=== PATIENT | male | born 1955 | race American Indian/Alaskan Native ===

== ENCOUNTER 2020-07-17 08:44 | Inpatient (IN) | payer MEDICARE ==
[2020-07-17] MEDS ORDERED: ETOMIDATE 20 MG/10 ML INJ IV ONE (08:53)
[2020-07-17] MEDS ORDERED: SUCCINYLCHOLINE CHLORIDE 200 MG/10 ML INJ MDV ONE (08:53)
[2020-07-17] MEDS ORDERED: SUCCINYLCHOLINE CHLORIDE 200 MG/10 ML INJ MDV IV ONE (09:08)
--- NOTE | 2020-07-17 09:08 | Emergency Department Report ---
ED Shortness of Breath HPI - General Chief Complaint: Dyspnea/Respdistress Stated Complaint: UNRESPONSIVE/HIGH BP Time Seen by Provider: 07/17/20 09:02 Source: EMS Mode of arrival: Stretcher Limitations: Altered Mental Status, Other - History of Present Illness Initial Comments: 64-year-old male, history of hypertension, chronic kidney disease, presents to ED with shortness of breath. Per EMS they were called because patient had complaints of difficulty breathing. On arrival, patient had O2 sats in the 60s. Patient was awake and alert stating that he could not breathe. EMS reported patient was very diaphoretic, hypertensive. Patient was not very tachypneic, although he did have wheezing present. En route, patient became unresponsive. Upon ED arrival patient is currently unresponsive with medic assisted ventilations with bagging. Decision made to intubate the patient. EMS reports patient has a history of chronic kidney disease but was told on yesterday by his branch customer service representative that he needs to start dialysis. MD Complaint: shortness of breath -: unknown Consistency: constant Known History Of: other (ESRD) Treatments Prior to Arrival: oxygen - Related Data Previous Rx's Medication Instructions Recorded Last Taken Type HYDROcodone/APAP 10-325 [[place] 1 each PO Q6HR PRN #30 tablet 06/15/13 Unknown Rx 10-325 mg TAB] Probenecid/Colchicine 1 each PO DAILY #20 tablet 06/15/13 Unknown Rx [Probenecid-Colchicine Tab] cloNIDine [Catapres] 0.2 mg PO Q12H #60 tablet 06/15/13 Unknown Rx Cyclobenzaprine [Flexeril] 10 mg PO TID PRN #20 tablet 02/02/16 Unknown Rx Ketorolac [Toradol] 10 mg PO Q6H PRN #30 tablet 02/02/16 Unknown Rx Allergies Allergy/AdvReac Type Severity Reaction Status Date / Time methadone Allergy Unknown Verified 07/17/20 09:00 tramadol Allergy Swelling Verified 07/17/20 09:00 ED Review of Systems ROS: Stated complaint: UNRESPONSIVE/HIGH BP Other details as noted in HPI Comment: Unobtainable due to pts medical conditions Respiratory: shortness of breath ED Past Medical Hx - Past Medical History Hx Hypertension: Yes Hx Congestive Heart Failure: Yes Additional medical history: Renal Failure. Gout - Surgical History Additional Surgical History: Rt. Wrist Surgery - Social History Smoking Status: Former Smoker Substance Use Type: Alcohol, Prescribed, Other - Medications Home Medications: Home Medications Medication Instructions Recorded Confirmed Last Taken Type HYDROcodone/APAP 10-325 [[place] 1 each PO Q6HR PRN #30 tablet 06/15/13 Unknown Rx 10-325 mg TAB] Probenecid/Colchicine 1 each PO DAILY #20 tablet 06/15/13 Unknown Rx [Probenecid-Colchicine Tab] cloNIDine [Catapres] 0.2 mg PO Q12H #60 tablet 06/15/13 Unknown Rx Cyclobenzaprine [Flexeril] 10 mg PO TID PRN #20 tablet 02/02/16 Unknown Rx Ketorolac [Toradol] 10 mg PO Q6H PRN #30 tablet 02/02/16 Unknown Rx ED Physical Exam - General Limitations: Other General appearance: obtunded - Head Head exam: Present: atraumatic, normocephalic - Eye Eye exam: Present: normal appearance - ENT ENT exam: Present: mucous membranes moist - Neck Neck exam: Present: normal inspection - Respiratory Respiratory exam: Present: wheezes - Cardiovascular Cardiovascular Exam: Present: regular rate, normal rhythm - GI/Abdominal GI/Abdominal exam: Present: soft. Absent: distended - Extremities Exam Extremities exam: Present: normal inspection - Neurological Exam Neurological exam: Present: altered - Skin Skin exam: Present: warm, dry, intact, normal color ED Course Vital Signs 07/17/20 07/17/20 07/17/20 08:54 09:00 09:16 Temperature 98.4 F Pulse Rate 74 113 H Respiratory 25 H Rate Blood Pressure 144/89 159/118 O2 Sat by Pulse 95 96 93 Oximetry 07/17/20 07/17/20 07/17/20 09:17 09:30 09:45 Temperature Pulse Rate 80 76 Respiratory 20 19 Rate Blood Pressure 161/123 96/63 O2 Sat by Pulse 95 99 99 Oximetry 07/17/20 07/17/20 07/17/20 10:01 10:15 10:31 Temperature Pulse Rate 77 74 73 Respiratory 19 14 18 Rate Blood Pressure 102/68 110/71 105/69 O2 Sat by Pulse 100 99 90 Oximetry 07/17/20 07/17/20 07/17/20 10:57 11:01 11:31 Temperature Pulse Rate 59 L 60 55 L Respiratory 16 18 18 Rate Blood Pressure 105/69 95/62 89/58 O2 Sat by Pulse 100 99 96 Oximetry 07/17/20 07/17/20 07/17/20 11:45 12:01 12:15 Temperature Pulse Rate 55 L 52 L 53 L Respiratory 18 18 18 Rate Blood Pressure 95/62 99/65 98/64 O2 Sat by Pulse 97 99 98 Oximetry 07/17/20 07/17/20 07/17/20 12:31 12:45 13:01 Temperature Pulse Rate 55 L 53 L 54 L Respiratory 18 18 18 Rate Blood Pressure 104/66 104/66 128/80 O2 Sat by Pulse 100 100 100 Oximetry 07/17/20 13:15 Temperature Pulse Rate 54 L Respiratory 18 Rate Blood Pressure 139/84 O2 Sat by Pulse Oximetry - Reevaluation(s) Reevaluation #1: 07/17/20 09:36 Pt not well sedated w/ max propofol. Will switch to fentanyl/ versed. 07/17/20 09:36 Reevaluation #2: 07/17/20 09:52 ET Tube advanced 2 cm after viewing CXR - Consultations Consultation #1: 07/17/20 12:18 Spoke to branch customer service representative, Dr. Gregg, will consult on patient. - Intubation Time Out Performed: Yes Sedative: none Paralytic: Succinylcholine Mg Given: 150 Laryngoscope: fiberoptic video scope Size: 4 ET Tube Size: 8 Tube Secured Depth (cm): 24 Tube Secured Location: teeth Tube Placement Confirmation: visualized tube passing t, equal breath sounds bilat, no breath sounds over epi, confirmation by capnometr Patient Tolerated Procedure: well Intubation Complications: none ED Medical Decision Making - Lab Data Result diagrams: 07/17/20 09:31 07/17/20 09:31 - EKG Data -: EKG Interpreted by Hi EKG shows normal: axis Rate: tachycardia (rate 102) - EKG Data Interpretation: other (PVCs present, RBBB, IVCD) - Radiology Data Radiology results: report reviewed, image reviewed - Medical Decision Making 64-year-old male, diagnosed yesterday with end-stage renal disease, presents to ED unresponsive, with difficulty breathing. EMS reports initial O2 sats were in the 70s upon their arrival. They arrived to ED bagging the patient. Decision was made to intubate. CT chest shows groundglass opacities, concerning for infectious process. Small bilateral pleural effusions also present. There is also evidence of a thoracic aortic aneurysm. Patient required sedation following intubation. Propofol was not adequate, so patient was switched to fentanyl and Versed. Blood pressure was initially hypertensive. Sedation medications have affected his blood pressure, causing some hypotension, however that seemed to resolve for now. Labs show WBCs of 11.6, BUN and creatinine of 55 and 5.5, potassium of 5.0. Troponin 0.03 with BNP of 14,000. Covid PCR test has been sent off. Blood cultures drawn, patient given cefepime empirically. Patient will be admitted by hospitalist, Dr. Bartholomew, for further management. Critical Care Time: Yes Critical care time in (mins) excluding proc time.: 35 Critical care attestation.: If time is entered above; I have spent that time in minutes in the direct care of this critically ill patient, excluding procedure time. Critical Care Time: 35 min ED Disposition Clinical Impression: Chronic kidney disease, Acute respiratory failure with hypoxia, Pneumonia, Pleural effusion, Volume overload Disposition: 09 OP ADMIT IP TO THIS HOSP Is pt being admited?: Yes Condition: Stable Time of Disposition: 12:02
[2020-07-17] MEDS ORDERED: fentaNYL 100 MCG/2 ML INJ IV PRN (09:34)
[2020-07-17] MEDS ORDERED: MIDAZOLAM 2 MG/2 ML INJ IV PRN (09:34)
--- NOTE | 2020-07-17 09:42 | XRay Report ---
CHEST 1 VIEW INDICATION: SOB, post-intubation. COMPARISON: None FINDINGS: Support devices: An endotracheal tube has been inserted which terminates 5.7 cm superior to the pee a. Heart: Mild cardiomegaly is suspected. Lungs/Pleura: Mild pulmonary venous congestion is suspected. Subtle patchy airspace opacities are als o suggested. No consolidation, large pleural effusion or pneumothorax. Additional findings: None. IMPRESSION: The endotracheal tube terminates 5.7 cm superior to the duy. Optimal is 4 cm. Mild cardiomegaly and pulmonary venous congestion. Question subtle bilateral airspace opacities. This could indicate viral infection. Please correlate w ith the patient's presentation. Signer Name: Josh Condon Jr, MD Signed: 07/17/2020 9:37 AM Workstation Name: [id number]
[2020-07-17 09:54] LABS: Basophils % (Auto) 0.4 % (0.0-1.8); Eosinophils # (Auto) 0.1 K/mm3 (0.0-0.4); Eosinophils % (Auto) 0.8 % (0.0-4.3); Hematocrit 35.4 % (35.5-45.6); Hemoglobin 11.2 gm/dl (11.8-15.2); Lymphocytes # (Auto) 0.8 K/mm3 (1.2-5.4); Mean Corpuscular HGB Conc 32 % (32-34); Mean Corpuscular Volume 93 fl (84-94); Monocytes # (Auto) 0.6 K/mm3 (0.0-0.8); Monocytes % (Auto) 4.8 % (0.0-7.3); Platelet Count 260 K/mm3 (140-440); Red Blood Count 3.83 M/mm3 (3.65-5.03); Red Cell Distribution Width 13.9 % (13.2-15.2)
[2020-07-17] MEDS ORDERED: propofoL 200 MG/20 ML VIAL IV ONE ×2 (10:00→10:45)
[2020-07-17 10:01] LABS: ABG Base Excess -5.9 mmol/L (-2.0-3.0); ABG Methemoglobin 0.5 % (0.0-1.5); ABG Oxygen Saturation 97.2 % (95.0-99.0); ABG PCO2 54.6 mm Hg; ABG PH 7.223 pH Units (7.350-7.450); ABG PO2 108.9 mm Hg (80.0-90.0)
[2020-07-17 10:07] LABS: INR 1.13 (0.87-1.13); Partial Thromboplastin Time 25.3 Sec. (24.2-36.6)
[2020-07-17] MEDS: fentaNYL DRIP Premix 2,000 MCG/100 ML BAG IV SCH ×2 (10:18→17:41)
[2020-07-17 10:23] LABS: Bilirubin,Direct 0.3 mg/dL (0-0.2); Calcium 9.1 mg/dL (8.4-10.2)
[2020-07-17] MEDS ORDERED: SODIUM CHLORIDE 0.9% 1000 ML 1,000 ML ONE (10:27)
[2020-07-17] MEDS ORDERED: SODIUM CHLORIDE 0.9% 1000 ML 1,000 ML IV ONE (10:30)
[2020-07-17] MEDS ORDERED: MIDAZOLAM 100 MG in SODIUM CHLORIDE 0.9% 80 ML IV SCH (10:30)
[2020-07-17 11:07] LABS: Chol/HDL Ratio 4.93 %
--- NOTE | 2020-07-17 11:11 | Cat Scan Report ---
CT HEAD WITHOUT CONTRAST INDICATION / CLINICAL INFORMATION: AMS. TECHNIQUE: All CT scans at this location are performed using CT dose reduction for ALARA by means of automated e xposure control. COMPARISON: None available. FINDINGS: HEMORRHAGE: None. EXTRA-AXIAL SPACES: Normal in size and morphology for the patient's age. VENTRICULAR SYSTEM: Normal in size and morphology for the patient's age. CEREBRAL PARENCHYMA: Chronic appearing microvascular changes in the periventricular subcortical white matter, right minimally worse than left. No large territory acute ischemic infarction. Age-related p arenchymal atrophy is noted. MIDLINE SHIFT OR HERNIATION: None. CEREBELLUM / BRAINSTEM: No significant abnormality. ORBITS: Normal as visualized. SOFT TISSUES of HEAD: No significant abnormality. CALVARIUM: No significant abnormality. PARANASAL SINUSES / MASTOID AIR CELLS: Normal as visualized. ADDITIONAL FINDINGS: None. IMPRESSION: 1. No acute intracranial abnormality. Specifically, no evidence of intracranial hemorrhage or large t erritory acute ischemic changes. 2. Age-related parenchymal atrophy and chronic microvascular changes as described above. Signer Name: Sky Sommer MD Signed: 07/17/2020 11:07 AM Workstation Name: [id number]
--- NOTE | 2020-07-17 11:26 | Cat Scan Report ---
CT CHEST WITHOUT CONTRAST INDICATION / CLINICAL INFORMATION: sob. TECHNIQUE: Axial CT images were obtained through the chest without contrast. All CT scans at this location are p erformed using CT dose reduction for ALARA by means of automated exposure control. COMPARISON: Chest radio graph 07/17/2020. FINDINGS: HEART: Coronary artery calcifications are noted. THORACIC AORTA: Aneurysmal dilatation of the ascending thoracic aorta, greatest cross-sectional measu rement 5.1 cm. Additionally there is aneurysmal dilatation of the descending thoracic aorta measuring 4.4 cm. Moderate calcified plaques are noted. MEDIASTINUM and SANTI: Shotty scattered lymph nodes are noted. None of which are enlarged according to CT size criteria. LUNGS: Groundglass opacities are noted in the bibasilar region. Additionally there is compressive ate lectasis of the bilateral lower lobes. PLEURA: Small bilateral pleural effusions. No pneumothorax. ADDITIONAL FINDINGS: NG tube is noted with its tip in the gastric body. ET tube is noted with its tip approximately 4.3 cm above the level of the duy. UPPER ABDOMEN: Complex appearing possibly solid left upper pole renal mass measures 4.7 cm. Multiple simple cysts are noted of the right kidney. Hyperdense cyst noted of the left parenchyma measures 1 c m. SKELETAL SYSTEM: Mild multilevel degenerative changes. No aggressive osseous lesions. IMPRESSION: 1. Groundglass opacities in the bibasilar region concerning for infectious process. 2. Small bilateral pleural effusions (likely parapneumonic) and associated compressive atelectasis. 3. Thoracic aortic aneurysm involving the ascending and descending thoracic aorta as described above. CTA for better characterization is recommended. 4. 4.7 cm left upper pole solid renal lesion, concerning for malignancy. Dedicated multiphase CT (josue al mass protocol) is recommended for better evaluation. Signer Name: Sky Sommer MD Signed: 07/17/2020 11:21 AM Workstation Name: [id number]
[2020-07-17] MEDS ORDERED: CEFEPIME/NS 2 GM/100 ML 2 GM/100 ML BAG IV ONE (11:30)
[2020-07-17 12:20] LABS: Benzodiazepines Screen,Urine Negative; Cannabinoid Screen,Urine Negative; Cocaine Screen,Urine Negative; Methadone Screen,Urine Negative; Opiate Screen,Urine Negative
--- NOTE | 2020-07-17 12:21 | History and Physical Report ---
History of Present Illness History of present illness: 64 YO Male with HTN, ESRD, Gout, CHF presents to ED for evaluation. Patient is intubated and on ventilatory support at the time my evaluation and is unable to provide history. Patient history taken from EMS staff, ED staff, as well as the patient's Mrs Santa Dodge who was made available by telephone for interview. As per patient's the patient has experienced progressive weak ness over the past 2 months with worsening symptoms over the last 1 week. Patient was found to have orthopnea, paroxysmal nocturnal dyspnea, decreased exercise tolerance, dyspnea on exertion, as well as dyspnea at rest. Patient reports leaving patient at home while she went to work today. She was subsequently notified by the patient's brother who notified EMS due to patient reporting shortness of breath. EMS was notified and upon arrival the patient was found to be in distress with a pulse oximetry of 60% on room air. The patient was placed on supplemental oxygen and transported to [facility] for further care and evaluation of the aforementioned symptoms. The patient was seen and evaluated in the emergency department. All lab and imaging studies reviewed. Patient found to be unable to protect his airway and was subsequently intubated and placed on ventilatory support. Patient also found to have end-stage renal disease in need of urgent dialysis, CHF decompensation. Patient admitted to ICU. Critical care team consulted in ED. Nephrology team consulted in ED. Advanced care planning conducted in ED. No prior admission for review. All medication listed at time of admission has been reconciled. Past History Past Medical History: ESRD, heart failure, hypertension, other (See HPI) Past Surgical History: Other (Wrist surgery) Social history: , lives with family. denies: smoking, alcohol abuse, prescription drug abuse Family history: diabetes, hypertension Medications and Allergies Allergies Allergy/AdvReac Type Severity Reaction Status Date / Time methadone Allergy Unknown Verified 07/17/20 09:00 tramadol Allergy Swelling Verified 07/17/20 09:00 Home Medications Medication Instructions Recorded Confirmed Last Taken Type HYDROcodone/APAP 10-325 [[place] 1 each PO Q6HR PRN #30 tablet 06/15/13 Unknown Rx 10-325 mg TAB] Probenecid/Colchicine 1 each PO DAILY #20 tablet 06/15/13 Unknown Rx [Probenecid-Colchicine Tab] cloNIDine [Catapres] 0.2 mg PO Q12H #60 tablet 06/15/13 Unknown Rx Cyclobenzaprine [Flexeril] 10 mg PO TID PRN #20 tablet 02/02/16 Unknown Rx Ketorolac [Toradol] 10 mg PO Q6H PRN #30 tablet 02/02/16 Unknown Rx Active Meds: Active Medications Fentanyl (Fentanyl 100 Mcg/2 Ml Inj) 50 mcg IV Q10MIN PRN PRN Reason: ANALGESIA Propofol (Diprivan 10 Mg/Ml) 1,000 mg in 100 mls @ 2.808 mls/hr IV TITR ALIX; Protocol Last Titration: 07/17/20 11:00 Dose: 0 mcg/kg/min, 0 mls/hr Documented by: Fentanyl Citrate (Fentanyl Drip Premix) 2,000 mcg in 100 mls @ 4.68 mls/hr IV TITR ALIX; Protocol Last Admin: 07/17/20 10:18 Dose: 1 mcg/kg/hr, 4.68 mls/hr Documented by: Midazolam HCl 100 mg/ Sodium (Chloride) 100 mls @ 2 mls/hr IV TITR ALIX; Protocol Last Admin: 07/17/20 10:18 Dose: 2 mg/hr, 2 mls/hr Documented by: Midazolam HCl (Midazolam 2 Mg/2 Ml Inj) 2 mg IV Q10MIN PRN PRN Reason: Sedation Review of Systems ROS unobtainable: due to endotracheal tube, due to mental status Exam - Constitutional Vitals: Temp Pulse Resp BP Pulse Ox 98.4 F 55 L 18 89/58 96 07/17/20 09:00 07/17/20 11:31 07/17/20 11:31 07/17/20 11:31 07/17/20 11:31 General appearance: Present: mild distress - EENT Eyes: Present: miosis ENT: hearing intact, clear oral mucosa - Neck Neck: Present: supple, normal ROM - Respiratory Respiratory effort: labored Respiratory: bilateral: diminished, rhonchi - Cardiovascular Heart Sounds: Present: S1 & S2. Absent: rub, click - Extremities Extremities: pulses symmetrical, No edema Peripheral Pulses: within normal limits - Abdominal General gastrointestinal: Present: soft, non-tender, non-distended, normal bowel sounds Male genitourinary: Present: normal - Integumentary Integumentary: Present: clear, dry - Musculoskeletal Musculoskeletal: generalized weakness - Psychiatric Psychiatric: no appropriate mood/affect, no intact judgment & insight, no memory intact - Neurologic Neurologic: CNII-XII intact, no focal deficits, moves all extremities, no gait normal HEART Score - HEART Score Troponin: Troponin T 0.030 ng/mL (0.00-0.029) H 07/17/20 09:31 Results - Labs CBC & Chem 7: 07/17/20 09:31 07/17/20 13:11 Labs: Abnormal lab results 07/17/20 07/17/20 07/17/20 Range/Units 09:31 09:31 09:31 WBC 11.6 H (4.5-11.0) K/mm3 Hgb 11.2 L (11.8-15.2) gm/dl Hct 35.4 L (35.5-45.6) % Lymph % (Auto) 7.0 L (13.4-35.0) % Lymph # (Auto) 0.8 L (1.2-5.4) K/mm3 Seg Neutrophils % 87.0 H (40.0-70.0) % Seg Neutrophils # 10.1 H (1.8-7.7) K/mm3 PT 15.0 H (12.2-14.9) Sec. ABG pH (7.350-7.450) pH Units ABG pO2 (80.0-90.0) mm Hg ABG Base Excess (-2.0-3.0) mmol/L ABG Hemoglobin (14.0-18.0) gm/dl BUN 55 H (9-20) mg/dL Creatinine 5.5 H (0.8-1.3) mg/dL Glucose 177 H (75-100) mg/dL Direct Bilirubin 0.3 H (0-0.2) mg/dL AST 99 H (5-40) units/L ALT 82 H (7-56) units/L Troponin T 0.030 H (0.00-0.029) ng/mL NT-Pro-B Natriuret Pep 28767 H (0-900) pg/mL HDL Cholesterol 33 L (40-59) mg/dL 07/17/20 Range/Units Unknown WBC (4.5-11.0) K/mm3 Hgb (11.8-15.2) gm/dl Hct (35.5-45.6) % Lymph % (Auto) (13.4-35.0) % Lymph # (Auto) (1.2-5.4) K/mm3 Seg Neutrophils % (40.0-70.0) % Seg Neutrophils # (1.8-7.7) K/mm3 PT (12.2-14.9) Sec. ABG pH 7.223 L (7.350-7.450) pH Units ABG pO2 108.9 H (80.0-90.0) mm Hg ABG Base Excess -5.9 L (-2.0-3.0) mmol/L ABG Hemoglobin 11.4 L (14.0-18.0) gm/dl BUN (9-20) mg/dL Creatinine (0.8-1.3) mg/dL Glucose (75-100) mg/dL Direct Bilirubin (0-0.2) mg/dL AST (5-40) units/L ALT (7-56) units/L Troponin T (0.00-0.029) ng/mL NT-Pro-B Natriuret Pep (0-900) pg/mL HDL Cholesterol (40-59) mg/dL Assessment and Plan - Patient Problems (1) Acute hypoxemic respiratory failure Current Visit: Yes Status: Acute Plan to address problem: Patient intubated and placed on ventilatory support. Wean vent as tolerated, daily spontaneous breathing trial, sedation holiday, The high probability of a clinically significant, sudden or life threatening deterioration of the [cardiac, pulmonary, renal, neuro] system(s) required my full and direct attention, intervention and personal management. The aggregate critical care time was [90] minutes. This time is in addition to time spent performing reported procedures but includes the following: [x] Data Review and interpretation [x] Patient assessment and monitoring of vital signs [x] Documentation [x] Medication orders and management (2) CHF (congestive heart failure) Current Visit: Yes Status: Acute Qualifiers: Heart failure type: systolic Heart failure chronicity: acute Qualified Code(s): I50.21 - Acute systolic (congestive) heart failure Plan to address problem: Strict I/O, monitor urine output every shift, afterload reduction, blood pressure control, echocardiogram ordered and is pending at time of admission, cardiology team consulted. (3) End stage renal disease Current Visit: Yes Status: Acute Plan to address problem: Nephrology team consulted in ED, dialysis as per renal team, supportive care. (4) Hypertension Current Visit: Yes Status: Acute Qualifiers: Hypertension type: essential hypertension Qualified Code(s): I10 - Essential (primary) hypertension Plan to address problem: Monitor blood pressure every shift, continue medical management (5) DVT prophylaxis Current Visit: Yes Status: Acute Plan to address problem: SCD to bilateral lower extremities while in bed, prophylactic anticoagulation (6) Advance care planning Current Visit: Yes Status: Acute Plan to address problem: Disease education done, care plan discussed, prognosis discussed, patient acknowledges understanding and agreement with care plan, patient is full code, +30 minutes. Patient care plan discussed with Santa Dodge. Telephone number .
[2020-07-17] MEDS ORDERED: ACETAMINOPHEN 650 MG RECT SUPP PR PRN (12:29)
[2020-07-17] MEDS ORDERED: ALBUTEROL 2.5 MG/3 ML NEBU IH PRN (12:29)
[2020-07-17] MEDS ORDERED: SODIUM CHLORIDE 0.9% 1000 ML IV SOLN IV ONE (12:29)
[2020-07-17] MEDS ORDERED: ACETAMINOPHEN 325 MG TAB PO PRN (12:29)
[2020-07-17 12:47] LABS: Amphetamine Screen,Urine Negative
--- NOTE | 2020-07-17 13:26 | Consultation ---
History of Present Illness Consult date: 07/17/20 Requesting physician: KATIA LANDAVERDE Reason for consult: other (Acute Hypoxemic Respiratory Failure on MVS) History of present illness: PULMONARY/CCM CONSULT NOTE (Full dictation # [id number]) Please see dictated notes for full details Medications and Allergies Allergies Allergy/AdvReac Type Severity Reaction Status Date / Time methadone Allergy Unknown Verified 07/17/20 09:00 tramadol Allergy Swelling Verified 07/17/20 09:00 Home Medications Medication Instructions Recorded Confirmed Last Taken Type HYDROcodone/APAP 10-325 [[place] 1 each PO Q6HR PRN #30 tablet 06/15/13 Unknown Rx 10-325 mg TAB] Probenecid/Colchicine 1 each PO DAILY #20 tablet 06/15/13 Unknown Rx [Probenecid-Colchicine Tab] cloNIDine [Catapres] 0.2 mg PO Q12H #60 tablet 06/15/13 Unknown Rx Cyclobenzaprine [Flexeril] 10 mg PO TID PRN #20 tablet 02/02/16 Unknown Rx Ketorolac [Toradol] 10 mg PO Q6H PRN #30 tablet 02/02/16 Unknown Rx Active Meds: Active Medications Acetaminophen (Acetaminophen 650 Mg Rect Supp) 650 mg PA Q6H PRN PRN Reason: Pain MILD(1-3)/Fever >100.5/ALBERTS Albuterol (Albuterol 2.5 Mg/3 Ml Nebu) 2.5 mg IH Q3HRT PRN PRN Reason: Shortness Of Breath Fentanyl (Fentanyl 100 Mcg/2 Ml Inj) 50 mcg IV Q10MIN PRN PRN Reason: ANALGESIA Heparin Sodium (Porcine) (Heparin 5,000 Unit/1 Ml Vial) 5,000 unit SUB-Q Q12HR ALIX Hydromorphone HCl (Hydromorphone 1 Mg/1 Ml Inj) 0.25 mg IV Q4H PRN PRN Reason: Pain, Moderate (4-6) Propofol (Diprivan 10 Mg/Ml) 1,000 mg in 100 mls @ 2.808 mls/hr IV TITR ALIX; Protocol Last Titration: 07/17/20 11:00 Dose: 0 mcg/kg/min, 0 mls/hr Documented by: Fentanyl Citrate (Fentanyl Drip Premix) 2,000 mcg in 100 mls @ 4.68 mls/hr IV TITR ALIX; Protocol Last Titration: 07/17/20 13:00 Dose: 3 mcg/kg/hr, 14.04 mls/hr Documented by: Midazolam HCl 100 mg/ Sodium (Chloride) 100 mls @ 2 mls/hr IV TITR ALIX; Francisca col Last Admin: 07/17/20 10:18 Dose: 2 mg/hr, 2 mls/hr Documented by: Ceftriaxone Sodium (Rocephin/Ns 2 Gm/100 Ml) 2 gm in 100 mls @ 200 mls/hr IV Q24H ALIX; Protocol Azithromycin (Zithromax/Ns) 500 mg in 250 mls @ 250 mls/hr IV Q24H ALIX; Protocol Midazolam HCl (Midazolam 2 Mg/2 Ml Inj) 2 mg IV Q10MIN PRN PRN Reason: Sedation Miscellaneous Medication (Probenecid/Colchicine [Probenecid-Colchicine Tab]) 1 each PO DAILY ALIX Sodium Chloride (Sodium Chloride 0.9% 10 Ml Flush Syringe) 10 ml IV BID ALIX Sodium Chloride (Sodium Chloride 0.9% 10 Ml Flush Syringe) 10 ml IV PRN PRN PRN Reason: LINE FLUSH Physical Examination Vital signs: Vital Signs Pulse Ox 95 07/17/20 08:54 Results - Laboratory Findings CBC and BMP: 07/17/20 09:31 07/17/20 09:31 ABG ABG pH 7.223 pH Units (7.350-7.450) L 07/17/20 Unknown ABG pCO2 54.6 mm Hg 07/17/20 Unknown ABG pO2 108.9 mm Hg (80.0-90.0) H 07/17/20 Unknown ABG O2 Saturation 97.2 % (95.0-99.0) 07/17/20 Unknown PT/INR, D-dimer PT 15.0 Sec. (12.2-14.9) H 07/17/20 09:31 INR 1.13 (0.87-1.13) 07/17/20 09:31 Abnormal lab findings: Abnormal Labs 07/17/20 07/17/20 07/17/20 09:31 09:31 09:31 WBC 11.6 H Hgb 11.2 L Hct 35.4 L Lymph % (Auto) 7.0 L Lymph # (Auto) 0.8 L Seg Neutrophils % 87.0 H Seg Neutrophils # 10.1 H PT 15.0 H ABG pH ABG pO2 ABG Base Excess ABG Hemoglobin BUN 55 H Creatinine 5.5 H Glucose 177 H Direct Bilirubin 0.3 H AST 99 H ALT 82 H Troponin T 0.030 H NT-Pro-B Natriuret Pep 99312 H HDL Cholesterol 33 L 07/17/20 Unknown WBC Hgb Hct Lymph % (Auto) Lymph # (Auto) Seg Neutrophils % Seg Neutrophils # PT ABG pH 7.223 L ABG pO2 108.9 H ABG Base Excess -5.9 L ABG Hemoglobin 11.4 L BUN Creatinine Glucose Direct Bilirubin AST ALT Troponin T NT-Pro-B Natriuret Pep HDL Cholesterol
[2020-07-17] MEDS ORDERED: MINERAL OIL/PETROLATUM, WHITE OPHTH OINT 3.5 GM OU PRN (13:56)
[2020-07-17] MEDS ORDERED: LIP THERAPY VASELINE TP PRN (13:56)
[2020-07-17] MEDS ORDERED: FAMOTIDINE 20 MG/2 ML INJ IV SCH (14:00)
[2020-07-17 15:10] LABS: C-Reactive Protein 0.6 mg/dL (0.00-1.30)
--- NOTE | 2020-07-17 15:20 | Consultation ---
History of Present Illness - Reason for Consult Consult date: 07/17/20 end stage renal disease - History of Present Illness The patient is a 64 YO male with history significant for HTN, Gout, CHF and CKD stage 5 who presented to [facility] ED 07/17 with progressive shortness of breath. Patient was intubated and on ventilatory support at the time my evaluation and unable to provide history. History was taken from prior notes. Patient has experienced progressive weakness over the past 2 months with worsening symptoms. Patient was found to have orthopnea, paroxysmal nocturnal dyspnea, decreased exercise tolerance, dyspnea on exertion, as well as dyspnea at rest. EMS was called due to patient reporting worsening shortness of breath. In the field patient was found to be in distress with a pulse oximetry of 60% on room air. The patient was placed on supplemental oxygen and transported to [facility] ED. In the ED patient was found unable to protect his airway and was subsequently intubated and placed on ventilatory support. Labs reviewed and imaging reviewed. Nephrology was consulted for possible emergent dialysis. Past History Past Medical History: heart failure, hypertension, renal failure, other (See HPI) Past Surgical History: Other (Wrist surgery) Social history: , lives with family. denies: smoking, alcohol abuse, prescription drug abuse Family history: diabetes, hypertension Medications and Allergies Allergies Allergy/AdvReac Type Severity Reaction Status Date / Time methadone Allergy Unknown Verified 07/17/20 09:00 tramadol Allergy Swelling Verified 07/17/20 09:00 Home Medications Medication Instructions Recorded Confirmed Last Taken Type HYDROcodone/APAP 10-325 [[place] 1 each PO Q6HR PRN #30 tablet 06/15/13 Unknown Rx 10-325 mg TAB] Probenecid/Colchicine 1 each PO DAILY #20 tablet 06/15/13 Unknown Rx [Probenecid-Colchicine Tab] cloNIDine [Catapres] 0.2 mg PO Q12H #60 tablet 06/15/13 Unknown Rx Cyclobenzaprine [Flexeril] 10 mg PO TID PRN #20 tablet 02/02/16 Unknown Rx Ketorolac [Toradol] 10 mg PO Q6H PRN #30 tablet 02/02/16 Unknown Rx Active Meds: Active Medications Acetaminophen (Acetaminophen 650 Mg Rect Supp) 650 mg ME Q6H PRN PRN Reason: Pain MILD(1-3)/Fever >100.5/ALBERTS Albuterol (Albuterol 2.5 Mg/3 Ml Nebu) 2.5 mg IH Q3HRT PRN PRN Reason: Shortness Of Breath Lipase/Protease/Amylase (Lipase 10,500/Protease 25,000/Amylase 43,750 (Units) Dr Cap) 1 each FEEDTUBE PRN PRN PRN Reason: For Clogged Feeding Tube Famotidine (Famotidine 20 Mg/2 Ml Inj) 20 mg IV DAILY ALIX Fentanyl (Fentanyl 100 Mcg/2 Ml Inj) 50 mcg IV Q10MIN PRN PRN Reason: ANALGESIA Heparin Sodium (Porcine) (Heparin 5,000 Unit/1 Ml Vial) 5,000 unit SUB-Q Q12HR ALIX Hydromorphone HCl (Hydromorphone 1 Mg/1 Ml Inj) 0.25 mg IV Q4H PRN PRN Reason: Pain, Moderate (4-6) Hydrophilic Ointment (Lip Therapy Vaseline) 1 applic TP Q2HR PRN PRN Reason: Dry Lips Propofol (Diprivan 10 Mg/Ml) 1,000 mg in 100 mls @ 2.808 mls/hr IV TITR ALIX; Protocol Last Titration: 07/17/20 11:00 Dose: 0 mcg/kg/min, 0 mls/hr Documented by: Fentanyl Citrate (Fentanyl Drip Premix) 2,000 mcg in 100 mls @ 4.68 mls/hr IV TITR ALIX; Protocol Last Titration: 07/17/20 13:00 Dose: 3 mcg/kg/hr, 14.04 mls/hr Documented by: Midazolam HCl 100 mg/ Sodium (Chloride) 100 mls @ 2 mls/hr IV TITR ALIX; Protocol Last Admin: 07/17/20 10:18 Dose: 2 mg/hr, 2 mls/hr Documented by: Ceftriaxone Sodium (Rocephin/Ns 2 Gm/100 Ml) 2 gm in 100 mls @ 200 mls/hr IV Q24H ALIX; Protocol Azithromycin (Zithromax/Ns) 500 mg in 250 mls @ 250 mls/hr IV Q24H ALIX; Protocol Sodium Chloride (Nacl 0.9%) 100 mls @ 999 mls/hr IV ANDRÉS PRN PRN Reason: Hypotension Midazolam HCl (Midazolam 2 Mg/2 Ml Inj) 2 mg IV Q10MIN PRN PRN Reason: Sedation Miscellaneous Medication (Probenecid/Colchicine [Probenecid-Colchicine Tab]) 1 each PO DAILY ALIX Multi-Ingred Cream/Lotion/Oil/Oint (Mineral Oil/Petrolatum, White Ophth Oint 3.5 Gm) 1 applic OU Q4HR PRN PRN Reason: Dry Eye(s) Senna/Docusate Sodium (Sennosides/Docusate Sodium 8.6/50 Mg Tab) 1 tab FEEDTUBE BID ALIX Simple Syrup (Simple Syrup 15 Ml) 15 ml FEEDTUBE PRN PRN PRN Reason: Hypoglycemia Simple Syrup (Simple Syrup 15 Ml) 30 ml FEEDTUBE PRN PRN PRN Reason: Hypoglycemia Sodium Bicarbonate (Sodium Bicarbonate 325 Mg Tab) 325 mg FEEDTUBE PRN PRN PRN Reason: For Clogged Feeding Tube Sodium Chloride (Sodium Chloride 0.9% 10 Ml Flush Syringe) 10 ml IV BID ALIX Sodium Chloride (Sodium Chloride 0.9% 10 Ml Flush Syringe) 10 ml IV PRN PRN PRN Reason: LINE FLUSH Review of Systems ROS unobtainable: due to mental status Exam - Vital Signs Vital signs: Vital Signs Pulse Ox 95 07/17/20 08:54 Results - Lab Results 07/17/20 09:31 07/17/20 13:11 Most recent lab results ABG pH 7.223 pH Units (7.350-7.450) L 07/17/20 Unknown ABG pCO2 54.6 mm Hg 07/17/20 Unknown ABG pO2 108.9 mm Hg (80.0-90.0) H 07/17/20 Unknown ABG HCO3 22.0 mmol/L (20.0-26.0) 07/17/20 Unknown ABG O2 Saturation 97.2 % (95.0-99.0) 07/17/20 Unknown Calcium 9.1 mg/dL (8.4-10.2) 07/17/20 09:31 Assessment and Plan 1. ESRD: Patient with advanced CKD, now has progressed to ESRD. Patient require hemodialysis due to advanced CKD and volume overload. Initially I was not able to reach his , later she answered my phone call. I d/w patient's . Meds dosage based on GFR. Hemodialysis: 07/17. 2. FEN: Volume overload, UF with HD as tolerated. Monitor lytes and volume status. 3. Acute hypoxic resp failure, POA: 2/2 volume overload vs PNA. Covid test negative. Currently intubated, on vent. Followed by Pulmonary Monitor. 4. DM type 2. 5. Hypertension: Monitor BP. 6. Normochromic anemia, POA: Likely 2/2 CKD / ESRD. Epogen as needed. 7. L kidney mass: Further testing depends on clinical course. Subjective: Patient was seen and examined at the bedside. Examination: General appearance: well-developed, well-nourished, appears stated age, intu bated, on vent HEENT: ATNC, AVI Neck: neck supple, trachea midline Respiratory: MV sounds heard Heart: regular, S1S2, no murmur Gastrointestinal: soft, normoactive bowel sounds, not tender Integumentary: warm, dry Neurologic: sedated Ext: no edema Hemodialysis access: L FA AVG
[2020-07-17 15:49] LABS: Hepatitis B Surface Antigen Non-Reactive (Negative); Hepatitis C Virus Antibody Non-Reactive (NonReactive)
[2020-07-17] MEDS ORDERED: SIMPLE SYRUP 15 ML FEEDTUBE PRN ×2 (16:00)
[2020-07-17] MEDS ORDERED: LIPASE 10,500/PROTEASE 25,000/AMYLASE 43,750 (UNITS) DR CAP FEEDTUBE PRN (16:00)
[2020-07-17] MEDS ORDERED: SODIUM CHLORIDE 0.9% 100 ML IV PRN (16:00)
[2020-07-17] MEDS ORDERED: SODIUM BICARBONATE 325 MG TAB FEEDTUBE PRN (16:00)
--- NOTE | 2020-07-17 16:59 | Event Note ---
Date: 07/17/20 I was able to talk to his . She agreed with me about initiating hemodialysis. Patient is followed by . D/w and he will takeover starting tomorrow.
[2020-07-17] MEDS: AZITHROMYCIN/NS 500 MG/250 ML 500 MG/250 ML BAG IV SCH (17:41)
[2020-07-17] MEDS: HEPARIN 5,000 UNIT/1 ML VIAL SUB-Q SCH (21:54)
[2020-07-17] MEDS: SENNOSIDES/DOCUSATE SODIUM 8.6/50 MG TAB FEEDTUBE SCH (21:55)
[2020-07-17] MEDS: cefTRIAXone/NS 2 GM/100 ML 2 GM/100 ML BAG IV SCH (22:06)
--- NOTE | 2020-07-18 00:50 | Consultation ---
DATE OF CONSULTATION: 07/17/2020 PULMONARY CRITICAL CARE CONSULTATION NOTE CONSULTING PHYSICIAN: __. REASON FOR CONSULTATION: Acute hypoxemic respiratory failure, on mechanical ventilatory support. CHIEF COMPLAINT AND HISTORY OF PRESENT ILLNESS: As follows, the patient is a 64-year-old male with past medical history significant amongst other things both for a diagnosis of hypertension, but also chronic kidney disease, came into the emergency room complaining of shortness of breath. According to the emergency medical services, they found him with O2 sats in the 60s in the field. He was alert and oriented, complaining of not being able to breathe. He became unresponsive en route to the emergency room. In the emergency room, the emergency medical physician, semi-emergently intubated him and put him on mechanical ventilatory support. A chest x-ray since showed bilateral pulmonary infiltrates. We are asked to assist with management. When I stopped by to see him, he was resting in bed pretty calm. He was on a Versed drip at 2 mg per hour and also on a fentanyl drip, but was able to respond appropriately two step commands, showed me two fingers in his left hand appropriately. Denied any pain at that time. He was also reported to have a positive drug screen for methamphetamines. Unfortunately, this is as much of the history of presentation as I can get. His COVID vaccination status is unknown. His exposures status is unknown. His tobacco use or abuse history is unknown. This really is as much of the history of presentation as I have. PAST MEDICAL HISTORY: Hypertension, chronic kidney disease and gout. PAST SURGICAL HISTORY: He has had right wrist surgery in the past. MEDICATIONS: He was on at the time I stopped by to see him, according to the medication administration record included the following: Tylenol 650 mg p.o. q. 6 hours p.r.n. mild pain or fevers. All p.o. meds via the feeding tube. Albuterol 2.5 mg nebulized q. 3 hours p.r.n. shortness of breath, Rocephin 2 grams IV daily, Zithromax 500 mg IV daily, Pepcid 20 mg IV daily, fentanyl drip was going at 1 mcg/kg per hour, heparin 5000 units subcutaneously q. 12 hours, Dilaudid 0.25 mg IV every 4 hours p.r.n. moderate pain, Versed was going at 2 mg per hour, propofol 5 mcg per kilogram per minute was not yet hanged in. ALLERGIES: METHADONE AND TRAMADOL. Nature of this allergy is unknown. DIET: Well built gentleman, acute weight loss or gain history is unknown. SOCIAL HISTORY: According to the records, he is a former smoker, unable to quantify. They also mentioned use of alcohol and illicit drugs. FAMILY HISTORY: Otherwise unknown. REVIEW OF SYSTEMS: Unobtainable mostly secondary to patient's medical and mental condition. Since he has been here, no gross hematochezia or melena, no gross hematuria, no hematemesis, no bloody tracheal secretions, no witnessed seizures. He denies chest pain. Complete 13 system review of systems was obtained as best as I could. Pertinent positives and/or negatives as in body of history above, otherwise noncontributory. PHYSICAL EXAMINATION: VITAL SIGNS: On presentation, afebrile, temperature 98.4 degrees Fahrenheit, pulse of 113, respiratory rate of 25, blood pressure 159/118. O2 sats were 95%. Inspired oxygen concentration at that time was not recorded. When I stopped by to see him his O2 sats were 99% that was on the assist control mode of ventilation, tidal volumes 500, the rate was set at 16, PEEP was 5 and FIO2 of 50%. GENERAL: Again, well-built, elderly male. Normocephalic, atraumatic on the mechanical ventilator without significant ventilator dyssynchrony. HEAD, EYES, EARS, NOSE AND THROAT: Anicteric. No conjunctival erythema. Oropharynx was moist. ET tube was in place, taped at the lips around 24 cm. Grossly, there were no palpable lymph nodes in the supraclavicular or submandibular lymph node chains. LUNGS: Auscultation of both lung ochoa, coarse breath sounds bilaterally. No active wheezing. HEART: Sounds 1 and 2 are heard at the time of my evaluation, regular rate and rhythm without overt rubs or murmurs. ABDOMEN: Soft, full, protuberant. Bowel sounds positive, nontender, no palpable hepatosplenomegaly. EXTREMITIES: Without overt digital clubbing, no cyanosis, no pedal edema. Pedal pulses are 2+ bilaterally. He had an AV graft of the left upper extremity that had a good thrill and appears to have healed in the left inner arm. NEUROLOGIC: Pupils are equal, round, about 2 mm, sluggishly reactive to light. Extraocular muscle movements were intact. He moves all 4 extremities spontaneously. SKIN: Normal turgor in the areas examined without overt cellulitis or rash. Please see the wound care nurses' notes for full description of his skin. PSYCHIATRIC: Mood and affect were flat. He was sedated. LABORATORY DATA: From my review are as follows: White count 11,600, hemoglobin 11.2, hematocrit 35.4, platelet count was 260. D-dimer was slightly elevated at 653. INR within normal limits. Initial ABG showed a pH of 7.22, pCO2 of 55, pO2 of 109 on 50% FIO2. Other settings are unclear. Serum sodium 139, potassium 5.0, chloride 103, bicarbonate 23, BUN 55, creatinine 5.5, glucose was 177. Ferritin was up at 356, AST up at 99, ALT up at 82. Troponin 0.03 elevated. BNP was elevated. Apparently, urine drug screen is negative. Laboratory data from my review, otherwise, no microbiology studies. He did have a chest x-ray that essentially showed gross cardiomegaly. The aorta appears to be uncoiled, perhaps small bilateral pleural effusions, increased interstitial markings bilaterally, certainly consistent with interstitial edema, but more like a patchy pneumonitis involving mostly the right upper lobe, right side. I cannot rule out other nodular lesions versus a confluence of shadows. Thankfully, a CT scan of the chest was done and it shows bilateral layering pleural effusions. It is a noncontrast CT scan. The aorta appears to be dilated. Lung windows, ground glass opacification, there may be some fluid in the major fissures, but it looks more like a consolidative process in the lower lobes bilaterally. Of course, there is motion artifact which interferes with the interpretation. The radiologist reports ground glass opacifications, small bilateral pleural effusions, thoracic aortic aneurysm involving the ascending and descending aorta and 4.7 cm left upper pole solid renal lesions concerning for malignancy, but I certainly did not see any solid large pulmonary nodules. No gross pneumothorax, no gross bony fracture. ASSESSMENT: 1. Acute hypoxemic respiratory failure, on mechanical ventilator support. 2. Bilateral pulmonary infiltrates, edema versus pneumonia. 3. Person under investigation for COVID-19 infection. 4. Acute on chronic kidney failure. 5. Anemia that is normocytic. 6. Non-ST elevation myocardial infarction/elevated serum troponin. 7. Elevated serum inflammatory markers to include ferritin and D-dimer. 8. Elevated serum transaminases. 9. Oropharyngeal dysphagia. 10. History of hypertension. 11. History of polysubstance abuse, but negative drug screen. PLAN: We will keep him on full mechanical ventilatory support. He is actually tolerating the ventilator well and certainly has an element of pulmonary edema. The question is whether this is just related to the renal failure, if there is a component of apparent pneumonia, parapneumonic infiltrate and effusion. Oxygen will be weaned to keep sats greater than or equal to about 92%. Airborne and contact isolation and COVID-19 protocols will be started empirically. However, I will wait for the results of the COVID test before deciding on further interventions like systemic steroids. I do agree with empiric community-acquired pneumonia therapy. I have spoken with the registered nurse teacher. They will see if they can assess the AV fistula if not Vas-Cath will be placed for semi-emergent dialysis. Electrolytes look pretty stable. He will benefit from coronary syndrome workup plus or minus cardiology evaluation. I will defer to the attending. For now, we will go with DVT doses of anticoagulation. Indeed a CT angiogram may be necessary, especially in light of the aortic aneurysms. I think I will discuss with vascular surgery consult with the admitting physician certainly need to workup the aortic aneurysms. Otherwise, again he is appropriately on GI and DVT prophylaxis. Enteral nutrition will be the feeding modality of choice. He is also on DVT prophylaxis. Flu and pneumonia vaccination will be addressed per protocol. I will be sending a Procalcitonin level and/or plus or minus a CRP level to help guide clinical decision making. I will also be sending a lactic acid level. Thank you very much for the consult, Dr. Bartholomew. We will follow along and make further recommendations as picture progresses/becomes clearer. He is critically ill on life-sustaining interventions including mechanical ventilatory support at high risk of from cardiopulmonary and renal system decompensation. At this time, I spent about 35-40 minutes of critical care time without overlap and excluding any procedural time that may be necessary. TID: [id number] RECEIPT: [id number] FROYLAN/RAHUL JARAMILLO
[2020-07-18] MEDS: fentaNYL DRIP Premix 2,000 MCG/100 ML BAG IV SCH (01:43)
[2020-07-18 05:55] LABS: Hematocrit 31.9 % (35.5-45.6); Hemoglobin 10.8 gm/dl (11.8-15.2); Mean Corpuscular HGB Conc 34 % (32-34); Mean Corpuscular Volume 93 fl (84-94); Platelet Count 215 K/mm3 (140-440); Red Blood Count 3.45 M/mm3 (3.65-5.03); Red Cell Distribution Width 13.9 % (13.2-15.2)
--- NOTE | 2020-07-18 05:55 | XRay Report ---
CHEST 1 VIEW INDICATION / CLINICAL INFORMATION: follow up respiratory failure. COMPARISON: 07/17/2020 FINDINGS: SUPPORT DEVICES: Stable, satisfactory device positioning. HEART / MEDIASTINUM: Cardiac silhouette remains mild to moderately enlarged but unchanged. LUNGS / PLEURA: There is worsening bibasilar parenchymal disease. Small bilateral pleural effusions m ay be slightly more prominent as well. Pulmonary vascular congestion is again noted. No pneumothorax. ADDITIONAL FINDINGS: No significant additional findings. IMPRESSION: 1. Slight interval worsening of bibasilar pulmonary opacities and small bilateral pleural effusions. Signer Name: Debbie Plunkett MD Signed: 07/18/2020 5:50 AM Workstation Name: [id number]
[2020-07-18 06:15] LABS: Albumin 3.8 g/dL (3.9-5); Calcium 8.9 mg/dL (8.4-10.2)
[2020-07-18 08:42] LABS: Platelet Estimate Consistent w Auto; RBC Morphology Normal; Total Cells Counted 100
--- NOTE | 2020-07-18 09:28 | Progress Note ---
Assessment and Plan 1. CKD 5, now ESKD: Patient follows with Dr. Stephens, was to start HD at [facility] but unfortunately decompensated prior to outpatient HD initiation. - s/p HD 07/17 for initial treatment; will plan to start HD // starting today for additional toxin/electrolyte management and fluid removal, start with decreased BFR to avoid dialysis disequilibrium - renally dose meds - avoid nephrotoxins - AVG working well per report - case management consult to assist with placement at [facility] for outpatient HD 2. HTN/Volume: UF removal as tolerated, BP reasonable 3. Acute hypoxic resp failure: UF as above, management of vent per ICU 4. DM type 2. 5. Normochromic anemia: likely due to CKD/ESKD, ESAs with HD prn 6. L kidney mass: management in outpatient setting 7. Secondary Hyperparathyroidism: defer vitamin D analog to outpatient setting, Ca at goal Subjective Date of service: 07/18/20 Interval history: Assuming care from Dr. Gregg, appreciate assistance. Remains intubated, FiO2 40% Objective - Exam Narrative Exam: General appearance: well-developed, appears stated age, intubated, on vent HEENT: ATNC Neck: neck supple Respiratory: mechanical breath sounds Heart: regular, S1S2, no murmur Gastrointestinal: soft, normoactive bowel sounds, not tender Integumentary: warm, dry Neurologic: sedated Ext: no edema Hemodialysis access: L FA AVG - Vital Signs Vital signs: Vital Signs - 12hr 07/17/20 07/17/20 07/17/20 21:30 22:00 22:30 Temperature Pulse Rate 58 L 58 L 58 L Pulse Rate [ From Monitor] Respiratory 18 18 18 Rate Blood Pressure 135/84 134/80 129/79 O2 Sat by Pulse 100 100 100 Oximetry 07/17/20 07/17/20 07/18/20 23:00 23:30 00:00 Temperature 98.6 F Pulse Rate 58 L 58 L 64 Pulse Rate [ 64 From Monitor] Respiratory 18 18 18 Rate Blood Pressure 135/80 132/79 141/77 O2 Sat by Pulse 100 100 100 Oximetry 07/18/20 07/18/20 07/18/20 00:19 00:30 01:00 Temperature Pulse Rate 60 59 L 61 Pulse Rate [ From Monitor] Respiratory 18 18 Rate Blood Pressure 128/74 130/75 135/75 O2 Sat by Pulse 100 100 100 Oximetry 07/18/20 07/18/20 07/18/20 01:30 02:00 02:30 Temperature Pulse Rate 61 59 L 59 L Pulse Rate [ From Monitor] Respiratory 18 18 18 Rate Blood Pressure 137/78 135/78 123/69 O2 Sat by Pulse 100 100 99 Oximetry 07/18/20 07/18/20 07/18/20 03:00 03:30 04:00 Temperature Pulse Rate 61 59 L 59 L Pulse Rate [ 59 L From Monitor] Respiratory 18 18 18 Rate Blood Pressure 131/69 128/68 137/71 O2 Sat by Pulse 97 98 99 Oximetry 07/18/20 07/18/20 07/18/20 04:06 04:30 05:00 Temperature Pulse Rate 63 60 60 Pulse Rate [ From Monitor] Respiratory 18 18 Rate Blood Pressure 137/71 126/72 135/72 O2 Sat by Pulse 100 99 98 Oximetry 07/18/20 07/18/20 07/18/20 05:30 06:01 06:30 Temperature Pulse Rate 62 59 L 62 Pulse Rate [ From Monitor] Respiratory 18 18 18 Rate Blood Pressure 126/70 142/73 126/69 O2 Sat by Pulse 98 99 92 Oximetry 07/18/20 07/18/20 07/18/20 07:00 07:30 07:50 Temperature 98.6 F Pulse Rate 63 60 62 Pulse Rate [ From Monitor] Respiratory 18 18 Rate Blood Pressure 127/67 120/67 124/68 O2 Sat by Pulse 93 95 100 Oximetry 07/18/20 07/18/20 07/18/20 08:00 08:30 09:00 Temperature Pulse Rate 62 63 68 Pulse Rate [ 74 From Monitor] Respiratory 16 18 14 Rate Blood Pressure 128/65 126/68 168/90 O2 Sat by Pulse 100 97 100 Oximetry 07/18/20 09:01 Temperature Pulse Rate 86 Pulse Rate [ From Monitor] Respiratory 20 Rate Blood Pressure 126/68 O2 Sat by Pulse 100 Oximetry - Lab 07/18/20 05:24 07/18/20 05:24 Most recent lab results ABG pH 7.223 pH Units (7.350-7.450) L 07/17/20 Unknown ABG pCO2 54.6 mm Hg 07/17/20 Unknown ABG pO2 108.9 mm Hg (80.0-90.0) H 07/17/20 Unknown ABG HCO3 22.0 mmol/L (20.0-26.0) 07/17/20 Unknown ABG O2 Saturation 97.2 % (95.0-99.0) 07/17/20 Unknown Calcium 8.9 mg/dL (8.4-10.2) 07/18/20 05:24 Medications & Allergies - Medications Allergies/Adverse Reactions: Allergies methadone Allergy (Verified 07/17/20 09:00) Unknown tramadol Allergy (Verified 07/17/20 09:00) Swelling Home Medications: Home Medications Medication Instructions Recorded Confirmed Last Taken Type HYDROcodone/APAP 10-325 [[place] 1 each PO Q6HR PRN #30 tablet 06/15/13 07/17/20 Unknown Rx 10-325 mg TAB] Probenecid/Colchicine 1 each PO DAILY #20 tablet 06/15/13 07/17/20 Unknown Rx [Probenecid-Colchicine Tab] cloNIDine [Catapres] 0.2 mg PO Q12H #60 tablet 06/15/13 07/17/20 Unknown Rx Cyclobenzaprine [Flexeril] 10 mg PO TID PRN #20 tablet 02/02/16 07/17/20 Unknown Rx Ketorolac [Toradol] 10 mg PO Q6H PRN #30 tablet 02/02/16 07/17/20 Unknown Rx Active Medications: Generic Name Dose Route Start Last Admin Trade Name Freq PRN Reason Stop Dose Admin Acetaminophen 650 mg 07/17/20 12:29 Acetaminophen 650 Mg Rect Supp IA Q6H PRN Pain MILD(1-3)/Fever >100.5/ALBERTS Albuterol 2.5 mg 07/17/20 12:29 Albuterol 2.5 Mg/3 Ml Nebu IH Q3HRT PRN Shortness Of Breath Lipase/Protease/Amylase 1 each 07/17/20 16:00 Lipase 10,500/Protease 25,000/Amylase 43,750 (Units) Dr Cook FEEDTUBE PRN PRN For Clogged Feeding Tube Famotidine 20 mg 07/18/20 10:00 Famotidine 20 Mg Tab PO DAILY ALIX Fentanyl 50 mcg 07/17/20 09:34 Fentanyl 100 Mcg/2 Ml Inj IV Q10MIN PRN ANALGESIA Heparin Sodium (Porcine) 5,000 unit 07/17/20 22:00 07/17/20 21:54 Heparin 5,000 Unit/1 Ml Vial SUB-Q 5,000 unit Q12HR ALIX Administration Hydromorphone HCl 0.25 mg 07/17/20 12:29 Hydromorphone 1 Mg/1 Ml Inj IV Q4H PRN Pain, Moderate (4-6) Hydrophilic Ointment 1 applic 07/17/20 13:56 Lip Therapy Vaseline TP Q2HR PRN Dry Lips Propofol 1,000 mg in 100 mls @ 2.808 mls/hr 07/17/20 10:00 07/17/20 15:52 Diprivan 10 Mg/Ml IV 0 mcg/kg/min TITR ALIX 0 mls/hr Titration Protocol 5 MCG/KG/MIN Fentanyl Citrate 2,000 mcg in 100 mls @ 4.68 mls/hr 07/17/20 10:00 07/18/20 04:00 Fentanyl Drip Premix IV 2 mcg/kg/hr TITR ALIX 9.36 mls/hr Titration Protocol 1 MCG/KG/HR Midazolam HCl 100 mg/ Sodium 100 mls @ 2 mls/hr 07/17/20 10:30 07/18/20 04:00 Chloride IV 2 mg/hr TITR ALIX 2 mls/hr Titration Protocol 2 MG/HR Ceftriaxone Sodium 2 gm in 100 mls @ 200 mls/hr 07/17/20 23:00 07/17/20 22:40 Rocephin/Ns 2 Gm/100 Ml IV Infused Q24H ALIX Infusion Protocol Azithromycin 500 mg in 250 mls @ 250 mls/hr 07/17/20 13:00 07/17/20 21:33 Zithromax/Ns IV Infused Q24H ALIX Infusion Protocol Sodium Chloride 100 mls @ 999 mls/hr 07/17/20 16:00 Nacl 0.9% IV ANDRÉS PRN Hypotension Midazolam HCl 2 mg 07/17/20 09:34 Midazolam 2 Mg/2 Ml Inj IV Q10MIN PRN Sedation Multi-Ingred Cream/Lotion/Oil/Oint 1 applic 07/17/20 13:56 Mineral Oil/Petrolatum, White Ophth Oint 3.5 Gm OU Q4HR PRN Dry Eye(s) Senna/Docusate Sodium 1 tab 07/17/20 22:00 07/17/20 21:55 Sennosides/Docusate Sodium 8.6/50 Mg Tab FEEDTUBE 1 tab BID ALIX Administration Simple Syrup 15 ml 07/17/20 16:00 07/17/20 23:54 Simple Syrup 15 Ml FEEDTUBE 15 ml PRN PRN Administration Hypoglycemia Simple Syrup 30 ml 07/17/20 16:00 Simple Syrup 15 Ml FEEDTUBE PRN PRN Hypoglycemia Sodium Bicarbonate 325 mg 07/17/20 16:00 Sodium Bicarbonate 325 Mg Tab FEEDTUBE PRN PRN For Clogged Feeding Tube Sodium Chloride 10 ml 07/17/20 22:00 07/17/20 21:55 Sodium Chloride 0.9% 10 Ml Flush Syringe IV 10 ml BID ALIX Administration Sodium Chloride 10 ml 07/17/20 12:29 Sodium Chloride 0.9% 10 Ml Flush Syringe IV PRN PRN LINE FLUSH
--- NOTE | 2020-07-18 09:43 | Consultation ---
History of Present Illness Consult date: 07/18/20 Requesting physician: ALDAIR BONNER Consult reason: congestive heart failure History of present illness: Primary Slipper Maker: Maxwell Rosales Pt is a 64-year-old AA male with a hx of progressive CKD who presented in res piratory distress. Pt is currently intubated/sedated, and thus majority of HPI obtained from chart. Per documentation, pt's reported that pt had been complaining of progressively worsening fatigue and SOB/YUNG/orthopnea/PND over the past 2 months, with a significant increase in symptom severity noticed in the last week. SpO2 was noted to the be in the 60s on room air upon initial assessment by EMS. Pt was found to be unable to protect his airway upon arrival and was subsequently intubated and placed on mechanical ventilation. CXR revealed mild cardiomegaly and pulmonary vascular congestion, along with bilateral airspace opacities. Pt was arranged to undergo emergent HD. Echo 07/2019 - LV mildly dilated, LV wall thickness mild-mod increased, EF 50- 55%, grade 2 diastolic dysfxn, RV mildly dilated, LA volume mod increased, mild AR, mild-mod MR, mild TR, mild pulm HTN 2/RVSP 41.28mmHg, ascending aorta mod dilated w/diameter 4.22cm. Lexiscan stress MPI 05/2018 - no evidence of ischemia, EF 54%. Past History Past Medical History: hypertension, hyperlipidemia, renal failure, other (stable abdominal aortic aneurysm) Past Surgical History: denies: abd. aortic aneurysm repair, valve replacement, CABG, PTCA Social history: , lives with family, smoking (former, quit 2013). denies: alcohol abuse Family history: hypertension Medications and Allergies Allergies Allergy/AdvReac Type Severity Reaction Status Date / Time methadone Allergy Unknown Verified 07/17/20 09:00 tramadol Allergy Swelling Verified 07/17/20 09:00 Home Medications Medication Instructions Recorded Confirmed Last Taken Type HYDROcodone/APAP 10-325 [[place] 1 each PO Q6HR PRN #30 tablet 06/15/13 07/17/20 Unknown Rx 10-325 mg TAB] Probenecid/Colchicine 1 each PO DAILY #20 tablet 06/15/13 07/17/20 Unknown Rx [Probenecid-Colchicine Tab] cloNIDine [Catapres] 0.2 mg PO Q12H #60 tablet 06/15/13 07/17/20 Unknown Rx Cyclobenzaprine [Flexeril] 10 mg PO TID PRN #20 tablet 02/02/16 07/17/20 Unknown Rx Ketorolac [Toradol] 10 mg PO Q6H PRN #30 tablet 02/02/16 07/17/20 Unknown Rx Active Meds: Active Medications Acetaminophen (Acetaminophen 650 Mg Rect Supp) 650 mg [place] Q6H PRN PRN Reason: Pain MILD(1-3)/Fever >100.5/ALBERTS Albuterol (Albuterol 2.5 Mg/3 Ml Nebu) 2.5 mg IH Q3HRT PRN PRN Reason: Shortness Of Breath Lipase/Protease/Amylase (Lipase 10,500/Protease 25,000/Amylase 43,750 (Units) Dr Cap) 1 each FEEDTUBE PRN PRN PRN Reason: For Clogged Feeding Tube Famotidine (Famotidine 20 Mg Tab) 20 mg PO DAILY ALIX Fentanyl (Fentanyl 100 Mcg/2 Ml Inj) 50 mcg IV Q10MIN PRN PRN Reason: ANALGESIA Heparin Sodium (Porcine) (Heparin 5,000 Unit/1 Ml Vial) 5,000 unit SUB-Q Q12HR ALIX Last Admin: 07/17/20 21:54 Dose: 5,000 unit Documented by: Hydromorphone HCl (Hydromorphone 1 Mg/1 Ml Inj) 0.25 mg IV Q4H PRN PRN Reason: Pain, Moderate (4-6) Hydrophilic Ointment (Lip Therapy Vaseline) 1 applic TP Q2HR PRN PRN Reason: Dry Lips Propofol (Diprivan 10 Mg/Ml) 1,000 mg in 100 mls @ 2.808 mls/hr IV TITR ALIX; Protocol Last Titration: 07/17/20 15:52 Dose: 0 mcg/kg/min, 0 mls/hr Documented by: Fentanyl Citrate (Fentanyl Drip Premix) 2,000 mcg in 100 mls @ 4.68 mls/hr IV TITR ALIX; Protocol Last Titration: 07/18/20 04:00 Dose: 2 mcg/kg/hr, 9.36 mls/hr Documented by: Midazolam HCl 100 mg/ Sodium (Chloride) 100 mls @ 2 mls/hr IV TITR ALIX; Protocol Last Titration: 07/18/20 04:00 Dose: 2 mg/hr, 2 mls/hr Documented by: Ceftriaxone Sodium (Rocephin/Ns 2 Gm/100 Ml) 2 gm in 100 mls @ 200 mls/hr IV Q24H [facility]; Protocol Last Infusion: 07/17/20 22:40 Dose: Infused Documented by: Azithromycin (Zithromax/Ns) 500 mg in 250 mls @ 250 mls/hr IV Q24H [facility]; Protocol Last Infusion: 07/17/20 21:33 Dose: Infused Documented by: Sodium Chloride (Nacl 0.9%) 100 mls @ 999 mls/hr IV ANDRÉS PRN PRN Reason: Hypotension Midazolam HCl (Midazolam 2 Mg/2 Ml Inj) 2 mg IV Q10MIN PRN PRN Reason: Sedation Multi-Ingred Cream/Lotion/Oil/Oint (Mineral Oil/Petrolatum, White Ophth Oint 3.5 Gm) 1 applic OU Q4HR PRN PRN Reason: Dry Eye(s) Senna/Docusate Sodium (Sennosides/Docusate Sodium 8.6/50 Mg Tab) 1 tab FEEDTUBE BID [facility] Last Admin: 07/17/20 21:55 Dose: 1 tab Documented by: Simple Syrup (Simple Syrup 15 Ml) 15 ml FEEDTUBE PRN PRN PRN Reason: Hypoglycemia Last Admin: 07/17/20 23:54 Dose: 15 ml Documented by: Simple Syrup (Simple Syrup 15 Ml) 30 ml FEEDTUBE PRN PRN PRN Reason: Hypoglycemia Sodium Bicarbonate (Sodium Bicarbonate 325 Mg Tab) 325 mg FEEDTUBE PRN PRN PRN Reason: For Clogged Feeding Tube Sodium Chloride (Sodium Chloride 0.9% 10 Ml Flush Syringe) 10 ml IV BID [facility] Last Admin: 07/17/20 21:55 Dose: 10 ml Documented by: Sodium Chloride (Sodium Chloride 0.9% 10 Ml Flush Syringe) 10 ml IV PRN PRN PRN Reason: LINE FLUSH Review of Systems ROS unobtainable: due to endotracheal tube Physical Examination Last Vital Signs Temp 98.6 F 07/18/20 11:29 Pulse 77 07/18/20 12:00 Resp 12 07/18/20 12:00 BP 175/88 07/18/20 11:30 Pulse Ox 100 07/18/20 12:00 General appearance: other (intubated/sedated) HEENT: Positive: Normocephaly Neck: Positive: JVD/HJR (mild) Cardiac: Positive: Reg Rate and Rhythm, S1/S2. Negative: Audible Murmur Lungs: Positive: Decreased Breath Sounds (bilaterally) Neuro: Positive: Other (intubated/sedated) Abdomen: Positive: Soft Skin: Negative: Rash Musculoskeletal: No Fluid Collection Extremities: Present: lower extr. pulses, edema Results 07/18/20 05:24 07/18/20 05:24 Cardiac Enzymes 07/17/20 07/17/20 07/18/20 Range/Units 09:31 13:11 05:24 AST 99 H 38 (5-40) units/L Lactate Dehydrogenase 277 H (91-180) units/L Coagulation 07/17/20 Range/Units 09:31 PT 15.0 H (12.2-14.9) Sec. INR 1.13 (0.87-1.13) APTT 25.3 (24.2-36.6) Sec. Lipids 07/17/20 Range/Units 09:31 Triglycerides 119 (2-149) mg/dL Cholesterol 163 (50-199) mg/dL HDL Cholesterol 33 L (40-59) mg/dL Cholesterol/HDL Ratio 4.93 % CBC 07/17/20 07/18/20 Range/Units 09:31 05:24 WBC 11.6 H 8.8 (4.5-11.0) K/mm3 RBC 3.83 3.45 L (3.65-5.03) M/mm3 Hgb 11.2 L 10.8 L (11.8-15.2) gm/dl Hct 35.4 L 31.9 L (35.5-45.6) % Plt Count 260 215 (140-440) K/mm3 Lymph # (Auto) 0.8 L (1.2-5.4) K/mm3 Saunders # (Auto) 0.6 (0.0-0.8) K/mm3 Eos # (Auto) 0.1 (0.0-0.4) K/mm3 Baso # (Auto) 0.0 (0.0-0.1) K/mm3 Comprehensive Metabolic Panel 07/17/20 07/17/20 07/18/20 Range/Units 09:31 13:11 05:24 Sodium 139 143 (137-145) mmol/L Potassium 5.0 4.5 (3.6-5.0) mmol/L Chloride 102.6 103.7 (98-107) mmol/L Carbon Dioxide 23 24 (22-30) mmol/L BUN 55 H 54 H (9-20) mg/dL Creatinine 5.5 H 6.9 H (0.8-1.3) mg/dL Glucose 177 H 175 H 81 (75-100) mg/dL Calcium 9.1 8.9 (8.4-10.2) mg/dL Direct Bilirubin 0.3 H (0-0.2) mg/dL Indirect Bilirubin 0.3 mg/dL AST 99 H 38 (5-40) units/L ALT 82 H 62 H (7-56) units/L Alkaline Phosphatase 80 72 (35-129) units/L Total Protein 7.5 6.9 (6.3-8.2) g/dL Albumin 4.0 3.8 L (3.9-5) g/dL - Imaging and Cardiology Echo: pending, other (07/2019 - LV mildly dilated, LV wall thickness mild-mod in creased, EF 50-55%, grade 2 diastolic dysfxn, RV mildly dilated, LA volume mod increased, mild AR, mild-mod MR, mild TR, mild pulm HTN 2/RVSP 41.28mmHg, ascending aorta mod dilated w/diameter 4.22cm) EKG: report reviewed, image reviewed - EKG Interpretation EKG: no acute changes EKG interpretations - Telemetry EKG Rhythm: Sinus Rhythm - EKG Sinus rhythms and dysrhythmias: sinus rhythm Ventricular dysrhythmias: ventricular premature com AV and intraventricular conduction: right bundle branch block Repolarization changes or abnormalities: nonspecific abnormality, ST segment, and/or T wave Assessment and Plan Echo pending. Continue volume optimization via HD. Check serial troponins. Obtain repeat ECG. Initiate daily ASA. Resume home Clonidine as BP permits to avoid rebound HTN. Will wean down and initiate beta carly when able. Pt seen in conjunction with Dr. Sanket Mcallister, who agrees with the assessment and plan of care. - Patient Problems (1) Acute respiratory failure Current Visit: Yes Status: Acute (2) Pneumonia Current Visit: Yes Status: Suspected (3) ESRD needing dialysis Current Visit: Yes Status: Acute (4) Anemia Current Visit: Yes Status: Chronic (5) Thoracic aortic aneurysm Current Visit: Yes Status: Acute Qualifiers: Presence of rupture: without rupture Qualified Code(s): I71.2 - Thoracic aortic aneurysm, without rupture (6) Abdominal aortic aneurysm Current Visit: Yes Status: Chronic Qualifiers: Presence of rupture: without rupture Qualified Code(s): I71.4 - Abdominal aortic aneurysm, without rupture Plan to address problem: 3.6 x 3.3 cm fusiform aneurysm on CT 10/2017, 3.4 cm on MRI 05/2018 (7) Hypertension Current Visit: Yes Status: Chronic Qualifiers: Hypertension type: essential hypertension Qualified Code(s): I10 - Essential (primary) hypertension (8) HLD (hyperlipidemia) Current Visit: Yes Status: Chronic Qualifiers: Hyperlipidemia type: mixed hyperlipidemia Qualified Code(s): E78.2 - Mixed hyperlipidemia (9) Chronic venous insufficiency of lower extremity Current Visit: Yes Status: Chronic
[2020-07-18] MEDS: FAMOTIDINE 20 MG TAB PO SCH (09:50)
[2020-07-18] MEDS: HEPARIN 5,000 UNIT/1 ML VIAL SUB-Q SCH ×2 (09:50→21:37)
[2020-07-18] MEDS: SENNOSIDES/DOCUSATE SODIUM 8.6/50 MG TAB FEEDTUBE SCH ×2 (09:50→21:37)
[2020-07-18] MEDS ORDERED: PROBENECID PO SCH (10:00)
[2020-07-18] MEDS ORDERED: COLCHICINE PO SCH (10:00)
--- NOTE | 2020-07-18 10:40 | Progress Note ---
Assessment and Plan Assessment and plan: 64 YO Male with HTN, ESRD, Gout, CHF presents to ED for evaluation. Patient is intubated and on ventilatory support at the time my evaluation and is unable to provide history. Patient history taken from EMS staff, ED staff, as well as the patient's Mrs Santa Dodge who was made available by telephone for interview. As per patient's the patient has experienced progressive weakn ess over the past 2 months with worsening symptoms over the last 1 week. P atient was found to have orthopnea, paroxysmal nocturnal dyspnea, decreased exercise tolerance, dyspnea on exertion, as well as dyspnea at rest. Patient reports leaving patient at home while she went to work today. She was subsequently notified by the patient's brother who notified EMS due to patient reporting shortness of breath. EMS was notified and upon arrival the patient was found to be in distress with a pulse oximetry of 60% on room air. The patient was placed on supplemental oxygen and transported to [facility] for further care and evaluation of the aforementioned symptoms. The patient was seen and evaluated in the emergency department. All lab and imaging studies reviewed. Patient found to be unable to protect his airway and was subsequently intubated and placed on ventilatory support. Patient also found to have end-stage renal disease in need of urgent dialysis, CHF decompensation. Patient admitted to ICU. Critical care team consulted in ED. Nephrology team consulted in ED. Advanced care planning condu cted in ED. No prior admission for review. All medication listed at time of admission has been reconciled. Consultants Cardiology, outboard motor mechanic, press offbearer. 07/18: Patient initiated with dialysis today. Covid test was done and is negative. Anemia likely anemia of chronic disease. Will follow consultants recommendation for further management. Echocardiogram pending (1) Acute hypoxemic respiratory failure Current Visit: Yes Status: Acute Plan to address problem: Patient intubated and placed on ventilatory support. Wean vent as tolerated, daily spontaneous breathing trial, sedation holiday, (2) CHF (congestive heart failure) Current Visit: Yes Status: Acute Qualifiers: Heart failure type: systolic Heart failure chronicity: acute Qualified Code(s): I50.21 - Acute systolic (congestive) heart failure Plan to address problem: Strict I/O, monitor urine output every shift, afterload reduction, blood pressure control, echocardiogram ordered and is pending at time of admission, cardiology team consulted. (3) End stage renal disease Current Visit: Yes Status: Acute Plan to address problem: Nephrology team consulted in ED, dialysis as per renal team, supportive care. (4) Hypertension Current Visit: Yes Status: Acute Qualifiers: Hypertension type: essential hypertension Qualified Code(s): I10 - Essential (primary) hypertension Plan to address problem: Monitor blood pressure every shift, continue medical management (5) Abdominal aneurysm Current Visit: Yes Status: Chronic (6) DVT prophylaxis Current Visit: Yes Status: Acute Plan to address problem: SCD to bilateral lower extremities while in bed, prophylactic anticoagulation (7) Chronic venous insufficiency of lower extremity Current Visit: Yes Status: Chronic (8) Advance care planning Current Visit: Yes Status: Acute Plan to address problem: Disease education done, care plan discussed, prognosis discussed, patient acknowledges understanding and agreement with care plan, patient is full code, +30 minutes. Patient care plan discussed with Santa Dodge. Telephone number . The high probability of a clinically significant, sudden or life threatening deterioration of the [cardiac, pulmonary, renal, neuro] system(s) required my full and direct attention, intervention and personal management. The aggregate critical care time was [90] minutes. This time is in addition to time spent performing reported procedures but includes the following: [x] Data Review and interpretation [x] Patient assessment and monitoring of vital signs [x] Documentation [x] Medication orders and management Echo pending. Continue volume optimization via HD. Pt seen in conjunction with Dr. Sanket Mcallister, who agrees with the assessment and plan of care. History Interval history: Patient seen and examined sitting up still intubated but awake following commands. Hospitalist Physical - Physical exam Narrative exam: General appearance: Present: mild distress, ET tube in place - EENT Eyes: Present: miosis ENT: hearing intact, clear oral mucosa - Neck Neck: Present: supple, normal ROM - Respiratory Respiratory effort: labored Respiratory: bilateral: diminished, rhonchi - Cardiovascular Heart Sounds: Present: S1 & S2. Absent: rub, click - Extremities Extremities: pulses symmetrical, No edema Peripheral Pulses: within normal limits - Abdominal General gastrointestinal: Present: soft, non-tender, non-distended, normal bowel sounds Male genitourinary: Present: normal - Integumentary Integumentary: Present: clear, dry - Musculoskeletal Musculoskeletal: generalized weakness - Psychiatric Psychiatric: no appropriate mood/affect, no intact judgment & insight, no memory intact - Neurologic Neurologic: CNII-XII intact, no focal deficits, moves all extremities, no gait normal - Constitutional Vitals: Temp Pulse Resp BP Pulse Ox 98.6 F 68 13 165/87 99 07/18/20 07:00 07/18/20 10:01 07/18/20 10:01 07/18/20 10:01 07/18/20 10:01 General appearance: Present: mild distress HEART Score - HEART Score Troponin: Troponin T 0.030 ng/mL (0.00-0.029) H 07/17/20 09:31 Results - Labs CBC & Chem 7: 07/18/20 05:24 07/18/20 05:24 Labs: Laboratory Last Values WBC 8.8 K/mm3 (4.5-11.0) 07/18/20 05:24 RBC 3.45 M/mm3 (3.65-5.03) L 07/18/20 05:24 Hgb 10.8 gm/dl (11.8-15.2) L 07/18/20 05:24 Hct 31.9 % (35.5-45.6) L 07/18/20 05:24 MCV 93 fl (84-94) 07/18/20 05:24 MCH 31 pg (28-32) 07/18/20 05:24 MCHC 34 % (32-34) 07/18/20 05:24 RDW 13.9 % (13.2-15.2) 07/18/20 05:24 Plt Count 215 K/mm3 (140-440) 07/18/20 05:24 Lymph % (Auto) 7.0 % (13.4-35.0) L 07/17/20 09:31 [place] % (Auto) Mathematical Physicist 07/18/20 05:24 Eos % (Auto) 0.8 % (0.0-4.3) 07/17/20 09:31 Baso % (Auto) 0.4 % (0.0-1.8) 07/17/20 09:31 Lymph # (Auto) 0.8 K/mm3 (1.2-5.4) L 07/17/20 09:31 [place] # (Auto) 0.6 K/mm3 (0.0-0.8) 07/17/20 09:31 Eos # (Auto) 0.1 K/mm3 (0.0-0.4) 07/17/20 09:31 Baso # (Auto) 0.0 K/mm3 (0.0-0.1) 07/17/20 09:31 Add Manual Diff Complete 07/18/20 05:24 Total Counted 100 07/18/20 05:24 Seg Neutrophils % 87.0 % (40.0-70.0) H 07/17/20 09:31 Seg Neuts % (Manual) 85.0 % (40.0-70.0) H 07/18/20 05:24 Lymphocytes % (Manual) 8.0 % (13.4-35.0) L 07/18/20 05:24 Monocytes % (Manual) 7.0 % (0.0-7.3) 07/18/20 05:24 Nucleated RBC % Not Reportable 07/18/20 05:24 Seg Neutrophils # 10.1 K/mm3 (1.8-7.7) H 07/17/20 09:31 Seg Neutrophils # Man 7.5 K/mm3 (1.8-7.7) 07/18/20 05:24 Band Neutrophils # 0.0 K/mm3 07/18/20 05:24 Lymphocytes # (Manual) 0.7 K/mm3 (1.2-5.4) L 07/18/20 05:24 Abs React Lymphs (Man) 0.0 K/mm3 07/18/20 05:24 Monocytes # (Manual) 0.6 K/mm3 (0.0-0.8) 07/18/20 05:24 Eosinophils # (Manual) 0.0 K/mm3 (0.0-0.4) 07/18/20 05:24 Basophils # (Manual) 0.0 K/mm3 (0.0-0.1) 07/18/20 05:24 Metamyelocytes # 0.0 K/mm3 07/18/20 05:24 Myelocytes # 0.0 K/mm3 07/18/20 05:24 Promyelocytes # 0.0 K/mm3 07/18/20 05:24 Blast Cells # 0.0 K/mm3 07/18/20 05:24 WBC Morphology Not Reportable 07/18/20 05:24 Hypersegmented Neuts Not Reportable 07/18/20 05:24 Hyposegmented Neuts Not Reportable 07/18/20 05:24 Hypogranular Neuts Not Reportable 07/18/20 05:24 Smudge Cells Not Reportable 07/18/20 05:24 Toxic Granulation Not Reportable 07/18/20 05:24 Toxic Vacuolation Not Reportable 07/18/20 05:24 Dohle Bodies Not Reportable 07/18/20 05:24 Pelger-Huet Anomaly Not Reportable 07/18/20 05:24 Oscar Rods Not Reportable 07/18/20 05:24 Platelet Estimate Consistent w auto 07/18/20 05:24 Clumped Platelets Not Reportable 07/18/20 05:24 Plt Clumps, EDTA Not Reportable 07/18/20 05:24 Large Platelets Not Reportable 07/18/20 05:24 Giant Platelets Not Reportable 07/18/20 05:24 Platelet Satelliting Not Reportable 07/18/20 05:24 Plt Morphology Comment Not Reportable 07/18/20 05:24 RBC Morphology Normal 07/18/20 05:24 Dimorphic RBCs Not Reportable 07/18/20 05:24 Polychromasia Not Reportable 07/18/20 05:24 Hypochromasia Not Reportable 07/18/20 05:24 Poikilocytosis Not Reportable 07/18/20 05:24 Anisocytosis Not Reportable 07/18/20 05:24 Microcytosis Not Reportable 07/18/20 05:24 Macrocytosis Not Reportable 07/18/20 05:24 Spherocytes Not Reportable 07/18/20 05:24 Pappenheimer Bodies Not Reportable 07/18/20 05:24 Sickle Cells Not Reportable 07/18/20 05:24 Target Cells Not Reportable 07/18/20 05:24 Tear Drop Cells Not Reportable 07/18/20 05:24 Ovalocytes Not Reportable 07/18/20 05:24 Helmet Cells Not Reportable 07/18/20 05:24 [place] Bodies Not Reportable 07/18/20 05:24 Filley Rings Not Reportable 07/18/20 05:24 Elmore Cells Not Reportable 07/18/20 05:24 Bite Cells Not Reportable 07/18/20 05:24 Crenated Cell Not Reportable 07/18/20 05:24 Elliptocytes Not Reportable 07/18/20 05:24 Acanthocytes (Spur) Not Reportable 07/18/20 05:24 Rouleaux Not Reportable 07/18/20 05:24 Hemoglobin C Crystals Not Reportable 07/18/20 05:24 Schistocytes Not Reportable 07/18/20 05:24 Malaria parasites Not Reportable 07/18/20 05:24 [place] Bodies Not Reportable 07/18/20 05:24 Hem Pathologist Commnt No 07/18/20 05:24 PT 15.0 Sec. (12.2-14.9) H 07/17/20 09:31 INR 1.13 (0.87-1.13) 07/17/20 09:31 APTT 25.3 Sec. (24.2-36.6) 07/17/20 09:31 D-Dimer 653.04 ng/mlDDU (0-234) H 07/17/20 13:11 ABG pH 7.223 pH Units (7.350-7.450) L 07/17/20 Unknown POC ABG pCO2 34.7 mmHg (32.0-48.0) 07/17/20 21:00 ABG pCO2 54.6 mm Hg 07/17/20 Unknown POC ABG pO2 110.1 mmHg (83-108) H 07/17/20 21:00 ABG pO2 108.9 mm Hg (80.0-90.0) H 07/17/20 Unknown POC ABG HCO3 20.6 07/17/20 21:00 ABG HCO3 22.0 mmol/L (20.0-26.0) 07/17/20 Unknown ABG O2 Saturation 97.2 % (95.0-99.0) 07/17/20 Unknown ABG O2 Content 15.5 (0.0-44) 07/17/20 Unknown POC ABG Base Excess -3.7 07/17/20 21:00 ABG Base Excess -5.9 mmol/L (-2.0-3.0) L 07/17/20 Unknown ABG Hemoglobin 11.4 gm/dl (14.0-18.0) L 07/17/20 Unknown ABG Oxyhemoglobin 97.1 (94-98) 07/17/20 21:00 ABG Carboxyhemoglobin 1.5 % (0.0-5.0) 07/17/20 Unknown ABG Methemoglobin 0.5 % (0.0-1.5) 07/17/20 Unknown ABG Sodium 139.1 mmol/L (136.0-145.0) 07/17/20 21:00 ABG Potassium 4.4 mmol/L (3.40-4.50) 07/17/20 21:00 ABG Chloride 107.0 mmol/L (98-107) 07/17/20 21:00 ABG Glucose 76 mg/dL (65-95) 07/17/20 21:00 Oxyhemoglobin 95.3 % (95.0-99.0) 07/17/20 Unknown Carboxyhemoglobin 0.8 (0.5-1.5) 07/17/20 21:00 FiO2 50 % 07/17/20 Unknown FiO2 % 50.0 07/17/20 21:00 Sodium 143 mmol/L (137-145) 07/18/20 05:24 Potassium 4.5 mmol/L (3.6-5.0) 07/18/20 05:24 Chloride 103.7 mmol/L (98-107) 07/18/20 05:24 Carbon Dioxide 24 mmol/L (22-30) 07/18/20 05:24 Anion Gap 20 mmol/L 07/18/20 05:24 BUN 54 mg/dL (9-20) H 07/18/20 05:24 Creatinine 6.9 mg/dL (0.8-1.3) H 07/18/20 05:24 Estimated GFR 10 ml/min 07/18/20 05:24 BUN/Creatinine Ratio 8 % 07/18/20 05:24 Glucose 81 mg/dL (75-100) 07/18/20 05:24 POC Glucose 86 mg/dL (70-105) 07/18/20 05:59 Lactic Acid 0.60 mmol/L (0.7-2.0) L 07/17/20 13:11 Calcium 8.9 mg/dL (8.4-10.2) 07/18/20 05:24 Ferritin 356.2 ng/mL (30.0-300.0) H 07/17/20 12:57 Total Bilirubin 0.40 mg/dL (0.1-1.2) 07/18/20 05:24 Direct Bilirubin 0.3 mg/dL (0-0.2) H 07/17/20 09:31 Indirect Bilirubin 0.3 mg/dL 07/17/20 09:31 AST 38 units/L (5-40) 07/18/20 05:24 ALT 62 units/L (7-56) H 07/18/20 05:24 Alkaline Phosphatase 72 units/L (35-129) 07/18/20 05:24 Lactate Dehydrogenase 277 units/L (91-180) H 07/17/20 13:11 Troponin T 0.030 ng/mL (0.00-0.029) H 07/17/20 09:31 C-Reactive Protein 0.60 mg/dL (0.00-1.30) 07/17/20 13:11 NT-Pro-B Natriuret Pep 39295 pg/mL (0-900) H 07/17/20 09:31 Total Protein 6.9 g/dL (6.3-8.2) 07/18/20 05:24 Albumin 3.8 g/dL (3.9-5) L 07/18/20 05:24 Albumin/Globulin Ratio 1.2 % 07/18/20 05:24 Triglycerides 119 mg/dL (2-149) 07/17/20 09:31 Cholesterol 163 mg/dL (50-199) 07/17/20 09:31 LDL Cholesterol Direct 130 mg/dL (50-130) 07/17/20 09:31 HDL Cholesterol 33 mg/dL (40-59) L 07/17/20 09:31 Cholesterol/HDL Ratio 4.93 % 07/17/20 09:31 Procalcitonin 1.79 ng/mL (<0.15) 07/17/20 13:11 Arterial Blood Glucose 76 mg/dL (65-95) 07/17/20 21:00 Arterial Blood Ionized Calcium 4.5 mg/dL (4.6-5.3) L 07/17/20 21:00 Urine Opiates Screen Negative 07/17/20 11:21 Urine Methadone Screen Negative 07/17/20 11:21 Ur Barbiturates Screen Negative 07/17/20 11:21 Ur Phencyclidine Scrn Negative 07/17/20 11:21 Ur Amphetamines Screen Negative 07/17/20 11:21 U Benzodiazepines Scrn Negative 07/17/20 11:21 Urine Cocaine Screen Negative 07/17/20 11:21 U Marijuana (THC) Screen Negative 07/17/20 11:21 Drugs of Abuse Note Disclamer 07/17/20 11:21 Coronavirus (PCR) Negative (Negative) 07/17/20 Unknown Hepatitis A IgM Ab Non-reactive (NonReactive) 07/17/20 13:11 Hep Bs Antigen Non-reactive (Negative) 07/17/20 13:11 Hep B Core IgM Ab Non-reactive (NonReactive) 07/17/20 13:11 Hepatitis C Antibody Non-reactive (NonReactive) 07/17/20 13:11 Microbiology: Microbiology 07/17/20 13:11 Peripheral/Venous Blood Culture - Preliminary Culture in Progress 07/17/20 12:57 Peripheral/Venous Blood Culture - Preliminary Culture in Progress Ascencio/IV: Voiding Method Indwelling Catheter Active Medications - Current Medications Current Medications: Generic Name Dose Route Start Last Admin Trade Name Freq PRN Reason Stop Dose Admin Acetaminophen 650 mg 07/17/20 12:29 Acetaminophen 650 Mg Rect Supp VA Q6H PRN Pain MILD(1-3)/Fever >100.5/ALBERTS Albuterol 2.5 mg 07/17/20 12:29 Albuterol 2.5 Mg/3 Ml Nebu IH Q3HRT PRN Shortness Of Breath Lipase/Protease/Amylase 1 each 07/17/20 16:00 Lipase 10,500/Protease 25,000/Amylase 43,750 (Units) Dr Cook FEEDTUBE PRN PRN For Clogged Feeding Tube Famotidine 20 mg 07/18/20 10:00 07/18/20 09:50 Famotidine 20 Mg Tab PO 20 mg DAILY ALIX Administration Fentanyl 50 mcg 07/17/20 09:34 Fentanyl 100 Mcg/2 Ml Inj IV Q10MIN PRN ANALGESIA Heparin Sodium (Porcine) 5,000 unit 07/17/20 22:00 07/18/20 09:50 Heparin 5,000 Unit/1 Ml Vial SUB-Q 5,000 unit Q12HR ALIX Administration Hydromorphone HCl 0.25 mg 07/17/20 12:29 Hydromorphone 1 Mg/1 Ml Inj IV Q4H PRN Pain, Moderate (4-6) Hydrophilic Ointment 1 applic 07/17/20 13:56 Lip Therapy Vaseline TP Q2HR PRN Dry Lips Propofol 1,000 mg in 100 mls @ 2.808 mls/hr 07/17/20 10:00 07/17/20 15:52 Diprivan 10 Mg/Ml IV 0 mcg/kg/min TITR ALIX 0 mls/hr Titration Protocol 5 MCG/KG/MIN Fentanyl Citrate 2,000 mcg in 100 mls @ 4.68 mls/hr 07/17/20 10:00 07/18/20 04:00 Fentanyl Drip Premix IV 2 mcg/kg/hr TITR ALIX 9.36 mls/hr Titration Protocol 1 MCG/KG/HR Midazolam HCl 100 mg/ Sodium 100 mls @ 2 mls/hr 07/17/20 10:30 07/18/20 04:00 Chloride IV 2 mg/hr TITR ALIX 2 mls/hr Titration Protocol 2 MG/HR Ceftriaxone Sodium 2 gm in 100 mls @ 200 mls/hr 07/17/20 23:00 07/17/20 22:40 Rocephin/Ns 2 Gm/100 Ml IV Infused Q24H ALIX Infusion Protocol Azithromycin 500 mg in 250 mls @ 250 mls/hr 07/17/20 13:00 07/17/20 21:33 Zithromax/Ns IV Infused Q24H ALIX Infusion Protocol Sodium Chloride 100 mls @ 999 mls/hr 07/17/20 16:00 Nacl 0.9% IV ANDRÉS PRN Hypotension Midazolam HCl 2 mg 07/17/20 09:34 Midazolam 2 Mg/2 Ml Inj IV Q10MIN PRN Sedation Multi-Ingred Cream/Lotion/Oil/Oint 1 applic 07/17/20 13:56 Mineral Oil/Petrolatum, White Ophth Oint 3.5 Gm OU Q4HR PRN Dry Eye(s) Senna/Docusate Sodium 1 tab 07/17/20 22:00 07/18/20 09:50 Sennosides/Docusate Sodium 8.6/50 Mg Tab FEEDTUBE 1 tab BID ALIX Administration Simple Syrup 15 ml 07/17/20 16:00 07/17/20 23:54 Simple Syrup 15 Ml FEEDTUBE 15 ml PRN PRN Administration Hypoglycemia Simple Syrup 30 ml 07/17/20 16:00 Simple Syrup 15 Ml FEEDTUBE PRN PRN Hypoglycemia Sodium Bicarbonate 325 mg 07/17/20 16:00 Sodium Bicarbonate 325 Mg Tab FEEDTUBE PRN PRN For Clogged Feeding Tube Sodium Chloride 10 ml 07/17/20 22:00 07/18/20 09:51 Sodium Chloride 0.9% 10 Ml Flush Syringe IV 10 ml BID ALIX Administration Sodium Chloride 10 ml 07/17/20 12:29 Sodium Chloride 0.9% 10 Ml Flush Syringe IV PRN PRN LINE FLUSH Nutrition/Malnutrition Assess - Dietary Evaluation Nutrition/Malnutrition Findings: Nutrition Notes Start: 07/17/20 14:41 Freq: Status: Active Protocol: Document 07/17/20 14:41 [email or web address] (Rec: 07/17/20 14:49 [email or web address] [id number]) Nutrition Notes Need for Assessment generated from: MD Order Initial or Follow up Assessment Current Diagnosis CKD (stage V CKD),Hypertension ,Respiratory Failure Current Diet NPO Labs/Tests BUN 55 Cr 5.5 BG 177 BNP 94307 Pertinent Medications Reviewed Height 6 ft 1 in Weight 93.6 kg [place] Body Weight (kg) 83.63 BMI 27.2 Weight Status Appropriate Subjective/Other Information RD consulted to evaluate nutritional intake and for TF. Pt on vent support and will start HD. Burn Absent Trauma Absent Minimum of two criteria No #1 Nutrition Diagnosis Inadequate oral intake Etiology mech ventilation As Evidenced by Signs and Symptoms pt NPO Is patient on ventilator? Yes Is Patient Ambulatory and/or Out of Bed No REE-([facility]-confined to bed) 2140.872 Calculation Used for Recommendations [facility] Additional Notes Pro needs >1.2g/kg: >112g/day Fluid needs 1-1.5L/day Nutrition Intervention Nutrition Support: Nepro at 50ml/hr with 110ml water flush q4h. Kcal 2,160 Protein (gm) 97 Carbohydrates (gm) 193 Fat (gm) 115 Fluid (mL) 872 Fiber (gm) 15 Goal #1 TF tolerance Goal #2 TF (at goal rate) to meet at least 75% energy and pro needs Anticipated Discharge Needs: Unable to identify at this time Follow-Up By: 07/19/20 Additional Comments F/U: new TF, vent status
[2020-07-18] MEDS: ASPIRIN 325 MG TAB PO SCH (12:10)
--- NOTE | 2020-07-18 13:10 | Progress Note ---
Assessment and Plan Acute hypoxemic respiratory failure Bilateral pulmonary infiltrates, edema versus pneumonia. PUI COVID-19 infection. ROSA ELENA on CKD Anemia NSTEMI Elevated serum inflammatory markers to include ferritin and D-dimer. Elevated serum transaminases. Oropharyngeal dysphagia. History of hypertension. History of polysubstance abuse, but negative drug screen - discontinue Versed - discontinue Ascencio catheter - discussed vascular surgery evaluation - continue HD/UF for toxin and volume clearance - hopefully numbers better on SBT tomorrow - rest on full MVS overnight - continue Daily SAT and SBT assessment as tolerated - continue to wean supplemental oxygen for target O2 sat's > 90% acutely - VAP bundle addressed - continue lung protective strategies - continue bronchodilators with pulmonary hygiene per RT - wean per pulmonary driven protocols otherwise - avoid nephrotoxins, renally dose all medications - continue to avoid benzodiazepine's, reduce the possibility of delirium - complete empiric CAP AB's coverage with Rocephin and Azitrhromycin - follow clinically re: WBC/fevers - prn analgesia per CPOT score - Maintenance of sleep-wake cycle, avoid delirium - continue enteral nutritional support at goal rate as tolerated - G.I. & VTE prophylaxis - PT/OT/ROM exercises - continue mobility protocols for pressure ulcer prophylaxis - Monitor hemodynamics closely - continue other care per attending / other consultants - discharge planning ongoing concurrently COVID SPECIFIC INTERVENTIONS - COVID-19 test negative .... Re-evaluate in am & prn CONDITION: CRITICAL PROGNOSIS: GUARDED CODE STATUS: FULL CODE The high probability of a clinically significant, sudden or life-threatening deterioration of the [respiratory, cardiovascular, renal & neurologic] system(s) required my full and direct attention, intervention and personal management. The aggregate critical care time was [34] minutes without overlap. Time includes spent on; [x] Data Review and interpretation [x] Patient assessment and monitoring of vital signs [x] Documentation [x] Medication orders and management Subjective Date of service: 07/18/20 Principal diagnosis: Ac. hypoxemic resp failure; Pulm Edema; PUI COVID-19; ROSA ELENA on CKD; NSTEMI Interval history: Patient is seen today for: Acute hypoxemic respiratory failure; Pulm Edema; PUI COVID-19; ROSA ELENA on CKD; NSTEMI Seen and examined at bedside; 24hour events reviewed; nursing and respiratory care staff consulted; no adverse overnight events reported to me; mresting peacefully in bed; tolerated dialysis well yesterday and about to begin another session this am; he denies headache or chjest pain; SBP's as high as 200 mmHg earlier; on SBT and tolerating decently but still with inadequate compensatory ventilation Objective Vital Signs - 12hr 07/18/20 07/18/20 07/18/20 01:30 02:00 02:30 Temperature Pulse Rate 61 59 L 59 L Pulse Rate [ From Monitor] Respiratory 18 18 18 Rate Blood Pressure 137/78 135/78 123/69 O2 Sat by Pulse 100 100 99 Oximetry 07/18/20 07/18/20 07/18/20 03:00 03:30 04:00 Temperature Pulse Rate 61 59 L 59 L Pulse Rate [ 59 L From Monitor] Respiratory 18 18 18 Rate Blood Pressure 131/69 128/68 137/71 O2 Sat by Pulse 97 98 99 Oximetry 07/18/20 07/18/20 07/18/20 04:06 04:30 05:00 Temperature Pulse Rate 63 60 60 Pulse Rate [ From Monitor] Respiratory 18 18 Rate Blood Pressure 137/71 126/72 135/72 O2 Sat by Pulse 100 99 98 Oximetry 07/18/20 07/18/20 07/18/20 05:30 06:01 06:30 Temperature Pulse Rate 62 59 L 62 Pulse Rate [ From Monitor] Respiratory 18 18 18 Rate Blood Pressure 126/70 142/73 126/69 O2 Sat by Pulse 98 99 92 Oximetry 07/18/20 07/18/20 07/18/20 07:00 07:30 07:50 Temperature 98.6 F Pulse Rate 63 60 62 Pulse Rate [ From Monitor] Respiratory 18 18 Rate Blood Pressure 127/67 120/67 124/68 O2 Sat by Pulse 93 95 100 Oximetry 07/18/20 07/18/20 07/18/20 08:00 08:30 09:00 Temperature Pulse Rate 62 63 68 Pulse Rate [ 74 From Monitor] Respiratory 16 18 14 Rate Blood Pressure 128/65 126/68 168/90 O2 Sat by Pulse 100 97 100 Oximetry 07/18/20 07/18/20 07/18/20 09:01 09:31 10:01 Temperature Pulse Rate 86 72 68 Pulse Rate [ From Monitor] Respiratory 20 12 13 Rate Blood Pressure 126/68 176/92 165/87 O2 Sat by Pulse 100 99 99 Oximetry 07/18/20 07/18/20 07/18/20 10:31 11:00 11:29 Temperature 98.6 F Pulse Rate 64 68 Pulse Rate [ From Monitor] Respiratory 11 L 12 Rate Blood Pressure 162/84 177/90 O2 Sat by Pulse 99 99 Oximetry 07/18/20 07/18/20 11:30 12:00 Temperature Pulse Rate 64 70 Pulse Rate [ 77 From Monitor] Respiratory 12 12 Rate Blood Pressure 175/88 O2 Sat by Pulse 100 100 Oximetry Constitutional: no acute distress Eyes: non-icteric ENT: oropharynx moist, other (ETT 24 cm RAFIQ) Neck: supple, no lymphadenopathy, no JVD Effort: mildly labored Ascultation: Bilateral: rhonchi Percussion: Bilateral: not dull Cardiovascular: regular rate and rhythm Gastrointestinal: normoactive bowel sounds, soft, non-tender, non-distended Integumentary: normal, other (AV Fistula to left arm) Extremities: no cyanosis, no edema, pulses normal, no ischemia or petechiae Neurologic: normal mental status, non-focal exam (grossly), pupils equal and round, motor strength normal and Psychiatric: mood appropriate, affect normal CBC and BMP: 07/18/20 05:24 07/18/20 05:24 ABG, PT/INR, D-dimer: ABG ABG pH 7.268 (7.320-7.450) L 07/18/20 11:10 POC ABG pCO2 49.6 mmHg (32.0-48.0) H 07/18/20 11:10 ABG pCO2 54.6 mm Hg 07/17/20 Unknown POC ABG pO2 49.3 mmHg (83-108) L 07/18/20 11:10 ABG pO2 108.9 mm Hg (80.0-90.0) H 07/17/20 Unknown POC ABG HCO3 22.2 07/18/20 11:10 ABG O2 Saturation 79.7 (0-100) 07/18/20 11:10 PT/INR, D-dimer PT 15.0 Sec. (12.2-14.9) H 07/17/20 09:31 INR 1.13 (0.87-1.13) 07/17/20 09:31 D-Dimer 653.04 ng/mlDDU (0-234) H 07/17/20 13:11 Abnormal lab findings: Abnormal Labs 07/17/20 07/17/20 07/17/20 09:31 09:31 09:31 WBC 11.6 H RBC Hgb 11.2 L Hct 35.4 L Lymph % (Auto) 7.0 L Lymph # (Auto) 0.8 L Seg Neutrophils % 87.0 H Seg Neuts % (Manual) Lymphocytes % (Manual) Seg Neutrophils # 10.1 H Lymphocytes # (Manual) PT 15.0 H D-Dimer ABG pH POC ABG pCO2 POC ABG pO2 ABG pO2 ABG Base Excess ABG Hemoglobin ABG Oxyhemoglobin ABG Potassium ABG Glucose BUN 55 H Creatinine 5.5 H Glucose 177 H POC Glucose Lactic Acid Ferritin Direct Bilirubin 0.3 H AST 99 H ALT 82 H Lactate Dehydrogenase Troponin T 0.030 H NT-Pro-B Natriuret Pep 83479 H Albumin HDL Cholesterol 33 L Arterial Blood Glucose Arterial Blood Ionized Calcium 07/17/20 07/17/20 07/17/20 12:57 13:11 13:11 WBC RBC Hgb Hct Lymph % (Auto) Lymph # (Auto) Seg Neutrophils % Seg Neuts % (Manual) Lymphocytes % (Manual) Seg Neutrophils # Lymphocytes # (Manual) PT D-Dimer 653.04 H ABG pH POC ABG pCO2 POC ABG pO2 ABG pO2 ABG Base Excess ABG Hemoglobin ABG Oxyhemoglobin ABG Potassium ABG Glucose BUN Creatinine Glucose 175 H POC Glucose Lactic Acid Ferritin 356.2 H Direct Bilirubin AST ALT Lactate Dehydrogenase 277 H Troponin T NT-Pro-B Natriuret Pep Albumin HDL Cholesterol Arterial Blood Glucose Arterial Blood Ionized Calcium 07/17/20 07/17/20 07/17/20 13:11 21:00 23:25 WBC RBC Hgb Hct Lymph % (Auto) Lymph # (Auto) Seg Neutrophils % Seg Neuts % (Manual) Lymphocytes % (Manual) Seg Neutrophils # Lymphocytes # (Manual) PT D-Dimer ABG pH POC ABG pCO2 POC ABG pO2 110.1 H ABG pO2 ABG Base Excess ABG Hemoglobin 11.5 L ABG Oxyhemoglobin ABG Potassium ABG Glucose BUN Creatinine Glucose POC Glucose 64 L Lactic Acid 0.60 L Ferritin Direct Bilirubin AST ALT Lactate Dehydrogenase Troponin T NT-Pro-B Natriuret Pep Albumin HDL Cholesterol Arterial Blood Glucose Arterial Blood Ionized Calcium 4.5 L 07/17/20 07/18/20 07/18/20 Unknown 05:24 05:24 WBC RBC 3.45 L Hgb 10.8 L Hct 31.9 L Lymph % (Auto) Lymph # (Auto) Seg Neutrophils % Seg Neuts % (Manual) 85.0 H Lymphocytes % (Manual) 8.0 L Seg Neutrophils # Lymphocytes # (Manual) 0.7 L PT D-Dimer ABG pH 7.223 L POC ABG pCO2 POC ABG pO2 ABG pO2 108.9 H ABG Base Excess -5.9 L ABG Hemoglobin 11.4 L ABG Oxyhemoglobin ABG Potassium ABG Glucose BUN 54 H Creatinine 6.9 H Glucose POC Glucose Lactic Acid Ferritin Direct Bilirubin AST ALT 62 H Lactate Dehydrogenase Troponin T NT-Pro-B Natriuret Pep Albumin 3.8 L HDL Cholesterol Arterial Blood Glucose Arterial Blood Ionized Calcium 07/18/20 07/18/20 11:10 11:23 WBC RBC Hgb Hct Lymph % (Auto) Lymph # (Auto) Seg Neutrophils % Seg Neuts % (Manual) Lymphocytes % (Manual) Seg Neutrophils # Lymphocytes # (Manual) PT D-Dimer ABG pH 7.268 L POC ABG pCO2 49.6 H POC ABG pO2 49.3 L ABG pO2 ABG Base Excess ABG Hemoglobin 11.8 L ABG Oxyhemoglobin 78.7 L ABG Potassium 4.7 H ABG Glucose 112 H BUN Creatinine Glucose POC Glucose 107 H Lactic Acid Ferritin Direct Bilirubin AST ALT Lactate Dehydrogenase Troponin T NT-Pro-B Natriuret Pep Albumin HDL Cholesterol Arterial Blood Glucose 112 H Arterial Blood Ionized Calcium Chest x-ray: image reviewed (improved interstitial edema but persistent small pleural effusions) Allied health notes reviewed: nursing
[2020-07-18] MEDS ORDERED: hydrALAZINE 20 MG/1 ML INJ IV STA ×2 (13:40→14:41)
[2020-07-18] MEDS ORDERED: fentaNYL 100 MCG/2 ML INJ IV PRN (13:41)
[2020-07-18] MEDS ORDERED: SODIUM CHLORIDE 0.9% 100 ML IV PRN (14:08)
[2020-07-18] MEDS: cloNIDine 0.1 MG TAB PO SCH ×2 (14:39→21:37)
[2020-07-18] MEDS: HYDROmorphone 1 MG/1 ML INJ IV PRN ×2 (15:44→20:50)
[2020-07-18] MEDS: AZITHROMYCIN/NS 500 MG/250 ML 500 MG/250 ML BAG IV SCH (17:03)
[2020-07-18] MEDS: hydrALAZINE 20 MG/1 ML INJ IV PRN ×2 (20:51→23:55)
[2020-07-18] MEDS: cefTRIAXone/NS 2 GM/100 ML 2 GM/100 ML BAG IV SCH (22:05)
[2020-07-19] MEDS: HYDROmorphone 1 MG/1 ML INJ IV PRN ×2 (03:23→14:53)
[2020-07-19] MEDS: hydrALAZINE 20 MG/1 ML INJ IV PRN ×3 (03:24→13:27)
--- NOTE | 2020-07-19 06:03 | XRay Report ---
CHEST 1 VIEW INDICATION / CLINICAL INFORMATION: follow up respiratory failure. COMPARISON: 07/18/2020 FINDINGS: SUPPORT DEVICES: Stable positioning of ET tube and NG tube. HEART / MEDIASTINUM: Stable mild cardiomegaly.. LUNGS / PLEURA: Improved aeration of both lungs. Previously noted bibasilar pulmonary opacities have nearly completely resolved. No pleural effusion identified. There is mild pulmonary vascular congesti on without overt interstitial pulmonary edema. No pneumothorax. ADDITIONAL FINDINGS: No significant additional findings. IMPRESSION: 1. Improved aeration of both lungs. Near complete resolution of previously noted bibasilar opacities. Signer Name: Debbie Plunkett MD Signed: 07/19/2020 5:58 AM Workstation Name: [id number]
[2020-07-19] MEDS: FAMOTIDINE 20 MG TAB PO SCH (09:56)
[2020-07-19] MEDS: ASPIRIN 325 MG TAB PO SCH (09:56)
[2020-07-19] MEDS: HEPARIN 5,000 UNIT/1 ML VIAL SUB-Q SCH ×2 (09:56→21:57)
[2020-07-19] MEDS: cloNIDine 0.1 MG TAB PO SCH (09:56)
[2020-07-19] MEDS: SENNOSIDES/DOCUSATE SODIUM 8.6/50 MG TAB FEEDTUBE SCH ×2 (09:56→22:00)
[2020-07-19] MEDS ORDERED: cloNIDine 0.1 MG TAB PO ONE ×2 (11:00→14:00)
--- NOTE | 2020-07-19 12:49 | Progress Note ---
Assessment and Plan Assessment and plan: 64 YO Male with HTN, ESRD, Gout, CHF presents to ED for evaluation. Patient is intubated and on ventilatory support at the time my evaluation and is unable to provide history. Patient history taken from EMS staff, ED staff, as well as the patient's Mrs Santa Dodge who was made available by telephone for interview. As per patient's the patient has experienced progressive weakn ess over the past 2 months with worsening symptoms over the last 1 week. P atient was found to have orthopnea, paroxysmal nocturnal dyspnea, decreased exercise tolerance, dyspnea on exertion, as well as dyspnea at rest. Patient reports leaving patient at home while she went to work today. She was subsequently notified by the patient's brother who notified EMS due to patient reporting shortness of breath. EMS was notified and upon arrival the patient was found to be in distress with a pulse oximetry of 60% on room air. The patient was placed on supplemental oxygen and transported to [facility] for further care and evaluation of the aforementioned symptoms. The patient was seen and evaluated in the emergency department. All lab and imaging studies reviewed. Patient found to be unable to protect his airway and was subsequently intubated and placed on ventilatory support. Patient also found to have end-stage renal disease in need of urgent dialysis, CHF decompensation. Patient admitted to ICU. Critical care team consulted in ED. Nephrology team consulted in ED. Advanced care planning condu cted in ED. No prior admission for review. All medication listed at time of admission has been reconciled. Consultants Cardiology, reconciliation specialist, director of securities and real estate. 07/18: Patient initiated with dialysis today. Covid test was done and is negative. Anemia likely anemia of chronic disease. Will follow consultants recommendation for further management. Echocardiogram pending 07/19: Patient started with dialysis. Anticipate trial of weaning today. BP elevated, clonodine restarted, will increase to home dose. Continue current management (1) Acute hypoxemic respiratory failure Current Visit: Yes Status: Acute Plan to address problem: Patient intubated and placed on ventilatory support. Wean vent as tolerated, daily spontaneous breathing trial, sedation holiday, (2) CHF (congestive heart failure) Current Visit: Yes Status: Acute Qualifiers: Heart failure type: systolic Heart failure chronicity: acute Qualified Code(s): I50.21 - Acute systolic (congestive) heart failure Plan to address problem: Strict I/O, monitor urine output every shift, afterload reduction, blood pressure control, echocardiogram ordered and is pending at time of admission, cardiology team consulted. (3) End stage renal disease Current Visit: Yes Status: Acute Plan to address problem: Nephrology team consulted in ED, dialysis as per renal team, supportive care. (4) Hypertension Current Visit: Yes Status: Acute Qualifiers: Hypertension type: essential hypertension Qualified Code(s): I10 - Essential (primary) hypertension Plan to address problem: Monitor blood pressure every shift, continue medical management (5) Abdominal aneurysm Current Visit: Yes Status: Chronic (6) non-STEMI (7) Bilateral pulmonary infiltrates likely secondary to pulmonary edema (8) PUI [id number] out (9) Chronic venous insufficiency of lower extremity Current Visit: Yes Status: Chronic (7) DVT prophylaxis Current Visit: Yes Status: Acute Plan to address problem: SCD to bilateral lower extremities while in bed, prophylactic anticoagulation (8) Advance care planning Current Visit: Yes Status: Acute Plan to address problem: Disease education done, care plan discussed, prognosis discussed, patient acknowledges understanding and agreement with care plan, patient is full code, +30 minutes. Patient care plan discussed with Santa Dodge. Telephone number . The high probability of a clinically significant, sudden or life threatening deterioration of the [cardiac, pulmonary, renal, neuro] system(s) required my full and direct attention, intervention and personal management. The aggregate critical care time was [90] minutes. This time is in addition to time spent performing reported procedures but includes the following: [x] Data Review and interpretation [x] Patient assessment and monitoring of vital signs [x] Documentation [x] Medication orders and management E History Interval history: Patient seen and examined sitting up still intubated but awake following commands. Hospitalist Physical - Physical exam Narrative exam: General appearance: Present: mild distress, ET tube in place Along with OGT - EENT Eyes: Present: miosis ENT: hearing intact, clear oral mucosa - Neck Neck: Present: supple, normal ROM - Respiratory Respiratory effort: labored Respiratory: bilateral: diminished, rhonchi - Cardiovascular Heart Sounds: Present: S1 & S2. Absent: rub, click - Extremities Extremities: pulses symmetrical, No edema Peripheral Pulses: within normal limits - Abdominal General gastrointestinal: Present: soft, non-tender, non-distended, normal bowel sounds Male genitourinary: Present: normal - Integumentary Integumentary: Present: clear, dry - Musculoskeletal Musculoskeletal: generalized weakness - Psychiatric Psychiatric: no appropriate mood/affect, no intact judgment & insight, no memory intact - Neurologic Neurologic: CNII-XII intact, no focal deficits, moves all extremities, no gait normal - Constitutional Vitals: Temp Pulse Resp BP Pulse Ox 99.4 F 75 17 183/94 99 07/19/20 12:02 07/19/20 11:30 07/19/20 11:30 07/19/20 11:30 07/19/20 11:30 General appearance: Present: other (intubated/sedated) HEART Score - HEART Score Troponin: Troponin T 0.213 ng/mL (0.00-0.029) H* 07/18/20 19:11 Results - Labs CBC & Chem 7: 07/18/20 05:24 07/18/20 05:24 Labs: Laboratory Last Values WBC 8.8 K/mm3 (4.5-11.0) 07/18/20 05:24 RBC 3.45 M/mm3 (3.65-5.03) L 07/18/20 05:24 Hgb 10.8 gm/dl (11.8-15.2) L 07/18/20 05:24 Hct 31.9 % (35.5-45.6) L 07/18/20 05:24 MCV 93 fl (84-94) 07/18/20 05:24 MCH 31 pg (28-32) 07/18/20 05:24 MCHC 34 % (32-34) 07/18/20 05:24 RDW 13.9 % (13.2-15.2) 07/18/20 05:24 Plt Count 215 K/mm3 (140-440) 07/18/20 05:24 Lymph % (Auto) 7.0 % (13.4-35.0) L 07/17/20 09:31 [place] % (Auto) Negative Cutter 07/18/20 05:24 Eos % (Auto) 0.8 % (0.0-4.3) 07/17/20 09:31 Baso % (Auto) 0.4 % (0.0-1.8) 07/17/20 09:31 Lymph # (Auto) 0.8 K/mm3 (1.2-5.4) L 07/17/20 09:31 [place] # (Auto) 0.6 K/mm3 (0.0-0.8) 07/17/20 09:31 Eos # (Auto) 0.1 K/mm3 (0.0-0.4) 07/17/20 09:31 Baso # (Auto) 0.0 K/mm3 (0.0-0.1) 07/17/20 09:31 Add Manual Diff Complete 07/18/20 05:24 Total Counted 100 07/18/20 05:24 Seg Neutrophils % 87.0 % (40.0-70.0) H 07/17/20 09:31 Seg Neuts % (Manual) 85.0 % (40.0-70.0) H 07/18/20 05:24 Lymphocytes % (Manual) 8.0 % (13.4-35.0) L 07/18/20 05:24 Monocytes % (Manual) 7.0 % (0.0-7.3) 07/18/20 05:24 Nucleated RBC % Not Reportable 07/18/20 05:24 Seg Neutrophils # 10.1 K/mm3 (1.8-7.7) H 07/17/20 09:31 Seg Neutrophils # Man 7.5 K/mm3 (1.8-7.7) 07/18/20 05:24 Band Neutrophils # 0.0 K/mm3 07/18/20 05:24 Lymphocytes # (Manual) 0.7 K/mm3 (1.2-5.4) L 07/18/20 05:24 Abs React Lymphs (Man) 0.0 K/mm3 07/18/20 05:24 Monocytes # (Manual) 0.6 K/mm3 (0.0-0.8) 07/18/20 05:24 Eosinophils # (Manual) 0.0 K/mm3 (0.0-0.4) 07/18/20 05:24 Basophils # (Manual) 0.0 K/mm3 (0.0-0.1) 07/18/20 05:24 Metamyelocytes # 0.0 K/mm3 07/18/20 05:24 Myelocytes # 0.0 K/mm3 07/18/20 05:24 Promyelocytes # 0.0 K/mm3 07/18/20 05:24 Blast Cells # 0.0 K/mm3 07/18/20 05:24 WBC Morphology Not Reportable 07/18/20 05:24 Hypersegmented Neuts Not Reportable 07/18/20 05:24 Hyposegmented Neuts Not Reportable 07/18/20 05:24 Hypogranular Neuts Not Reportable 07/18/20 05:24 Smudge Cells Not Reportable 07/18/20 05:24 Toxic Granulation Not Reportable 07/18/20 05:24 Toxic Vacuolation Not Reportable 07/18/20 05:24 Dohle Bodies Not Reportable 07/18/20 05:24 Pelger-Huet Anomaly Not Reportable 07/18/20 05:24 Oscar Rods Not Reportable 07/18/20 05:24 Platelet Estimate Consistent w auto 07/18/20 05:24 Clumped Platelets Not Reportable 07/18/20 05:24 Plt Clumps, EDTA Not Reportable 07/18/20 05:24 Large Platelets Not Reportable 07/18/20 05:24 Giant Platelets Not Reportable 07/18/20 05:24 Platelet Satelliting Not Reportable 07/18/20 05:24 Plt Morphology Comment Not Reportable 07/18/20 05:24 RBC Morphology Normal 07/18/20 05:24 Dimorphic RBCs Not Reportable 07/18/20 05:24 Polychromasia Not Reportable 07/18/20 05:24 Hypochromasia Not Reportable 07/18/20 05:24 Poikilocytosis Not Reportable 07/18/20 05:24 Anisocytosis Not Reportable 07/18/20 05:24 Microcytosis Not Reportable 07/18/20 05:24 Macrocytosis Not Reportable 07/18/20 05:24 Spherocytes Not Reportable 07/18/20 05:24 Pappenheimer Bodies Not Reportable 07/18/20 05:24 Sickle Cells Not Reportable 07/18/20 05:24 Target Cells Not Reportable 07/18/20 05:24 Tear Drop Cells Not Reportable 07/18/20 05:24 Ovalocytes Not Reportable 07/18/20 05:24 Helmet Cells Not Reportable 07/18/20 05:24 Yeh-Berry Bodies Not Reportable 07/18/20 05:24 [place] Rings Not Reportable 07/18/20 05:24 [place] Cells Not Reportable 07/18/20 05:24 Bite Cells Not Reportable 07/18/20 05:24 Crenated Cell Not Reportable 07/18/20 05:24 Elliptocytes Not Reportable 07/18/20 05:24 Acanthocytes (Spur) Not Reportable 07/18/20 05:24 Rouleaux Not Reportable 07/18/20 05:24 Hemoglobin C Crystals Not Reportable 07/18/20 05:24 Schistocytes Not Reportable 07/18/20 05:24 Malaria parasites Not Reportable 07/18/20 05:24 [place] Bodies Not Reportable 07/18/20 05:24 Hem Pathologist Commnt No 07/18/20 05:24 PT 15.0 Sec. (12.2-14.9) H 07/17/20 09:31 INR 1.13 (0.87-1.13) 07/17/20 09:31 APTT 25.3 Sec. (24.2-36.6) 07/17/20 09:31 D-Dimer 653.04 ng/mlDDU (0-234) H 07/17/20 13:11 ABG pH 7.482 (7.320-7.450) H 07/19/20 03:27 POC ABG pCO2 33.0 mmHg (32.0-48.0) 07/19/20 03:27 ABG pCO2 54.6 mm Hg 07/17/20 Unknown POC ABG pO2 127.4 mmHg (83-108) H 07/19/20 03:27 ABG pO2 108.9 mm Hg (80.0-90.0) H 07/17/20 Unknown POC ABG HCO3 24.1 07/19/20 03:27 ABG HCO3 22.0 mmol/L (20.0-26.0) 07/17/20 Unknown ABG O2 Saturation 98.9 (0-100) 07/19/20 03:27 ABG O2 Content 15.5 (0.0-44) 07/17/20 Unknown POC ABG Base Excess 1.1 07/19/20 03:27 ABG Base Excess -5.9 mmol/L (-2.0-3.0) L 07/17/20 Unknown ABG Hemoglobin 11.9 (12.0-17.5) L 07/19/20 03:27 ABG Oxyhemoglobin 97.6 (94-98) 07/19/20 03:27 ABG Carboxyhemoglobin 1.5 % (0.0-5.0) 07/17/20 Unknown ABG Methemoglobin 0.3 (0.0-1.5) 07/19/20 03:27 ABG Sodium 137.0 mmol/L (136.0-145.0) 07/19/20 03:27 ABG Potassium 3.8 mmol/L (3.40-4.50) 07/19/20 03:27 ABG Chloride 101.0 mmol/L (98-107) 07/19/20 03:27 ABG Glucose 131 mg/dL (65-95) H 07/19/20 03:27 Oxyhemoglobin 95.3 % (95.0-99.0) 07/17/20 Unknown Carboxyhemoglobin 1.0 (0.5-1.5) 07/19/20 03:27 FiO2 50 % 07/17/20 Unknown FiO2 % 35.0 07/19/20 03:27 Sodium 143 mmol/L (137-145) 07/18/20 05:24 Potassium 4.5 mmol/L (3.6-5.0) 07/18/20 05:24 Chloride 103.7 mmol/L (98-107) 07/18/20 05:24 Carbon Dioxide 24 mmol/L (22-30) 07/18/20 05:24 Anion Gap 20 mmol/L 07/18/20 05:24 BUN 54 mg/dL (9-20) H 07/18/20 05:24 Creatinine 6.9 mg/dL (0.8-1.3) H 07/18/20 05:24 Estimated GFR 10 ml/min 07/18/20 05:24 BUN/Creatinine Ratio 8 % 07/18/20 05:24 Glucose 81 mg/dL (75-100) 07/18/20 05:24 POC Glucose 141 mg/dL (70-105) H 07/19/20 11:48 Lactic Acid 0.60 mmol/L (0.7-2.0) L 07/17/20 13:11 Calcium 8.9 mg/dL (8.4-10.2) 07/18/20 05:24 Magnesium 1.80 mg/dL (1.7-2.3) 07/18/20 15:50 Ferritin 356.2 ng/mL (30.0-300.0) H 07/17/20 12:57 Total Bilirubin 0.40 mg/dL (0.1-1.2) 07/18/20 05:24 Direct Bilirubin 0.3 mg/dL (0-0.2) H 07/17/20 09:31 Indirect Bilirubin 0.3 mg/dL 07/17/20 09:31 AST 38 units/L (5-40) 07/18/20 05:24 ALT 62 units/L (7-56) H 07/18/20 05:24 Alkaline Phosphatase 72 units/L (35-129) 07/18/20 05:24 Lactate Dehydrogenase 277 units/L (91-180) H 07/17/20 13:11 Troponin T 0.213 ng/mL (0.00-0.029) H* 07/18/20 19:11 C-Reactive Protein 0.60 mg/dL (0.00-1.30) 07/17/20 13:11 NT-Pro-B Natriuret Pep 74338 pg/mL (0-900) H 07/17/20 09:31 Total Protein 6.9 g/dL (6.3-8.2) 07/18/20 05:24 Albumin 3.8 g/dL (3.9-5) L 07/18/20 05:24 Albumin/Globulin Ratio 1.2 % 07/18/20 05:24 Triglycerides 119 mg/dL (2-149) 07/17/20 09:31 Cholesterol 163 mg/dL (50-199) 07/17/20 09:31 LDL Cholesterol Direct 130 mg/dL (50-130) 07/17/20 09:31 HDL Cholesterol 33 mg/dL (40-59) L 07/17/20 09:31 Cholesterol/HDL Ratio 4.93 % 07/17/20 09:31 Procalcitonin 1.79 ng/mL (<0.15) 07/17/20 13:11 Arterial Blood Glucose 131 mg/dL (65-95) H 07/19/20 03:27 Arterial Blood Ionized Calcium 4.5 mg/dL (4.6-5.3) L 07/19/20 03:27 Urine Opiates Screen Negative 07/17/20 11:21 Urine Methadone Screen Negative 07/17/20 11:21 Ur Barbiturates Screen Negative 07/17/20 11:21 Ur Phencyclidine Scrn Negative 07/17/20 11:21 Ur Amphetamines Screen Negative 07/17/20 11:21 U Benzodiazepines Scrn Negative 07/17/20 11:21 Urine Cocaine Screen Negative 07/17/20 11:21 U Marijuana (THC) Screen Negative 07/17/20 11:21 Drugs of Abuse Note Disclamer 07/17/20 11:21 Coronavirus (PCR) Negative (Negative) 07/17/20 Unknown Hepatitis A IgM Ab Non-reactive (NonReactive) 07/17/20 13:11 Hep Bs Antigen Non-reactive (Negative) 07/17/20 13:11 Hep B Core IgM Ab Non-reactive (NonReactive) 07/17/20 13:11 Hepatitis C Antibody Non-reactive (NonReactive) 07/17/20 13:11 Microbiology: Microbiology 07/17/20 15:05 Tracheal Aspirate Sputum Culture - Preliminary 07/17/20 13:11 Peripheral/Venous Blood Culture - Preliminary NO GROWTH AFTER 24 HOURS 07/17/20 12:57 Peripheral/Venous Blood Culture - Preliminary NO GROWTH AFTER 24 HOURS Ascencio/IV: Voiding Method Indwelling Catheter Active Medications - Current Medications Current Medications: Generic Name Dose Route Start Last Admin Trade Name Freq PRN Reason Stop Dose Admin Acetaminophen 650 mg 07/17/20 12:29 Acetaminophen 650 Mg Rect Supp AR Q6H PRN Pain MILD(1-3)/Fever >100.5/ALBERTS Albuterol 2.5 mg 07/17/20 12:29 Albuterol 2.5 Mg/3 Ml Nebu IH Q3HRT PRN Shortness Of Breath Lipase/Protease/Amylase 1 each 07/17/20 16:00 Lipase 10,500/Protease 25,000/Amylase 43,750 (Units) Dr Cook FEEDTUBE PRN PRN For Clogged Feeding Tube Aspirin 325 mg 07/18/20 12:00 07/19/20 09:56 Aspirin 325 Mg Tab PO 325 mg QDAY ALIX Administration Clonidine HCl 0.2 mg 07/19/20 22:00 Clonidine 0.2 Mg Tab PO Q12HR ALIX Famotidine 20 mg 07/18/20 10:00 07/19/20 09:56 Famotidine 20 Mg Tab PO 20 mg DAILY ALIX Administration Fentanyl 50 mcg 07/18/20 13:41 Fentanyl 100 Mcg/2 Ml Inj IV Q10MIN PRN ANALGESIA Heparin Sodium (Porcine) 5,000 unit 07/17/20 22:00 07/19/20 09:56 Heparin 5,000 Unit/1 Ml Vial SUB-Q 5,000 unit Q12HR ALIX Administration Hydralazine HCl 10 mg 07/18/20 14:00 07/19/20 06:36 Hydralazine 20 Mg/1 Ml Inj IV 10 mg Q4H PRN Administration SBP >/=170; DBP >/=100 Hydromorphone HCl 0.25 mg 07/17/20 12:29 07/19/20 03:23 Hydromorphone 1 Mg/1 Ml Inj IV 0.25 mg Q4H PRN Administration Pain, Moderate (4-6) Hydrophilic Ointment 1 applic 07/17/20 13:56 Lip Therapy Vaseline TP Q2HR PRN Dry Lips Propofol 1,000 mg in 100 mls @ 2.808 mls/hr 07/17/20 10:00 07/17/20 15:52 Diprivan 10 Mg/Ml IV 0 mcg/kg/min TITR ALIX 0 mls/hr Titration Protocol 5 MCG/KG/MIN Fentanyl Citrate 2,000 mcg in 100 mls @ 4.68 mls/hr 07/17/20 10:00 07/18/20 12:25 Fentanyl Drip Premix IV Infused TITR ALIX Titration Protocol 1 MCG/KG/HR Ceftriaxone Sodium 2 gm in 100 mls @ 200 mls/hr 07/17/20 23:00 07/18/20 22:35 Rocephin/Ns 2 Gm/100 Ml IV 07/21/20 23:29 Infused Q24H ALIX Infusion Protocol Azithromycin 500 mg in 250 mls @ 250 mls/hr 07/17/20 13:00 07/18/20 18:03 Zithromax/Ns IV 07/21/20 13:59 Infused Q24H ALIX Infusion Protocol Sodium Chloride 100 mls @ 999 mls/hr 07/17/20 16:00 Nacl 0.9% IV ANDRÉS PRN Hypotension Multi-Ingred Cream/Lotion/Oil/Oint 1 applic 07/17/20 13:56 Mineral Oil/Petrolatum, White Ophth Oint 3.5 Gm OU Q4HR PRN Dry Eye(s) Senna/Docusate Sodium 1 tab 07/17/20 22:00 07/19/20 09:56 Sennosides/Docusate Sodium 8.6/50 Mg Tab FEEDTUBE 1 tab BID ALIX Administration Simple Syrup 15 ml 07/17/20 16:00 07/17/20 23:54 Simple Syrup 15 Ml FEEDTUBE 15 ml PRN PRN Administration Hypoglycemia Simple Syrup 30 ml 07/17/20 16:00 Simple Syrup 15 Ml FEEDTUBE PRN PRN Hypoglycemia Sodium Bicarbonate 325 mg 07/17/20 16:00 Sodium Bicarbonate 325 Mg Tab FEEDTUBE PRN PRN For Clogged Feeding Tube Sodium Chloride 10 ml 07/17/20 22:00 07/19/20 09:57 Sodium Chloride 0.9% 10 Ml Flush Syringe IV 10 ml BID ALIX Administration Sodium Chloride 10 ml 07/17/20 12:29 Sodium Chloride 0.9% 10 Ml Flush Syringe IV PRN PRN LINE FLUSH Nutrition/Malnutrition Assess - Dietary Evaluation Nutrition/Malnutrition Findings: Nutrition Notes Start: 07/17/20 14:41 Freq: Status: Active Protocol: Document 07/19/20 11:38 CW (Rec: 07/19/20 11:43 CW [id number]) Nutrition Notes Initial or Follow up Reassessment Current Diagnosis CKD (stage V CKD),Hypertension ,Heart Failure,Respiratory Failure,Hyperlipidemia Other Pertinent Diagnosis pneu, Current Diet Nepro at 50 ml/hr Labs/Tests 07/18 BUN 54 Cr 6.9 Pertinent Medications [place] Height 6 ft 1 in Weight 93.4 kg Central Body Weight (kg) 83.63 BMI 27.1 Weight Status Appropriate Subjective/Other Information F/U for TF and vent status. pt remains on mecanical vent. TF running at goal of 50 ml/hr with no reports of TF intolerance. Percent of energy/protein needs met: 100%/87% Burn Absent Trauma Absent Minimum of two criteria No physical signs of malnutrition #1 Nutrition Diagnosis Inadequate oral intake Diagnosis Progress(for reassessment Continues documentation) Is patient on ventilator? Yes Is Patient Ambulatory and/or Out of Bed No REE-(Lyons-St. Jeor-confined to bed) 5968.472 Calculation Used for Recommendations Chrissie Bah Additional Notes Pro needs >1.2g/kg: >112g/day Fluid needs 1-1.5L/day Nutrition Intervention Nutrition Support: Nepro at 50ml/hr with 110ml water flush q4h. Kcal 2,160 Protein (gm) 97 Carbohydrates (gm) 193 Fat (gm) 115 Fluid (mL) 872 Fiber (gm) 15 Goal #1 TF tolerance Goal #2 TF (at goal rate) to meet at least 75% energy and pro needs Anticipated Discharge Needs: Unable to identify at this time Follow-Up By: 07/22/20 Additional Comments F/U for TF tolerance
--- NOTE | 2020-07-19 13:03 | Progress Note ---
Assessment and Plan Acute hypoxemic respiratory failure Bilateral pulmonary infiltrates, edema versus pneumonia. PUI COVID-19 infection. ROSA ELENA on CKD Anemia NSTEMI Elevated serum inflammatory markers to include ferritin and D-dimer. Elevated serum transaminases. Oropharyngeal dysphagia. History of hypertension. History of polysubstance abuse, but negative drug screen - get ABG to assess ventilation - extubate if acceptable - continue care as below otherwise; - discontinued Versed - discontinued Ascencio catheter - discussed vascular surgery evaluation - continue HD/UF for toxin and volume clearance - continue Daily SAT and SBT assessment as tolerated - continue to wean supplemental oxygen for target O2 sat's > 90% acutely - VAP bundle addressed - continue lung protective strategies - continue bronchodilators with pulmonary hygiene per RT - wean per pulmonary driven protocols otherwise - avoid nephrotoxins, renally dose all medications - continue to avoid benzodiazepine's, reduce the possibility of delirium - complete empiric CAP AB's coverage with Rocephin and Azitrhromycin - follow clinically re: WBC/fevers - prn analgesia per CPOT score - Maintenance of sleep-wake cycle, avoid delirium - continue enteral nutritional support at goal rate as tolerated - G.I. & VTE prophylaxis - PT/OT/ROM exercises - continue mobility protocols for pressure ulcer prophylaxis - Monitor hemodynamics closely - continue other care per attending / other consultants - discharge planning ongoing concurrently COVID SPECIFIC INTERVENTIONS - COVID-19 test negative .... Re-evaluate in am & prn CONDITION: CRITICAL PROGNOSIS: GUARDED CODE STATUS: FULL CODE The high probability of a clinically significant, sudden or life-threatening deterioration of the [respiratory, cardiovascular, renal & neurologic] system(s) required my full and direct attention, intervention and personal management. The aggregate critical care time was [36] minutes without overlap. Time includes spent on; [x] Data Review and interpretation [x] Patient assessment and monitoring of vital signs [x] Documentation [x] Medication orders and management Subjective Date of service: 07/19/20 Principal diagnosis: Ac. hypoxemic resp failure; Pulm Edema; PUI COVID-19; ROSA ELENA on CKD; NSTEMI Interval history: Patient is seen today for: Acute hypoxemic respiratory failure; Pulm Edema; PUI COVID-19; ROSA ELENA on CKD; NSTEMI Seen and examined at bedside; 24hour events reviewed; nursing and respiratory care staff consulted; no adverse overnight events reported to me; susanne vaughn eacefully in bed; his is visiting; tolerating SBT very well; denies chest pains or palpitations; No N/V/F/C Objective Vital Signs - 12hr 07/19/20 07/19/20 07/19/20 01:30 02:00 02:30 Temperature Pulse Rate 80 83 82 Pulse Rate [ From Monitor] Respiratory 19 20 18 Rate Blood Pressure 163/79 165/84 171/83 O2 Sat by Pulse 100 100 99 Oximetry 07/19/20 07/19/20 07/19/20 03:00 03:11 03:24 Temperature 100.4 F H Pulse Rate 81 80 Pulse Rate [ From Monitor] Respiratory 19 Rate Blood Pressure 179/87 185/95 O2 Sat by Pulse 99 Oximetry 07/19/20 07/19/20 07/19/20 03:30 04:00 04:30 Temperature Pulse Rate 82 89 90 Pulse Rate [ 89 From Monitor] Respiratory 19 24 20 Rate Blood Pressure 168/88 180/87 184/96 O2 Sat by Pulse 100 100 100 Oximetry 07/19/20 07/19/20 07/19/20 05:00 05:30 06:00 Temperature Pulse Rate 88 89 79 Pulse Rate [ From Monitor] Respiratory 19 23 19 Rate Blood Pressure 170/83 176/90 174/90 O2 Sat by Pulse 100 98 98 Oximetry 07/19/20 07/19/20 07/19/20 06:30 06:36 07:00 Temperature 99.9 F H Pulse Rate 75 81 89 Pulse Rate [ From Monitor] Respiratory 20 21 Rate Blood Pressure 180/90 180/90 191/95 O2 Sat by Pulse 99 99 Oximetry 07/19/20 07/19/20 07/19/20 07:30 07:47 08:00 Temperature Pulse Rate 84 82 87 Pulse Rate [ 87 From Monitor] Respiratory 21 18 22 Rate Blood Pressure 198/102 192/93 187/88 O2 Sat by Pulse 99 98 100 Oximetry 07/19/20 07/19/20 07/19/20 08:30 09:00 09:30 Temperature Pulse Rate 81 79 76 Pulse Rate [ From Monitor] Respiratory 16 22 15 Rate Blood Pressure 188/96 201/98 177/105 O2 Sat by Pulse 99 99 99 Oximetry 07/19/20 07/19/20 07/19/20 09:56 10:00 10:30 Temperature Pulse Rate 82 76 73 Pulse Rate [ From Monitor] Respiratory 28 H 29 H Rate Blood Pressure 185/88 191/96 191/102 O2 Sat by Pulse 100 100 Oximetry 07/19/20 07/19/20 07/19/20 11:00 11:08 11:30 Temperature Pulse Rate 75 82 75 Pulse Rate [ From Monitor] Respiratory 21 19 17 Rate Blood Pressure 187/89 187/89 183/94 O2 Sat by Pulse 100 100 99 Oximetry 07/19/20 12:02 Temperature 99.4 F Pulse Rate Pulse Rate [ From Monitor] Respiratory Rate Blood Pressure O2 Sat by Pulse Oximetry Constitutional: no acute distress, other (elderly male with milldy increased respiratory effort at rest on MVS) Eyes: non-icteric ENT: oropharynx moist, other (ETT 24 cm RAFIQ) Neck: supple, no lymphadenopathy, no JVD Effort: mildly labored Ascultation: Bilateral: rhonchi Percussion: Bilateral: not dull Cardiovascular: regular rate and rhythm Gastrointestinal: normoactive bowel sounds, soft, non-tender, non-distended Integumentary: normal, other (AV Fistula to left arm) Extremities: no cyanosis, no edema, pulses normal, no ischemia or petechiae Neurologic: normal mental status, non-focal exam (grossly), pupils equal and round, motor strength normal and Psychiatric: mood appropriate, affect normal CBC and BMP: 07/20/20 04:35 07/20/20 04:35 ABG, PT/INR, D-dimer: ABG ABG pH 7.482 (7.320-7.450) H 07/19/20 03:27 POC ABG pCO2 33.0 mmHg (32.0-48.0) 07/19/20 03:27 ABG pCO2 54.6 mm Hg 07/17/20 Unknown POC ABG pO2 127.4 mmHg (83-108) H 07/19/20 03:27 ABG pO2 108.9 mm Hg (80.0-90.0) H 07/17/20 Unknown POC ABG HCO3 24.1 07/19/20 03:27 ABG O2 Saturation 98.9 (0-100) 07/19/20 03:27 PT/INR, D-dimer PT 15.0 Sec. (12.2-14.9) H 07/17/20 09:31 INR 1.13 (0.87-1.13) 07/17/20 09:31 D-Dimer 653.04 ng/mlDDU (0-234) H 07/17/20 13:11 Abnormal lab findings: Abnormal Labs 07/17/20 07/17/20 07/17/20 09:31 09:31 09:31 WBC 11.6 H RBC Hgb 11.2 L Hct 35.4 L Lymph % (Auto) 7.0 L Lymph # (Auto) 0.8 L Seg Neutrophils % 87.0 H Seg Neuts % (Manual) Lymphocytes % (Manual) Seg Neutrophils # 10.1 H Lymphocytes # (Manual) PT 15.0 H D-Dimer ABG pH POC ABG pCO2 POC ABG pO2 ABG pO2 ABG Base Excess ABG Hemoglobin ABG Oxyhemoglobin ABG Potassium ABG Glucose BUN 55 H Creatinine 5.5 H Glucose 177 H POC Glucose Lactic Acid Ferritin Direct Bilirubin 0.3 H AST 99 H ALT 82 H Lactate Dehydrogenase Troponin T 0.030 H NT-Pro-B Natriuret Pep 44439 H Albumin HDL Cholesterol 33 L Arterial Blood Glucose Arterial Blood Ionized Calcium 07/17/20 07/17/20 07/17/20 12:57 13:11 13:11 WBC RBC Hgb Hct Lymph % (Auto) Lymph # (Auto) Seg Neutrophils % Seg Neuts % (Manual) Lymphocytes % (Manual) Seg Neutrophils # Lymphocytes # (Manual) PT D-Dimer 653.04 H ABG pH POC ABG pCO2 POC ABG pO2 ABG pO2 ABG Base Excess ABG Hemoglobin ABG Oxyhemoglobin ABG Potassium ABG Glucose BUN Creatinine Glucose 175 H POC Glucose Lactic Acid Ferritin 356.2 H Direct Bilirubin AST ALT Lactate Dehydrogenase 277 H Troponin T NT-Pro-B Natriuret Pep Albumin HDL Cholesterol Arterial Blood Glucose Arterial Blood Ionized Calcium 07/17/20 07/17/20 07/17/20 13:11 21:00 23:25 WBC RBC Hgb Hct Lymph % (Auto) Lymph # (Auto) Seg Neutrophils % Seg Neuts % (Manual) Lymphocytes % (Manual) Seg Neutrophils # Lymphocytes # (Manual) PT D-Dimer ABG pH POC ABG pCO2 POC ABG pO2 110.1 H ABG pO2 ABG Base Excess ABG Hemoglobin 11.5 L ABG Oxyhemoglobin ABG Potassium ABG Glucose BUN Creatinine Glucose POC Glucose 64 L Lactic Acid 0.60 L Ferritin Direct Bilirubin AST ALT Lactate Dehydrogenase Troponin T NT-Pro-B Natriuret Pep Albumin HDL Cholesterol Arterial Blood Glucose Arterial Blood Ionized Calcium 4.5 L 07/17/20 07/18/20 07/18/20 Unknown 05:24 05:24 WBC RBC 3.45 L Hgb 10.8 L Hct 31.9 L Lymph % (Auto) Lymph # (Auto) Seg Neutrophils % Seg Neuts % (Manual) 85.0 H Lymphocytes % (Manual) 8.0 L Seg Neutrophils # Lymphocytes # (Manual) 0.7 L PT D-Dimer ABG pH 7.223 L POC ABG pCO2 POC ABG pO2 ABG pO2 108.9 H ABG Base Excess -5.9 L ABG Hemoglobin 11.4 L ABG Oxyhemoglobin ABG Potassium ABG Glucose BUN 54 H Creatinine 6.9 H Glucose POC Glucose Lactic Acid Ferritin Direct Bilirubin AST ALT 62 H Lactate Dehydrogenase Troponin T NT-Pro-B Natriuret Pep Albumin 3.8 L HDL Cholesterol Arterial Blood Glucose Arterial Blood Ionized Calcium 07/18/20 07/18/20 07/18/20 11:10 11:23 12:06 WBC RBC Hgb Hct Lymph % (Auto) Lymph # (Auto) Seg Neutrophils % Seg Neuts % (Manual) Lymphocytes % (Manual) Seg Neutrophils # Lymphocytes # (Manual) PT D-Dimer ABG pH 7.268 L POC ABG pCO2 49.6 H POC ABG pO2 49.3 L ABG pO2 ABG Base Excess ABG Hemoglobin 11.8 L ABG Oxyhemoglobin 78.7 L ABG Potassium 4.7 H ABG Glucose 112 H BUN Creatinine Glucose POC Glucose 107 H Lactic Acid Ferritin Direct Bilirubin AST ALT Lactate Dehydrogenase Troponin T 0.189 H* D NT-Pro-B Natriuret Pep Albumin HDL Cholesterol Arterial Blood Glucose 112 H Arterial Blood Ionized Calcium 07/18/20 07/18/20 07/18/20 15:50 17:27 19:11 WBC RBC Hgb Hct Lymph % (Auto) Lymph # (Auto) Seg Neutrophils % Seg Neuts % (Manual) Lymphocytes % (Manual) Seg Neutrophils # Lymphocytes # (Manual) PT D-Dimer ABG pH POC ABG pCO2 POC ABG pO2 ABG pO2 ABG Base Excess ABG Hemoglobin ABG Oxyhemoglobin ABG Potassium ABG Glucose BUN Creatinine Glucose POC Glucose 156 H Lactic Acid Ferritin Direct Bilirubin AST ALT Lactate Dehydrogenase Troponin T 0.182 H* 0.213 H* NT-Pro-B Natriuret Pep Albumin HDL Cholesterol Arterial Blood Glucose Arterial Blood Ionized Calcium 07/18/20 07/19/20 07/19/20 23:10 03:27 05:21 WBC RBC Hgb Hct Lymph % (Auto) Lymph # (Auto) Seg Neutrophils % Seg Neuts % (Manual) Lymphocytes % (Manual) Seg Neutrophils # Lymphocytes # (Manual) PT D-Dimer ABG pH 7.482 H POC ABG pCO2 POC ABG pO2 127.4 H ABG pO2 ABG Base Excess ABG Hemoglobin 11.9 L ABG Oxyhemoglobin ABG Potassium ABG Glucose 131 H BUN Creatinine Glucose POC Glucose 160 H 140 H Lactic Acid Ferritin Direct Bilirubin AST ALT Lactate Dehydrogenase Troponin T NT-Pro-B Natriuret Pep Albumin HDL Cholesterol Arterial Blood Glucose 131 H Arterial Blood Ionized Calcium 4.5 L 07/19/20 11:48 WBC RBC Hgb Hct Lymph % (Auto) Lymph # (Auto) Seg Neutrophils % Seg Neuts % (Manual) Lymphocytes % (Manual) Seg Neutrophils # Lymphocytes # (Manual) PT D-Dimer ABG pH POC ABG pCO2 POC ABG pO2 ABG pO2 ABG Base Excess ABG Hemoglobin ABG Oxyhemoglobin ABG Potassium ABG Glucose BUN Creatinine Glucose POC Glucose 141 H Lactic Acid Ferritin Direct Bilirubin AST ALT Lactate Dehydrogenase Troponin T NT-Pro-B Natriuret Pep Albumin HDL Cholesterol Arterial Blood Glucose Arterial Blood Ionized Calcium Chest x-ray: image reviewed Allied health notes reviewed: nursing
[2020-07-19] MEDS: AZITHROMYCIN/NS 500 MG/250 ML 500 MG/250 ML BAG IV SCH (13:28)
[2020-07-19] MEDS ORDERED: MAGNESIUM SULFATE 2 GM/50 ML BAG IV ONE (14:00)
[2020-07-19] MEDS: fentaNYL DRIP Premix 2,000 MCG/100 ML BAG IV SCH (14:12)
--- NOTE | 2020-07-19 16:32 | Progress Note ---
Assessment and Plan Echo reviewed - 07/18/2020 - EF 35-40%, impaired LV relaxation, RV mildly dilated, LA severely dilated, RA mildly dilated, mild AR, aortic root mildly dilated. Continue volume optimization via HD. Check serial troponins/CK-MB. Continue daily ASA. Home Clonidine resumed to avoid rebound HTN. Would like to wean down Clonidine and initiate beta carly when able as previously stated. Plan for ischemic eval when clinically stable. Pt seen in conjunction with Dr. Sanket Mcallister, who agrees with the assessment and plan of care. - Patient Problems (1) Acute respiratory failure Current Visit: Yes Status: Acute (2) Pneumonia Current Visit: Yes Status: Suspected (3) Acute HFrEF (heart failure with reduced ejection fraction) Current Visit: Yes Status: Acute (4) Cardiomyopathy Current Visit: Yes Status: Acute (5) ESRD needing dialysis Current Visit: Yes Status: Acute (6) Anemia Current Visit: Yes Status: Chronic (7) Thoracic aortic aneurysm Current Visit: Yes Status: Acute Qualifiers: Presence of rupture: without rupture Qualified Code(s): I71.2 - Thoracic aortic aneurysm, without rupture (8) Abdominal aortic aneurysm Current Visit: Yes Status: Chronic Qualifiers: Presence of rupture: without rupture Qualified Code(s): I71.4 - Abdominal aortic aneurysm, without rupture Plan to address problem: 3.6 x 3.3 cm fusiform aneurysm on CT 10/2017, 3.4 cm on MRI 05/2018 (9) NSTEMI (non-ST elevated myocardial infarction) Current Visit: Yes Status: Acute Plan to address problem: Type 2 (10) Hypertension Current Visit: Yes Status: Chronic Qualifiers: Hypertension type: essential hypertension Qualified Code(s): I10 - Essential (primary) hypertension (11) HLD (hyperlipidemia) Current Visit: Yes Status: Chronic Qualifiers: Hyperlipidemia type: mixed hyperlipidemia Qualified Code(s): E78.2 - Mixed hyperlipidemia (12) Chronic venous insufficiency of lower extremity Current Visit: Yes Status: Chronic Subjective Date of service: 07/19/20 Principal diagnosis: Acute Respiratory Failure Interval history: Remains intubated. Eyes open upon assessment and able to follow commands. Tele reviewed - SR 70-80s w/PVCs, no events overnight. Objective Last Vital Signs Temp 99.4 F 07/19/20 12:02 Pulse 98 H 07/19/20 15:19 Resp 12 07/19/20 15:19 BP 154/84 07/19/20 15:19 Pulse Ox 98 07/19/20 15:19 - Physical Examination General: Other (intubated) HEENT: Positive: Normocephaly Neck: Positive: JVD/HJR (mild) Cardiac: Positive: Reg Rate and Rhythm, S1/S2 Lungs: Positive: Other (coarse anteriorly) Neuro: Positive: Other (intubated) Abdomen: Positive: Soft Skin: Negative: Rash Musculoskeletal: No Fluid Collection Extremities: Present: lower extr. pulses, edema, warm - Imaging and Cardiology EKG: report reviewed, image reviewed Echo: report reviewed (07/18/2020 - EF 35-40%, impaired LV relaxation, RV mildly dilated, LA severely dilated, RA mildly dilated, mild AR, aortic root mildly dilated), other (07/2019 - LV mildly dilated, LV wall thickness mild-mod increased, EF 50-55%, grade 2 diastolic dysfxn, RV mildly dilated, LA volume mod increased, mild AR, mild-mod MR, mild TR, mild pulm HTN 2/RVSP 41.28mmHg, ascending aorta mod dilated w/diameter 4.22cm) - Telemetry EKG Rhythm: Sinus Rhythm - EKG Sinus rhythms and dysrhythmias: sinus rhythm Ventricular dysrhythmias: ventricular premature com AV and intraventricular conduction: right bundle branch block Repolarization changes or abnormalities: nonspecific abnormality, ST segment, and/or T wave - Allied health notes Allied health notes reviewed: nursing
[2020-07-19 16:52] LABS: ABG Base Excess 0.2 mmol/L (-2.0-3.0); ABG HCO3 25.5 mmol/L (20.0-26.0); ABG Methemoglobin 0.5 % (0.0-1.5); ABG Oxygen Saturation 97.8 % (95.0-99.0); ABG PCO2 43.5 mm Hg; ABG PH 7.385 pH Units (7.350-7.450); ABG PO2 108.2 mm Hg (80.0-90.0)
--- NOTE | 2020-07-19 18:47 | Progress Note ---
Assessment and Plan 1. CKD 5, now ESKD: Patient follows with Dr. Stephens, was to start HD at [facility] but unfortunately decompensated prior to outpatient HD initiation. - s/p HD 07/17 for initial treatment, had treatment 07/18; will continue HD // for toxin/electrolyte management and fluid removal, start with decreased BFR to avoid dialysis disequilibrium, HD tomorrow - renally dose meds - avoid nephrotoxins - AVG working well per report - case management consult to assist with placement at [facility] for outpatient HD 2. HTN/Volume: UF removal as tolerated, BP reasonable 3. Acute hypoxic resp failure: UF as above, management of vent per ICU 4. DM type 2. 5. Normochromic anemia: likely due to CKD/ESKD, ESAs with HD prn 6. L kidney mass: management in outpatient setting 7. Secondary Hyperparathyroidism: defer vitamin D analog to outpatient setting, Ca at goal Subjective Date of service: 07/19/20 Principal diagnosis: Acute Respiratory Failure Interval history: Intubated, 30% FIO2, undergoing SBT Objective - Exam Narrative Exam: General appearance: well-developed, appears stated age, intubated, on vent HEENT: ATNC Neck: neck supple Respiratory: mechanical breath sounds Heart: regular, S1S2, no murmur Gastrointestinal: soft, normoactive bowel sounds, not tender Integumentary: warm, dry Neurologic: sedated Ext: no edema Hemodialysis access: L FA AVG - Vital Signs Vital signs: Vital Signs - 12hr 07/19/20 07/19/20 07/19/20 07:00 07:30 07:47 Temperature 99.9 F H Pulse Rate 89 84 82 Pulse Rate [ From Monitor] Respiratory 21 21 18 Rate Blood Pressure 191/95 198/102 192/93 O2 Sat by Pulse 99 99 98 Oximetry 07/19/20 07/19/20 07/19/20 08:00 08:30 09:00 Temperature Pulse Rate 87 81 79 Pulse Rate [ 87 From Monitor] Respiratory 22 16 22 Rate Blood Pressure 187/88 188/96 201/98 O2 Sat by Pulse 100 99 99 Oximetry 07/19/20 07/19/20 07/19/20 09:30 09:56 10:00 Temperature Pulse Rate 76 82 76 Pulse Rate [ From Monitor] Respiratory 15 28 H Rate Blood Pressure 177/105 185/88 191/96 O2 Sat by Pulse 99 100 Oximetry 07/19/20 07/19/20 07/19/20 10:30 11:00 11:08 Temperature Pulse Rate 73 75 82 Pulse Rate [ From Monitor] Respiratory 29 H 21 19 Rate Blood Pressure 191/102 187/89 187/89 O2 Sat by Pulse 100 100 100 Oximetry 07/19/20 07/19/20 07/19/20 11:30 12:00 12:02 Temperature 99.4 F Pulse Rate 75 82 Pulse Rate [ 75 From Monitor] Respiratory 17 14 Rate Blood Pressure 183/94 181/89 O2 Sat by Pulse 99 100 Oximetry 07/19/20 07/19/20 07/19/20 12:30 13:00 13:27 Temperature Pulse Rate 74 74 72 Pulse Rate [ From Monitor] Respiratory 29 H 14 Rate Blood Pressure 185/100 201/100 184/90 O2 Sat by Pulse 100 100 Oximetry 07/19/20 07/19/20 07/19/20 13:30 14:00 14:29 Temperature Pulse Rate 74 81 82 Pulse Rate [ From Monitor] Respiratory 13 11 L Rate Blood Pressure 170/91 171/87 167/79 O2 Sat by Pulse 100 100 Oximetry 07/19/20 07/19/20 07/19/20 14:30 15:00 15:19 Temperature Pulse Rate 84 119 H 98 H Pulse Rate [ From Monitor] Respiratory 20 12 12 Rate Blood Pressure 175/77 154/84 O2 Sat by Pulse 100 99 98 Oximetry 07/19/20 07/19/20 07/19/20 15:30 16:00 16:30 Temperature Pulse Rate 81 72 77 Pulse Rate [ 75 From Monitor] Respiratory 15 20 19 Rate Blood Pressure 148/94 154/77 169/86 O2 Sat by Pulse 99 99 100 Oximetry 07/19/20 07/19/20 07/19/20 17:00 17:30 18:00 Temperature Pulse Rate 66 89 83 Pulse Rate [ From Monitor] Respiratory 21 34 H 11 L Rate Blood Pressure 159/86 169/98 154/89 O2 Sat by Pulse 100 98 100 Oximetry - Lab 07/18/20 05:24 07/18/20 05:24 Most recent lab results ABG pH 7.385 pH Units (7.350-7.450) 07/19/20 16:36 ABG pCO2 43.5 mm Hg 07/19/20 16:36 ABG pO2 108.2 mm Hg (80.0-90.0) H 07/19/20 16:36 ABG HCO3 25.5 mmol/L (20.0-26.0) 07/19/20 16:36 ABG O2 Saturation 97.8 % (95.0-99.0) 07/19/20 16:36 Calcium 8.9 mg/dL (8.4-10.2) 07/18/20 05:24 Magnesium 1.80 mg/dL (1.7-2.3) 07/18/20 15:50 Medications & Allergies - Medications Allergies/Adverse Reactions: Allergies methadone Allergy (Verified 07/17/20 09:00) Unknown tramadol Allergy (Verified 07/17/20 09:00) Swelling Home Medications: Home Medications Medication Instructions Recorded Confirmed Last Taken Type HYDROcodone/APAP 10-325 [[place] 1 each PO Q6HR PRN #30 tablet 06/15/13 07/17/20 Unknown Rx 10-325 mg TAB] Probenecid/Colchicine 1 each PO DAILY #20 tablet 06/15/13 07/17/20 Unknown Rx [Probenecid-Colchicine Tab] cloNIDine [Catapres] 0.2 mg PO Q12H #60 tablet 06/15/13 07/17/20 Unknown Rx Cyclobenzaprine [Flexeril] 10 mg PO TID PRN #20 tablet 02/02/16 07/17/20 Unknown Rx Ketorolac [Toradol] 10 mg PO Q6H PRN #30 tablet 02/02/16 07/17/20 Unknown Rx Active Medications: Generic Name Dose Route Start Last Admin Trade Name Freq PRN Reason Stop Dose Admin Acetaminophen 650 mg 07/17/20 12:29 Acetaminophen 650 Mg Rect Supp IN Q6H PRN Pain MILD(1-3)/Fever >100.5/ALBERTS Albuterol 2.5 mg 07/17/20 12:29 Albuterol 2.5 Mg/3 Ml Nebu IH Q3HRT PRN Shortness Of Breath Lipase/Protease/Amylase 1 each 07/17/20 16:00 Lipase 10,500/Protease 25,000/Amylase 43,750 (Units) Dr Cook FEEDTUBE PRN PRN For Clogged Feeding Tube Aspirin 325 mg 07/18/20 12:00 07/19/20 09:56 Aspirin 325 Mg Tab PO 325 mg QDAY ALIX Administration Atorvastatin Calcium 20 mg 07/19/20 22:00 Atorvastatin 20 Mg Tab PO QHS ALIX Clonidine HCl 0.2 mg 07/19/20 22:00 Clonidine 0.2 Mg Tab PO Q12HR ALIX Famotidine 20 mg 07/18/20 10:00 07/19/20 09:56 Famotidine 20 Mg Tab PO 20 mg DAILY ALIX Administration Fentanyl 50 mcg 07/18/20 13:41 07/19/20 14:11 Fentanyl 100 Mcg/2 Ml Inj IV 50 mcg Q10MIN PRN Administration ANALGESIA Heparin Sodium (Porcine) 5,000 unit 07/17/20 22:00 07/19/20 09:56 Heparin 5,000 Unit/1 Ml Vial SUB-Q 5,000 unit Q12HR ALIX Administration Hydralazine HCl 10 mg 07/18/20 14:00 07/19/20 13:27 Hydralazine 20 Mg/1 Ml Inj IV 10 mg Q4H PRN Administration SBP >/=170; DBP >/=100 Hydromorphone HCl 0.25 mg 07/17/20 12:29 07/19/20 14:53 Hydromorphone 1 Mg/1 Ml Inj IV 0.25 mg Q4H PRN Administration Pain, Moderate (4-6) Hydrophilic Ointment 1 applic 07/17/20 13:56 Lip Therapy Vaseline TP Q2HR PRN Dry Lips Propofol 1,000 mg in 100 mls @ 2.808 mls/hr 07/17/20 10:00 07/17/20 15:52 Diprivan 10 Mg/Ml IV 0 mcg/kg/min TITR ALIX 0 mls/hr Titration Protocol 5 MCG/KG/MIN Fentanyl Citrate 2,000 mcg in 100 mls @ 4.68 mls/hr 07/17/20 10:00 07/19/20 14:12 Fentanyl Drip Premix IV 2 mcg/kg/hr TITR ALIX 9.36 mls/hr Administration Protocol 1 MCG/KG/HR Ceftriaxone Sodium 2 gm in 100 mls @ 200 mls/hr 07/17/20 23:00 07/18/20 22:35 Rocephin/Ns 2 Gm/100 Ml IV 07/21/20 23:29 Infused Q24H ALIX Infusion Protocol Azithromycin 500 mg in 250 mls @ 250 mls/hr 07/17/20 13:00 07/19/20 13:28 Zithromax/Ns IV 07/21/20 13:59 250 mls/hr Q24H ALIX Administration Protocol Sodium Chloride 100 mls @ 999 mls/hr 07/17/20 16:00 Nacl 0.9% IV ANDRÉS PRN Hypotension Metoprolol Tartrate 12.5 mg 07/19/20 22:00 Metoprolol Tartrate 25 Mg Tab PO BID ALIX Multi-Ingred Cream/Lotion/Oil/Oint 1 applic 07/17/20 13:56 Mineral Oil/Petrolatum, White Ophth Oint 3.5 Gm OU Q4HR PRN Dry Eye(s) Senna/Docusate Sodium 1 tab 07/17/20 22:00 07/19/20 09:56 Sennosides/Docusate Sodium 8.6/50 Mg Tab FEEDTUBE 1 tab BID ALIX Administration Simple Syrup 15 ml 07/17/20 16:00 07/17/20 23:54 Simple Syrup 15 Ml FEEDTUBE 15 ml PRN PRN Administration Hypoglycemia Simple Syrup 30 ml 07/17/20 16:00 Simple Syrup 15 Ml FEEDTUBE PRN PRN Hypoglycemia Sodium Bicarbonate 325 mg 07/17/20 16:00 Sodium Bicarbonate 325 Mg Tab FEEDTUBE PRN PRN For Clogged Feeding Tube Sodium Chloride 10 ml 07/17/20 22:00 07/19/20 09:57 Sodium Chloride 0.9% 10 Ml Flush Syringe IV 10 ml BID ALIX Administration Sodium Chloride 10 ml 07/17/20 12:29 Sodium Chloride 0.9% 10 Ml Flush Syringe IV PRN PRN LINE FLUSH
[2020-07-19] MEDS: cloNIDine 0.2 MG TAB PO SCH (21:57)
[2020-07-19] MEDS: METOPROLOL TARTRATE 25 MG TAB PO SCH (21:57)
[2020-07-19] MEDS: cefTRIAXone/NS 2 GM/100 ML 2 GM/100 ML BAG IV SCH (22:56)
[2020-07-20] MEDS ORDERED: ACETAMINOPHEN 325 MG TAB PO ONE (03:51)
[2020-07-20 05:34] LABS: Hematocrit 31.7 % (35.5-45.6); Hemoglobin 10.5 gm/dl (11.8-15.2); Mean Corpuscular HGB Conc 33 % (32-34); Mean Corpuscular Volume 92 fl (84-94); Platelet Count 201 K/mm3 (140-440); Red Blood Count 3.45 M/mm3 (3.65-5.03); Red Cell Distribution Width 13.7 % (13.2-15.2)
[2020-07-20 05:47] LABS: Calcium 9.4 mg/dL (8.4-10.2)
--- NOTE | 2020-07-20 06:01 | XRay Report ---
CHEST 1 VIEW, 07/20/2020 4:05 AM CLINICAL INFORMATION/INDICATION: Respiratory failure COMPARISON: Chest radiograph, 07/19/2020 at 4:57 AM FINDINGS: SUPPORT DEVICES: None. HEART: There is stable mild enlargement of the cardiac silhouette. LUNGS/PLEURA: No focal airspace consolidation or significant pleural effusion is visualized. ADDITIONAL FINDINGS: No additional acute findings. IMPRESSION: 1. Stable mild enlargement of the cardiac silhouette. Signer Name: Alyse Stephens MD Signed: 07/20/2020 5:57 AM Workstation Name: [id number]
--- NOTE | 2020-07-20 09:10 | Progress Note ---
Assessment and Plan 1. CKD 5, now ESKD: Patient follows with Dr. Stephens, was to start HD at [facility] but unfortunately decompensated prior to outpatient HD initiation. - s/p HD 07/17 for initial treatment, had treatment 07/18; continue HD // for toxin/electrolyte management and fluid removal, start with decreased BFR to avoid dialysis disequilibrium, HD today - renally dose meds - avoid nephrotoxins - AVG working well per report - case management consult to assist with placement at [facility] for outpatient HD, can expedite approval from medical perspective and hope for confirmation of chair time on 07/22 2. HTN/Volume: UF removal as tolerated, BP reasonable 3. Acute hypoxic resp failure: now extubated 4. DM type 2. 5. Normochromic anemia: likely due to CKD/ESKD, ESAs with HD prn 6. L kidney mass: management in outpatient setting 7. Secondary Hyperparathyroidism: defer vitamin D analog to outpatient setting, Ca at goal Subjective Date of service: 07/20/20 Principal diagnosis: Acute Respiratory Failure Interval history: Extubated yesterday, on room air this AM, feeling well Objective - Exam Narrative Exam: General appearance: well-developed, appears stated age, on room air HEENT: ATNC Neck: neck supple Respiratory: clear breath sounds, no labored breathing Heart: regular, S1S2, no murmur Gastrointestinal: soft, normoactive bowel sounds, not tender Integumentary: warm, dry Neurologic: alert, oriented, no focal deficits Ext: no edema Hemodialysis access: L FA AVG - Vital Signs Vital signs: Vital Signs - 12hr 07/19/20 07/19/20 07/19/20 21:30 21:57 22:00 Temperature Pulse Rate 86 94 H 85 Pulse Rate [ From Monitor] Respiratory 14 14 Rate Blood Pressure 140/90 143/86 162/105 O2 Sat by Pulse 98 99 Oximetry 07/19/20 07/19/20 07/19/20 22:30 23:00 23:05 Temperature 99.5 F Pulse Rate 85 84 Pulse Rate [ From Monitor] Respiratory 15 15 Rate Blood Pressure 154/79 149/75 O2 Sat by Pulse 99 99 Oximetry 07/19/20 07/19/20 07/19/20 23:30 23:34 23:51 Temperature Pulse Rate 76 88 Pulse Rate [ From Monitor] Respiratory 17 13 Rate Blood Pressure 151/75 151/75 O2 Sat by Pulse 98 97 96 Oximetry 07/20/20 07/20/20 07/20/20 00:00 00:30 01:00 Temperature Pulse Rate 82 72 75 Pulse Rate [ 86 From Monitor] Respiratory 22 16 17 Rate Blood Pressure 152/78 143/59 142/70 O2 Sat by Pulse 95 98 98 Oximetry 07/20/20 07/20/20 07/20/20 01:30 02:00 02:30 Temperature Pulse Rate 74 76 79 Pulse Rate [ From Monitor] Respiratory 18 16 14 Rate Blood Pressure 141/73 147/81 147/73 O2 Sat by Pulse 98 99 99 Oximetry 07/20/20 07/20/20 07/20/20 03:00 03:20 03:30 Temperature 98.8 F Pulse Rate 74 76 Pulse Rate [ From Monitor] Respiratory 15 15 Rate Blood Pressure 132/76 138/75 O2 Sat by Pulse 99 95 Oximetry 07/20/20 07/20/20 07/20/20 04:00 04:30 05:00 Temperature Pulse Rate 76 78 68 Pulse Rate [ 86 From Monitor] Respiratory 22 18 22 Rate Blood Pressure 146/75 150/76 140/76 O2 Sat by Pulse 95 94 94 Oximetry 07/20/20 07/20/20 07/20/20 05:30 06:00 06:30 Temperature Pulse Rate 69 65 67 Pulse Rate [ From Monitor] Respiratory 25 H 12 24 Rate Blood Pressure 136/80 141/73 149/76 O2 Sat by Pulse 93 94 94 Oximetry 07/20/20 07/20/20 07/20/20 07:00 07:30 08:00 Temperature 98.3 F Pulse Rate 64 63 75 Pulse Rate [ 62 From Monitor] Respiratory 22 14 10 L Rate Blood Pressure 145/81 145/78 155/91 O2 Sat by Pulse 96 97 100 Oximetry 07/20/20 08:30 Temperature Pulse Rate 69 Pulse Rate [ From Monitor] Respiratory 18 Rate Blood Pressure 155/82 O2 Sat by Pulse 98 Oximetry - Lab 07/20/20 04:35 07/20/20 04:35 Most recent lab results ABG pH 7.385 pH Units (7.350-7.450) 07/19/20 16:36 ABG pCO2 43.5 mm Hg 07/19/20 16:36 ABG pO2 108.2 mm Hg (80.0-90.0) H 06/11/21 16:36 ABG HCO3 25.5 mmol/L (20.0-26.0) 07/19/20 16:36 ABG O2 Saturation 97.8 % (95.0-99.0) 07/19/20 16:36 Calcium 9.4 mg/dL (8.4-10.2) 07/20/20 04:35 Magnesium 1.80 mg/dL (1.7-2.3) 07/18/20 15:50 Medications & Allergies - Medications Allergies/Adverse Reactions: Allergies methadone Allergy (Verified 07/17/20 09:00) Unknown tramadol Allergy (Verified 07/17/20 09:00) Swelling Home Medications: Home Medications Medication Instructions Recorded Confirmed Last Taken Type HYDROcodone/APAP 10-325 [[place] 1 each PO Q6HR PRN #30 tablet 06/15/13 07/17/20 Unknown Rx 10-325 mg TAB] Probenecid/Colchicine 1 each PO DAILY #20 tablet 06/15/13 07/17/20 Unknown Rx [Probenecid-Colchicine Tab] cloNIDine [Catapres] 0.2 mg PO Q12H #60 tablet 06/15/13 07/17/20 Unknown Rx Cyclobenzaprine [Flexeril] 10 mg PO TID PRN #20 tablet 02/02/16 07/17/20 Unknown Rx Ketorolac [Toradol] 10 mg PO Q6H PRN #30 tablet 02/02/16 07/17/20 Unknown Rx Active Medications: Generic Name Dose Route Start Last Admin Trade Name Freq PRN Reason Stop Dose Admin Acetaminophen 650 mg 07/17/20 12:29 Acetaminophen 650 Mg Rect Supp MI Q6H PRN Pain MILD(1-3)/Fever >100.5/ALBERTS Albuterol 2.5 mg 07/17/20 12:29 Albuterol 2.5 Mg/3 Ml Nebu IH Q3HRT PRN Shortness Of Breath Lipase/Protease/Amylase 1 each 07/17/20 16:00 Lipase 10,500/Protease 25,000/Amylase 43,750 (Units) Dr Cook FEEDTUBE PRN PRN For Clogged Feeding Tube Aspirin 325 mg 07/18/20 12:00 07/19/20 09:56 Aspirin 325 Mg Tab PO 325 mg QDAY ALIX Administration Atorvastatin Calcium 20 mg 07/19/20 22:00 07/19/20 21:57 Atorvastatin 20 Mg Tab PO 20 mg QHS ALIX Administration Clonidine HCl 0.2 mg 07/19/20 22:00 07/19/20 21:57 Clonidine 0.2 Mg Tab PO 0.2 mg Q12HR ALIX Administration Famotidine 20 mg 07/18/20 10:00 07/19/20 09:56 Famotidine 20 Mg Tab PO 20 mg DAILY ALIX Administration Fentanyl 50 mcg 07/18/20 13:41 07/19/20 14:11 Fentanyl 100 Mcg/2 Ml Inj IV 50 mcg Q10MIN PRN Administration ANALGESIA Heparin Sodium (Porcine) 5,000 unit 07/17/20 22:00 07/19/20 21:57 Heparin 5,000 Unit/1 Ml Vial SUB-Q 5,000 unit Q12HR ALIX Administration Hydralazine HCl 10 mg 07/18/20 14:00 07/19/20 13:27 Hydralazine 20 Mg/1 Ml Inj IV 10 mg Q4H PRN Administration SBP >/=170; DBP >/=100 Hydromorphone HCl 0.25 mg 07/17/20 12:29 07/19/20 14:53 Hydromorphone 1 Mg/1 Ml Inj IV 0.25 mg Q4H PRN Administration Pain, Moderate (4-6) Hydrophilic Ointment 1 applic 07/17/20 13:56 Lip Therapy Vaseline TP Q2HR PRN Dry Lips Propofol 1,000 mg in 100 mls @ 2.808 mls/hr 07/17/20 10:00 07/17/20 15:52 Diprivan 10 Mg/Ml IV 0 mcg/kg/min TITR ALIX 0 mls/hr Titration Protocol 5 MCG/KG/MIN Fentanyl Citrate 2,000 mcg in 100 mls @ 4.68 mls/hr 07/17/20 10:00 07/19/20 14:12 Fentanyl Drip Premix IV 2 mcg/kg/hr TITR ALIX 9.36 mls/hr Administration Protocol 1 MCG/KG/HR Ceftriaxone Sodium 2 gm in 100 mls @ 200 mls/hr 07/17/20 23:00 07/19/20 22:56 Rocephin/Ns 2 Gm/100 Ml IV 07/21/20 23:29 200 mls/hr Q24H ALIX Administration Protocol Azithromycin 500 mg in 250 mls @ 250 mls/hr 07/17/20 13:00 07/19/20 13:28 Zithromax/Ns IV 07/21/20 13:59 250 mls/hr Q24H ALIX Administration Protocol Sodium Chloride 100 mls @ 999 mls/hr 07/17/20 16:00 Nacl 0.9% IV ANDRÉS PRN Hypotension Metoprolol Tartrate 12.5 mg 07/19/20 22:00 07/19/20 21:57 Metoprolol Tartrate 25 Mg Tab PO 12.5 mg BID ALIX Administration Multi-Ingred Cream/Lotion/Oil/Oint 1 applic 07/17/20 13:56 Mineral Oil/Petrolatum, White Ophth Oint 3.5 Gm OU Q4HR PRN Dry Eye(s) Senna/Docusate Sodium 1 tab 07/17/20 22:00 07/19/20 22:00 Sennosides/Docusate Sodium 8.6/50 Mg Tab FEEDTUBE Not Given BID ALIX Simple Syrup 15 ml 07/17/20 16:00 07/17/20 23:54 Simple Syrup 15 Ml FEEDTUBE 15 ml PRN PRN Administration Hypoglycemia Simple Syrup 30 ml 07/17/20 16:00 Simple Syrup 15 Ml FEEDTUBE PRN PRN Hypoglycemia Sodium Bicarbonate 325 mg 07/17/20 16:00 Sodium Bicarbonate 325 Mg Tab FEEDTUBE PRN PRN For Clogged Feeding Tube Sodium Chloride 10 ml 07/17/20 22:00 07/19/20 21:58 Sodium Chloride 0.9% 10 Ml Flush Syringe IV 10 ml BID ALIX Administration Sodium Chloride 10 ml 07/17/20 12:29 Sodium Chloride 0.9% 10 Ml Flush Syringe IV PRN PRN LINE FLUSH
[2020-07-20] MEDS: ASPIRIN 325 MG TAB PO SCH (09:18)
[2020-07-20] MEDS: FAMOTIDINE 20 MG TAB PO SCH (09:18)
[2020-07-20] MEDS: METOPROLOL TARTRATE 25 MG TAB PO SCH ×2 (09:18→22:21)
[2020-07-20] MEDS: cloNIDine 0.2 MG TAB PO SCH ×2 (09:18→22:23)
[2020-07-20] MEDS: HEPARIN 5,000 UNIT/1 ML VIAL SUB-Q SCH ×2 (09:19→22:23)
[2020-07-20] MEDS: SENNOSIDES/DOCUSATE SODIUM 8.6/50 MG TAB FEEDTUBE SCH ×3 (09:19→22:21)
[2020-07-20] MEDS ORDERED: methylPREDNISolone Sod Succinate 125 MG/2 ML INJ IV ONE (10:14)
[2020-07-20] MEDS ORDERED: diphenhydrAMINE 25 MG/10 ML ORAL LIQUID PO ONE (10:14)
--- NOTE | 2020-07-20 10:44 | Progress Note ---
Assessment and Plan Assessment and plan: 64 YO Male with HTN, ESRD, Gout, CHF presents to ED for evaluation. Patient is intubated and on ventilatory support at the time my evaluation and is unable to provide history. Patient history taken from EMS staff, ED staff, as well as the patient's Mrs Santa Dodge who was made available by telephone for interview. As per patient's the patient has experienced progressive weakn ess over the past 2 months with worsening symptoms over the last 1 week. P atient was found to have orthopnea, paroxysmal nocturnal dyspnea, decreased exercise tolerance, dyspnea on exertion, as well as dyspnea at rest. Patient reports leaving patient at home while she went to work today. She was subsequently notified by the patient's brother who notified EMS due to patient reporting shortness of breath. EMS was notified and upon arrival the patient was found to be in distress with a pulse oximetry of 60% on room air. The patient was placed on supplemental oxygen and transported to [facility] for further care and evaluation of the aforementioned symptoms. The patient was seen and evaluated in the emergency department. All lab and imaging studies reviewed. Patient found to be unable to protect his airway and was subsequently intubated and placed on ventilatory support. Patient also found to have end-stage renal disease in need of urgent dialysis, CHF decompensation. Patient admitted to ICU. Critical care team consulted in ED. Nephrology team consulted in ED. Advanced care planning condu cted in ED. No prior admission for review. All medication listed at time of admission has been reconciled. Consultants Cardiology, admission discharge rn, front end web developer. 07/18: Patient initiated with dialysis today. Covid test was done and is negative. Anemia likely anemia of chronic disease. Will follow consultants recommendation for further management. Echocardiogram pending 07/19: Patient started with dialysis. Anticipate trial of weaning today. BP elevated, clonodine restarted, will increase to home dose. Continue current management 07/20: Patient now extubated. Did have dialysis with improvement in respiratory status which aided extubation. Patient however has an edematous upper lip que stionable angioedema. We will give a dose of Benadryl, H2 carly and a dose of steroids and monitor. Patient can be transitioned to telemetry if okay with front end web developer. IR consulted to evaluate abdominal aneurysm continue current management by time recorder to monitor all medications to see what could be resulting to the angioedema. (1) Acute hypoxemic respiratory failure Current Visit: Yes Status: Acute Plan to address problem: Status post extubation (2) CHF (congestive heart failure) Current Visit: Yes Status: Acute Qualifiers: Heart failure type: systolic Heart failure chronicity: acute Qualified Code(s): I50.21 - Acute systolic (congestive) heart failure Plan to address problem: Strict I/O, monitor urine output every shift, afterload reduction, blood pressure control, echocardiogram ordered and is pending at time of admission, cardiology team consulted. (3) End stage renal disease Current Visit: Yes Status: Acute Plan to address problem: Nephrology team consulted in ED, dialysis as per renal team, supportive care. (4) Hypertension Current Visit: Yes Status: Acute Qualifiers: Hypertension type: essential hypertension Qualified Code(s): I10 - Essential (primary) hypertension Plan to address problem: Monitor blood pressure every shift, continue medical management (5) Abdominal aneurysm Current Visit: Yes Status: Chronic (6) non-STEMI (7) Bilateral pulmonary infiltrates likely secondary to pulmonary edema (8) PUI [id number] (9) Chronic venous insufficiency of lower extremity Current Visit: Yes Status: Chronic (10) angioedema upper lip (11) DVT prophylaxis Current Visit: Yes Status: Acute Plan to address problem: SCD to bilateral lower extremities while in bed, prophylactic anticoagulation (12) Advance care planning Current Visit: Yes Status: Acute Plan to address problem: Disease education done, care plan discussed, prognosis discussed, patient acknowledges understanding and agreement with care plan, patient is full code, +30 minutes. Patient care plan discussed with Santa Dodge. Telephone number . History Interval history: Patient seen and examined now extubated following commands. Upper lip appears swollen. No difficulty breathing reported. Hospitalist Physical - Physical exam Narrative exam: General appearance: Present: No distress following commands ET tube and OG tube now removed - EENT Eyes: Present: miosis ENT: hearing intact, clear but with edentulous upper lip. Oral mucosa - Neck Neck: Present: supple, normal ROM - Respiratory Respiratory effort: Normal increased work of breathing Respiratory: bilateral: diminished, rhonchi - Cardiovascular Heart Sounds: Present: S1 & S2. Absent: rub, click - Extremities Extremities: pulses symmetrical, No edema Peripheral Pulses: within normal limits - Abdominal General gastrointestinal: Present: soft, non-tender, non-distended, normal bowel sounds Male genitourinary: Present: normal - Integumentary Integumentary: Present: clear, dry - Musculoskeletal Musculoskeletal: generalized weakness - Psychiatric Psychiatric: no appropriate mood/affect, no intact judgment & insight, no memory intact - Neurologic Neurologic: CNII-XII intact, no focal deficits, moves all extremities, no gait normal - Constitutional Vitals: Temp Pulse Resp BP Pulse Ox 98.3 F 67 26 H 156/84 96 07/20/20 08:00 07/20/20 10:00 07/20/20 10:00 07/20/20 10:00 07/20/20 10:00 General appearance: Present: other (intubated/sedated) HEART Score - HEART Score Troponin: Troponin T 0.213 ng/mL (0.00-0.029) H* 07/18/20 19:11 Results - Labs CBC & Chem 7: 07/20/20 04:35 07/20/20 04:35 Labs: Laboratory Last Values WBC 11.9 K/mm3 (4.5-11.0) H 07/20/20 04:35 RBC 3.45 M/mm3 (3.65-5.03) L 07/20/20 04:35 Hgb 10.5 gm/dl (11.8-15.2) L 07/20/20 04:35 Hct 31.7 % (35.5-45.6) L 07/20/20 04:35 MCV 92 fl (84-94) 07/20/20 04:35 MCH 30 pg (28-32) 07/20/20 04:35 MCHC 33 % (32-34) 07/20/20 04:35 RDW 13.7 % (13.2-15.2) 07/20/20 04:35 Plt Count 201 K/mm3 (140-440) 07/20/20 04:35 Lymph % (Auto) 7.0 % (13.4-35.0) L 07/17/20 09:31 [place] % (Auto) Estate Planning Counselor 07/18/20 05:24 Eos % (Auto) 0.8 % (0.0-4.3) 07/17/20 09:31 Baso % (Auto) 0.4 % (0.0-1.8) 07/17/20 09:31 Lymph # (Auto) 0.8 K/mm3 (1.2-5.4) L 07/17/20 09:31 [place] # (Auto) 0.6 K/mm3 (0.0-0.8) 07/17/20 09:31 Eos # (Auto) 0.1 K/mm3 (0.0-0.4) 07/17/20 09:31 Baso # (Auto) 0.0 K/mm3 (0.0-0.1) 07/17/20 09:31 Add Manual Diff Complete 07/18/20 05:24 Total Counted 100 07/18/20 05:24 Seg Neutrophils % 87.0 % (40.0-70.0) H 07/17/20 09:31 Seg Neuts % (Manual) 85.0 % (40.0-70.0) H 07/18/20 05:24 Lymphocytes % (Manual) 8.0 % (13.4-35.0) L 07/18/20 05:24 Monocytes % (Manual) 7.0 % (0.0-7.3) 07/18/20 05:24 Nucleated RBC % Not Reportable 07/18/20 05:24 Seg Neutrophils # 10.1 K/mm3 (1.8-7.7) H 07/17/20 09:31 Seg Neutrophils # Man 7.5 K/mm3 (1.8-7.7) 07/18/20 05:24 Band Neutrophils # 0.0 K/mm3 07/18/20 05:24 Lymphocytes # (Manual) 0.7 K/mm3 (1.2-5.4) L 07/18/20 05:24 Abs React Lymphs (Man) 0.0 K/mm3 07/18/20 05:24 Monocytes # (Manual) 0.6 K/mm3 (0.0-0.8) 07/18/20 05:24 Eosinophils # (Manual) 0.0 K/mm3 (0.0-0.4) 07/18/20 05:24 Basophils # (Manual) 0.0 K/mm3 (0.0-0.1) 07/18/20 05:24 Metamyelocytes # 0.0 K/mm3 07/18/20 05:24 Myelocytes # 0.0 K/mm3 07/18/20 05:24 Promyelocytes # 0.0 K/mm3 07/18/20 05:24 Blast Cells # 0.0 K/mm3 07/18/20 05:24 WBC Morphology Not Reportable 07/18/20 05:24 Hypersegmented Neuts Not Reportable 07/18/20 05:24 Hyposegmented Neuts Not Reportable 07/18/20 05:24 Hypogranular Neuts Not Reportable 07/18/20 05:24 Smudge Cells Not Reportable 07/18/20 05:24 Toxic Granulation Not Reportable 07/18/20 05:24 Toxic Vacuolation Not Reportable 07/18/20 05:24 Dohle Bodies Not Reportable 07/18/20 05:24 Pelger-Huet Anomaly Not Reportable 07/18/20 05:24 Oscar Rods Not Reportable 07/18/20 05:24 Platelet Estimate Consistent w auto 07/18/20 05:24 Clumped Platelets Not Reportable 07/18/20 05:24 Plt Clumps, EDTA Not Reportable 07/18/20 05:24 Large Platelets Not Reportable 07/18/20 05:24 Giant Platelets Not Reportable 07/18/20 05:24 Platelet Satelliting Not Reportable 07/18/20 05:24 Plt Morphology Comment Not Reportable 07/18/20 05:24 RBC Morphology Normal 07/18/20 05:24 Dimorphic RBCs Not Reportable 07/18/20 05:24 Polychromasia Not Reportable 07/18/20 05:24 Hypochromasia Not Reportable 07/18/20 05:24 Poikilocytosis Not Reportable 07/18/20 05:24 Anisocytosis Not Reportable 07/18/20 05:24 Microcytosis Not Reportable 07/18/20 05:24 Macrocytosis Not Reportable 07/18/20 05:24 Spherocytes Not Reportable 07/18/20 05:24 Pappenheimer Bodies Not Reportable 07/18/20 05:24 Sickle Cells Not Reportable 07/18/20 05:24 Target Cells Not Reportable 07/18/20 05:24 Tear Drop Cells Not Reportable 07/18/20 05:24 Ovalocytes Not Reportable 07/18/20 05:24 Helmet Cells Not Reportable 07/18/20 05:24 Yeh-Cuy[place] Bodies Not Reportable 07/18/20 05:24 [place] Rings Not Reportable 07/18/20 05:24 Karl Cells Not Reportable 07/18/20 05:24 Bite Cells Not Reportable 07/18/20 05:24 Crenated Cell Not Reportable 07/18/20 05:24 Elliptocytes Not Reportable 07/18/20 05:24 Acanthocytes (Spur) Not Reportable 07/18/20 05:24 Rouleaux Not Reportable 07/18/20 05:24 Hemoglobin C Crystals Not Reportable 07/18/20 05:24 Schistocytes Not Reportable 07/18/20 05:24 Malaria parasites Not Reportable 07/18/20 05:24 [place] Bodies Not Reportable 07/18/20 05:24 Hem Pathologist Commnt No 07/18/20 05:24 PT 15.0 Sec. (12.2-14.9) H 07/17/20 09:31 INR 1.13 (0.87-1.13) 07/17/20 09:31 APTT 25.3 Sec. (24.2-36.6) 07/17/20 09:31 D-Dimer 653.04 ng/mlDDU (0-234) H 07/17/20 13:11 ABG pH 7.385 pH Units (7.350-7.450) 07/19/20 16:36 POC ABG pCO2 33.0 mmHg (32.0-48.0) 07/19/20 03:27 ABG pCO2 43.5 mm Hg 07/19/20 16:36 POC ABG pO2 127.4 mmHg (83-108) H 07/19/20 03:27 ABG pO2 108.2 mm Hg (80.0-90.0) H 07/19/20 16:36 POC ABG HCO3 24.1 07/19/20 03:27 ABG HCO3 25.5 mmol/L (20.0-26.0) 07/19/20 16:36 ABG O2 Saturation 97.8 % (95.0-99.0) 07/19/20 16:36 ABG O2 Content 16.7 (0.0-44) 07/19/20 16:36 POC ABG Base Excess 1.1 07/19/20 03:27 ABG Base Excess 0.2 mmol/L (-2.0-3.0) 07/19/20 16:36 ABG Hemoglobin 12.3 gm/dl (14.0-18.0) L 07/19/20 16:36 ABG Oxyhemoglobin 97.6 (94-98) 07/19/20 03:27 ABG Carboxyhemoglobin 1.5 % (0.0-5.0) 07/19/20 16:36 ABG Methemoglobin 0.5 % (0.0-1.5) 07/19/20 16:36 ABG Sodium 137.0 mmol/L (136.0-145.0) 07/19/20 03:27 ABG Potassium 3.8 mmol/L (3.40-4.50) 07/19/20 03:27 ABG Chloride 101.0 mmol/L (98-107) 07/19/20 03:27 ABG Glucose 131 mg/dL (65-95) H 07/19/20 03:27 Oxyhemoglobin 95.8 % (95.0-99.0) 07/19/20 16:36 Carboxyhemoglobin 1.0 (0.5-1.5) 07/19/20 03:27 FiO2 30 % 07/19/20 16:36 FiO2 % 35.0 07/19/20 03:27 Sodium 137 mmol/L (137-145) 07/20/20 04:35 Potassium 3.9 mmol/L (3.6-5.0) 07/20/20 04:35 Chloride 97.8 mmol/L (98-107) L 07/20/20 04:35 Carbon Dioxide 24 mmol/L (22-30) 07/20/20 04:35 Anion Gap 19 mmol/L 07/20/20 04:35 BUN 68 mg/dL (9-20) H 07/20/20 04:35 Creatinine 7.4 mg/dL (0.8-1.3) H 07/20/20 04:35 Estimated GFR 9 ml/min 07/20/20 04:35 BUN/Creatinine Ratio 9 % 07/20/20 04:35 Glucose 109 mg/dL (75-100) H 07/20/20 04:35 POC Glucose 114 mg/dL (70-105) H 07/20/20 04:49 Lactic Acid 0.60 mmol/L (0.7-2.0) L 07/17/20 13:11 Calcium 9.4 mg/dL (8.4-10.2) 07/20/20 04:35 Magnesium 1.80 mg/dL (1.7-2.3) 07/18/20 15:50 Ferritin 356.2 ng/mL (30.0-300.0) H 07/17/20 12:57 Total Bilirubin 0.40 mg/dL (0.1-1.2) 07/18/20 05:24 Direct Bilirubin 0.3 mg/dL (0-0.2) H 07/17/20 09:31 Indirect Bilirubin 0.3 mg/dL 07/17/20 09:31 AST 38 units/L (5-40) 07/18/20 05:24 ALT 62 units/L (7-56) H 07/18/20 05:24 Alkaline Phosphatase 72 units/L (35-129) 07/18/20 05:24 Lactate Dehydrogenase 277 units/L (91-180) H 07/17/20 13:11 Troponin T 0.213 ng/mL (0.00-0.029) H* 07/18/20 19:11 C-Reactive Protein 0.60 mg/dL (0.00-1.30) 07/17/20 13:11 NT-Pro-B Natriuret Pep 50836 pg/mL (0-900) H 07/17/20 09:31 Total Protein 6.9 g/dL (6.3-8.2) 07/18/20 05:24 Albumin 3.8 g/dL (3.9-5) L 07/18/20 05:24 Albumin/Globulin Ratio 1.2 % 07/18/20 05:24 Triglycerides 119 mg/dL (2-149) 07/17/20 09:31 Cholesterol 163 mg/dL (50-199) 07/17/20 09:31 LDL Cholesterol Direct 130 mg/dL (50-130) 07/17/20 09:31 HDL Cholesterol 33 mg/dL (40-59) L 07/17/20 09:31 Cholesterol/HDL Ratio 4.93 % 07/17/20 09:31 Procalcitonin 1.79 ng/mL (<0.15) 07/17/20 13:11 Arterial Blood Glucose 131 mg/dL (65-95) H 07/19/20 03:27 Arterial Blood Ionized Calcium 4.5 mg/dL (4.6-5.3) L 07/19/20 03:27 Urine Opiates Screen Negative 07/17/20 11:21 Urine Methadone Screen Negative 07/17/20 11:21 Ur Barbiturates Screen Negative 07/17/20 11:21 Ur Phencyclidine Scrn Negative 07/17/20 11:21 Ur Amphetamines Screen Negative 07/17/20 11:21 U Benzodiazepines Scrn Negative 07/17/20 11:21 Urine Cocaine Screen Negative 07/17/20 11:21 U Marijuana (THC) Screen Negative 07/17/20 11:21 Drugs of Abuse Note Disclamer 07/17/20 11:21 Coronavirus (PCR) Negative (Negative) 07/17/20 Unknown Hepatitis A IgM Ab Non-reactive (NonReactive) 07/17/20 13:11 Hep Bs Antigen Non-reactive (Negative) 07/17/20 13:11 Hep B Core IgM Ab Non-reactive (NonReactive) 07/17/20 13:11 Hepatitis C Antibody Non-reactive (NonReactive) 07/17/20 13:11 Microbiology: Microbiology 07/17/20 13:11 Peripheral/Venous Blood Culture - Preliminary NO GROWTH AFTER 48 HOURS 07/17/20 12:57 Peripheral/Venous Blood Culture - Preliminary NO GROWTH AFTER 48 HOURS 07/17/20 15:05 Tracheal Aspirate Sputum Culture - Preliminary Ascencio/IV: Voiding Method Urinal Active Medications - Current Medications Current Medications: Generic Name Dose Route Start Last Admin Trade Name Freq PRN Reason Stop Dose Admin Acetaminophen 650 mg 07/17/20 12:29 Acetaminophen 650 Mg Rect Supp IA Q6H PRN Pain MILD(1-3)/Fever >100.5/ALBERTS Albuterol 2.5 mg 07/17/20 12:29 Albuterol 2.5 Mg/3 Ml Nebu IH Q3HRT PRN Shortness Of Breath Lipase/Protease/Amylase 1 each 07/17/20 16:00 Lipase 10,500/Protease 25,000/Amylase 43,750 (Units) Dr Cook FEEDTUBE PRN PRN For Clogged Feeding Tube Aspirin 325 mg 07/18/20 12:00 07/20/20 09:18 Aspirin 325 Mg Tab PO 325 mg QDAY ALIX Administration Atorvastatin Calcium 20 mg 07/19/20 22:00 07/19/20 21:57 Atorvastatin 20 Mg Tab PO 20 mg QHS ALIX Administration Clonidine HCl 0.2 mg 07/19/20 22:00 07/20/20 09:18 Clonidine 0.2 Mg Tab PO 0.2 mg Q12HR ALIX Administration Famotidine 10 mg 07/20/20 11:00 Famotidine 20 Mg/2 Ml Inj IV BID ALIX Fentanyl 50 mcg 07/18/20 13:41 07/19/20 14:11 Fentanyl 100 Mcg/2 Ml Inj IV 50 mcg Q10MIN PRN Administration ANALGESIA Heparin Sodium (Porcine) 5,000 unit 07/17/20 22:00 07/20/20 09:19 Heparin 5,000 Unit/1 Ml Vial SUB-Q 5,000 unit Q12HR ALIX Administration Hydralazine HCl 10 mg 07/18/20 14:00 07/19/20 13:27 Hydralazine 20 Mg/1 Ml Inj IV 10 mg Q4H PRN Administration SBP >/=170; DBP >/=100 Hydromorphone HCl 0.25 mg 07/17/20 12:29 07/19/20 14:53 Hydromorphone 1 Mg/1 Ml Inj IV 0.25 mg Q4H PRN Administration Pain, Moderate (4-6) Hydrophilic Ointment 1 applic 07/17/20 13:56 Lip Therapy Vaseline TP Q2HR PRN Dry Lips Propofol 1,000 mg in 100 mls @ 2.808 mls/hr 07/17/20 10:00 07/17/20 15:52 Diprivan 10 Mg/Ml IV 0 mcg/kg/min TITR ALIX 0 mls/hr Titration Protocol 5 MCG/KG/MIN Fentanyl Citrate 2,000 mcg in 100 mls @ 4.68 mls/hr 07/17/20 10:00 07/20/20 09:27 Fentanyl Drip Premix IV Infused TITR ALIX Titration Protocol 1 MCG/KG/HR Ceftriaxone Sodium 2 gm in 100 mls @ 200 mls/hr 07/17/20 23:00 07/19/20 22:56 Rocephin/Ns 2 Gm/100 Ml IV 07/21/20 23:29 200 mls/hr Q24H ALIX Administration Protocol Azithromycin 500 mg in 250 mls @ 250 mls/hr 07/17/20 13:00 07/19/20 13:28 Zithromax/Ns IV 07/21/20 13:59 250 mls/hr Q24H ALIX Administration Protocol Sodium Chloride 100 mls @ 999 mls/hr 07/17/20 16:00 Nacl 0.9% IV ANDRÉS PRN Hypotension Metoprolol Tartrate 12.5 mg 07/19/20 22:00 07/20/20 09:18 Metoprolol Tartrate 25 Mg Tab PO 12.5 mg BID ALIX Administration Multi-Ingred Cream/Lotion/Oil/Oint 1 applic 07/17/20 13:56 Mineral Oil/Petrolatum, White Ophth Oint 3.5 Gm OU Q4HR PRN Dry Eye(s) Senna/Docusate Sodium 1 tab 07/17/20 22:00 07/20/20 09:22 Sennosides/Docusate Sodium 8.6/50 Mg Tab FEEDTUBE 1 tab BID ALIX Administration Simple Syrup 15 ml 07/17/20 16:00 07/17/20 23:54 Simple Syrup 15 Ml FEEDTUBE 15 ml PRN PRN Administration Hypoglycemia Simple Syrup 30 ml 07/17/20 16:00 Simple Syrup 15 Ml FEEDTUBE PRN PRN Hypoglycemia Sodium Bicarbonate 325 mg 07/17/20 16:00 Sodium Bicarbonate 325 Mg Tab FEEDTUBE PRN PRN For Clogged Feeding Tube Sodium Chloride 10 ml 07/17/20 22:00 07/20/20 09:19 Sodium Chloride 0.9% 10 Ml Flush Syringe IV Not Given BID ALIX Sodium Chloride 10 ml 07/17/20 12:29 Sodium Chloride 0.9% 10 Ml Flush Syringe IV PRN PRN LINE FLUSH Nutrition/Malnutrition Assess - Dietary Evaluation Nutrition/Malnutrition Findings: Nutrition Notes Start: 07/17/20 14:41 Freq: Status: Active Protocol: Document 07/19/20 11:38 CW (Rec: 07/19/20 11:43 CW [id number]) Nutrition Notes Initial or Follow up Reassessment Current Diagnosis CKD (stage V CKD),Hypertension ,Heart Failure,Respiratory Failure,Hyperlipidemia Other Pertinent Diagnosis pneu, Current Diet Nepro at 50 ml/hr Labs/Tests 07/18 BUN 54 Cr 6.9 Pertinent Medications [place] Height 6 ft 1 in Weight 93.4 kg [place] Body Weight (kg) 83.63 BMI 27.1 Weight Status Appropriate Subjective/Other Information F/U for TF and vent status. pt remains on mecanical vent. TF running at goal of 50 ml/hr with no reports of TF intolerance. Addendum: Pt discussed in rounds. It is likely that pt will be extubated soon. Plan is to stop TF. Percent of energy/protein needs met: 100%/87% Burn Absent Trauma Absent Minimum of two criteria No physical signs of malnutrition #1 Nutrition Diagnosis Inadequate oral intake Diagnosis Progress(for reassessment Continues documentation) Is patient on ventilator? Yes Is Patient Ambulatory and/or Out of Bed No REE-([facility]-confined to bed) 4323.937 Calculation Used for Recommendations [facility] Additional Notes Pro needs >1.2g/kg: >112g/day Fluid needs 1-1.5L/day Nutrition Intervention Nutrition Support: Nepro at 50ml/hr with 110ml water flush q4h. Kcal 2,160 Protein (gm) 97 Carbohydrates (gm) 193 Fat (gm) 115 Fluid (mL) 872 Fiber (gm) 15 Goal #1 TF tolerance Goal #2 TF (at goal rate) to meet at least 75% energy and pro needs Anticipated Discharge Needs: Unable to determine at this time Follow-Up By: 07/23/20 Additional Comments F/U for TF tolerance/ extubation
--- NOTE | 2020-07-20 11:09 | Progress Note ---
Assessment and Plan Echo reviewed - 07/18/2020 - EF 35-40%, impaired LV relaxation, RV mildly dilated, LA severely dilated, RA mildly dilated, mild AR, aortic root mildly dilated. Continue volume optimization via HD. Continue daily ASA. Home Clonidine resumed to avoid rebound HTN. Will start weaning down Clonidine and increase beta carly as BP permits. Plan for ischemic eval when clinically stable. Pt seen in conjunction with Dr. Navarro, who agrees with the assessment and plan of care. - Patient Problems (1) Acute respiratory failure Current Visit: Yes Status: Acute (2) Acute HFrEF (heart failure with reduced ejection fraction) Current Visit: Yes Status: Acute (3) Cardiomyopathy Current Visit: Yes Status: Acute (4) ESRD needing dialysis Current Visit: Yes Status: Acute (5) Anemia Current Visit: Yes Status: Chronic (6) Thoracic aortic aneurysm Current Visit: Yes Status: Acute Qualifiers: Presence of rupture: without rupture Qualified Code(s): I71.2 - Thoracic aortic aneurysm, without rupture (7) Abdominal aortic aneurysm Current Visit: Yes Status: Chronic Qualifiers: Presence of rupture: without rupture Qualified Code(s): I71.4 - Abdominal aortic aneurysm, without rupture Plan to address problem: 3.6 x 3.3 cm fusiform aneurysm on CT 10/2017, 3.4 cm on MRI 05/2018 (8) NSTEMI (non-ST elevated myocardial infarction) Current Visit: Yes Status: Acute Plan to address problem: Type 2 (9) Hypertension Current Visit: Yes Status: Chronic Qualifiers: Hypertension type: essential hypertension Qualified Code(s): I10 - Essential (primary) hypertension (10) HLD (hyperlipidemia) Current Visit: Yes Status: Chronic Qualifiers: Hyperlipidemia type: mixed hyperlipidemia Qualified Code(s): E78.2 - Mixed hyperlipidemia (11) Chronic venous insufficiency of lower extremity Current Visit: Yes Status: Chronic Subjective Date of service: 07/20/20 Principal diagnosis: Acute Respiratory Failure, Acute HFrEF, ESRD/HD Interval history: S/p successful extubation. Pt denies any pain or cardiac complaints. Tele reviewed - SR 70-80s w/frequent PVCs & PACs, no events overnight. Objective Last Vital Signs Temp 98.3 F 07/20/20 08:00 Pulse 67 07/20/20 10:00 Resp 26 H 07/20/20 10:00 BP 156/84 07/20/20 10:00 Pulse Ox 96 07/20/20 10:00 - Physical Examination General: No Apparent Distress HEENT: Positive: EOMI, Normocephaly Neck: Positive: neck supple, trachea midline. Negative: JVD/HJR Cardiac: Positive: Reg Rate and Rhythm, S1/S2 Lungs: Positive: Decreased Breath Sounds (bases) Neuro: Positive: Grossly Intact Abdomen: Positive: Soft Skin: Negative: Rash Musculoskeletal: No Fluid Collection, No Pain Extremities: Present: lower extr. pulses, edema, warm - Labs and Meds CBC 07/20/20 Range/Units 04:35 WBC 11.9 H (4.5-11.0) K/mm3 RBC 3.45 L (3.65-5.03) M/mm3 Hgb 10.5 L (11.8-15.2) gm/dl Hct 31.7 L (35.5-45.6) % Plt Count 201 (140-440) K/mm3 Comprehensive Metabolic Panel 07/20/20 Range/Units 04:35 Sodium 137 (137-145) mmol/L Potassium 3.9 (3.6-5.0) mmol/L Chloride 97.8 L (98-107) mmol/L Carbon Dioxide 24 (22-30) mmol/L BUN 68 H (9-20) mg/dL Creatinine 7.4 H (0.8-1.3) mg/dL Glucose 109 H (75-100) mg/dL Calcium 9.4 (8.4-10.2) mg/dL - Imaging and Cardiology EKG: report reviewed, image reviewed Echo: report reviewed (07/18/2020 - EF 35-40%, impaired LV relaxation, RV mildly dilated, LA severely dilated, RA mildly dilated, mild AR, aortic root mildly dilated), other (07/2019 - LV mildly dilated, LV wall thickness mild-mod increased, EF 50-55%, grade 2 diastolic dysfxn, RV mildly dilated, LA volume mod increased, mild AR, mild-mod MR, mild TR, mild pulm HTN 2/RVSP 41.28mmHg, ascending aorta mod dilated w/diameter 4.22cm) - Telemetry EKG Rhythm: Sinus Rhythm - EKG Sinus rhythms and dysrhythmias: sinus rhythm Ventricular dysrhythmias: ventricular premature com AV and intraventricular conduction: right bundle branch block Repolarization changes or abnormalities: nonspecific abnormality, ST segment, and/or T wave - Allied health notes Allied health notes reviewed: nursing
[2020-07-20] MEDS ORDERED: METOPROLOL TARTRATE 25 MG TAB PO ONE (11:30)
[2020-07-20] MEDS: FAMOTIDINE 20 MG/2 ML INJ IV SCH ×2 (11:32→22:21)
[2020-07-20] MEDS: AZITHROMYCIN/NS 500 MG/250 ML 500 MG/250 ML BAG IV SCH (12:22)
--- NOTE | 2020-07-20 13:17 | Progress Note ---
Assessment and Plan Acute hypoxemic respiratory failure Bilateral pulmonary infiltrates, edema versus pneumonia. PUI COVID-19 infection. ROSA ELENA on CKD Anemia NSTEMI Elevated serum inflammatory markers to include ferritin and D-dimer. Elevated serum transaminases. Oropharyngeal dysphagia. History of hypertension. History of polysubstance abuse, but negative drug screen - transfer to medical floor - dysphagia screen +/- [employer]PER[employer] evaluation - continue HD/UF for toxin and volume clearance - prn wean supplemental oxygen for target O2 sat's > 90% acutely - aspiration precautions - prn bronchodilators with pulmonary hygiene per RT - avoid nephrotoxins, renally dose all medications - continue to avoid benzodiazepine's, reduce the possibility of delirium - complete empiric CAP AB's coverage with Rocephin and Azitrhromycin - follow clinically re: WBC/fevers - prn analgesia per CPOT score - Maintenance of sleep-wake cycle, avoid delirium - continue enteral nutritional support at goal rate as tolerated - G.I. & VTE prophylaxis - PT/OT/ROM exercises - continue mobility protocols for pressure ulcer prophylaxis - Monitor hemodynamics closely - continue other care per attending / other consultants - discharge planning ongoing concurrently COVID SPECIFIC INTERVENTIONS - COVID-19 test negative .... Re-evaluate in am & prn Subjective Date of service: 07/20/20 Principal diagnosis: Ac. hypoxemic resp failure; Pulm Edema; PUI COVID-19; ROSA ELENA o n CKD; NSTEMI Interval history: Patient is seen today for: Acute hypoxemic respiratory failure; Pulm Edema; PUI COVID-19; ROSA ELENA on CKD; NSTEMI Seen and examined at bedside; 24hour events reviewed; nursing and respiratory care staff consulted; no adverse overnight events reported to me; mresting peacefully in bed; doing well post extubation so far; No N/V/F/C Objective Vital Signs - 12hr 07/20/20 07/20/20 07/20/20 01:30 02:00 02:30 Temperature Pulse Rate 74 76 79 Pulse Rate [ From Monitor] Respiratory 18 16 14 Rate Blood Pressure 141/73 147/81 147/73 O2 Sat by Pulse 98 99 99 Oximetry 07/20/20 07/20/20 07/20/20 03:00 03:20 03:30 Temperature 98.8 F Pulse Rate 74 76 Pulse Rate [ From Monitor] Respiratory 15 15 Rate Blood Pressure 132/76 138/75 O2 Sat by Pulse 99 95 Oximetry 07/20/20 07/20/20 07/20/20 04:00 04:30 05:00 Temperature Pulse Rate 76 78 68 Pulse Rate [ 86 From Monitor] Respiratory 22 18 22 Rate Blood Pressure 146/75 150/76 140/76 O2 Sat by Pulse 95 94 94 Oximetry 07/20/20 07/20/20 07/20/20 05:30 06:00 06:30 Temperature Pulse Rate 69 65 67 Pulse Rate [ From Monitor] Respiratory 25 H 12 24 Rate Blood Pressure 136/80 141/73 149/76 O2 Sat by Pulse 93 94 94 Oximetry 07/20/20 07/20/20 07/20/20 07:00 07:30 08:00 Temperature 98.3 F Pulse Rate 64 63 75 Pulse Rate [ 62 From Monitor] Respiratory 22 14 10 L Rate Blood Pressure 145/81 145/78 155/91 O2 Sat by Pulse 96 97 100 Oximetry 07/20/20 07/20/20 07/20/20 08:30 09:00 09:18 Temperature Pulse Rate 69 71 68 Pulse Rate [ From Monitor] Respiratory 18 16 Rate Blood Pressure 155/82 150/81 153/87 O2 Sat by Pulse 98 94 Oximetry 07/20/20 07/20/20 07/20/20 09:30 10:00 10:30 Temperature Pulse Rate 72 67 82 Pulse Rate [ From Monitor] Respiratory 18 26 H 19 Rate Blood Pressure 160/92 156/84 149/81 O2 Sat by Pulse 95 96 96 Oximetry 07/20/20 07/20/20 07/20/20 11:00 11:30 11:31 Temperature Pulse Rate 63 76 71 Pulse Rate [ From Monitor] Respiratory 16 20 Rate Blood Pressure 149/81 149/81 144/72 O2 Sat by Pulse 96 99 Oximetry 07/20/20 12:00 Temperature 98.5 F Pulse Rate 63 Pulse Rate [ 63 From Monitor] Respiratory 25 H Rate Blood Pressure 141/74 O2 Sat by Pulse 96 Oximetry Constitutional: no acute distress, other (elderly male with normal respiratory effort at rest ) Eyes: non-icteric ENT: oropharynx moist, other (extubated) Neck: supple, no lymphadenopathy, no JVD Effort: normal Ascultation: Bilateral: clear Percussion: Bilateral: not dull Cardiovascular: regular rate and rhythm Gastrointestinal: normoactive bowel sounds, soft, non-tender, non-distended Integumentary: normal, other (AV Fistula to left arm) Extremities: no cyanosis, no edema, pulses normal, no ischemia or petechiae Neurologic: normal mental status, non-focal exam (grossly), pupils equal and rou nd, motor strength normal and Psychiatric: mood appropriate, affect normal CBC and BMP: 07/20/20 04:35 07/20/20 04:35 ABG, PT/INR, D-dimer: ABG ABG pH 7.385 pH Units (7.350-7.450) 07/19/20 16:36 POC ABG pCO2 33.0 mmHg (32.0-48.0) 07/19/20 03:27 ABG pCO2 43.5 mm Hg 07/19/20 16:36 POC ABG pO2 127.4 mmHg (83-108) H 07/19/20 03:27 ABG pO2 108.2 mm Hg (80.0-90.0) H 07/19/20 16:36 POC ABG HCO3 24.1 07/19/20 03:27 ABG O2 Saturation 97.8 % (95.0-99.0) 07/19/20 16:36 PT/INR, D-dimer PT 15.0 Sec. (12.2-14.9) H 07/17/20 09:31 INR 1.13 (0.87-1.13) 07/17/20 09:31 D-Dimer 653.04 ng/mlDDU (0-234) H 07/17/20 13:11 Abnormal lab findings: Abnormal Labs 07/17/20 07/17/20 07/17/20 09:31 09:31 09:31 WBC 11.6 H RBC Hgb 11.2 L Hct 35.4 L Lymph % (Auto) 7.0 L Lymph # (Auto) 0.8 L Seg Neutrophils % 87.0 H Seg Neuts % (Manual) Lymphocytes % (Manual) Seg Neutrophils # 10.1 H Lymphocytes # (Manual) PT 15.0 H D-Dimer ABG pH POC ABG pCO2 POC ABG pO2 ABG pO2 ABG Base Excess ABG Hemoglobin ABG Oxyhemoglobin ABG Potassium ABG Glucose Chloride BUN 55 H Creatinine 5.5 H Glucose 177 H POC Glucose Lactic Acid Ferritin Direct Bilirubin 0.3 H AST 99 H ALT 82 H Lactate Dehydrogenase Troponin T 0.030 H NT-Pro-B Natriuret Pep 03244 H Albumin HDL Cholesterol 33 L Arterial Blood Glucose Arterial Blood Ionized Calcium 07/17/20 07/17/20 07/17/20 12:57 13:11 13:11 WBC RBC Hgb Hct Lymph % (Auto) Lymph # (Auto) Seg Neutrophils % Seg Neuts % (Manual) Lymphocytes % (Manual) Seg Neutrophils # Lymphocytes # (Manual) PT D-Dimer 653.04 H ABG pH POC ABG pCO2 POC ABG pO2 ABG pO2 ABG Base Excess ABG Hemoglobin ABG Oxyhemoglobin ABG Potassium ABG Glucose Chloride BUN Creatinine Glucose 175 H POC Glucose Lactic Acid Ferritin 356.2 H Direct Bilirubin AST ALT Lactate Dehydrogenase 277 H Troponin T NT-Pro-B Natriuret Pep Albumin HDL Cholesterol Arterial Blood Glucose Arterial Blood Ionized Calcium 07/17/20 07/17/20 07/17/20 13:11 21:00 23:25 WBC RBC Hgb Hct Lymph % (Auto) Lymph # (Auto) Seg Neutrophils % Seg Neuts % (Manual) Lymphocytes % (Manual) Seg Neutrophils # Lymphocytes # (Manual) PT D-Dimer ABG pH POC ABG pCO2 POC ABG pO2 110.1 H ABG pO2 ABG Base Excess ABG Hemoglobin 11.5 L ABG Oxyhemoglobin ABG Potassium ABG Glucose Chloride BUN Creatinine Glucose POC Glucose 64 L Lactic Acid 0.60 L Ferritin Direct Bilirubin AST ALT Lactate Dehydrogenase Troponin T NT-Pro-B Natriuret Pep Albumin HDL Cholesterol Arterial Blood Glucose Arterial Blood Ionized Calcium 4.5 L 07/17/20 07/18/20 07/18/20 Unknown 05:24 05:24 WBC RBC 3.45 L Hgb 10.8 L Hct 31.9 L Lymph % (Auto) Lymph # (Auto) Seg Neutrophils % Seg Neuts % (Manual) 85.0 H Lymphocytes % (Manual) 8.0 L Seg Neutrophils # Lymphocytes # (Manual) 0.7 L PT D-Dimer ABG pH 7.223 L POC ABG pCO2 POC ABG pO2 ABG pO2 108.9 H ABG Base Excess -5.9 L ABG Hemoglobin 11.4 L ABG Oxyhemoglobin ABG Potassium ABG Glucose Chloride BUN 54 H Creatinine 6.9 H Glucose POC Glucose Lactic Acid Ferritin Direct Bilirubin AST ALT 62 H Lactate Dehydrogenase Troponin T NT-Pro-B Natriuret Pep Albumin 3.8 L HDL Cholesterol Arterial Blood Glucose Arterial Blood Ionized Calcium 07/18/20 07/18/20 07/18/20 11:10 11:23 12:06 WBC RBC Hgb Hct Lymph % (Auto) Lymph # (Auto) Seg Neutrophils % Seg Neuts % (Manual) Lymphocytes % (Manual) Seg Neutrophils # Lymphocytes # (Manual) PT D-Dimer ABG pH 7.268 L POC ABG pCO2 49.6 H POC ABG pO2 49.3 L ABG pO2 ABG Base Excess ABG Hemoglobin 11.8 L ABG Oxyhemoglobin 78.7 L ABG Potassium 4.7 H ABG Glucose 112 H Chloride BUN Creatinine Glucose POC Glucose 107 H Lactic Acid Ferritin Direct Bilirubin AST ALT Lactate Dehydrogenase Troponin T 0.189 H* D NT-Pro-B Natriuret Pep Albumin HDL Cholesterol Arterial Blood Glucose 112 H Arterial Blood Ionized Calcium 07/18/20 07/18/20 07/18/20 15:50 17:27 19:11 WBC RBC Hgb Hct Lymph % (Auto) Lymph # (Auto) Seg Neutrophils % Seg Neuts % (Manual) Lymphocytes % (Manual) Seg Neutrophils # Lymphocytes # (Manual) PT D-Dimer ABG pH POC ABG pCO2 POC ABG pO2 ABG pO2 ABG Base Excess ABG Hemoglobin ABG Oxyhemoglobin ABG Potassium ABG Glucose Chloride BUN Creatinine Glucose POC Glucose 156 H Lactic Acid Ferritin Direct Bilirubin AST ALT Lactate Dehydrogenase Troponin T 0.182 H* 0.213 H* NT-Pro-B Natriuret Pep Albumin HDL Cholesterol Arterial Blood Glucose Arterial Blood Ionized Calcium 07/18/20 07/19/20 07/19/20 23:10 03:27 05:21 WBC RBC Hgb Hct Lymph % (Auto) Lymph # (Auto) Seg Neutrophils % Seg Neuts % (Manual) Lymphocytes % (Manual) Seg Neutrophils # Lymphocytes # (Manual) PT D-Dimer ABG pH 7.482 H POC ABG pCO2 POC ABG pO2 127.4 H ABG pO2 ABG Base Excess ABG Hemoglobin 11.9 L ABG Oxyhemoglobin ABG Potassium ABG Glucose 131 H Chloride BUN Creatinine Glucose POC Glucose 160 H 140 H Lactic Acid Ferritin Direct Bilirubin AST ALT Lactate Dehydrogenase Troponin T NT-Pro-B Natriuret Pep Albumin HDL Cholesterol Arterial Blood Glucose 131 H Arterial Blood Ionized Calcium 4.5 L 07/19/20 07/19/20 07/19/20 11:48 16:36 18:32 WBC RBC Hgb Hct Lymph % (Auto) Lymph # (Auto) Seg Neutrophils % Seg Neuts % (Manual) Lymphocytes % (Manual) Seg Neutrophils # Lymphocytes # (Manual) PT D-Dimer ABG pH POC ABG pCO2 POC ABG pO2 ABG pO2 108.2 H ABG Base Excess ABG Hemoglobin 12.3 L ABG Oxyhemoglobin ABG Potassium ABG Glucose Chloride BUN Creatinine Glucose POC Glucose 141 H 128 H Lactic Acid Ferritin Direct Bilirubin AST ALT Lactate Dehydrogenase Troponin T NT-Pro-B Natriuret Pep Albumin HDL Cholesterol Arterial Blood Glucose Arterial Blood Ionized Calcium 07/19/20 07/20/20 07/20/20 22:36 04:35 04:35 WBC 11.9 H RBC 3.45 L Hgb 10.5 L Hct 31.7 L Lymph % (Auto) Lymph # (Auto) Seg Neutrophils % Seg Neuts % (Manual) Lymphocytes % (Manual) Seg Neutrophils # Lymphocytes # (Manual) PT D-Dimer ABG pH POC ABG pCO2 POC ABG pO2 ABG pO2 ABG Base Excess ABG Hemoglobin ABG Oxyhemoglobin ABG Potassium ABG Glucose Chloride 97.8 L BUN 68 H Creatinine 7.4 H Glucose 109 H POC Glucose 121 H Lactic Acid Ferritin Direct Bilirubin AST ALT Lactate Dehydrogenase Troponin T NT-Pro-B Natriuret Pep Albumin HDL Cholesterol Arterial Blood Glucose Arterial Blood Ionized Calcium 07/20/20 04:49 WBC RBC Hgb Hct Lymph % (Auto) Lymph # (Auto) Seg Neutrophils % Seg Neuts % (Manual) Lymphocytes % (Manual) Seg Neutrophils # Lymphocytes # (Manual) PT D-Dimer ABG pH POC ABG pCO2 POC ABG pO2 ABG pO2 ABG Base Excess ABG Hemoglobin ABG Oxyhemoglobin ABG Potassium ABG Glucose Chloride BUN Creatinine Glucose POC Glucose 114 H Lactic Acid Ferritin Direct Bilirubin AST ALT Lactate Dehydrogenase Troponin T NT-Pro-B Natriuret Pep Albumin HDL Cholesterol Arterial Blood Glucose Arterial Blood Ionized Calcium Chest x-ray: pending Allied health notes reviewed: nursing
--- NOTE | 2020-07-20 13:37 | Consultation ---
History of Present Illness - Reason for Consult Consult date: 07/20/20 Thoracic Aortic Aneurysm Requesting physician: ARPIT GAMBOA - History of Present Illness The patient is a 64-year-old male with a history of end-stage renal disease who presented to the emergency department by way of EMS. Per report they were called secondary to the patient complaining of shortness of breath and upon arrival the patient was found to be unresponsive. They bag mask the patient until he was transported into the ER where he was found to have oxygen saturations of 60%. He required intubation upon his arrival to the emergency department. His work-up included a CT scan of his chest,however this was done without IV contrast. This revealed aneurysmal dilatation of the ascending as well as descending thoracic aorta. The patient denies having knowledge of this prior to his presentation here. He denies having any history of chest or back pain prior to his admission here. He states he does have some chest pain today however this seems to be related to his recent extubation. He denies any abdominal pain or lower back pain. He has no additional complaints at this time. Past History Past Medical History: ESRD, hypertension, hyperlipidemia, renal failure, other (stable abdominal aortic aneurysm) Past Surgical History: Other (Left arm arteriovenous graft) Social history: , lives with family, smoking (former, quit 2013). denies: alcohol abuse Family history: hypertension Medications and Allergies Allergies Allergy/AdvReac Type Severity Reaction Status Date / Time methadone Allergy Unknown Verified 07/17/20 09:00 tramadol Allergy Swelling Verified 07/17/20 09:00 Home Medications Medication Instructions Recorded Confirmed Last Taken Type HYDROcodone/APAP 10-325 [[place] 1 each PO Q6HR PRN #30 tablet 06/15/13 07/17/20 Unknown Rx 10-325 mg TAB] Probenecid/Colchicine 1 each PO DAILY #20 tablet 06/15/13 07/17/20 Unknown Rx [Probenecid-Colchicine Tab] cloNIDine [Catapres] 0.2 mg PO Q12H #60 tablet 06/15/13 07/17/20 Unknown Rx Cyclobenzaprine [Flexeril] 10 mg PO TID PRN #20 tablet 02/02/16 07/17/20 Unknown Rx Ketorolac [Toradol] 10 mg PO Q6H PRN #30 tablet 02/02/16 07/17/20 Unknown Rx Active Meds: Active Medications Acetaminophen (Acetaminophen 650 Mg Rect Supp) 650 mg MD Q6H PRN PRN Reason: Pain MILD(1-3)/Fever >100.5/ALBERTS Albuterol (Albuterol 2.5 Mg/3 Ml Nebu) 2.5 mg IH Q3HRT PRN PRN Reason: Shortness Of Breath Lipase/Protease/Amylase (Lipase 10,500/Protease 25,000/Amylase 43,750 (Units) Dr Cook) 1 each FEEDTUBE PRN PRN PRN Reason: For Clogged Feeding Tube Aspirin (Aspirin 325 Mg Tab) 325 mg PO QDAY [facility] Last Admin: 07/20/20 09:18 Dose: 325 mg Documented by: Atorvastatin Calcium (Atorvastatin 20 Mg Tab) 20 mg PO QHS [facility] Last Admin: 07/19/20 21:57 Dose: 20 mg Documented by: Clonidine HCl (Clonidine 0.2 Mg Tab) 0.2 mg PO Q12HR [facility] Last Admin: 07/20/20 09:18 Dose: 0.2 mg Documented by: Famotidine (Famotidine 20 Mg/2 Ml Inj) 10 mg IV BID [facility] Last Admin: 07/20/20 11:32 Dose: 10 mg Documented by: Fentanyl (Fentanyl 100 Mcg/2 Ml Inj) 50 mcg IV Q10MIN PRN PRN Reason: ANALGESIA Last Admin: 07/19/20 14:11 Dose: 50 mcg Documented by: Heparin Sodium (Porcine) (Heparin 5,000 Unit/1 Ml Vial) 5,000 unit SUB-Q Q12HR [facility] Last Admin: 07/20/20 09:19 Dose: 5,000 unit Documented by: Hydralazine HCl (Hydralazine 20 Mg/1 Ml Inj) 10 mg IV Q4H PRN PRN Reason: SBP >/=170; DBP >/=100 Last Admin: 07/19/20 13:27 Dose: 10 mg Documented by: Hydromorphone HCl (Hydromorphone 1 Mg/1 Ml Inj) 0.25 mg IV Q4H PRN PRN Reason: Pain, Moderate (4-6) Last Admin: 07/19/20 14:53 Dose: 0.25 mg Documented by: Hydrophilic Ointment (Lip Therapy Vaseline) 1 applic TP Q2HR PRN PRN Reason: Dry Lips Propofol (Diprivan 10 Mg/Ml) 1,000 mg in 100 mls @ 2.808 mls/hr IV TITR ALIX; Protocol Last Titration: 07/17/20 15:52 Dose: 0 mcg/kg/min, 0 mls/hr Documented by: Fentanyl Citrate (Fentanyl Drip Premix) 2,000 mcg in 100 mls @ 4.68 mls/hr IV TITR ALIX; Protocol Last Titration: 07/20/20 09:27 Dose: Infused Documented by: Ceftriaxone Sodium (Rocephin/Ns 2 Gm/100 Ml) 2 gm in 100 mls @ 200 mls/hr IV Q24H [facility]IX; Protocol Stop: 07/21/20 23:29 Last Admin: 07/19/20 22:56 Dose: 200 mls/hr Documented by: Azithromycin (Zithromax/Ns) 500 mg in 250 mls @ 250 mls/hr IV Q24H [facility]; Protocol Stop: 07/21/20 13:59 Last Admin: 07/20/20 12:22 Dose: 250 mls/hr Documented by: Sodium Chloride (Nacl 0.9%) 100 mls @ 999 mls/hr IV ANDRÉS PRN PRN Reason: Hypotension Metoprolol Tartrate (Metoprolol Tartrate 25 Mg Tab) 25 mg PO BID [facility] Multi-Ingred Cream/Lotion/Oil/Oint (Mineral Oil/Petrolatum, White Ophth Oint 3.5 Gm) 1 applic OU Q4HR PRN PRN Reason: Dry Eye(s) Senna/Docusate Sodium (Sennosides/Docusate Sodium 8.6/50 Mg Tab) 1 tab FEEDTUBE BID [facility]IX Last Admin: 07/20/20 09:22 Dose: 1 tab Documented by: Simple Syrup (Simple Syrup 15 Ml) 15 ml FEEDTUBE PRN PRN PRN Reason: Hypoglycemia Last Admin: 07/17/20 23:54 Dose: 15 ml Documented by: Simple Syrup (Simple Syrup 15 Ml) 30 ml FEEDTUBE PRN PRN PRN Reason: Hypoglycemia Sodium Bicarbonate (Sodium Bicarbonate 325 Mg Tab) 325 mg FEEDTUBE PRN PRN PRN Reason: For Clogged Feeding Tube Sodium Chloride (Sodium Chloride 0.9% 10 Ml Flush Syringe) 10 ml IV BID [facility]IX Last Admin: 07/20/20 09:19 Dose: Not Given Documented by: Sodium Chloride (Sodium Chloride 0.9% 10 Ml Flush Syringe) 10 ml IV PRN PRN PRN Reason: LINE FLUSH Review of Systems All systems: negative Exam - Constitutional Vitals: Temp Pulse Resp BP Pulse Ox 98.5 F 70 16 141/74 94 07/20/20 12:00 07/20/20 13:30 07/20/20 13:30 07/20/20 13:30 07/20/20 13:30 General appearance: Present: no acute distress - Respiratory Respiratory effort: normal - Cardiovascular Rhythm: other (Multiple PVCs) - Extremities Extremities: pulses intact (Palpable dorsalis pedis pulses bilaterally), abnormal (Palpable thrill left forearm arteriovenous graft) - Abdominal General gastrointestinal: Present: soft, non-distended Male genitourinary: Present: deferred - Rectal Rectal Exam: deferred Results - Labs CBC & Chem 7: 07/20/20 04:35 07/20/20 04:35 Labs: Abnormal lab results 07/19/20 07/19/20 07/19/20 Range/Units 16:36 18:32 22:36 WBC (4.5-11.0) K/mm3 RBC (3.65-5.03) M/mm3 Hgb (11.8-15.2) gm/dl Hct (35.5-45.6) % ABG pO2 108.2 H (80.0-90.0) mm Hg ABG Hemoglobin 12.3 L (14.0-18.0) gm/dl Chloride (98-107) mmol/L BUN (9-20) mg/dL Creatinine (0.8-1.3) mg/dL Glucose (75-100) mg/dL POC Glucose 128 H 121 H (70-105) mg/dL 07/20/20 07/20/20 07/20/20 Range/Units 04:35 04:35 04:49 WBC 11.9 H (4.5-11.0) K/mm3 RBC 3.45 L (3.65-5.03) M/mm3 Hgb 10.5 L (11.8-15.2) gm/dl Hct 31.7 L (35.5-45.6) % ABG pO2 (80.0-90.0) mm Hg ABG Hemoglobin (14.0-18.0) gm/dl Chloride 97.8 L (98-107) mmol/L BUN 68 H (9-20) mg/dL Creatinine 7.4 H (0.8-1.3) mg/dL Glucose 109 H (75-100) mg/dL POC Glucose 114 H (70-105) mg/dL - Imaging and Cardiology CT scan - chest: image reviewed Assessment and Plan The patient is a 64-year-old male with a history of end-stage renal disease who presented to the emergency department with shortness of breath requiring intubation however he was now extubated. His work-up included a CT scan of his chest without contrast that revealed a 5 cm aneurysm of his ascending thoracic aorta and a 4.4 cm aneurysm of his descending thoracic aorta. It is difficult to evaluate the aorta without the use of IV contrast. When the patient initially presented he had not yet been started on dialysis. Now that dialysis has been initiated he should be able to tolerate a CTA of his chest to evaluate his aorta. I would also recommend adding a CT of his abdomen pelvis to evaluate the infrarenal aorta as well. The current sizes are below the surgical threshold so no surgical intervention would be required unless some additional abnormality were found on the CTA.
[2020-07-20] MEDS: hydrALAZINE 20 MG/1 ML INJ IV PRN (17:33)
[2020-07-20] MEDS: cefTRIAXone/NS 2 GM/100 ML 2 GM/100 ML BAG IV SCH (22:29)
[2020-07-21] MEDS: hydrALAZINE 20 MG/1 ML INJ IV PRN (01:39)
[2020-07-21] MEDS: HYDROmorphone 1 MG/1 ML INJ IV PRN (03:19)
[2020-07-21 06:34] LABS: Calcium 9.4 mg/dL (8.4-10.2)
--- NOTE | 2020-07-21 09:03 | Progress Note ---
Assessment and Plan Echo reviewed - 07/18/2020 - EF 35-40%, impaired LV relaxation, RV mildly dilated, LA severely dilated, RA mildly dilated, RVSP 54mmHg, mild AR, aortic root mildly dilated. Awaiting CTA chest today. Continue daily ASA. Continue volume optimization via HD. Of note, L kidney mass previously identified as cyst on US. Continue weaning down Clonidine and increase beta carly as tolerated. Will consider addition of ACEI/ARB/ARNI as well now that pt is established with HD. Plan for ischemic eval when clinically stable. Pt seen in conjunction with Dr. Navarro, who agrees with the assessment and plan of care. - Patient Problems (1) Acute respiratory failure Current Visit: Yes Status: Acute (2) Acute HFrEF (heart failure with reduced ejection fraction) Current Visit: Yes Status: Acute (3) Cardiomyopathy Current Visit: Yes Status: Acute (4) Pulmonary HTN Current Visit: Yes Status: Acute (5) ESRD needing dialysis Current Visit: Yes Status: Acute (6) Anemia Current Visit: Yes Status: Chronic (7) Thoracic aortic aneurysm Current Visit: Yes Status: Acute Qualifiers: Presence of rupture: without rupture Qualified Code(s): I71.2 - Thoracic aortic aneurysm, without rupture (8) Abdominal aortic aneurysm Current Visit: Yes Status: Chronic Qualifiers: Presence of rupture: without rupture Qualified Code(s): I71.4 - Abdominal aortic aneurysm, without rupture Plan to address problem: 3.6 x 3.3 cm fusiform aneurysm on CT 10/2017, 3.4 cm on MRI 05/2018 (9) NSTEMI (non-ST elevated myocardial infarction) Current Visit: Yes Status: Acute Plan to address problem: Type 2 (10) Hypertension Current Visit: Yes Status: Chronic Qualifiers: Hypertension type: essential hypertension Qualified Code(s): I10 - Essential (primary) hypertension (11) HLD (hyperlipidemia) Current Visit: Yes Status: Chronic Qualifiers: Hyperlipidemia type: mixed hyperlipidemia Qualified Code(s): E78.2 - Mixed hyperlipidemia (12) Chronic venous insufficiency of lower extremity Current Visit: Yes Status: Chronic Subjective Date of service: 07/21/20 Principal diagnosis: Acute Respiratory Failure, Emergent HD, EF 35-40% Interval history: Transferred to tele floor. Doing well today. Still with swelling of his upper lip. Otherwise no complaints. Tele reviewed - SR 70-80s w/frequent PVCs, no events overnight. Objective Last Vital Signs Temp 97.2 F L 07/21/20 09:04 Pulse 63 07/21/20 09:04 Resp 18 07/21/20 09:04 BP 143/70 07/21/20 09:04 Pulse Ox 96 07/21/20 09:04 - Physical Examination General: No Apparent Distress HEENT: Positive: EOMI, Normocephaly Neck: Positive: neck supple, trachea midline. Negative: JVD/HJR Cardiac: Positive: Reg Rate and Rhythm, S1/S2 Lungs: Positive: Decreased Breath Sounds (bases) Neuro: Positive: Grossly Intact Abdomen: Positive: Soft Skin: Negative: Rash Musculoskeletal: No Fluid Collection, No Pain Extremities: Present: lower extr. pulses, warm. Absent: edema - Labs and Meds Comprehensive Metabolic Panel 07/21/20 Range/Units 04:26 Sodium 140 (137-145) mmol/L Potassium 4.0 (3.6-5.0) mmol/L Chloride 97.9 L (98-107) mmol/L Carbon Dioxide 23 (22-30) mmol/L BUN 64 H (9-20) mg/dL Creatinine 6.2 H (0.8-1.3) mg/dL Glucose 127 H (75-100) mg/dL Calcium 9.4 (8.4-10.2) mg/dL - Imaging and Cardiology EKG: report reviewed, image reviewed Echo: report reviewed (07/18/2020 - EF 35-40%, impaired LV relaxation, RV mildly dilated, LA severely dilated, RA mildly dilated, mild AR, aortic root mildly dilated), other (07/2019 - LV mildly dilated, LV wall thickness mild-mod increased, EF 50-55%, grade 2 diastolic dysfxn, RV mildly dilated, LA volume mod increased, mild AR, mild-mod MR, mild TR, mild pulm HTN 2/RVSP 41.28mmHg, ascending aorta mod dilated w/diameter 4.22cm) - Telemetry EKG Rhythm: Sinus Rhythm - EKG Sinus rhythms and dysrhythmias: sinus rhythm Ventricular dysrhythmias: ventricular premature com AV and intraventricular conduction: right bundle branch block Repolarization changes or abnormalities: nonspecific abnormality, ST segment, and/or T wave - Allied health notes Allied health notes reviewed: nursing
--- NOTE | 2020-07-21 09:26 | Progress Note ---
Assessment and Plan Assessment and plan: 64 YO Male with HTN, ESRD, Gout, CHF presents to ED for evaluation. Patient is intubated and on ventilatory support at the time my evaluation and is unable to provide history. Patient history taken from EMS staff, ED staff, as well as the patient's Mrs Santa Dodge who was made available by telephone for interview. As per patient's the patient has experienced progressive weakn ess over the past 2 months with worsening symptoms over the last 1 week. P atient was found to have orthopnea, paroxysmal nocturnal dyspnea, decreased exercise tolerance, dyspnea on exertion, as well as dyspnea at rest. Patient reports leaving patient at home while she went to work today. She was subsequently notified by the patient's brother who notified EMS due to patient reporting shortness of breath. EMS was notified and upon arrival the patient was found to be in distress with a pulse oximetry of 60% on room air. The patient was placed on supplemental oxygen and transported to [facility] for further care and evaluation of the aforementioned symptoms. The patient was seen and evaluated in the emergency department. All lab and imaging studies reviewed. Patient found to be unable to protect his airway and was subsequently intubated and placed on ventilatory support. Patient also found to have end-stage renal disease in need of urgent dialysis, CHF decompensation. Patient admitted to ICU. Critical care team consulted in ED. Nephrology team consulted in ED. Advanced care planning condu cted in ED. No prior admission for review. All medication listed at time of admission has been reconciled. Consultants Cardiology, kiosk sales representative, stabilizing machine operator. 07/18: Patient initiated with dialysis today. Covid test was done and is negative. Anemia likely anemia of chronic disease. Will follow consultants recommendation for further management. Echocardiogram pending 07/19: Patient started with dialysis. Anticipate trial of weaning today. BP elevated, clonodine restarted, will increase to home dose. Continue current management 07/20: Patient now extubated. Did have dialysis with improvement in respiratory status which aided extubation. Patient however has an edematous upper lip que stionable angioedema. We will give a dose of Benadryl, H2 carly and a dose of steroids and monitor. Patient can be transitioned to telemetry if okay with stabilizing machine operator. IR consulted to evaluate abdominal aneurysm continue current management by vice president education to monitor all medications to see what could be resulting to the angioedema. 07/21: Continue supportive care. Will start patient on low-dose steroids considering noted angioedema. Discussed with kiosk sales representative about recommendation by vascular/IR and they are okay with proceeding. Risk discussed with patient he verbalized understanding. We will proceed with CT angio of the chest abdomen and pelvis to further evaluate aneurysmal findings. Per kiosk sales representative patient will be dialyzed tomorrow. (1) Acute hypoxemic respiratory failure Current Visit: Yes Status: Acute Plan to address problem: Status post extubation (2) CHF (congestive heart failure) Current Visit: Yes Status: Acute Qualifiers: Heart failure type: systolic Heart failure chronicity: acute Qualified Code(s): I50.21 - Acute systolic (congestive) heart failure Plan to address problem: Strict I/O, monitor urine output every shift, afterload reduction, blood pressure control, echocardiogram ordered and is pending at time of admission, cardiology team consulted. (3) End stage renal disease Current Visit: Yes Status: Acute Plan to address problem: Nephrology team consulted in ED, dialysis as per renal team, supportive care. (4) Hypertension Current Visit: Yes Status: Acute Qualifiers: Hypertension type: essential hypertension Qualified Code(s): I10 - Essential (primary) hypertension Plan to address problem: Monitor blood pressure every shift, continue medical management (5) Abdominal aneurysm Current Visit: Yes Status: Chronic (6) non-STEMI (7) Bilateral pulmonary infiltrates likely secondary to pulmonary edema (8) PUI [id number] (9) Chronic venous insufficiency of lower extremity Current Visit: Yes Status: Chronic (10) angioedema upper lip (11) DVT prophylaxis Current Visit: Yes Status: Acute Plan to address problem: SCD to bilateral lower extremities while in bed, prophylactic anticoagulation (12) Advance care planning Current Visit: Yes Status: Acute Plan to address problem: Disease education done, care plan discussed, prognosis discussed, patient acknowledges understanding and agreement with care plan, patient is full code, +30 minutes. Patient care plan discussed with Santa Dodge. Telephone number . History Interval history: Patient seen and examined upper lip still swollen but no difficulty breathing explained to the patient about vasculitis recommendation he is okay with it. Also discussed with kiosk sales representative who cleared for the procedure. Hospitalist Physical - Physical exam Narrative exam: General appearance: Present: No distress following commands ET tube and OG tube now removed - EENT Eyes: Present: miosis ENT: hearing intact, clear but with edentulous upper lip. Oral mucosa - Neck Neck: Present: supple, normal ROM - Respiratory Respiratory effort: Normal increased work of breathing Respiratory: bilateral: diminished, rhonchi - Cardiovascular Heart Sounds: Present: S1 & S2. Absent: rub, click - Extremities Extremities: pulses symmetrical, No edema Peripheral Pulses: within normal limits - Abdominal General gastrointestinal: Present: soft, non-tender, non-distended, normal bowel sounds Male genitourinary: Present: normal - Integumentary Integumentary: Present: clear, dry - Musculoskeletal Musculoskeletal: generalized weakness - Psychiatric Psychiatric: no appropriate mood/affect, no intact judgment & insight, no memory intact - Neurologic Neurologic: CNII-XII intact, no focal deficits, moves all extremities, no gait normal - Constitutional Vitals: Temp Pulse Resp BP Pulse Ox 98.0 F 60 18 145/70 97 07/21/20 03:52 07/21/20 03:52 07/21/20 03:52 07/21/20 03:52 07/21/20 03:52 General appearance: Present: no acute distress HEART Score - HEART Score Troponin: Troponin T 0.213 ng/mL (0.00-0.029) H* 07/18/20 19:11 Results - Labs CBC & Chem 7: 07/20/20 04:35 07/21/20 04:26 Labs: Laboratory Last Values WBC 11.9 K/mm3 (4.5-11.0) H 07/20/20 04:35 RBC 3.45 M/mm3 (3.65-5.03) L 07/20/20 04:35 Hgb 10.5 gm/dl (11.8-15.2) L 07/20/20 04:35 Hct 31.7 % (35.5-45.6) L 07/20/20 04:35 MCV 92 fl (84-94) 07/20/20 04:35 MCH 30 pg (28-32) 07/20/20 04:35 MCHC 33 % (32-34) 07/20/20 04:35 RDW 13.7 % (13.2-15.2) 07/20/20 04:35 Plt Count 201 K/mm3 (140-440) 07/20/20 04:35 Lymph % (Auto) 7.0 % (13.4-35.0) L 07/17/20 09:31 [place] % (Auto) Surveillance Agent 07/18/20 05:24 Eos % (Auto) 0.8 % (0.0-4.3) 07/17/20 09:31 Baso % (Auto) 0.4 % (0.0-1.8) 07/17/20 09:31 Lymph # (Auto) 0.8 K/mm3 (1.2-5.4) L 07/17/20 09:31 [place] # (Auto) 0.6 K/mm3 (0.0-0.8) 07/17/20 09:31 Eos # (Auto) 0.1 K/mm3 (0.0-0.4) 07/17/20 09:31 Baso # (Auto) 0.0 K/mm3 (0.0-0.1) 07/17/20 09:31 Add Manual Diff Complete 07/18/20 05:24 Total Counted 100 07/18/20 05:24 Seg Neutrophils % 87.0 % (40.0-70.0) H 07/17/20 09:31 Seg Neuts % (Manual) 85.0 % (40.0-70.0) H 07/18/20 05:24 Lymphocytes % (Manual) 8.0 % (13.4-35.0) L 07/18/20 05:24 Monocytes % (Manual) 7.0 % (0.0-7.3) 07/18/20 05:24 Nucleated RBC % Not Reportable 07/18/20 05:24 Seg Neutrophils # 10.1 K/mm3 (1.8-7.7) H 07/17/20 09:31 Seg Neutrophils # Man 7.5 K/mm3 (1.8-7.7) 07/18/20 05:24 Band Neutrophils # 0.0 K/mm3 07/18/20 05:24 Lymphocytes # (Manual) 0.7 K/mm3 (1.2-5.4) L 07/18/20 05:24 Abs React Lymphs (Man) 0.0 K/mm3 07/18/20 05:24 Monocytes # (Manual) 0.6 K/mm3 (0.0-0.8) 07/18/20 05:24 Eosinophils # (Manual) 0.0 K/mm3 (0.0-0.4) 07/18/20 05:24 Basophils # (Manual) 0.0 K/mm3 (0.0-0.1) 07/18/20 05:24 Metamyelocytes # 0.0 K/mm3 07/18/20 05:24 Myelocytes # 0.0 K/mm3 07/18/20 05:24 Promyelocytes # 0.0 K/mm3 07/18/20 05:24 Blast Cells # 0.0 K/mm3 07/18/20 05:24 WBC Morphology Not Reportable 07/18/20 05:24 Hypersegmented Neuts Not Reportable 07/18/20 05:24 Hyposegmented Neuts Not Reportable 07/18/20 05:24 Hypogranular Neuts Not Reportable 07/18/20 05:24 Smudge Cells Not Reportable 07/18/20 05:24 Toxic Granulation Not Reportable 07/18/20 05:24 Toxic Vacuolation Not Reportable 07/18/20 05:24 Dohle Bodies Not Reportable 07/18/20 05:24 Pelger-Huet Anomaly Not Reportable 07/18/20 05:24 Oscar Rods Not Reportable 07/18/20 05:24 Platelet Estimate Consistent w auto 07/18/20 05:24 Clumped Platelets Not Reportable 07/18/20 05:24 Plt Clumps, EDTA Not Reportable 07/18/20 05:24 Large Platelets Not Reportable 07/18/20 05:24 Giant Platelets Not Reportable 07/18/20 05:24 Platelet Satelliting Not Reportable 07/18/20 05:24 Plt Morphology Comment Not Reportable 07/18/20 05:24 RBC Morphology Normal 07/18/20 05:24 Dimorphic RBCs Not Reportable 07/18/20 05:24 Polychromasia Not Reportable 07/18/20 05:24 Hypochromasia Not Reportable 07/18/20 05:24 Poikilocytosis Not Reportable 07/18/20 05:24 Anisocytosis Not Reportable 07/18/20 05:24 Microcytosis Not Reportable 07/18/20 05:24 Macrocytosis Not Reportable 07/18/20 05:24 Spherocytes Not Reportable 07/18/20 05:24 Pappenheimer Bodies Not Reportable 07/18/20 05:24 Sickle Cells Not Reportable 07/18/20 05:24 Target Cells Not Reportable 07/18/20 05:24 Tear Drop Cells Not Reportable 07/18/20 05:24 Ovalocytes Not Reportable 07/18/20 05:24 Helmet Cells Not Reportable 07/18/20 05:24 Yeh-Octavia Bodies Not Reportable 07/18/20 05:24 [place] Rings Not Reportable 07/18/20 05:24 Karl Cells Not Reportable 07/18/20 05:24 Bite Cells Not Reportable 07/18/20 05:24 Crenated Cell Not Reportable 07/18/20 05:24 Elliptocytes Not Reportable 07/18/20 05:24 Acanthocytes (Spur) Not Reportable 07/18/20 05:24 Rouleaux Not Reportable 07/18/20 05:24 Hemoglobin C Crystals Not Reportable 07/18/20 05:24 Schistocytes Not Reportable 07/18/20 05:24 Malaria parasites Not Reportable 07/18/20 05:24 Fermín Bodies Not Reportable 07/18/20 05:24 Hem Pathologist Commnt No 07/18/20 05:24 PT 15.0 Sec. (12.2-14.9) H 07/17/20 09:31 INR 1.13 (0.87-1.13) 07/17/20 09:31 APTT 25.3 Sec. (24.2-36.6) 07/17/20 09:31 D-Dimer 653.04 ng/mlDDU (0-234) H 07/17/20 13:11 ABG pH 7.385 pH Units (7.350-7.450) 07/19/20 16:36 POC ABG pCO2 33.0 mmHg (32.0-48.0) 07/19/20 03:27 ABG pCO2 43.5 mm Hg 07/19/20 16:36 POC ABG pO2 127.4 mmHg (83-108) H 07/19/20 03:27 ABG pO2 108.2 mm Hg (80.0-90.0) H 07/19/20 16:36 POC ABG HCO3 24.1 07/19/20 03:27 ABG HCO3 25.5 mmol/L (20.0-26.0) 07/19/20 16:36 ABG O2 Saturation 97.8 % (95.0-99.0) 07/19/20 16:36 ABG O2 Content 16.7 (0.0-44) 07/19/20 16:36 POC ABG Base Excess 1.1 07/19/20 03:27 ABG Base Excess 0.2 mmol/L (-2.0-3.0) 07/19/20 16:36 ABG Hemoglobin 12.3 gm/dl (14.0-18.0) L 07/19/20 16:36 ABG Oxyhemoglobin 97.6 (94-98) 07/19/20 03:27 ABG Carboxyhemoglobin 1.5 % (0.0-5.0) 07/19/20 16:36 ABG Methemoglobin 0.5 % (0.0-1.5) 07/19/20 16:36 ABG Sodium 137.0 mmol/L (136.0-145.0) 07/19/20 03:27 ABG Potassium 3.8 mmol/L (3.40-4.50) 07/19/20 03:27 ABG Chloride 101.0 mmol/L (98-107) 07/19/20 03:27 ABG Glucose 131 mg/dL (65-95) H 07/19/20 03:27 Oxyhemoglobin 95.8 % (95.0-99.0) 07/19/20 16:36 Carboxyhemoglobin 1.0 (0.5-1.5) 07/19/20 03:27 FiO2 30 % 07/19/20 16:36 FiO2 % 35.0 07/19/20 03:27 Sodium 140 mmol/L (137-145) 07/21/20 04:26 Potassium 4.0 mmol/L (3.6-5.0) 07/21/20 04:26 Chloride 97.9 mmol/L (98-107) L 07/21/20 04:26 Carbon Dioxide 23 mmol/L (22-30) 07/21/20 04:26 Anion Gap 23 mmol/L 07/21/20 04:26 BUN 64 mg/dL (9-20) H 07/21/20 04:26 Creatinine 6.2 mg/dL (0.8-1.3) H 07/21/20 04:26 Estimated GFR 11 ml/min 07/21/20 04:26 BUN/Creatinine Ratio 10 % 07/21/20 04:26 Glucose 127 mg/dL (75-100) H 07/21/20 04:26 POC Glucose 168 mg/dL (70-105) H 07/20/20 17:30 Lactic Acid 0.60 mmol/L (0.7-2.0) L 07/17/20 13:11 Calcium 9.4 mg/dL (8.4-10.2) 07/21/20 04:26 Magnesium 2.50 mg/dL (1.7-2.3) H 07/21/20 04:26 Ferritin 356.2 ng/mL (30.0-300.0) H 07/17/20 12:57 Total Bilirubin 0.40 mg/dL (0.1-1.2) 07/18/20 05:24 Direct Bilirubin 0.3 mg/dL (0-0.2) H 07/17/20 09:31 Indirect Bilirubin 0.3 mg/dL 07/17/20 09:31 AST 38 units/L (5-40) 07/18/20 05:24 ALT 62 units/L (7-56) H 07/18/20 05:24 Alkaline Phosphatase 72 units/L (35-129) 07/18/20 05:24 Lactate Dehydrogenase 277 units/L (91-180) H 07/17/20 13:11 Troponin T 0.213 ng/mL (0.00-0.029) H* 07/18/20 19:11 C-Reactive Protein 0.60 mg/dL (0.00-1.30) 07/17/20 13:11 NT-Pro-B Natriuret Pep 64960 pg/mL (0-900) H 07/17/20 09:31 Total Protein 6.9 g/dL (6.3-8.2) 07/18/20 05:24 Albumin 3.8 g/dL (3.9-5) L 07/18/20 05:24 Albumin/Globulin Ratio 1.2 % 07/18/20 05:24 Triglycerides 119 mg/dL (2-149) 07/17/20 09:31 Cholesterol 163 mg/dL (50-199) 07/17/20 09:31 LDL Cholesterol Direct 130 mg/dL (50-130) 07/17/20 09:31 HDL Cholesterol 33 mg/dL (40-59) L 07/17/20 09:31 Cholesterol/HDL Ratio 4.93 % 07/17/20 09:31 Procalcitonin 1.79 ng/mL (<0.15) 07/17/20 13:11 Arterial Blood Glucose 131 mg/dL (65-95) H 07/19/20 03:27 Arterial Blood Ionized Calcium 4.5 mg/dL (4.6-5.3) L 07/19/20 03:27 Urine Opiates Screen Negative 07/17/20 11:21 Urine Methadone Screen Negative 07/17/20 11:21 Ur Barbiturates Screen Negative 07/17/20 11:21 Ur Phencyclidine Scrn Negative 07/17/20 11:21 Ur Amphetamines Screen Negative 07/17/20 11:21 U Benzodiazepines Scrn Negative 07/17/20 11:21 Urine Cocaine Screen Negative 07/17/20 11:21 U Marijuana (THC) Screen Negative 07/17/20 11:21 Drugs of Abuse Note Disclamer 07/17/20 11:21 Coronavirus (PCR) Negative (Negative) 07/17/20 Unknown Hepatitis A IgM Ab Non-reactive (NonReactive) 07/17/20 13:11 Hep Bs Antigen Non-reactive (Negative) 07/17/20 13:11 Hep B Core IgM Ab Non-reactive (NonReactive) 07/17/20 13:11 Hepatitis C Antibody Non-reactive (NonReactive) 07/17/20 13:11 Microbiology: Microbiology 07/17/20 13:11 Peripheral/Venous Blood Culture - Preliminary NO GROWTH AFTER 72 HOURS 07/17/20 12:57 Peripheral/Venous Blood Culture - Preliminary NO GROWTH AFTER 72 HOURS Ascencio/IV: Voiding Method Urinal Active Medications - Current Medications Current Medications: Generic Name Dose Route Start Last Admin Trade Name Freq PRN Reason Stop Dose Admin Acetaminophen 650 mg 07/17/20 12:29 Acetaminophen 650 Mg Rect Supp ID Q6H PRN Pain MILD(1-3)/Fever >100.5/ALBERTS Albuterol 2.5 mg 07/17/20 12:29 Albuterol 2.5 Mg/3 Ml Nebu IH Q3HRT PRN Shortness Of Breath Lipase/Protease/Amylase 1 each 07/17/20 16:00 Lipase 10,500/Protease 25,000/Amylase 43,750 (Units) Dr Cook FEEDTUBE PRN PRN For Clogged Feeding Tube Aspirin 325 mg 07/18/20 12:00 07/20/20 09:18 Aspirin 325 Mg Tab PO 325 mg QDAY ALIX Administration Atorvastatin Calcium 20 mg 07/19/20 22:00 07/20/20 22:21 Atorvastatin 20 Mg Tab PO 20 mg QHS ALIX Administration Clonidine HCl 0.2 mg 07/19/20 22:00 07/20/20 22:23 Clonidine 0.2 Mg Tab PO 0.2 mg Q12HR ALIX Administration Famotidine 10 mg 07/20/20 11:00 07/20/20 22:21 Famotidine 20 Mg/2 Ml Inj IV 10 mg BID ALIX Administration Fentanyl 50 mcg 07/18/20 13:41 07/19/20 14:11 Fentanyl 100 Mcg/2 Ml Inj IV 50 mcg Q10MIN PRN Administration ANALGESIA Heparin Sodium (Porcine) 5,000 unit 07/17/20 22:00 07/20/20 22:23 Heparin 5,000 Unit/1 Ml Vial SUB-Q 5,000 unit Q12HR ALIX Administration Hydralazine HCl 10 mg 07/18/20 14:00 07/21/20 01:39 Hydralazine 20 Mg/1 Ml Inj IV 10 mg Q4H PRN Administration SBP >/=170; DBP >/=100 Hydromorphone HCl 0.25 mg 07/17/20 12:29 07/21/20 03:19 Hydromorphone 1 Mg/1 Ml Inj IV 0.25 mg Q4H PRN Administration Pain, Moderate (4-6) Hydrophilic Ointment 1 applic 07/17/20 13:56 Lip Therapy Vaseline TP Q2HR PRN Dry Lips Propofol 1,000 mg in 100 mls @ 2.808 mls/hr 07/17/20 10:00 07/17/20 15:52 Diprivan 10 Mg/Ml IV 0 mcg/kg/min TITR ALIX 0 mls/hr Titration Protocol 5 MCG/KG/MIN Fentanyl Citrate 2,000 mcg in 100 mls @ 4.68 mls/hr 07/17/20 10:00 07/20/20 09:27 Fentanyl Drip Premix IV Infused TITR ALIX Titration Protocol 1 MCG/KG/HR Ceftriaxone Sodium 2 gm in 100 mls @ 200 mls/hr 07/17/20 23:00 07/20/20 22:29 Rocephin/Ns 2 Gm/100 Ml IV 07/21/20 23:29 200 mls/hr Q24H ALIX Administration Protocol Azithromycin 500 mg in 250 mls @ 250 mls/hr 07/17/20 13:00 07/20/20 12:22 Zithromax/Ns IV 07/21/20 13:59 250 mls/hr Q24H ALIX Administration Protocol Sodium Chloride 100 mls @ 999 mls/hr 07/17/20 16:00 Nacl 0.9% IV ANDRÉS PRN Hypotension Metoprolol Tartrate 25 mg 07/20/20 22:00 07/20/20 22:21 Metoprolol Tartrate 25 Mg Tab PO 25 mg BID ALIX Administration Multi-Ingred Cream/Lotion/Oil/Oint 1 applic 07/17/20 13:56 Mineral Oil/Petrolatum, White Ophth Oint 3.5 Gm OU Q4HR PRN Dry Eye(s) Senna/Docusate Sodium 1 tab 07/17/20 22:00 07/20/20 22:21 Sennosides/Docusate Sodium 8.6/50 Mg Tab FEEDTUBE 1 tab BID ALIX Administration Simple Syrup 15 ml 07/17/20 16:00 07/17/20 23:54 Simple Syrup 15 Ml FEEDTUBE 15 ml PRN PRN Administration Hypoglycemia Simple Syrup 30 ml 07/17/20 16:00 Simple Syrup 15 Ml FEEDTUBE PRN PRN Hypoglycemia Sodium Bicarbonate 325 mg 07/17/20 16:00 Sodium Bicarbonate 325 Mg Tab FEEDTUBE PRN PRN For Clogged Feeding Tube Sodium Chloride 10 ml 07/17/20 22:00 07/20/20 22:23 Sodium Chloride 0.9% 10 Ml Flush Syringe IV 10 ml BID ALIX Administration Sodium Chloride 10 ml 07/17/20 12:29 Sodium Chloride 0.9% 10 Ml Flush Syringe IV PRN PRN LINE FLUSH Nutrition/Malnutrition Assess - Dietary Evaluation Nutrition/Malnutrition Findings: Nutrition Notes Start: 07/17/20 14:41 Freq: Status: Active Protocol: Document 07/19/20 11:38 CW (Rec: 07/19/20 11:43 CW [id number]) Nutrition Notes Initial or Follow up Reassessment Current Diagnosis CKD (stage V CKD),Hypertension ,Heart Failure,Respiratory Failure,Hyperlipidemia Other Pertinent Diagnosis pneu, Current Diet Nepro at 50 ml/hr Labs/Tests 07/18 BUN 54 Cr 6.9 Pertinent Medications [place] Height 6 ft 1 in Weight 93.4 kg [place] Body Weight (kg) 83.63 BMI 27.1 Weight Status Appropriate Subjective/Other Information F/U for TF and vent status. pt remains on mecanical vent. TF running at goal of 50 ml/hr with no reports of TF intolerance. Addendum: Pt discussed in rounds. It is likely that pt will be extubated soon. Plan is to stop TF. Percent of energy/protein needs met: 100%/87% Burn Absent Trauma Absent Minimum of two criteria No physical signs of malnutrition #1 Nutrition Diagnosis Inadequate oral intake Diagnosis Progress(for reassessment Continues documentation) Is patient on ventilator? Yes Is Patient Ambulatory and/or Out of Bed No REE-([place]-St. Jeor-confined to bed) 2138.472 Calculation Used for Recommendations [place]-St Jeor Additional Notes Pro needs >1.2g/kg: >112g/day Fluid needs 1-1.5L/day Nutrition Intervention Nutrition Support: Nepro at 50ml/hr with 110ml water flush q4h. Kcal 2,160 Protein (gm) 97 Carbohydrates (gm) 193 Fat (gm) 115 Fluid (mL) 872 Fiber (gm) 15 Goal #1 TF tolerance Goal #2 TF (at goal rate) to meet at least 75% energy and pro needs Anticipated Discharge Needs: Unable to determine at this time Follow-Up By: 07/23/20 Additional Comments F/U for TF tolerance/ extubation
[2020-07-21] MEDS: HEPARIN 5,000 UNIT/1 ML VIAL SUB-Q SCH ×2 (11:05→21:10)
[2020-07-21] MEDS: FAMOTIDINE 20 MG/2 ML INJ IV SCH ×2 (11:05→21:09)
[2020-07-21] MEDS: ASPIRIN 325 MG TAB PO SCH (11:06)
[2020-07-21] MEDS: METOPROLOL TARTRATE 25 MG TAB PO SCH ×2 (11:06→21:09)
[2020-07-21] MEDS: cloNIDine 0.2 MG TAB PO SCH ×2 (11:08→21:09)
[2020-07-21] MEDS: SENNOSIDES/DOCUSATE SODIUM 8.6/50 MG TAB FEEDTUBE SCH ×2 (11:08→21:09)
[2020-07-21] MEDS: predniSONE 10 MG TAB PO SCH (11:08)
[2020-07-21] MEDS ORDERED: LOSARTAN 25 MG TAB PO SCH (13:00)
--- NOTE | 2020-07-21 13:13 | Progress Note ---
Assessment and Plan 1. CKD 5, now ESKD: Patient follows with Dr. Stephens, was to start HD at [facility] but unfortunately decompensated prior to outpatient HD initiation. - s/p HD 07/17 for initial treatment, had treatment 07/18 and 07/20; Continue HD MWF for toxin/electrolyte management and fluid removal, next tomorrow - note plans for CTA with contrast, ok from renal perspective, no need for additional HD today - renally dose meds - avoid nephrotoxins - AVG working well per report - case management consult to assist with placement at [facility] for outpatient HD, can expedite approval from medical perspective and hope for confirmation of chair time on 07/22 2. HTN/Volume: UF removal as tolerated, BP reasonable 3. Acute hypoxic resp failure: now extubated 4. DM type 2. 5. Normochromic anemia: likely due to CKD/ESKD, ESAs with HD prn 6. L kidney mass: management in outpatient setting 7. Secondary Hyperparathyroidism: defer vitamin D analog to outpatient setting, Ca at goal 8. Aortic Aneurysm: appreciate vascular input, CT angio today Subjective Date of service: 07/21/20 Principal diagnosis: Acute Respiratory Failure, Emergent HD, EF 35-40% Interval history: Feeling well today, had HD yesterday and notes no issues with it Objective - Exam Narrative Exam: General appearance: well-developed, appears stated age, on room air HEENT: ATNC Neck: neck supple Respiratory: clear breath sounds, no labored breathing Heart: regular, S1S2, no murmur Gastrointestinal: soft, normoactive bowel sounds, not tender Integumentary: warm, dry Neurologic: alert, oriented, no focal deficits Ext: no edema Hemodialysis access: L FA AVG - Vital Signs Vital signs: Vital Signs - 12hr 07/21/20 07/21/20 07/21/20 03:52 09:04 11:06 Temperature 98.0 F 97.2 F L Pulse Rate 60 63 78 Respiratory 18 18 Rate Blood Pressure 145/70 143/70 O2 Sat by Pulse 97 96 Oximetry 07/21/20 07/21/20 11:08 11:44 Temperature 98.9 F Pulse Rate 69 61 Respiratory 18 Rate Blood Pressure 164/79 O2 Sat by Pulse 93 Oximetry - Lab 07/20/20 04:35 07/21/20 04:26 Most recent lab results ABG pH 7.385 pH Units (7.350-7.450) 07/19/20 16:36 ABG pCO2 43.5 mm Hg 07/19/20 16:36 ABG pO2 108.2 mm Hg (80.0-90.0) H 07/19/20 16:36 ABG HCO3 25.5 mmol/L (20.0-26.0) 07/19/20 16:36 ABG O2 Saturation 97.8 % (95.0-99.0) 07/19/20 16:36 Calcium 9.4 mg/dL (8.4-10.2) 07/21/20 04:26 Magnesium 2.50 mg/dL (1.7-2.3) H 07/21/20 04:26 Medications & Allergies - Medications Allergies/Adverse Reactions: Allergies methadone Allergy (Verified 07/17/20 09:00) Unknown tramadol Allergy (Verified 07/17/20 09:00) Swelling Home Medications: Home Medications Medication Instructions Recorded Confirmed Last Taken Type Isosorbide Mononitrate [Isosorbide 60 mg PO DAILY 07/20/20 07/20/20 Unknown History Mononitrate ER] NIFEdipine XL [Procardia Xl] 60 mg PO QDAY 07/20/20 07/20/20 Unknown History Sodium Bicarbonate 650 mg PO QID 07/20/20 07/20/20 Unknown History Spironolactone [Aldactone] 25 mg PO QDAY 07/20/20 07/20/20 Unknown History calcitrioL [Rocaltrol] 1 mcg PO QDAY 07/20/20 07/20/20 Unknown History carvediloL [Coreg] 25 mg PO BID 07/20/20 07/20/20 Unknown History cloNIDine [Catapres] 0.2 mg PO QHS 07/20/20 07/20/20 Unknown History hydrALAZINE [Apresoline TAB] 100 mg PO TID 07/20/20 07/20/20 Unknown History Active Medications: Generic Name Dose Route Start Last Admin Trade Name Freq PRN Reason Stop Dose Admin Acetaminophen 650 mg 07/17/20 12:29 Acetaminophen 650 Mg Rect Supp NM Q6H PRN Pain MILD(1-3)/Fever >100.5/ALBERTS Albuterol 2.5 mg 07/17/20 12:29 Albuterol 2.5 Mg/3 Ml Nebu IH Q3HRT PRN Shortness Of Breath Lipase/Protease/Amylase 1 each 07/17/20 16:00 Lipase 10,500/Protease 25,000/Amylase 43,750 (Units) Dr Cook FEEDTUBE PRN PRN For Clogged Feeding Tube Aspirin 325 mg 07/18/20 12:00 07/21/20 11:06 Aspirin 325 Mg Tab PO 325 mg QDAY ALIX Administration Atorvastatin Calcium 20 mg 07/19/20 22:00 07/20/20 22:21 Atorvastatin 20 Mg Tab PO 20 mg QHS ALIX Administration Clonidine HCl 0.2 mg 07/19/20 22:00 07/21/20 11:08 Clonidine 0.2 Mg Tab PO 0.2 mg Q12HR ALIX Administration Famotidine 10 mg 07/20/20 11:00 07/21/20 11:05 Famotidine 20 Mg/2 Ml Inj IV 10 mg BID ALIX Administration Fentanyl 50 mcg 07/18/20 13:41 07/19/20 14:11 Fentanyl 100 Mcg/2 Ml Inj IV 50 mcg Q10MIN PRN Administration ANALGESIA Heparin Sodium (Porcine) 5,000 unit 07/17/20 22:00 07/21/20 11:05 Heparin 5,000 Unit/1 Ml Vial SUB-Q 5,000 unit Q12HR ALIX Administration Hydralazine HCl 10 mg 07/18/20 14:00 07/21/20 01:39 Hydralazine 20 Mg/1 Ml Inj IV 10 mg Q4H PRN Administration SBP >/=170; DBP >/=100 Hydromorphone HCl 0.25 mg 07/17/20 12:29 07/21/20 03:19 Hydromorphone 1 Mg/1 Ml Inj IV 0.25 mg Q4H PRN Administration Pain, Moderate (4-6) Hydrophilic Ointment 1 applic 07/17/20 13:56 Lip Therapy Vaseline TP Q2HR PRN Dry Lips Propofol 1,000 mg in 100 mls @ 2.808 mls/hr 07/17/20 10:00 07/17/20 15:52 Diprivan 10 Mg/Ml IV 0 mcg/kg/min TITR ALIX 0 mls/hr Titration Protocol 5 MCG/KG/MIN Fentanyl Citrate 2,000 mcg in 100 mls @ 4.68 mls/hr 07/17/20 10:00 07/20/20 09:27 Fentanyl Drip Premix IV Infused TITR ALIX Titration Protocol 1 MCG/KG/HR Ceftriaxone Sodium 2 gm in 100 mls @ 200 mls/hr 07/17/20 23:00 07/20/20 22:29 Rocephin/Ns 2 Gm/100 Ml IV 07/21/20 23:29 200 mls/hr Q24H ALIX Administration Protocol Azithromycin 500 mg in 250 mls @ 250 mls/hr 07/17/20 13:00 07/20/20 12:22 Zithromax/Ns IV 07/21/20 13:59 250 mls/hr Q24H ALIX Administration Protocol Sodium Chloride 100 mls @ 999 mls/hr 07/17/20 16:00 Nacl 0.9% IV ANDRÉS PRN Hypotension Losartan Potassium 25 mg 07/21/20 13:00 Losartan 25 Mg Tab PO QDAY ALIX Metoprolol Tartrate 25 mg 07/20/20 22:00 07/21/20 11:06 Metoprolol Tartrate 25 Mg Tab PO 25 mg BID ALIX Administration Multi-Ingred Cream/Lotion/Oil/Oint 1 applic 07/17/20 13:56 Mineral Oil/Petrolatum, White Ophth Oint 3.5 Gm OU Q4HR PRN Dry Eye(s) Prednisone 10 mg 07/21/20 10:00 07/21/20 11:08 Prednisone 10 Mg Tab PO 07/25/20 10:01 10 mg QDAY ALIX Administration Senna/Docusate Sodium 1 tab 07/17/20 22:00 07/21/20 11:08 Sennosides/Docusate Sodium 8.6/50 Mg Tab FEEDTUBE 1 tab BID ALIX Administration Simple Syrup 15 ml 07/17/20 16:00 07/17/20 23:54 Simple Syrup 15 Ml FEEDTUBE 15 ml PRN PRN Administration Hypoglycemia Simple Syrup 30 ml 07/17/20 16:00 Simple Syrup 15 Ml FEEDTUBE PRN PRN Hypoglycemia Sodium Bicarbonate 325 mg 07/17/20 16:00 Sodium Bicarbonate 325 Mg Tab FEEDTUBE PRN PRN For Clogged Feeding Tube Sodium Chloride 10 ml 07/17/20 22:00 07/21/20 11:09 Sodium Chloride 0.9% 10 Ml Flush Syringe IV 10 ml BID ALIX Administration Sodium Chloride 10 ml 07/17/20 12:29 Sodium Chloride 0.9% 10 Ml Flush Syringe IV PRN PRN LINE FLUSH
--- NOTE | 2020-07-21 15:26 | Progress Note ---
Assessment and Plan Acute hypoxemic respiratory failure Bilateral pulmonary infiltrates, edema versus pneumonia. PUI COVID-19 infection. ROSA ELENA on CKD Anemia NSTEMI Elevated serum inflammatory markers to include ferritin and D-dimer. Elevated serum transaminases. Oropharyngeal dysphagia. History of hypertension. History of polysubstance abuse, but negative drug screen - to complete ACS w/up - advance diet per DOCUMENT MANAGEMENT CONSULTANT - continue care as below otherwise; - continue HD/UF for toxin and volume clearance - prn wean supplemental oxygen for target O2 sat's > 90% acutely - aspiration precautions - prn bronchodilators with pulmonary hygiene per RT - avoid nephrotoxins, renally dose all medications - continue to avoid benzodiazepine's, reduce the possibility of delirium - complete empiric CAP AB's coverage with Rocephin and Azitrhromycin - follow clinically re: WBC/fevers - prn analgesia per CPOT score - Maintenance of sleep-wake cycle, avoid delirium - continue enteral nutritional support at goal rate as tolerated - G.I. & VTE prophylaxis - PT/OT/ROM exercises - continue mobility protocols for pressure ulcer prophylaxis - Monitor hemodynamics closely - continue other care per attending / other consultants - discharge planning ongoing concurrently COVID SPECIFIC INTERVENTIONS - COVID-19 test negative .... Re-evaluate in am & prn Subjective Date of service: 07/21/20 Principal diagnosis: Ac. hypoxemic resp failure; Pulm Edema; PUI COVID-19; ROSA ELENA on CKD; NSTEMI Interval history: Patient is seen today for: Acute hypoxemic respiratory failure; Pulm Edema; PUI COVID-19; ROSA ELENA on CKD; NSTEMI Seen and examined at bedside; 24hour events reviewed; nursing and respiratory care staff consulted; no adverse overnight events reported to me; mresting peacefully in bed; looks and feels much better; visiting; denies cheat pain or SOB Objective Vital Signs - 12hr 07/21/20 07/21/20 07/21/20 03:52 08:00 09:04 Temperature 98.0 F 97.2 F L Pulse Rate 60 69 63 Respiratory 18 18 Rate Blood Pressure 145/70 143/70 O2 Sat by Pulse 97 96 Oximetry 07/21/20 07/21/20 07/21/20 11:06 11:08 11:44 Temperature 98.9 F Pulse Rate 78 69 61 Respiratory 18 Rate Blood Pressure 164/79 O2 Sat by Pulse 93 Oximetry 07/21/20 12:00 Temperature Pulse Rate 74 Respiratory Rate Blood Pressure O2 Sat by Pulse Oximetry Constitutional: no acute distress, other (elderly male with normal respiratory effort at rest ) Eyes: non-icteric ENT: oropharynx moist, other (extubated) Neck: supple, no lymphadenopathy, no JVD Effort: normal Ascultation: Bilateral: clear Percussion: Bilateral: not dull Cardiovascular: regular rate and rhythm Gastrointestinal: normoactive bowel sounds, soft, non-tender, non-distended Integumentary: normal, other (AV Fistula to left arm) Extremities: no cyanosis, no edema, pulses normal, no ischemia or petechiae Neurologic: normal mental status, non-focal exam (grossly), pupils equal and round, motor strength normal and Psychiatric: mood appropriate, affect normal CBC and BMP: 07/20/20 04:35 07/21/20 04:26 ABG, PT/INR, D-dimer: ABG ABG pH 7.385 pH Units (7.350-7.450) 07/19/20 16:36 POC ABG pCO2 33.0 mmHg (32.0-48.0) 07/19/20 03:27 ABG pCO2 43.5 mm Hg 07/19/20 16:36 POC ABG pO2 127.4 mmHg (83-108) H 07/19/20 03:27 ABG pO2 108.2 mm Hg (80.0-90.0) H 07/19/20 16:36 POC ABG HCO3 24.1 07/19/20 03:27 ABG O2 Saturation 97.8 % (95.0-99.0) 07/19/20 16:36 PT/INR, D-dimer PT 15.0 Sec. (12.2-14.9) H 07/17/20 09:31 INR 1.13 (0.87-1.13) 07/17/20 09:31 D-Dimer 653.04 ng/mlDDU (0-234) H 07/17/20 13:11 Abnormal lab findings: Abnormal Labs 07/17/20 07/17/20 07/17/20 09:31 09:31 09:31 WBC 11.6 H RBC Hgb 11.2 L Hct 35.4 L Lymph % (Auto) 7.0 L Lymph # (Auto) 0.8 L Seg Neutrophils % 87.0 H Seg Neuts % (Manual) Lymphocytes % (Manual) Seg Neutrophils # 10.1 H Lymphocytes # (Manual) PT 15.0 H D-Dimer ABG pH POC ABG pCO2 POC ABG pO2 ABG pO2 ABG Base Excess ABG Hemoglobin ABG Oxyhemoglobin ABG Potassium ABG Glucose Chloride BUN 55 H Creatinine 5.5 H Glucose 177 H POC Glucose Lactic Acid Magnesium Ferritin Direct Bilirubin 0.3 H AST 99 H ALT 82 H Lactate Dehydrogenase Troponin T 0.030 H NT-Pro-B Natriuret Pep 26557 H Albumin HDL Cholesterol 33 L Arterial Blood Glucose Arterial Blood Ionized Calcium 07/17/20 07/17/20 07/17/20 12:57 13:11 13:11 WBC RBC Hgb Hct Lymph % (Auto) Lymph # (Auto) Seg Neutrophils % Seg Neuts % (Manual) Lymphocytes % (Manual) Seg Neutrophils # Lymphocytes # (Manual) PT D-Dimer 653.04 H ABG pH POC ABG pCO2 POC ABG pO2 ABG pO2 ABG Base Excess ABG Hemoglobin ABG Oxyhemoglobin ABG Potassium ABG Glucose Chloride BUN Creatinine Glucose 175 H POC Glucose Lactic Acid Magnesium Ferritin 356.2 H Direct Bilirubin AST ALT Lactate Dehydrogenase 277 H Troponin T NT-Pro-B Natriuret Pep Albumin HDL Cholesterol Arterial Blood Glucose Arterial Blood Ionized Calcium 07/17/20 07/17/20 07/17/20 13:11 21:00 23:25 WBC RBC Hgb Hct Lymph % (Auto) Lymph # (Auto) Seg Neutrophils % Seg Neuts % (Manual) Lymphocytes % (Manual) Seg Neutrophils # Lymphocytes # (Manual) PT D-Dimer ABG pH POC ABG pCO2 POC ABG pO2 110.1 H ABG pO2 ABG Base Excess ABG Hemoglobin 11.5 L ABG Oxyhemoglobin ABG Potassium ABG Glucose Chloride BUN Creatinine Glucose POC Glucose 64 L Lactic Acid 0.60 L Magnesium Ferritin Direct Bilirubin AST ALT Lactate Dehydrogenase Troponin T NT-Pro-B Natriuret Pep Albumin HDL Cholesterol Arterial Blood Glucose Arterial Blood Ionized Calcium 4.5 L 07/17/20 07/18/20 07/18/20 Unknown 05:24 05:24 WBC RBC 3.45 L Hgb 10.8 L Hct 31.9 L Lymph % (Auto) Lymph # (Auto) Seg Neutrophils % Seg Neuts % (Manual) 85.0 H Lymphocytes % (Manual) 8.0 L Seg Neutrophils # Lymphocytes # (Manual) 0.7 L PT D-Dimer ABG pH 7.223 L POC ABG pCO2 POC ABG pO2 ABG pO2 108.9 H ABG Base Excess -5.9 L ABG Hemoglobin 11.4 L ABG Oxyhemoglobin ABG Potassium ABG Glucose Chloride BUN 54 H Creatinine 6.9 H Glucose POC Glucose Lactic Acid Magnesium Ferritin Direct Bilirubin AST ALT 62 H Lactate Dehydrogenase Troponin T NT-Pro-B Natriuret Pep Albumin 3.8 L HDL Cholesterol Arterial Blood Glucose Arterial Blood Ionized Calcium 07/18/20 07/18/20 07/18/20 11:10 11:23 12:06 WBC RBC Hgb Hct Lymph % (Auto) Lymph # (Auto) Seg Neutrophils % Seg Neuts % (Manual) Lymphocytes % (Manual) Seg Neutrophils # Lymphocytes # (Manual) PT D-Dimer ABG pH 7.268 L POC ABG pCO2 49.6 H POC ABG pO2 49.3 L ABG pO2 ABG Base Excess ABG Hemoglobin 11.8 L ABG Oxyhemoglobin 78.7 L ABG Potassium 4.7 H ABG Glucose 112 H Chloride BUN Creatinine Glucose POC Glucose 107 H Lactic Acid Magnesium Ferritin Direct Bilirubin AST ALT Lactate Dehydrogenase Troponin T 0.189 H* D NT-Pro-B Natriuret Pep Albumin HDL Cholesterol Arterial Blood Glucose 112 H Arterial Blood Ionized Calcium 07/18/20 07/18/20 07/18/20 15:50 17:27 19:11 WBC RBC Hgb Hct Lymph % (Auto) Lymph # (Auto) Seg Neutrophils % Seg Neuts % (Manual) Lymphocytes % (Manual) Seg Neutrophils # Lymphocytes # (Manual) PT D-Dimer ABG pH POC ABG pCO2 POC ABG pO2 ABG pO2 ABG Base Excess ABG Hemoglobin ABG Oxyhemoglobin ABG Potassium ABG Glucose Chloride BUN Creatinine Glucose POC Glucose 156 H Lactic Acid Magnesium Ferritin Direct Bilirubin AST ALT Lactate Dehydrogenase Troponin T 0.182 H* 0.213 H* NT-Pro-B Natriuret Pep Albumin HDL Cholesterol Arterial Blood Glucose Arterial Blood Ionized Calcium 07/18/20 07/19/20 07/19/20 23:10 03:27 05:21 WBC RBC Hgb Hct Lymph % (Auto) Lymph # (Auto) Seg Neutrophils % Seg Neuts % (Manual) Lymphocytes % (Manual) Seg Neutrophils # Lymphocytes # (Manual) PT D-Dimer ABG pH 7.482 H POC ABG pCO2 POC ABG pO2 127.4 H ABG pO2 ABG Base Excess ABG Hemoglobin 11.9 L ABG Oxyhemoglobin ABG Potassium ABG Glucose 131 H Chloride BUN Creatinine Glucose POC Glucose 160 H 140 H Lactic Acid Magnesium Ferritin Direct Bilirubin AST ALT Lactate Dehydrogenase Troponin T NT-Pro-B Natriuret Pep Albumin HDL Cholesterol Arterial Blood Glucose 131 H Arterial Blood Ionized Calcium 4.5 L 07/19/20 07/19/20 07/19/20 11:48 16:36 18:32 WBC RBC Hgb Hct Lymph % (Auto) Lymph # (Auto) Seg Neutrophils % Seg Neuts % (Manual) Lymphocytes % (Manual) Seg Neutrophils # Lymphocytes # (Manual) PT D-Dimer ABG pH POC ABG pCO2 POC ABG pO2 ABG pO2 108.2 H ABG Base Excess ABG Hemoglobin 12.3 L ABG Oxyhemoglobin ABG Potassium ABG Glucose Chloride BUN Creatinine Glucose POC Glucose 141 H 128 H Lactic Acid Magnesium Ferritin Direct Bilirubin AST ALT Lactate Dehydrogenase Troponin T NT-Pro-B Natriuret Pep Albumin HDL Cholesterol Arterial Blood Glucose Arterial Blood Ionized Calcium 07/19/20 07/20/20 07/20/20 22:36 04:35 04:35 WBC 11.9 H RBC 3.45 L Hgb 10.5 L Hct 31.7 L Lymph % (Auto) Lymph # (Auto) Seg Neutrophils % Seg Neuts % (Manual) Lymphocytes % (Manual) Seg Neutrophils # Lymphocytes # (Manual) PT D-Dimer ABG pH POC ABG pCO2 POC ABG pO2 ABG pO2 ABG Base Excess ABG Hemoglobin ABG Oxyhemoglobin ABG Potassium ABG Glucose Chloride 97.8 L BUN 68 H Creatinine 7.4 H Glucose 109 H POC Glucose 121 H Lactic Acid Magnesium Ferritin Direct Bilirubin AST ALT Lactate Dehydrogenase Troponin T NT-Pro-B Natriuret Pep Albumin HDL Cholesterol Arterial Blood Glucose Arterial Blood Ionized Calcium 07/20/20 07/20/20 07/20/20 04:49 11:43 17:30 WBC RBC Hgb Hct Lymph % (Auto) Lymph # (Auto) Seg Neutrophils % Seg Neuts % (Manual) Lymphocytes % (Manual) Seg Neutrophils # Lymphocytes # (Manual) PT D-Dimer ABG pH POC ABG pCO2 POC ABG pO2 ABG pO2 ABG Base Excess ABG Hemoglobin ABG Oxyhemoglobin ABG Potassium ABG Glucose Chloride BUN Creatinine Glucose POC Glucose 114 H 110 H 168 H Lactic Acid Magnesium Ferritin Direct Bilirubin AST ALT Lactate Dehydrogenase Troponin T NT-Pro-B Natriuret Pep Albumin HDL Cholesterol Arterial Blood Glucose Arterial Blood Ionized Calcium 07/21/20 07/21/20 04:26 11:41 WBC RBC Hgb Hct Lymph % (Auto) Lymph # (Auto) Seg Neutrophils % Seg Neuts % (Manual) Lymphocytes % (Manual) Seg Neutrophils # Lymphocytes # (Manual) PT D-Dimer ABG pH POC ABG pCO2 POC ABG pO2 ABG pO2 ABG Base Excess ABG Hemoglobin ABG Oxyhemoglobin ABG Potassium ABG Glucose Chloride 97.9 L BUN 64 H Creatinine 6.2 H Glucose 127 H POC Glucose 133 H Lactic Acid Magnesium 2.50 H Ferritin Direct Bilirubin AST ALT Lactate Dehydrogenase Troponin T NT-Pro-B Natriuret Pep Albumin HDL Cholesterol Arterial Blood Glucose Arterial Blood Ionized Calcium Allied health notes reviewed: nursing
[2020-07-21] MEDS: AZITHROMYCIN/NS 500 MG/250 ML 500 MG/250 ML BAG IV SCH (17:43)
[2020-07-21] MEDS: cefTRIAXone/NS 2 GM/100 ML 2 GM/100 ML BAG IV SCH (23:53)
--- NOTE | 2020-07-22 11:42 | Progress Note ---
Assessment and Plan Acute heart failure with reduced ejection fraction in setting of cardiomyopathy * Echo reviewed - 07/18/2020 - EF 35-40%, impaired LV relaxation, RV mildly dilated, LA severely dilated, RA mildly dilated, RVSP 54mmHg, mild AR, aortic root mildly dilated. * Continue goal-directed therapy with cardioprotective regimen: Aspirin 325, atorvastatin 20 mg, metoprolol 25 mg twice daily, increase losartan 50 mg daily. Outpatient follow-up with cardiac rehab has been ordered. Continue to wean clonidine as tolerated, may increase beta-carly as needed. NSTEMI type II in setting of ROSA ELENA/ESRD on dialysis * Troponins are significantly elevated. Suspect type II. Patient is currently chest pain-free. We will continue to trend CE's and correlate with clinical symptoms. * Patient has been initiated on dialysis with plans to continue on // dialysis rotation. Acute respiratory failure with pulmonary hypertension * CTA chest performed this a.m., results pending DVT prophylaxis * Heparin SQ Patient is currently in stable cardiac status. Plan for ischemic eval once clinically stable. Will follow This patient was seen in conjunction with Dr. Pako Lyn who agrees with assessment plan of care - Patient Problems (1) Acute respiratory failure Current Visit: Yes Status: Acute (2) Acute HFrEF (heart failure with reduced ejection fraction) Current Visit: Yes Status: Acute (3) Cardiomyopathy Current Visit: Yes Status: Acute (4) Pulmonary HTN Current Visit: Yes Status: Acute (5) ESRD needing dialysis Current Visit: Yes Status: Acute (6) Anemia Current Visit: Yes Status: Chronic (7) Thoracic aortic aneurysm Current Visit: Yes Status: Acute Qualifiers: Presence of rupture: without rupture Qualified Code(s): I71.2 - Thoracic aortic aneurysm, without rupture (8) Abdominal aortic aneurysm Current Visit: Yes Status: Chronic Qualifiers: Presence of rupture: without rupture Qualified Code(s): I71.4 - Abdominal aortic aneurysm, without rupture Plan to address problem: 3.6 x 3.3 cm fusiform aneurysm on CT 10/2017, 3.4 cm on MRI 05/2018 (9) NSTEMI (non-ST elevated myocardial infarction) Current Visit: Yes Status: Acute Plan to address problem: Type 2 (10) Hypertension Current Visit: Yes Status: Chronic Qualifiers: Hypertension type: essential hypertension Qualified Code(s): I10 - Essential (primary) hypertension (11) HLD (hyperlipidemia) Current Visit: Yes Status: Chronic Qualifiers: Hyperlipidemia type: mixed hyperlipidemia Qualified Code(s): E78.2 - Mixed hyperlipidemia (12) Chronic venous insufficiency of lower extremity Current Visit: Yes Status: Chronic Subjective Date of service: 07/22/20 Principal diagnosis: Ac. hypoxemic resp failure; Pulm Edema; PUI COVID-19; ROSA ELENA on CKD; NSTEMI Interval history: Patient resting comfortably in bed. No shortness of breath or chest pain overnight Telemetry reviewed: Sinus rhythm 60 with frequent PVCs. Episode of 7 beat V. tach noted overnight Objective Last Vital Signs Temp 98.1 F 07/21/20 23:54 Pulse 58 L 07/22/20 00:00 Resp 18 07/21/20 23:54 BP 153/79 07/21/20 23:54 Pulse Ox 97 07/21/20 23:54 - Physical Examination General: No Apparent Distress HEENT: Positive: EOMI, Normocephaly Neck: Positive: neck supple, trachea midline. Negative: JVD/HJR Cardiac: Positive: Reg Rate and Rhythm, S1/S2 Lungs: Positive: Normal Exam, Normal Breath Sounds Neuro: Positive: Grossly Intact Abdomen: Positive: Soft Skin: Negative: Rash Musculoskeletal: No Fluid Collection, No Pain Extremities: Present: lower extr. pulses, warm. Absent: edema - Imaging and Cardiology EKG: report reviewed, image reviewed Echo: report reviewed (07/18/2020 - EF 35-40%, impaired LV relaxation, RV mildly dilated, LA severely dilated, RA mildly dilated, mild AR, aortic root mildly di lated), other (07/2019 - LV mildly dilated, LV wall thickness mild-mod increased, EF 50-55%, grade 2 diastolic dysfxn, RV mildly dilated, LA volume mod increased, mild AR, mild-mod MR, mild TR, mild pulm HTN 2/RVSP 41.28mmHg, ascending aorta mod dilated w/diameter 4.22cm) - Telemetry EKG Rhythm: Sinus Rhythm - EKG Sinus rhythms and dysrhythmias: sinus rhythm Ventricular dysrhythmias: ventricular premature com AV and intraventricular conduction: right bundle branch block Repolarization changes or abnormalities: nonspecific abnormality, ST segment, and/or T wave - Allied health notes Allied health notes reviewed: nursing
--- NOTE | 2020-07-22 11:56 | Cat Scan Report ---
CTA CHEST, ABDOMEN, AND PELVIS WITH CONTRAST INDICATION / CLINICAL INFORMATION: chest lesion OMNI 350 100 ML. TECHNIQUE: Axial CT images were obtained through the chest, abdomen, and pelvis before and after injection of IV contrast. 3 plane MIP and/or 3D reconstructions were produced. All CT scans at this location are per formed using CT dose reduction for ALARA by means of automated exposure control. COMPARISON: CT of the chest from 07/17/2020. FINDINGS: HEART: There is cardiac enlargement without pericardial effusion. THORACIC AORTA: Diffuse aneurysmal thoracic aorta. The ascending aorta measures 4.6 cm at the level o f the pulmonary artery (series 2 image 73). Descending thoracic aorta measures 4.8 cm and greatest di mension proximally (series 2 image 57). There is mixing artifact within the descending thoracic aorta on CTA of the chest. No evidence of rupture or dissection. Moderate calcified plaque. GREAT VESSELS: No significant abnormality. PULMONARY ARTERIES: No significant abnormality. ADDITIONAL CHEST FINDINGS: Irregular nodule in the right lower lobe measures 1.3 x 1.1 cm (series 2 i mage 29). There is improvement in bibasilar airspace consolidations, likely reflecting pulmonary gail a. Moderate diffuse interstitial opacities persist. Resolved bilateral pleural effusions. There is em physema. ABDOMINAL AORTA: Moderate atherosclerotic calcification of the abdominal aorta and major branching ve ssels. The aorta measures 4.1 cm in AP dimension at the hiatus and 3.5 cm at the infrarenal abdominal aorta, just above the bifurcation. RENAL ARTERIES: No significant abnormality. CELIAC ARTERY: No significant abnormality. SUPERIOR MESENTERIC ARTERY: No significant abnormality. INFERIOR MESENTERIC ARTERY: No significant abnormality. RIGHT ILIAC ARTERIES: The right common iliac artery is aneurysmal, measuring 2.1 cm proximally. No si gnificant stenosis. LEFT ILIAC ARTERIES: Left common iliac artery is aneurysmal, measuring 1.9 cm proximally. No signific ant stenosis. ADDITIONAL ABDOMINOPELVIC FINDINGS: Complex superior pole left renal mass measures 4.7 cm, unchanged. Multiple bilateral renal cysts. Gas in the bladder is likely related to recent instrumentation. Shot ty periaortic lymph nodes without pathologically enlarged lymph nodes identified. No free fluid or ad enopathy. Otherwise, no significant abnormality of the abdomen or pelvis. SKELETAL STRUCTURES: No significant abnormality. IMPRESSION: 1. 4.7 cm complex superior pole left renal mass is concerning for renal cell carcinoma. 2. Irregular 1.3 cm right lower lobe nodule is suspicious and may reflect synchronous primary maligna ncy or metastatic disease. 3. Diffuse aneurysmal dilatation of the aorta, involving the ascending and descending thoracic aorta, infrarenal abdominal aorta, and bilateral common carotid arteries. No evidence of rupture or dissect ion. 4. Improved CHF with moderate persistent interstitial edema in the lung bases. Resolved pleural effus ions. 5. Other chronic and incidental findings as above. Signer Name: Ge Heredia MD Signed: 07/22/2020 11:52 AM Workstation Name: [facility]
--- NOTE | 2020-07-22 12:39 | Progress Note ---
Assessment and Plan Assessment and plan: 64 YO Male with HTN, ESRD, Gout, CHF presents to ED for evaluation. Patient is intubated and on ventilatory support at the time my evaluation and is unable to provide history. Patient history taken from EMS staff, ED staff, as well as the patient's Mrs Santa Dodge who was made available by telephone for interview. As per patient's the patient has experienced progressive weakn ess over the past 2 months with worsening symptoms over the last 1 week. P atient was found to have orthopnea, paroxysmal nocturnal dyspnea, decreased exercise tolerance, dyspnea on exertion, as well as dyspnea at rest. Patient reports leaving patient at home while she went to work today. She was subsequently notified by the patient's brother who notified EMS due to patient reporting shortness of breath. EMS was notified and upon arrival the patient was found to be in distress with a pulse oximetry of 60% on room air. The patient was placed on supplemental oxygen and transported to [facility] for further care and evaluation of the aforementioned symptoms. The patient was seen and evaluated in the emergency department. All lab and imaging studies reviewed. Patient found to be unable to protect his airway and was subsequently intubated and placed on ventilatory support. Patient also found to have end-stage renal disease in need of urgent dialysis, CHF decompensation. Patient admitted to ICU. Critical care team consulted in ED. Nephrology team consulted in ED. Advanced care planning condu cted in ED. No prior admission for review. All medication listed at time of admission has been reconciled. Consultants Cardiology, copy supervisor, cardiovascular disease specialist. 07/18: Patient initiated with dialysis today. Covid test was done and is negative. Anemia likely anemia of chronic disease. Will follow consultants recommendation for further management. Echocardiogram pending 07/19: Patient started with dialysis. Anticipate trial of weaning today. BP elevated, clonodine restarted, will increase to home dose. Continue current management 07/20: Patient now extubated. Did have dialysis with improvement in respiratory status which aided extubation. Patient however has an edematous upper lip que stionable angioedema. We will give a dose of Benadryl, H2 carly and a dose of steroids and monitor. Patient can be transitioned to telemetry if okay with cardiovascular disease specialist. IR consulted to evaluate abdominal aneurysm continue current management by associate sales manager to monitor all medications to see what could be resulting to the angioedema. 07/21: Continue supportive care. Will start patient on low-dose steroids considering noted angioedema. Discussed with copy supervisor about recommendation by vascular/IR and they are okay with proceeding. Risk discussed with patient he verbalized understanding. We will proceed with CT angio of the chest abdomen and pelvis to further evaluate aneurysmal findings. Per copy supervisor patient will be dialyzed tomorrow. 07/22: Unfortunately CTA of the chest on anterior and abdomen was discontinued yesterday and not sure by who this has been reordered prior to dialysis. There is concern for a renal mass we will consult hematology to assist with management although will await copy supervisor input a and vascular input on this. Continue current management initial plan for discharge will be held at this time until appropriate diagnostic measures are made. Also significant irregularity noted on the aneurysm will await vascular input is noted. Cardiology surgical planning ischemic work-up Acute hypoxemic respiratory failure Current Visit: Yes Status: Acute Plan to address problem: Status post extubation Left renal mass CHF (congestive heart failure) Current Visit: Yes Status: Acute Qualifiers: Heart failure type: systolic Heart failure chronicity: acute Qualified Code(s): I50.21 - Acute systolic (congestive) heart failure Plan to address problem: Strict I/O, monitor urine output every shift, afterload reduction, blood pressure control, echocardiogram ordered and is pending at time of admission, cardiology team consulted. End stage renal disease Current Visit: Yes Status: Acute Plan to address problem: Nephrology team consulted in ED, dialysis as per renal team, supportive care. Hypertension Current Visit: Yes Status: Acute Qualifiers: Hypertension type: essential hypertension Qualified Code(s): I10 - Essential (primary) hypertension Plan to address problem: Monitor blood pressure every shift, continue medical management Abdominal aneurysm Current Visit: Yes Status: Chronic non-STEMI Bilateral pulmonary infiltrates likely secondary to pulmonary edema PUI [id number] out Chronic venous insufficiency of lower extremity Current Visit: Yes Status: Chronic angioedema upper lip DVT prophylaxis Current Visit: Yes Status: Acute Plan to address problem: SCD to bilateral lower extremities while in bed, prophylactic anticoagulation Advance care planning Current Visit: Yes Status: Acute Plan to address problem: Disease education done, care plan discussed, prognosis discussed, patient acknowledges understanding and agreement with care plan, patient is full code, +30 minutes. Patient care plan discussed with Santa Dodge. Telephone number . History Interval history: Patient seen and examined upper lip still swollen but no difficulty breathing Hospitalist Physical - Physical exam Narrative exam: General appearance: Present: No distress following commands - EENT Eyes: Present: miosis ENT: hearing intact, clear but with edentulous upper lip. Oral mucosa - Neck Neck: Present: supple, normal ROM - Respiratory Respiratory effort: Normal increased work of breathing Respiratory: bilateral: diminished, rhonchi - Cardiovascular Heart Sounds: Present: S1 & S2. Absent: rub, click - Extremities Extremities: pulses symmetrical, No edema Peripheral Pulses: within normal limits - Abdominal General gastrointestinal: Present: soft, non-tender, non-distended, normal bowel sounds Male genitourinary: Present: normal - Integumentary Integumentary: Present: clear, dry - Musculoskeletal Musculoskeletal: generalized weakness - Psychiatric Psychiatric: no appropriate mood/affect, no intact judgment & insight, no memory intact - Neurologic Neurologic: CNII-XII intact, no focal deficits, moves all extremities, no gait normal - Constitutional Vitals: Temp Pulse Resp BP Pulse Ox 98.1 F 58 L 18 153/79 97 07/21/20 23:54 07/22/20 00:00 07/21/20 23:54 07/21/20 23:54 07/21/20 23:54 General appearance: Present: no acute distress HEART Score - HEART Score Troponin: Troponin T 0.213 ng/mL (0.00-0.029) H* 07/18/20 19:11 Results - Labs CBC & Chem 7: 07/20/20 04:35 07/21/20 04:26 Labs: Laboratory Last Values WBC 11.9 K/mm3 (4.5-11.0) H 07/20/20 04:35 RBC 3.45 M/mm3 (3.65-5.03) L 07/20/20 04:35 Hgb 10.5 gm/dl (11.8-15.2) L 07/20/20 04:35 Hct 31.7 % (35.5-45.6) L 07/20/20 04:35 MCV 92 fl (84-94) 07/20/20 04:35 MCH 30 pg (28-32) 07/20/20 04:35 MCHC 33 % (32-34) 07/20/20 04:35 RDW 13.7 % (13.2-15.2) 07/20/20 04:35 Plt Count 201 K/mm3 (140-440) 07/20/20 04:35 Lymph % (Auto) 7.0 % (13.4-35.0) L 07/17/20 09:31 Marshall % (Auto) Char Filter Tank Tender 07/18/20 05:24 Eos % (Auto) 0.8 % (0.0-4.3) 07/17/20 09:31 Baso % (Auto) 0.4 % (0.0-1.8) 07/17/20 09:31 Lymph # (Auto) 0.8 K/mm3 (1.2-5.4) L 07/17/20 09:31 Marshall # (Auto) 0.6 K/mm3 (0.0-0.8) 07/17/20 09:31 Eos # (Auto) 0.1 K/mm3 (0.0-0.4) 07/17/20 09:31 Baso # (Auto) 0.0 K/mm3 (0.0-0.1) 07/17/20 09:31 Add Manual Diff Complete 07/18/20 05:24 Total Counted 100 07/18/20 05:24 Seg Neutrophils % 87.0 % (40.0-70.0) H 07/17/20 09:31 Seg Neuts % (Manual) 85.0 % (40.0-70.0) H 07/18/20 05:24 Lymphocytes % (Manual) 8.0 % (13.4-35.0) L 07/18/20 05:24 Monocytes % (Manual) 7.0 % (0.0-7.3) 07/18/20 05:24 Nucleated RBC % Not Reportable 07/18/20 05:24 Seg Neutrophils # 10.1 K/mm3 (1.8-7.7) H 07/17/20 09:31 Seg Neutrophils # Man 7.5 K/mm3 (1.8-7.7) 07/18/20 05:24 Band Neutrophils # 0.0 K/mm3 07/18/20 05:24 Lymphocytes # (Manual) 0.7 K/mm3 (1.2-5.4) L 07/18/20 05:24 Abs React Lymphs (Man) 0.0 K/mm3 07/18/20 05:24 Monocytes # (Manual) 0.6 K/mm3 (0.0-0.8) 07/18/20 05:24 Eosinophils # (Manual) 0.0 K/mm3 (0.0-0.4) 07/18/20 05:24 Basophils # (Manual) 0.0 K/mm3 (0.0-0.1) 07/18/20 05:24 Metamyelocytes # 0.0 K/mm3 07/18/20 05:24 Myelocytes # 0.0 K/mm3 07/18/20 05:24 Promyelocytes # 0.0 K/mm3 07/18/20 05:24 Blast Cells # 0.0 K/mm3 07/18/20 05:24 WBC Morphology Not Reportable 07/18/20 05:24 Hypersegmented Neuts Not Reportable 07/18/20 05:24 Hyposegmented Neuts Not Reportable 07/18/20 05:24 Hypogranular Neuts Not Reportable 07/18/20 05:24 Smudge Cells Not Reportable 07/18/20 05:24 Toxic Granulation Not Reportable 07/18/20 05:24 Toxic Vacuolation Not Reportable 07/18/20 05:24 Dohle Bodies Not Reportable 07/18/20 05:24 Pelger-Huet Anomaly Not Reportable 07/18/20 05:24 Oscar Rods Not Reportable 07/18/20 05:24 Platelet Estimate Consistent w auto 07/18/20 05:24 Clumped Platelets Not Reportable 07/18/20 05:24 Plt Clumps, EDTA Not Reportable 07/18/20 05:24 Large Platelets Not Reportable 07/18/20 05:24 Giant Platelets Not Reportable 07/18/20 05:24 Platelet Satelliting Not Reportable 07/18/20 05:24 Plt Morphology Comment Not Reportable 07/18/20 05:24 RBC Morphology Normal 07/18/20 05:24 Dimorphic RBCs Not Reportable 07/18/20 05:24 Polychromasia Not Reportable 07/18/20 05:24 Hypochromasia Not Reportable 07/18/20 05:24 Poikilocytosis Not Reportable 07/18/20 05:24 Anisocytosis Not Reportable 07/18/20 05:24 Microcytosis Not Reportable 07/18/20 05:24 Macrocytosis Not Reportable 07/18/20 05:24 Spherocytes Not Reportable 07/18/20 05:24 Pappenheimer Bodies Not Reportable 07/18/20 05:24 Sickle Cells Not Reportable 07/18/20 05:24 Target Cells Not Reportable 07/18/20 05:24 Tear Drop Cells Not Reportable 07/18/20 05:24 Ovalocytes Not Reportable 07/18/20 05:24 Helmet Cells Not Reportable 07/18/20 05:24 Yeh-Rocklin Bodies Not Reportable 07/18/20 05:24 Borden Rings Not Reportable 07/18/20 05:24 Tornillo Cells Not Reportable 07/18/20 05:24 Bite Cells Not Reportable 07/18/20 05:24 Crenated Cell Not Reportable 07/18/20 05:24 Elliptocytes Not Reportable 07/18/20 05:24 Acanthocytes (Spur) Not Reportable 07/18/20 05:24 Rouleaux Not Reportable 07/18/20 05:24 Hemoglobin C Crystals Not Reportable 07/18/20 05:24 Schistocytes Not Reportable 07/18/20 05:24 Malaria parasites Not Reportable 07/18/20 05:24 Fermín Bodies Not Reportable 07/18/20 05:24 Hem Pathologist Commnt No 07/18/20 05:24 PT 15.0 Sec. (12.2-14.9) H 07/17/20 09:31 INR 1.13 (0.87-1.13) 07/17/20 09:31 APTT 25.3 Sec. (24.2-36.6) 07/17/20 09:31 D-Dimer 653.04 ng/mlDDU (0-234) H 07/17/20 13:11 ABG pH 7.385 pH Units (7.350-7.450) 07/19/20 16:36 POC ABG pCO2 33.0 mmHg (32.0-48.0) 07/19/20 03:27 ABG pCO2 43.5 mm Hg 07/19/20 16:36 POC ABG pO2 127.4 mmHg (83-108) H 07/19/20 03:27 ABG pO2 108.2 mm Hg (80.0-90.0) H 07/19/20 16:36 POC ABG HCO3 24.1 07/19/20 03:27 ABG HCO3 25.5 mmol/L (20.0-26.0) 07/19/20 16:36 ABG O2 Saturation 97.8 % (95.0-99.0) 07/19/20 16:36 ABG O2 Content 16.7 (0.0-44) 07/19/20 16:36 POC ABG Base Excess 1.1 07/19/20 03:27 ABG Base Excess 0.2 mmol/L (-2.0-3.0) 07/19/20 16:36 ABG Hemoglobin 12.3 gm/dl (14.0-18.0) L 07/19/20 16:36 ABG Oxyhemoglobin 97.6 (94-98) 07/19/20 03:27 ABG Carboxyhemoglobin 1.5 % (0.0-5.0) 07/19/20 16:36 ABG Methemoglobin 0.5 % (0.0-1.5) 07/19/20 16:36 ABG Sodium 137.0 mmol/L (136.0-145.0) 07/19/20 03:27 ABG Potassium 3.8 mmol/L (3.40-4.50) 07/19/20 03:27 ABG Chloride 101.0 mmol/L (98-107) 07/19/20 03:27 ABG Glucose 131 mg/dL (65-95) H 07/19/20 03:27 Oxyhemoglobin 95.8 % (95.0-99.0) 07/19/20 16:36 Carboxyhemoglobin 1.0 (0.5-1.5) 07/19/20 03:27 FiO2 30 % 07/19/20 16:36 FiO2 % 35.0 07/19/20 03:27 Sodium 140 mmol/L (137-145) 07/21/20 04:26 Potassium 4.0 mmol/L (3.6-5.0) 07/21/20 04:26 Chloride 97.9 mmol/L (98-107) L 07/21/20 04:26 Carbon Dioxide 23 mmol/L (22-30) 07/21/20 04:26 Anion Gap 23 mmol/L 07/21/20 04:26 BUN 64 mg/dL (9-20) H 07/21/20 04:26 Creatinine 6.2 mg/dL (0.8-1.3) H 07/21/20 04:26 Estimated GFR 11 ml/min 07/21/20 04:26 BUN/Creatinine Ratio 10 % 07/21/20 04:26 Glucose 127 mg/dL (75-100) H 07/21/20 04:26 POC Glucose 153 mg/dL (70-105) H 07/21/20 16:18 Lactic Acid 0.60 mmol/L (0.7-2.0) L 07/17/20 13:11 Calcium 9.4 mg/dL (8.4-10.2) 07/21/20 04:26 Magnesium 2.50 mg/dL (1.7-2.3) H 07/21/20 04:26 Ferritin 356.2 ng/mL (30.0-300.0) H 07/17/20 12:57 Total Bilirubin 0.40 mg/dL (0.1-1.2) 07/18/20 05:24 Direct Bilirubin 0.3 mg/dL (0-0.2) H 07/17/20 09:31 Indirect Bilirubin 0.3 mg/dL 07/17/20 09:31 AST 38 units/L (5-40) 07/18/20 05:24 ALT 62 units/L (7-56) H 07/18/20 05:24 Alkaline Phosphatase 72 units/L (35-129) 07/18/20 05:24 Lactate Dehydrogenase 277 units/L (91-180) H 07/17/20 13:11 Troponin T 0.213 ng/mL (0.00-0.029) H* 07/18/20 19:11 C-Reactive Protein 0.60 mg/dL (0.00-1.30) 07/17/20 13:11 NT-Pro-B Natriuret Pep 78480 pg/mL (0-900) H 07/17/20 09:31 Total Protein 6.9 g/dL (6.3-8.2) 07/18/20 05:24 Albumin 3.8 g/dL (3.9-5) L 07/18/20 05:24 Albumin/Globulin Ratio 1.2 % 07/18/20 05:24 Triglycerides 119 mg/dL (2-149) 07/17/20 09:31 Cholesterol 163 mg/dL (50-199) 07/17/20 09:31 LDL Cholesterol Direct 130 mg/dL (50-130) 07/17/20 09:31 HDL Cholesterol 33 mg/dL (40-59) L 07/17/20 09:31 Cholesterol/HDL Ratio 4.93 % 07/17/20 09:31 Procalcitonin 1.79 ng/mL (<0.15) 07/17/20 13:11 Arterial Blood Glucose 131 mg/dL (65-95) H 07/19/20 03:27 Arterial Blood Ionized Calcium 4.5 mg/dL (4.6-5.3) L 07/19/20 03:27 Urine Opiates Screen Negative 07/17/20 11:21 Urine Methadone Screen Negative 07/17/20 11:21 Ur Barbiturates Screen Negative 07/17/20 11:21 Ur Phencyclidine Scrn Negative 07/17/20 11:21 Ur Amphetamines Screen Negative 07/17/20 11:21 U Benzodiazepines Scrn Negative 07/17/20 11:21 Urine Cocaine Screen Negative 07/17/20 11:21 U Marijuana (THC) Screen Negative 07/17/20 11:21 Drugs of Abuse Note Disclamer 07/17/20 11:21 Coronavirus (PCR) Negative (Negative) 07/17/20 Unknown Hepatitis A IgM Ab Non-reactive (NonReactive) 07/17/20 13:11 Hep Bs Antigen Non-reactive (Negative) 07/17/20 13:11 Hep B Core IgM Ab Non-reactive (NonReactive) 07/17/20 13:11 Hepatitis C Antibody Non-reactive (NonReactive) 07/17/20 13:11 Microbiology: Microbiology 07/17/20 13:11 Peripheral/Venous Blood Culture - Preliminary NO GROWTH AFTER 4 DAYS 07/17/20 12:57 Peripheral/Venous Blood Culture - Preliminary NO GROWTH AFTER 4 DAYS Ascencio/IV: Voiding Method Urinal Active Medications - Current Medications Current Medications: Generic Name Dose Route Start Last Admin Trade Name Freq PRN Reason Stop Dose Admin Acetaminophen 650 mg 07/17/20 12:29 Acetaminophen 650 Mg Rect Supp MN Q6H PRN Pain MILD(1-3)/Fever >100.5/ALBERTS Albuterol 2.5 mg 07/17/20 12:29 Albuterol 2.5 Mg/3 Ml Nebu IH Q3HRT PRN Shortness Of Breath Lipase/Protease/Amylase 1 each 07/17/20 16:00 Lipase 10,500/Protease 25,000/Amylase 43,750 (Units) Dr Cook FEEDTUBE PRN PRN For Clogged Feeding Tube Aspirin 325 mg 07/18/20 12:00 07/21/20 11:06 Aspirin 325 Mg Tab PO 325 mg QDAY ALIX Administration Atorvastatin Calcium 20 mg 07/19/20 22:00 07/21/20 21:09 Atorvastatin 20 Mg Tab PO 20 mg QHS ALIX Administration Clonidine HCl 0.2 mg 07/19/20 22:00 07/21/20 21:09 Clonidine 0.2 Mg Tab PO 0.2 mg Q12HR ALIX Administration Famotidine 10 mg 07/22/20 12:00 Famotidine 10 Mg Tab PO BID [facility] Heparin Sodium (Porcine) 5,000 unit 07/17/20 22:00 07/21/20 21:10 Heparin 5,000 Unit/1 Ml Vial SUB-Q 5,000 unit Q12HR ALIX Administration Hydralazine HCl 10 mg 07/18/20 14:00 07/21/20 01:39 Hydralazine 20 Mg/1 Ml Inj IV 10 mg Q4H PRN Administration SBP >/=170; DBP >/=100 Hydromorphone HCl 0.25 mg 07/17/20 12:29 07/21/20 03:19 Hydromorphone 1 Mg/1 Ml Inj IV 0.25 mg Q4H PRN Administration Pain, Moderate (4-6) Hydrophilic Ointment 1 applic 07/17/20 13:56 Lip Therapy Vaseline TP Q2HR PRN Dry Lips Sodium Chloride 100 mls @ 999 mls/hr 07/17/20 16:00 Nacl 0.9% IV ANDRÉS PRN Hypotension Losartan Potassium 50 mg 07/22/20 12:30 Losartan 25 Mg Tab PO QDAY ALIX Metoprolol Tartrate 25 mg 07/20/20 22:00 07/21/20 21:09 Metoprolol Tartrate 25 Mg Tab PO 25 mg BID ALIX Administration Multi-Ingred Cream/Lotion/Oil/Oint 1 applic 07/17/20 13:56 Mineral Oil/Petrolatum, White Ophth Oint 3.5 Gm OU Q4HR PRN Dry Eye(s) Prednisone 10 mg 07/21/20 10:00 07/21/20 11:08 Prednisone 10 Mg Tab PO 07/25/20 10:01 10 mg QDAY ALIX Administration Sodium Chloride 10 ml 07/17/20 22:00 07/21/20 21:10 Sodium Chloride 0.9% 10 Ml Flush Syringe IV 10 ml BID ALIX Administration Sodium Chloride 10 ml 07/17/20 12:29 Sodium Chloride 0.9% 10 Ml Flush Syringe IV PRN PRN LINE FLUSH Nutrition/Malnutrition Assess - Dietary Evaluation Nutrition/Malnutrition Findings: Nutrition Notes Start: 07/17/20 14:41 Freq: Status: Active Protocol: Document 07/19/20 11:38 CW (Rec: 07/19/20 11:43 CW [id number]) Nutrition Notes Initial or Follow up Reassessment Current Diagnosis CKD (stage V CKD),Hypertension ,Heart Failure,Respiratory Failure,Hyperlipidemia Other Pertinent Diagnosis pneu, Current Diet Nepro at 50 ml/hr Labs/Tests 07/18 BUN 54 Cr 6.9 Pertinent Medications [place] Height 6 ft 1 in Weight 93.4 kg [place] Body Weight (kg) 83.63 BMI 27.1 Weight Status Appropriate Subjective/Other Information F/U for TF and vent status. pt remains on mecanical vent. TF running at goal of 50 ml/hr with no reports of TF intolerance. Addendum: Pt discussed in rounds. It is likely that pt will be extubated soon. Plan is to stop TF. Percent of energy/protein needs met: 100%/87% Burn Absent Trauma Absent Minimum of two criteria No physical signs of malnutrition #1 Nutrition Diagnosis Inadequate oral intake Diagnosis Progress(for reassessment Continues documentation) Is patient on ventilator? Yes Is Patient Ambulatory and/or Out of Bed No REE-([facility]-confined to bed) 1417.656 Calculation Used for Recommendations [facility] Additional Notes Pro needs >1.2g/kg: >112g/day Fluid needs 1-1.5L/day Nutrition Intervention Nutrition Support: Nepro at 50ml/hr with 110ml water flush q4h. Kcal 2,160 Protein (gm) 97 Carbohydrates (gm) 193 Fat (gm) 115 Fluid (mL) 872 Fiber (gm) 15 Goal #1 TF tolerance Goal #2 TF (at goal rate) to meet at least 75% energy and pro needs Anticipated Discharge Needs: Unable to determine at this time Follow-Up By: 07/23/20 Additional Comments F/U for TF tolerance/ extubation
[2020-07-22] MEDS: LOSARTAN 25 MG TAB PO SCH (12:53)
[2020-07-22] MEDS: FAMOTIDINE 10 MG TAB PO SCH ×2 (12:54→21:49)
[2020-07-22] MEDS: predniSONE 10 MG TAB PO SCH (12:54)
[2020-07-22] MEDS: ASPIRIN 325 MG TAB PO SCH (12:54)
[2020-07-22] MEDS: cloNIDine 0.2 MG TAB PO SCH ×2 (12:54→21:50)
[2020-07-22] MEDS: METOPROLOL TARTRATE 25 MG TAB PO SCH ×2 (12:55→21:50)
--- NOTE | 2020-07-22 14:13 | Progress Note ---
Assessment and Plan 64 YO Male with HTN, ESRD, Gout, CHF presents to ED for evaluation. Patient is intubated and on ventilatory support . As per patient's the patient has experienced progressive weakness over the past 2 months with worsening symptoms over the last 1 week. Patient was found to have orthopnea, paroxysmal nocturnal dyspnea, decreased exercise tolerance, dyspnea on exertion, as well as dyspnea at rest. Patient reports leaving patient at home while she went to work today. She was subsequently notified by the patient's brother who notified EMS due to patient reporting shortness of breath. EMS was notified and upon arrival the patient was found to be in distress with a pulse oximetry of 60% on room air. The patient was placed on supplemental oxygen and transported to [facility] for further care and evaluation of the aforementioned symptoms. The patient was seen and evaluated in the emergency department. All lab and imaging studies reviewed. Patient found to be unable to protect his airway and was subsequently intubated and placed on ventilatory support. Patient also found to have end- stage renal disease in need of urgent dialysis, CHF decompensation. Nephrology team consulted in ED. Critical care consulted for further management. Patient extubated and transfered to telemetry. Patient alert, awake. No complaint of chest pain, shortness of breath or cough. Patient received dialysis to day. Patient suppose to be on 2 litres O2. Not using his O2. O2 saturation recorded 100%. Patient afebrile. No leukocytosis. Blood pressure 167/86 Chest xray 07/20/20 reported Stable mild enlargement of the cardiac silhouette Patients CT of chest and abdomen 07/22/20 1. 4.7 cm complex superior pole left renal mass is concerning for renal cell carcinoma. 2. Irregular 1.3 cm right lower lobe nodule is suspicious and may reflect synchronous primary malignancy or metastatic disease. 3. Diffuse aneurysmal dilatation of the aorta, involving the ascending and descending thoracic aorta, infrarenal abdominal aorta, and bilateral common carotid arteries. No evidence of rupture or dissection. 4. Improved CHF with moderate persistent interstitial edema in the lung bases. Resolved pleural effusions. 5. Other chronic and incidental findings as above. Oncology consulted. Patient is on I/V heparin, PO prednisone, Albuterol inhaler and Famotidine. - Patient Problems (1) Acute HFrEF (heart failure with reduced ejection fraction) Current Visit: Yes Status: Acute Plan to address problem: Management as per cardiology. (2) Acute hypoxemic respiratory failure Current Visit: Yes Status: Acute Plan to address problem: Patient intubated and extubated. On 2 litres O2. Albuterol inhaler Po prednisone. Patient is on I/V Heparin Famotidine. (3) Cardiomyopathy Current Visit: Yes Status: Acute (4) ESRD needing dialysis Current Visit: Yes Status: Acute Plan to address problem: Patient is on Hemodialysis. Management as per nephrology. (5) NSTEMI (non-ST elevated myocardial infarction) Current Visit: Yes Status: Acute Plan to address problem: Management as per cardiology. (6) Pulmonary HTN Current Visit: Yes Status: Acute Plan to address problem: O2 supplementation. Treat underlying conditions CHF and renal failure. (7) Thoracic aortic aneurysm Current Visit: Yes Status: Acute Qualifiers: Presence of rupture: without rupture Qualified Code(s): I71.2 - Thoracic aortic aneurysm, without rupture Plan to address problem: Recommend consult vascular surgery. (8) Abdominal aortic aneurysm Current Visit: Yes Status: Chronic Qualifiers: Presence of rupture: without rupture Qualified Code(s): I71.4 - Abdominal aortic aneurysm, without rupture Plan to address problem: Recommend to consult vascular surgery. (9) Hypertension Current Visit: Yes Status: Chronic Qualifiers: Hypertension type: essential hypertension Qualified Code(s): I10 - Essential (primary) hypertension Plan to address problem: Management as per primary care. Subjective Date of service: 07/22/20 Principal diagnosis: Ac. hypoxemic resp failure; Pulm Edema; PUI COVID-19; ROSA ELENA on CKD; NSTEMI Interval history: 64 YO Male with HTN, ESRD, Gout, CHF presents to ED for evaluation. Patient is intubated and on ventilatory support . As per patient's the patient has experienced progressive weakness over the past 2 months with worsening symptoms over the last 1 week. Patient was found to have orthopnea, paroxysmal nocturnal dyspnea, decreased exercise tolerance, dyspnea on exertion, as well as dyspnea at rest. Patient reports leaving patient at home while she went to work today. She was subsequently notified by the patient's brother who notified EMS due to patient reporting shortness of breath. EMS was notified and upon arrival the patient was found to be in distress with a pulse oximetry of 60% on room air. The patient was placed on supplemental oxygen and transported to [facility] for further care and evaluation of the aforementioned symptoms. The patient was seen and evaluated in the emergency department. All lab and imaging studies reviewed. Patient found to be unable to protect his airway and was subsequently intubated and placed on ventilatory support. Patient also found to have end-s tage renal disease in need of urgent dialysis, CHF decompensation. Nephrology team consulted in ED. Critical care consulted for further management. Patient extubated and transfered to telemetry. Patient alert, awake. No complaint of chest pain, shortness of breath or cough. Patient received dialysis to day. Patient suppose to be on 2 litres O2. Not using his O2. O2 saturation recorded 100%. Patient afebrile. No leukocytosis. Blood pressure 167/86 Chest xray 07/20/20 reported Stable mild enlargement of the cardiac silhouette Patients CT of chest and abdomen 07/22/20 1. 4.7 cm complex superior pole left renal mass is concerning for renal cell carcinoma. 2. Irregular 1.3 cm right lower lobe nodule is suspicious and may reflect synchronous primary malignancy or metastatic disease. 3. Diffuse aneurysmal dilatation of the aorta, involving the ascending and descending thoracic aorta, infrarenal abdominal aorta, and bilateral common carotid arteries. No evidence of rupture or dissection. 4. Improved CHF with moderate persistent interstitial edema in the lung bases. Resolved pleural effusions. 5. Other chronic and incidental findings as above. Oncology consulted. Patient is on I/V heparin, PO prednisone, Albuterol inhaler and Famotidine. Objective Vital Signs - 12hr 07/22/20 07/22/20 07/22/20 12:49 12:53 12:54 Temperature 98.3 F Pulse Rate 60 63 63 Blood Pressure 165/87 [Right] 07/22/20 12:55 Temperature Pulse Rate 60 Blood Pressure [Right] Constitutional: no acute distress, other (elderly male with normal respiratory effort at rest ) Eyes: non-icteric ENT: oropharynx moist, other (extubated) Neck: supple, no lymphadenopathy, no JVD Effort: normal Ascultation: Bilateral: rhonchi Percussion: Bilateral: not dull Cardiovascular: regular rate and rhythm Gastrointestinal: normoactive bowel sounds, soft, non-tender, non-distended Integumentary: normal, other (AV Fistula to left arm) Extremities: no cyanosis, no edema, pulses normal, no ischemia or petechiae Neurologic: normal mental status, non-focal exam (grossly), pupils equal and round, motor strength normal and Psychiatric: mood appropriate, affect normal CBC and BMP: 07/23/20 13:56 07/23/20 04:43 ABG, PT/INR, D-dimer: ABG ABG pH 7.385 pH Units (7.350-7.450) 07/19/20 16:36 POC ABG pCO2 33.0 mmHg (32.0-48.0) 07/19/20 03:27 ABG pCO2 43.5 mm Hg 07/19/20 16:36 POC ABG pO2 127.4 mmHg (83-108) H 07/19/20 03:27 ABG pO2 108.2 mm Hg (80.0-90.0) H 07/19/20 16:36 POC ABG HCO3 24.1 07/19/20 03:27 ABG O2 Saturation 97.8 % (95.0-99.0) 07/19/20 16:36 PT/INR, D-dimer PT 15.0 Sec. (12.2-14.9) H 07/17/20 09:31 INR 1.13 (0.87-1.13) 07/17/20 09:31 D-Dimer 653.04 ng/mlDDU (0-234) H 07/17/20 13:11 Abnormal lab findings: Abnormal Labs 07/17/20 07/17/20 07/17/20 09:31 09:31 09:31 WBC 11.6 H RBC Hgb 11.2 L Hct 35.4 L Lymph % (Auto) 7.0 L Lymph # (Auto) 0.8 L Seg Neutrophils % 87.0 H Seg Neuts % (Manual) Lymphocytes % (Manual) Seg Neutrophils # 10.1 H Lymphocytes # (Manual) PT 15.0 H D-Dimer ABG pH POC ABG pCO2 POC ABG pO2 ABG pO2 ABG Base Excess ABG Hemoglobin ABG Oxyhemoglobin ABG Potassium ABG Glucose Chloride BUN 55 H Creatinine 5.5 H Glucose 177 H POC Glucose Lactic Acid Magnesium Ferritin Direct Bilirubin 0.3 H AST 99 H ALT 82 H Lactate Dehydrogenase Troponin T 0.030 H NT-Pro-B Natriuret Pep 63666 H Albumin HDL Cholesterol 33 L Arterial Blood Glucose Arterial Blood Ionized Calcium 06/10/2907/17/20 07/17/20 12:57 13:11 13:11 WBC RBC Hgb Hct Lymph % (Auto) Lymph # (Auto) Seg Neutrophils % Seg Neuts % (Manual) Lymphocytes % (Manual) Seg Neutrophils # Lymphocytes # (Manual) PT D-Dimer 653.04 H ABG pH POC ABG pCO2 POC ABG pO2 ABG pO2 ABG Base Excess ABG Hemoglobin ABG Oxyhemoglobin ABG Potassium ABG Glucose Chloride BUN Creatinine Glucose 175 H POC Glucose Lactic Acid Magnesium Ferritin 356.2 H Direct Bilirubin AST ALT Lactate Dehydrogenase 277 H Troponin T NT-Pro-B Natriuret Pep Albumin HDL Cholesterol Arterial Blood Glucose Arterial Blood Ionized Calcium 07/17/20 07/17/20 07/17/20 13:11 21:00 23:25 WBC RBC Hgb Hct Lymph % (Auto) Lymph # (Auto) Seg Neutrophils % Seg Neuts % (Manual) Lymphocytes % (Manual) Seg Neutrophils # Lymphocytes # (Manual) PT D-Dimer ABG pH POC ABG pCO2 POC ABG pO2 110.1 H ABG pO2 ABG Base Excess ABG Hemoglobin 11.5 L ABG Oxyhemoglobin ABG Potassium ABG Glucose Chloride BUN Creatinine Glucose POC Glucose 64 L Lactic Acid 0.60 L Magnesium Ferritin Direct Bilirubin AST ALT Lactate Dehydrogenase Troponin T NT-Pro-B Natriuret Pep Albumin HDL Cholesterol Arterial Blood Glucose Arterial Blood Ionized Calcium 4.5 L 07/17/20 07/18/20 07/18/20 Unknown 05:24 05:24 WBC RBC 3.45 L Hgb 10.8 L Hct 31.9 L Lymph % (Auto) Lymph # (Auto) Seg Neutrophils % Seg Neuts % (Manual) 85.0 H Lymphocytes % (Manual) 8.0 L Seg Neutrophils # Lymphocytes # (Manual) 0.7 L PT D-Dimer ABG pH 7.223 L POC ABG pCO2 POC ABG pO2 ABG pO2 108.9 H ABG Base Excess -5.9 L ABG Hemoglobin 11.4 L ABG Oxyhemoglobin ABG Potassium ABG Glucose Chloride BUN 54 H Creatinine 6.9 H Glucose POC Glucose Lactic Acid Magnesium Ferritin Direct Bilirubin AST ALT 62 H Lactate Dehydrogenase Troponin T NT-Pro-B Natriuret Pep Albumin 3.8 L HDL Cholesterol Arterial Blood Glucose Arterial Blood Ionized Calcium 07/18/20 07/18/20 07/18/20 11:10 11:23 12:06 WBC RBC Hgb Hct Lymph % (Auto) Lymph # (Auto) Seg Neutrophils % Seg Neuts % (Manual) Lymphocytes % (Manual) Seg Neutrophils # Lymphocytes # (Manual) PT D-Dimer ABG pH 7.268 L POC ABG pCO2 49.6 H POC ABG pO2 49.3 L ABG pO2 ABG Base Excess ABG Hemoglobin 11.8 L ABG Oxyhemoglobin 78.7 L ABG Potassium 4.7 H ABG Glucose 112 H Chloride BUN Creatinine Glucose POC Glucose 107 H Lactic Acid Magnesium Ferritin Direct Bilirubin AST ALT Lactate Dehydrogenase Troponin T 0.189 H* D NT-Pro-B Natriuret Pep Albumin HDL Cholesterol Arterial Blood Glucose 112 H Arterial Blood Ionized Calcium 07/18/20 07/18/20 07/18/20 15:50 17:27 19:11 WBC RBC Hgb Hct Lymph % (Auto) Lymph # (Auto) Seg Neutrophils % Seg Neuts % (Manual) Lymphocytes % (Manual) Seg Neutrophils # Lymphocytes # (Manual) PT D-Dimer ABG pH POC ABG pCO2 POC ABG pO2 ABG pO2 ABG Base Excess ABG Hemoglobin ABG Oxyhemoglobin ABG Potassium ABG Glucose Chloride BUN Creatinine Glucose POC Glucose 156 H Lactic Acid Magnesium Ferritin Direct Bilirubin AST ALT Lactate Dehydrogenase Troponin T 0.182 H* 0.213 H* NT-Pro-B Natriuret Pep Albumin HDL Cholesterol Arterial Blood Glucose Arterial Blood Ionized Calcium 07/18/20 07/19/20 07/19/20 23:10 03:27 05:21 WBC RBC Hgb Hct Lymph % (Auto) Lymph # (Auto) Seg Neutrophils % Seg Neuts % (Manual) Lymphocytes % (Manual) Seg Neutrophils # Lymphocytes # (Manual) PT D-Dimer ABG pH 7.482 H POC ABG pCO2 POC ABG pO2 127.4 H ABG pO2 ABG Base Excess ABG Hemoglobin 11.9 L ABG Oxyhemoglobin ABG Potassium ABG Glucose 131 H Chloride BUN Creatinine Glucose POC Glucose 160 H 140 H Lactic Acid Magnesium Ferritin Direct Bilirubin AST ALT Lactate Dehydrogenase Troponin T NT-Pro-B Natriuret Pep Albumin HDL Cholesterol Arterial Blood Glucose 131 H Arterial Blood Ionized Calcium 4.5 L 07/19/20 07/19/20 07/19/20 11:48 16:36 18:32 WBC RBC Hgb Hct Lymph % (Auto) Lymph # (Auto) Seg Neutrophils % Seg Neuts % (Manual) Lymphocytes % (Manual) Seg Neutrophils # Lymphocytes # (Manual) PT D-Dimer ABG pH POC ABG pCO2 POC ABG pO2 ABG pO2 108.2 H ABG Base Excess ABG Hemoglobin 12.3 L ABG Oxyhemoglobin ABG Potassium ABG Glucose Chloride BUN Creatinine Glucose POC Glucose 141 H 128 H Lactic Acid Magnesium Ferritin Direct Bilirubin AST ALT Lactate Dehydrogenase Troponin T NT-Pro-B Natriuret Pep Albumin HDL Cholesterol Arterial Blood Glucose Arterial Blood Ionized Calcium 07/19/20 07/20/20 07/20/20 22:36 04:35 04:35 WBC 11.9 H RBC 3.45 L Hgb 10.5 L Hct 31.7 L Lymph % (Auto) Lymph # (Auto) Seg Neutrophils % Seg Neuts % (Manual) Lymphocytes % (Manual) Seg Neutrophils # Lymphocytes # (Manual) PT D-Dimer ABG pH POC ABG pCO2 POC ABG pO2 ABG pO2 ABG Base Excess ABG Hemoglobin ABG Oxyhemoglobin ABG Potassium ABG Glucose Chloride 97.8 L BUN 68 H Creatinine 7.4 H Glucose 109 H POC Glucose 121 H Lactic Acid Magnesium Ferritin Direct Bilirubin AST ALT Lactate Dehydrogenase Troponin T NT-Pro-B Natriuret Pep Albumin HDL Cholesterol Arterial Blood Glucose Arterial Blood Ionized Calcium 07/20/20 07/20/20 07/20/20 04:49 11:43 17:30 WBC RBC Hgb Hct Lymph % (Auto) Lymph # (Auto) Seg Neutrophils % Seg Neuts % (Manual) Lymphocytes % (Manual) Seg Neutrophils # Lymphocytes # (Manual) PT D-Dimer ABG pH POC ABG pCO2 POC ABG pO2 ABG pO2 ABG Base Excess ABG Hemoglobin ABG Oxyhemoglobin ABG Potassium ABG Glucose Chloride BUN Creatinine Glucose POC Glucose 114 H 110 H 168 H Lactic Acid Magnesium Ferritin Direct Bilirubin AST ALT Lactate Dehydrogenase Troponin T NT-Pro-B Natriuret Pep Albumin HDL Cholesterol Arterial Blood Glucose Arterial Blood Ionized Calcium 07/21/20 07/21/20 07/21/20 04:26 11:41 16:18 WBC RBC Hgb Hct Lymph % (Auto) Lymph # (Auto) Seg Neutrophils % Seg Neuts % (Manual) Lymphocytes % (Manual) Seg Neutrophils # Lymphocytes # (Manual) PT D-Dimer ABG pH POC ABG pCO2 POC ABG pO2 ABG pO2 ABG Base Excess ABG Hemoglobin ABG Oxyhemoglobin ABG Potassium ABG Glucose Chloride 97.9 L BUN 64 H Creatinine 6.2 H Glucose 127 H POC Glucose 133 H 153 H Lactic Acid Magnesium 2.50 H Ferritin Direct Bilirubin AST ALT Lactate Dehydrogenase Troponin T NT-Pro-B Natriuret Pep Albumin HDL Cholesterol Arterial Blood Glucose Arterial Blood Ionized Calcium Chest x-ray: report reviewed, image reviewed CT scan - chest: report reviewed, image reviewed Additional Studies: CHEST 1 VIEW, 07/20/2020 4:05 AM CLINICAL INFORMATION/INDICATION: Respiratory failure COMPARISON: Chest radiograph, 07/19/2020 at 4:57 AM FINDINGS: SUPPORT DEVICES: None. HEART: There is stable mild enlargement of the cardiac silhouette. LUNGS/PLEURA: No focal airspace consolidation or significant pleural effusion is visualized. ADDITIONAL FINDINGS: No additional acute findings. IMPRESSION: 1. Stable mild enlargement of the cardiac silhouette. CTA CHEST, ABDOMEN, AND PELVIS WITH CONTRAST 07/22/20 INDICATION / CLINICAL INFORMATION: chest lesion OMNI 350 100 ML. TECHNIQUE: Axial CT images were obtained through the chest, abdomen, and pelvis before and after injection of IV contrast. 3 plane MIP and/or 3D reconstructions were produced. All CT scans at this location are performed using CT dose reduction for ALARA by means of automated exposure control. COMPARISON: CT of the chest from 07/17/2020. FINDINGS: HEART: There is cardiac enlargement without pericardial effusion. THORACIC AORTA: Diffuse aneurysmal thoracic aorta. The ascending aorta measures 4.6 cm at the level of the pulmonary artery (series 2 image 73). Descending thoracic aorta measures 4.8 cm and greatest dimension proximally (series 2 image 57). There is mixing artifact within the descending thoracic aorta on CTA of the chest. No evidence of rupture or dissection. Moderate calcified plaque. GREAT VESSELS: No significant abnormality. PULMONARY ARTERIES: No significant abnormality. ADDITIONAL CHEST FINDINGS: Irregular nodule in the right lower lobe measures 1.3 x 1.1 cm (series 2 image 29). There is improvement in bibasilar airspace consolidations, likely reflecting pulmonary edema. Moderate diffuse interstitial opacities persist. Resolved bilateral pleural effusions. There is emphysema. ABDOMINAL AORTA: Moderate atherosclerotic calcification of the abdominal aorta and major branching vessels. The aorta measures 4.1 cm in AP dimension at the hiatus and 3.5 cm at the infrarenal abdominal aorta, just above the bifurcation. RENAL ARTERIES: No significant abnormality. CELIAC ARTERY: No significant abnormality. SUPERIOR MESENTERIC ARTERY: No significant abnormality. INFERIOR MESENTERIC ARTERY: No significant abnormality. RIGHT ILIAC ARTERIES: The right common iliac artery is aneurysmal, measuring 2 .1 cm proximally. No significant stenosis. LEFT ILIAC ARTERIES: Left common iliac artery is aneurysmal, measuring 1.9 cm proximally. No significant stenosis. ADDITIONAL ABDOMINOPELVIC FINDINGS: Complex superior pole left renal mass measures 4.7 cm, unchanged. Multiple bilateral renal cysts. Gas in the bladder is likely related to recent instrumentation. Shotty periaortic lymph nodes without pathologically enlarged lymph nodes identified. No free fluid or adenopathy. Otherwise, no significant abnormality of the abdomen or pelvis. SKELETAL STRUCTURES: No significant abnormality. IMPRESSION: 1. 4.7 cm complex superior pole left renal mass is concerning for renal cell carcinoma. 2. Irregular 1.3 cm right lower lobe nodule is suspicious and may reflect synchronous primary malignancy or metastatic disease. 3. Diffuse aneurysmal dilatation of the aorta, involving the ascending and descending thoracic aorta, infrarenal abdominal aorta, and bilateral common carotid arteries. No evidence of rupture or dissection. 4. Improved CHF with moderate persistent interstitial edema in the lung bases. Resolved pleural effusions. 5. Other chronic and incidental findings as above. Allied health notes reviewed: nursing
--- NOTE | 2020-07-22 15:31 | Event Note ---
Date: 07/22/20 CT of the chest, abdomen pelvis performed with contrast. CT of the abdomen pelvis was performed with suboptimal contrast for angiographic evaluation. Patient has diffuse aneurysmal disease which is below surgical threshold. Will need follow-up every 6 months to a year with CT scans. Can follow-up as outpatient with [facility]. Of note, patient has a large left renal cell carcinoma and left lower lobe lung mass. Recommend urology consult and pulmonology evaluation.
[2020-07-22] MEDS: HYDROmorphone 1 MG/1 ML INJ IV PRN (16:01)
--- NOTE | 2020-07-22 17:37 | Progress Note ---
Assessment and Plan 1. CKD 5, now ESKD: Patient follows with Dr. Stephens, was to start HD at [facility] but unfortunately decompensated prior to outpatient HD initiation. - s/p HD 07/17 for initial treatment, had treatment 07/18 and 07/20; Continue HD MWF for toxin/electrolyte management and fluid removal - renally dose meds - avoid nephrotoxins - AVG working well per report - case management consult to assist with placement at [facility] for outpatient HD 2. HTN/Volume: UF removal as tolerated, BP reasonable 3. Acute hypoxic resp failure: now extubated, pulmonology following. CT findings and vascular recommendations noted. 4. DM type 2. 5. Normochromic anemia: likely due to CKD/ESKD, ESAs with HD prn 6. L kidney mass: managed in outpatient setting by urology 7. Secondary Hyperparathyroidism: defer vitamin D analog to outpatient setting, Ca at goal 8. Aortic Aneurysm: vascular following Subjective Date of service: 07/22/20 Principal diagnosis: Ac. hypoxemic resp failure; Pulm Edema; PUI COVID-19; ROSA ELENA on CKD; NSTEMI Interval history: No complications with dialysis. Notes acceptable urine output Objective - Exam Narrative Exam: General: No acute distress HEENT: ATNC Neck: Supple, no JVD Chest: Bilateral rhonchi Heart: RRR, S1 and S2, no pericardial rub Abdomen: Soft, nontender, no renal bruit Extremity: No peripheral cyanosis, edema Neurological: Alert, awake, no asterixis Dermatology: No skin rash Psych: No agitation Musculoskeletal: No joint effusion - Vital Signs Vital signs: Vital Signs - 12hr 07/22/20 07/22/20 07/22/20 12:49 12:53 12:54 Temperature 98.3 F Pulse Rate 60 63 63 Blood Pressure 165/87 [Right] 07/22/20 12:55 Temperature Pulse Rate 60 Blood Pressure [Right] - Lab 07/20/20 04:35 07/21/20 04:26 Most recent lab results ABG pH 7.385 pH Units (7.350-7.450) 07/19/20 16:36 ABG pCO2 43.5 mm Hg 07/19/20 16:36 ABG pO2 108.2 mm Hg (80.0-90.0) H 07/19/20 16:36 ABG HCO3 25.5 mmol/L (20.0-26.0) 07/19/20 16:36 ABG O2 Saturation 97.8 % (95.0-99.0) 07/19/20 16:36 Calcium 9.4 mg/dL (8.4-10.2) 07/21/20 04:26 Magnesium 2.50 mg/dL (1.7-2.3) H 07/21/20 04:26 Medications & Allergies - Medications Allergies/Adverse Reactions: Allergies methadone Allergy (Verified 07/17/20 09:00) Unknown tramadol Allergy (Verified 07/17/20 09:00) Swelling Home Medications: Home Medications Medication Instructions Recorded Confirmed Last Taken Type Isosorbide Mononitrate [Isosorbide 60 mg PO DAILY 07/20/20 07/20/20 Unknown History Mononitrate ER] NIFEdipine XL [Procardia Xl] 60 mg PO QDAY 07/20/20 07/20/20 Unknown History Sodium Bicarbonate 650 mg PO QID 07/20/20 07/20/20 Unknown History Spironolactone [Aldactone] 25 mg PO QDAY 07/20/20 07/20/20 Unknown History calcitrioL [Rocaltrol] 1 mcg PO QDAY 07/20/20 07/20/20 Unknown History carvediloL [Coreg] 25 mg PO BID 07/20/20 07/20/20 Unknown History cloNIDine [Catapres] 0.2 mg PO QHS 07/20/20 07/20/20 Unknown History hydrALAZINE [Apresoline TAB] 100 mg PO TID 07/20/20 07/20/20 Unknown History Active Medications: Generic Name Dose Route Start Last Admin Trade Name Freq PRN Reason Stop Dose Admin Acetaminophen 650 mg 07/17/20 12:29 Acetaminophen 650 Mg Rect Supp WV Q6H PRN Pain MILD(1-3)/Fever >100.5/ALBERTS Albuterol 2.5 mg 07/17/20 12:29 Albuterol 2.5 Mg/3 Ml Nebu IH Q3HRT PRN Shortness Of Breath Lipase/Protease/Amylase 1 each 07/17/20 16:00 Lipase 10,500/Protease 25,000/Amylase 43,750 (Units) Dr Cook FEEDTUBE PRN PRN For Clogged Feeding Tube Aspirin 325 mg 07/18/20 12:00 07/22/20 12:54 Aspirin 325 Mg Tab PO 325 mg QDAY ALIX Administration Atorvastatin Calcium 20 mg 07/19/20 22:00 07/21/20 21:09 Atorvastatin 20 Mg Tab PO 20 mg QHS ALIX Administration Clonidine HCl 0.2 mg 07/19/20 22:00 07/22/20 12:54 Clonidine 0.2 Mg Tab PO 0.2 mg Q12HR ALIX Administration Famotidine 10 mg 07/22/20 12:00 07/22/20 12:54 Famotidine 10 Mg Tab PO 10 mg BID ALIX Administration Heparin Sodium (Porcine) 5,000 unit 07/17/20 22:00 07/21/20 21:10 Heparin 5,000 Unit/1 Ml Vial SUB-Q 5,000 unit Q12HR ALIX Administration Hydralazine HCl 10 mg 07/18/20 14:00 07/21/20 01:39 Hydralazine 20 Mg/1 Ml Inj IV 10 mg Q4H PRN Administration SBP >/=170; DBP >/=100 Hydromorphone HCl 0.25 mg 07/17/20 12:29 07/22/20 16:01 Hydromorphone 1 Mg/1 Ml Inj IV 0.25 mg Q4H PRN Administration Pain, Moderate (4-6) Hydrophilic Ointment 1 applic 07/17/20 13:56 Lip Therapy Vaseline TP Q2HR PRN Dry Lips Sodium Chloride 100 mls @ 999 mls/hr 07/17/20 16:00 Nacl 0.9% IV ANDRÉS PRN Hypotension Losartan Potassium 50 mg 07/22/20 12:30 07/22/20 12:53 Losartan 25 Mg Tab PO 50 mg QDAY ALIX Administration Metoprolol Tartrate 25 mg 07/20/20 22:00 07/22/20 12:55 Metoprolol Tartrate 25 Mg Tab PO 25 mg BID ALIX Administration Multi-Ingred Cream/Lotion/Oil/Oint 1 applic 07/17/20 13:56 Mineral Oil/Petrolatum, White Ophth Oint 3.5 Gm OU Q4HR PRN Dry Eye(s) Prednisone 10 mg 07/21/20 10:00 07/22/20 12:54 Prednisone 10 Mg Tab PO 07/25/20 10:01 10 mg QDAY ALIX Administration Sodium Chloride 10 ml 07/17/20 22:00 07/22/20 12:55 Sodium Chloride 0.9% 10 Ml Flush Syringe IV 10 ml BID ALIX Administration Sodium Chloride 10 ml 07/17/20 12:29 Sodium Chloride 0.9% 10 Ml Flush Syringe IV PRN PRN LINE FLUSH
[2020-07-22] MEDS: HEPARIN 5,000 UNIT/1 ML VIAL SUB-Q SCH (21:51)
[2020-07-23] MEDS: HYDROmorphone 1 MG/1 ML INJ IV PRN ×2 (04:12→20:57)
[2020-07-23 05:46] LABS: Hematocrit 31.3 % (35.5-45.6); Hemoglobin 10.5 gm/dl (11.8-15.2); Mean Corpuscular HGB Conc 34 % (32-34); Mean Corpuscular Volume 91 fl (84-94); Platelet Count 216 K/mm3 (140-440); Red Blood Count 3.45 M/mm3 (3.65-5.03); Red Cell Distribution Width 13.8 % (13.2-15.2)
[2020-07-23] MEDS ORDERED: HEPARIN 10,000 UNITS/10 ML VIAL IV PRN (11:58)
--- NOTE | 2020-07-23 12:11 | Progress Note ---
Assessment and Plan Assessment and plan: --non-STEMI: Current Visit: Yes Status: Acute Cardiology evaluated the patient recommend heparin drip And possible left heart catheterization tomorrow Continue current cardiac medications --Acute hypoxemic respiratory failure s/p extubated Current Visit: Yes Status: Acute Status post extubation, oxygen titrate O2 sats to more than 90% Continue current management, Pulmonary following --Left renal mass ; Current Visit: Yes Status: Acute . Further evaluation as outpatient with urologist --Acute systolic CHF (congestive heart failure) EF 35 to 40% Current Visit: Yes Status: Acute Continue antifailure medication strict I/O, monitor urine output every shift, Low-sodium diet, fluid restriction cardiology following, -- End stage renal disease; on HD/MWF Current Visit: Yes Status: Acute Nephrology following, HD per schedule Confirmed with case management about outpatient HD chair scheduling Continue current management -- Hypertension/moderate control Current Visit: Yes Status: Acute Closely monitor blood pressures, adjust medications as needed --Abdominal aneurysm Current Visit: Yes Status: Chronic --Bilateral pulmonary infiltrates likely secondary to pulmonary edema Current Visit: Yes Status: Acute Continue antifailure medications and supportive care --PUI [id number] out --Chronic venous insufficiency of lower extremity Current Visit: Yes Status: Chronic Supportive care --angioedema upper lip; Current Visit: Yes Status: Chronic Currently improved, supportive care -- DVT prophylaxis Current Visit: Yes Status: Acute Plan to address problem: SCD to bilateral lower extremities while in bed, prophylactic anticoagulation We will closely monitor patient and adjust management as needed Plan of care reviewed with the patient and his nurse Cardiology evaluation recommendations noted and appreciated Started on heparin drip due to elevated cardiac enzymes And possible left heart catheterization tomorrow Patient n.p.o. from midnight Brief history and daily hospital course; 64 YO Male with HTN, ESRD, Gout, CHF presents to ED for evaluation. Patient is intubated and on ventilatory support at the time my evaluation and is unable to provide history. Patient history taken from EMS staff, ED staff, as well as the patient's Mrs Santa Dodge who was made available by telephone for interview. As per patient's the patient has experienced progressive weakness over the past 2 months with worsening symptoms over the last 1 week. Patient was found to have orthopnea, paroxysmal nocturnal dyspnea, decreased exercise tolerance, dyspnea on exertion, as well as dyspnea at rest. Patient reports leaving patient at home while she went to work today. She was subsequently notified by the patient's brother who notified EMS due to patient reporting shortness of breath. EMS was notified and upon arrival the patient was found to be in distress with a pulse oximetry of 60% on room air. The patient was placed on supplemental oxygen and transported to [facility] for further care and evaluation of the aforementioned symptoms. The patient was seen and evaluated in the emergency department. All lab and imaging studies reviewed. Patient found to be unable to protect his airway and was subsequently intubated and placed on ventilatory support. Patient also found to have end-stage renal disease in need of urgent dialysis, CHF decompensation. Patient admitted to ICU. Critical care team consulted in ED. Nephrology team consulted in ED. Advanced care planning conducted in ED. No prior admission for review. All medication listed at time of admission has been reconciled. Consultants Cardiology, hitting coach, teletype telegrapher. 07/18: Patient initiated with dialysis today. Covid test was done and is negative. Anemia likely anemia of chronic disease. Will follow consultants recommendation for further management. Echocardiogram pending 07/19: Patient started with dialysis. Anticipate trial of weaning today. BP elevated, clonodine restarted, will increase to home dose. Continue current management 07/20: Patient now extubated. Did have dialysis with improvement in respiratory status which aided extubation. Patient however has an edematous upper lip questionable angioedema. We will give a dose of Benadryl, H2 carly and a dose of steroids and monitor. Patient can be transitioned to telemetry if okay with teletype telegrapher. IR consulted to evaluate abdominal aneurysm continue current management by small animal caretaker to monitor all medications to see what could be resulting to the angioedema. 07/21: Continue supportive care. Will start patient on low-dose steroids considering noted angioedema. Discussed with hitting coach about recommendation by vascular/IR and they are okay with proceeding. Risk discussed with patient he verbalized understanding. We will proceed with CT angio of the chest abdomen and pelvis to further evaluate aneurysmal findings. Per hitting coach patient will be dialyzed tomorrow. 07/22: Unfortunately CTA of the chest on anterior and abdomen was discontinued yesterday and not sure by who this has been reordered prior to dialysis. There is concern for a renal mass we will consult hematology to assist with management although will await hitting coach input a and vascular input on this. Continue current management initial plan for discharge will be held at this time until appropriate diagnostic measures are made. Also significant irregularity noted on the aneurysm will await vascular input is noted. Cardiology surgical planning ischemic work-up 07/23/2020; patient feels slightly better, worsening cardiac enzymes, cardiology started heparin drip, left heart catheterization tomorrow, n.p.o. from midnight HD per schedule, overall patient feels slightly better today History Interval history: I have seen and examined the patient at the bedside this afternoon Patient's chart and medications reviewed. No new events reported by the nursing Patient has intermittent chest pain worsening cardiac enzymes Cardiology following Vital signs reviewed Hospitalist Physical - Constitutional Vitals: Temp Pulse Resp BP Pulse Ox 98.6 F 90 16 142/75 92 07/23/20 06:43 07/23/20 08:00 07/23/20 06:43 07/23/20 06:43 07/23/20 06:43 General appearance: Present: no acute distress, well-nourished - EENT Eyes: Present: PERRL, EOM intact - Neck Neck: Present: supple, normal ROM - Respiratory Respiratory effort: normal Respiratory: bilateral: diminished, negative: rales, rhonchi, wheezing - Cardiovascular Rhythm: regular Heart Sounds: Present: S1 & S2 - Extremities Extremities: no ischemia, No edema - Abdominal General gastrointestinal: soft, non-tender, non-distended, normal bowel sounds - Integumentary Integumentary: Present: clear, warm - Psychiatric Psychiatric: appropriate mood/affect, cooperative - Neurologic Neurologic: moves all extremities HEART Score - HEART Score Troponin: Troponin T 5.820 ng/mL (0.00-0.029) H* 07/23/20 08:44 Results - Labs CBC & Chem 7: 07/23/20 13:56 07/23/20 04:43 Labs: Laboratory Last Values WBC 7.7 K/mm3 (4.5-11.0) 07/23/20 04:43 RBC 3.45 M/mm3 (3.65-5.03) L 07/23/20 04:43 Hgb 10.5 gm/dl (11.8-15.2) L 07/23/20 04:43 Hct 31.3 % (35.5-45.6) L 07/23/20 04:43 MCV 91 fl (84-94) 07/23/20 04:43 MCH 31 pg (28-32) 07/23/20 04:43 MCHC 34 % (32-34) 07/23/20 04:43 RDW 13.8 % (13.2-15.2) 07/23/20 04:43 Plt Count 216 K/mm3 (140-440) 07/23/20 04:43 Lymph % (Auto) 7.0 % (13.4-35.0) L 07/17/20 09:31 [place]son % (Auto) Dry Pan Charger 07/18/20 05:24 Eos % (Auto) 0.8 % (0.0-4.3) 07/17/20 09:31 Baso % (Auto) 0.4 % (0.0-1.8) 07/17/20 09:31 Lymph # (Auto) 0.8 K/mm3 (1.2-5.4) L 07/17/20 09:31 [place] # (Auto) 0.6 K/mm3 (0.0-0.8) 07/17/20 09:31 Eos # (Auto) 0.1 K/mm3 (0.0-0.4) 07/17/20 09:31 Baso # (Auto) 0.0 K/mm3 (0.0-0.1) 07/17/20 09:31 Add Manual Diff Complete 07/18/20 05:24 Total Counted 100 07/18/20 05:24 Seg Neutrophils % 87.0 % (40.0-70.0) H 07/17/20 09:31 Seg Neuts % (Manual) 85.0 % (40.0-70.0) H 07/18/20 05:24 Lymphocytes % (Manual) 8.0 % (13.4-35.0) L 07/18/20 05:24 Monocytes % (Manual) 7.0 % (0.0-7.3) 07/18/20 05:24 Nucleated RBC % Not Reportable 07/18/20 05:24 Seg Neutrophils # 10.1 K/mm3 (1.8-7.7) H 07/17/20 09:31 Seg Neutrophils # Man 7.5 K/mm3 (1.8-7.7) 07/18/20 05:24 Band Neutrophils # 0.0 K/mm3 07/18/20 05:24 Lymphocytes # (Manual) 0.7 K/mm3 (1.2-5.4) L 07/18/20 05:24 Abs React Lymphs (Man) 0.0 K/mm3 07/18/20 05:24 Monocytes # (Manual) 0.6 K/mm3 (0.0-0.8) 07/18/20 05:24 Eosinophils # (Manual) 0.0 K/mm3 (0.0-0.4) 07/18/20 05:24 Basophils # (Manual) 0.0 K/mm3 (0.0-0.1) 07/18/20 05:24 Metamyelocytes # 0.0 K/mm3 07/18/20 05:24 Myelocytes # 0.0 K/mm3 07/18/20 05:24 Promyelocytes # 0.0 K/mm3 07/18/20 05:24 Blast Cells # 0.0 K/mm3 07/18/20 05:24 WBC Morphology Not Reportable 07/18/20 05:24 Hypersegmented Neuts Not Reportable 07/18/20 05:24 Hyposegmented Neuts Not Reportable 07/18/20 05:24 Hypogranular Neuts Not Reportable 07/18/20 05:24 Smudge Cells Not Reportable 07/18/20 05:24 Toxic Granulation Not Reportable 07/18/20 05:24 Toxic Vacuolation Not Reportable 07/18/20 05:24 Dohle Bodies Not Reportable 07/18/20 05:24 Pelger-Huet Anomaly Not Reportable 07/18/20 05:24 Oscar Rods Not Reportable 07/18/20 05:24 Platelet Estimate Consistent w auto 07/18/20 05:24 Clumped Platelets Not Reportable 07/18/20 05:24 Plt Clumps, EDTA Not Reportable 07/18/20 05:24 Large Platelets Not Reportable 07/18/20 05:24 Giant Platelets Not Reportable 07/18/20 05:24 Platelet Satelliting Not Reportable 07/18/20 05:24 Plt Morphology Comment Not Reportable 07/18/20 05:24 RBC Morphology Normal 07/18/20 05:24 Dimorphic RBCs Not Reportable 07/18/20 05:24 Polychromasia Not Reportable 07/18/20 05:24 Hypochromasia Not Reportable 07/18/20 05:24 Poikilocytosis Not Reportable 07/18/20 05:24 Anisocytosis Not Reportable 07/18/20 05:24 Microcytosis Not Reportable 07/18/20 05:24 Macrocytosis Not Reportable 07/18/20 05:24 Spherocytes Not Reportable 07/18/20 05:24 Pappenheimer Bodies Not Reportable 07/18/20 05:24 Sickle Cells Not Reportable 07/18/20 05:24 Target Cells Not Reportable 07/18/20 05:24 Tear Drop Cells Not Reportable 07/18/20 05:24 Ovalocytes Not Reportable 07/18/20 05:24 Helmet Cells Not Reportable 07/18/20 05:24 Yeh-[place] Bodies Not Reportable 07/18/20 05:24 Standish Rings Not Reportable 07/18/20 05:24 Lamar Cells Not Reportable 07/18/20 05:24 Bite Cells Not Reportable 07/18/20 05:24 Crenated Cell Not Reportable 07/18/20 05:24 Elliptocytes Not Reportable 07/18/20 05:24 Acanthocytes (Spur) Not Reportable 07/18/20 05:24 Rouleaux Not Reportable 07/18/20 05:24 Hemoglobin C Crystals Not Reportable 07/18/20 05:24 Schistocytes Not Reportable 07/18/20 05:24 Malaria parasites Not Reportable 07/18/20 05:24 Fermín Bodies Not Reportable 07/18/20 05:24 Hem Pathologist Commnt No 07/18/20 05:24 PT 15.0 Sec. (12.2-14.9) H 07/17/20 09:31 INR 1.13 (0.87-1.13) 07/17/20 09:31 APTT 25.3 Sec. (24.2-36.6) 07/17/20 09:31 D-Dimer 653.04 ng/mlDDU (0-234) H 07/17/20 13:11 ABG pH 7.385 pH Units (7.350-7.450) 07/19/20 16:36 POC ABG pCO2 33.0 mmHg (32.0-48.0) 07/19/20 03:27 ABG pCO2 43.5 mm Hg 07/19/20 16:36 POC ABG pO2 127.4 mmHg (83-108) H 07/19/20 03:27 ABG pO2 108.2 mm Hg (80.0-90.0) H 07/19/20 16:36 POC ABG HCO3 24.1 07/19/20 03:27 ABG HCO3 25.5 mmol/L (20.0-26.0) 07/19/20 16:36 ABG O2 Saturation 97.8 % (95.0-99.0) 07/19/20 16:36 ABG O2 Content 16.7 (0.0-44) 07/19/20 16:36 POC ABG Base Excess 1.1 07/19/20 03:27 ABG Base Excess 0.2 mmol/L (-2.0-3.0) 07/19/20 16:36 ABG Hemoglobin 12.3 gm/dl (14.0-18.0) L 07/19/20 16:36 ABG Oxyhemoglobin 97.6 (94-98) 07/19/20 03:27 ABG Carboxyhemoglobin 1.5 % (0.0-5.0) 07/19/20 16:36 ABG Methemoglobin 0.5 % (0.0-1.5) 07/19/20 16:36 ABG Sodium 137.0 mmol/L (136.0-145.0) 07/19/20 03:27 ABG Potassium 3.8 mmol/L (3.40-4.50) 07/19/20 03:27 ABG Chloride 101.0 mmol/L (98-107) 07/19/20 03:27 ABG Glucose 131 mg/dL (65-95) H 07/19/20 03:27 Oxyhemoglobin 95.8 % (95.0-99.0) 07/19/20 16:36 Carboxyhemoglobin 1.0 (0.5-1.5) 07/19/20 03:27 FiO2 30 % 07/19/20 16:36 FiO2 % 35.0 07/19/20 03:27 Sodium 136 mmol/L (137-145) L 07/23/20 04:43 Potassium 3.5 mmol/L (3.6-5.0) L 07/23/20 04:43 Chloride 94.5 mmol/L (98-107) L 07/23/20 04:43 Carbon Dioxide 26 mmol/L (22-30) 07/23/20 04:43 Anion Gap 19 mmol/L 07/23/20 04:43 BUN 65 mg/dL (9-20) H 07/23/20 04:43 Creatinine 5.2 mg/dL (0.8-1.3) H 07/23/20 04:43 Estimated GFR 14 ml/min 07/23/20 04:43 BUN/Creatinine Ratio 13 % 07/23/20 04:43 Glucose 119 mg/dL (75-100) H 07/23/20 04:43 POC Glucose 114 mg/dL (70-105) H 07/23/20 11:16 Lactic Acid 0.60 mmol/L (0.7-2.0) L 07/17/20 13:11 Calcium 9.0 mg/dL (8.4-10.2) 07/23/20 04:43 Magnesium 2.50 mg/dL (1.7-2.3) H 07/21/20 04:26 Ferritin 356.2 ng/mL (30.0-300.0) H 07/17/20 12:57 Total Bilirubin 0.40 mg/dL (0.1-1.2) 07/18/20 05:24 Direct Bilirubin 0.3 mg/dL (0-0.2) H 07/17/20 09:31 Indirect Bilirubin 0.3 mg/dL 07/17/20 09:31 AST 38 units/L (5-40) 07/18/20 05:24 ALT 62 units/L (7-56) H 07/18/20 05:24 Alkaline Phosphatase 72 units/L (35-129) 07/18/20 05:24 Lactate Dehydrogenase 277 units/L (91-180) H 07/17/20 13:11 Troponin T 5.820 ng/mL (0.00-0.029) H* 07/23/20 08:44 C-Reactive Protein 0.60 mg/dL (0.00-1.30) 07/17/20 13:11 NT-Pro-B Natriuret Pep 12195 pg/mL (0-900) H 07/17/20 09:31 Total Protein 6.9 g/dL (6.3-8.2) 07/18/20 05:24 Albumin 3.8 g/dL (3.9-5) L 07/18/20 05:24 Albumin/Globulin Ratio 1.2 % 07/18/20 05:24 Triglycerides 119 mg/dL (2-149) 07/17/20 09:31 Cholesterol 163 mg/dL (50-199) 07/17/20 09:31 LDL Cholesterol Direct 130 mg/dL (50-130) 07/17/20 09:31 HDL Cholesterol 33 mg/dL (40-59) L 07/17/20 09:31 Cholesterol/HDL Ratio 4.93 % 07/17/20 09:31 Procalcitonin 1.79 ng/mL (<0.15) 07/17/20 13:11 Arterial Blood Glucose 131 mg/dL (65-95) H 07/19/20 03:27 Arterial Blood Ionized Calcium 4.5 mg/dL (4.6-5.3) L 07/19/20 03:27 Urine Opiates Screen Negative 07/17/20 11:21 Urine Methadone Screen Negative 07/17/20 11:21 Ur Barbiturates Screen Negative 07/17/20 11:21 Ur Phencyclidine Scrn Negative 07/17/20 11:21 Ur Amphetamines Screen Negative 07/17/20 11:21 U Benzodiazepines Scrn Negative 07/17/20 11:21 Urine Cocaine Screen Negative 07/17/20 11:21 U Marijuana (THC) Screen Negative 07/17/20 11:21 Drugs of Abuse Note Disclamer 07/17/20 11:21 Coronavirus (PCR) Negative (Negative) 07/17/20 Unknown Hepatitis A IgM Ab Non-reactive (NonReactive) 07/17/20 13:11 Hep Bs Antigen Non-reactive (Negative) 07/17/20 13:11 Hep B Core IgM Ab Non-reactive (NonReactive) 07/17/20 13:11 Hepatitis C Antibody Non-reactive (NonReactive) 07/17/20 13:11 Microbiology: Microbiology 07/17/20 15:05 Tracheal Aspirate Sputum Culture - Preliminary 07/17/20 13:11 Peripheral/Venous Blood Culture - Final NO GROWTH AFTER 5 DAYS 07/17/20 12:57 Peripheral/Venous Blood Culture - Final NO GROWTH AFTER 5 DAYS Ascencio/IV: Voiding Method Urinal Active Medications - Current Medications Current Medications: Generic Name Dose Route Start Last Admin Trade Name Freq PRN Reason Stop Dose Admin Acetaminophen 650 mg 07/17/20 12:29 Acetaminophen 650 Mg Rect Supp MI Q6H PRN Pain MILD(1-3)/Fever >100.5/ALBERTS Albuterol 2.5 mg 07/17/20 12:29 Albuterol 2.5 Mg/3 Ml Nebu IH Q3HRT PRN Shortness Of Breath Lipase/Protease/Amylase 1 each 07/17/20 16:00 Lipase 10,500/Protease 25,000/Amylase 43,750 (Units) Dr Cook FEEDTUBE PRN PRN For Clogged Feeding Tube Aspirin 325 mg 07/24/20 06:00 Aspirin 325 Mg Tab PO 07/24/20 06:01 ONCE ONE Atorvastatin Calcium 20 mg 07/19/20 22:00 07/22/20 21:49 Atorvastatin 20 Mg Tab PO 20 mg QHS ALIX Administration Clonidine HCl 0.2 mg 07/19/20 22:00 07/22/20 21:50 Clonidine 0.2 Mg Tab PO 0.2 mg Q12HR ALIX Administration Famotidine 10 mg 07/22/20 12:00 07/22/20 21:49 Famotidine 10 Mg Tab PO 10 mg BID ALIX Administration Heparin Sodium (Porcine) 5,900 unit 07/23/20 11:58 Heparin 10,000 Units/10 Ml Vial 60 unit/kg (5900 unit) 07/23/20 11:59 IV ONCE ONE Heparin Sodium (Porcine) 3,900 unit 07/23/20 11:58 Heparin 10,000 Units/10 Ml Vial 40 unit/kg (3900 unit) IV Q6H PRN Anti-Xa Assay < 0.1 units/ml Hydralazine HCl 10 mg 07/18/20 14:00 07/21/20 01:39 Hydralazine 20 Mg/1 Ml Inj IV 10 mg Q4H PRN Administration SBP >/=170; DBP >/=100 Hydromorphone HCl 0.25 mg 07/17/20 12:29 07/23/20 04:12 Hydromorphone 1 Mg/1 Ml Inj IV 0.25 mg Q4H PRN Administration Pain, Moderate (4-6) Hydrophilic Ointment 1 applic 07/17/20 13:56 Lip Therapy Vaseline TP Q2HR PRN Dry Lips Sodium Chloride 100 mls @ 999 mls/hr 07/17/20 16:00 Nacl 0.9% IV ANDRÉS PRN Hypotension Heparin Sodium/Sodium Chloride 25,000 unit in 500 mls @ 29.4 mls/hr 07/23/20 12:00 Heparin/ 0.45% Nacl-25,000 Unit/500 Ml IV TITRATE ALIX Protocol 15 UNITS/KG/HR Losartan Potassium 50 mg 07/22/20 12:30 07/22/20 12:53 Losartan 25 Mg Tab PO 50 mg QDAY ALIX Administration Metoprolol Tartrate 25 mg 07/20/20 22:00 07/22/20 21:50 Metoprolol Tartrate 25 Mg Tab PO Not Given BID ALIX Multi-Ingred Cream/Lotion/Oil/Oint 1 applic 07/17/20 13:56 Mineral Oil/Petrolatum, White Ophth Oint 3.5 Gm OU Q4HR PRN Dry Eye(s) Prednisone 10 mg 07/21/20 10:00 07/22/20 12:54 Prednisone 10 Mg Tab PO 07/25/20 10:01 10 mg QDAY ALIX Administration Sodium Chloride 10 ml 07/17/20 22:00 07/22/20 21:51 Sodium Chloride 0.9% 10 Ml Flush Syringe IV 10 ml BID ALIX Administration Sodium Chloride 10 ml 07/17/20 12:29 Sodium Chloride 0.9% 10 Ml Flush Syringe IV PRN PRN LINE FLUSH Nutrition/Malnutrition Assess - Dietary Evaluation Nutrition/Malnutrition Findings: Nutrition Notes Start: 07/17/20 14:4 1 Freq: Status: Active Protocol: Document 07/19/20 11:38 CW (Rec: 07/19/20 11:43 CW [id number]) Nutrition Notes Initial or Follow up Reassessment Current Diagnosis CKD (stage V CKD),Hypertension ,Heart Failure,Respiratory Failure,Hyperlipidemia Other Pertinent Diagnosis pneu, Current Diet Nepro at 50 ml/hr Labs/Tests 07/18 BUN 54 Cr 6.9 Pertinent Medications [place] Height 6 ft 1 in Weight 93.4 kg [place] Body Weight (kg) 83.63 BMI 27.1 Weight Status Appropriate Subjective/Other Information F/U for TF and vent status. pt remains on mecanical vent. TF running at goal of 50 ml/hr with no reports of TF intolerance. Addendum: Pt discussed in rounds. It is likely that pt will be extubated soon. Plan is to stop TF. Percent of energy/protein needs met: 100%/87% Burn Absent Trauma Absent Minimum of two criteria No physical signs of malnutrition #1 Nutrition Diagnosis Inadequate oral intake Diagnosis Progress(for reassessment Continues documentation) Is patient on ventilator? Yes Is Patient Ambulatory and/or Out of Bed No REE-([facility]-confined to bed) [phone] Calculation Used for Recommendations [facility] Additional Notes Pro needs >1.2g/kg: >112g/day Fluid needs 1-1.5L/day Nutrition Intervention Nutrition Support: Nepro at 50ml/hr with 110ml water flush q4h. Kcal 2,160 Protein (gm) 97 Carbohydrates (gm) 193 Fat (gm) 115 Fluid (mL) 872 Fiber (gm) 15 Goal #1 TF tolerance Goal #2 TF (at goal rate) to meet at least 75% energy and pro needs Anticipated Discharge Needs: Unable to determine at this time Follow-Up By: 07/23/20 Additional Comments F/U for TF tolerance/ extubation
--- NOTE | 2020-07-23 12:19 | Progress Note ---
Assessment and Plan 64 YO Male with HTN, ESRD, Gout, CHF presents to ED for evaluation. Patient is intubated and on ventilatory support . As per patient's the patient has experienced progressive weakness over the past 2 months with worsening symptoms over the last 1 week. Patient was found to have orthopnea, paroxysmal nocturnal dyspnea, decreased exercise tolerance, dyspnea on exertion, as well as dyspnea at rest. Patient reports leaving patient at home while she went to work today. She was subsequently notified by the patient's brother who notified EMS due to patient reporting shortness of breath. EMS was notified and upon arrival the patient was found to be in distress with a pulse oximetry of 60% on room air. The patient was placed on supplemental oxygen and transported to [facility] for further care and evaluation of the aforementioned symptoms. The patient was seen and evaluated in the emergency department. All lab and imaging studies reviewed. Patient found to be unable to protect his airway and was subsequently intubated and placed on ventilatory support. Patient also found to have end- stage renal disease in need of urgent dialysis, CHF decompensation. Nephrology team consulted in ED. Critical care consulted for further management. Patient extubated and transfered to telemetry. Patient alert, awake. No complaint of chest pain, shortness of breath or cough. Patient is on 2 litres o2. O2 saturation recorded 95%. Patient afebrile. No leukocytosis. Blood pressure 156/81 Chest xray 07/20/20 reported Stable mild enlargement of the cardiac silhouette Patients CT of chest and abdomen 07/22/20 1. 4.7 cm complex superior pole left renal mass is concerning for renal cell carcinoma. 2. Irregular 1.3 cm right lower lobe nodule is suspicious and may reflect synchronous primary malignancy or metastatic disease. 3. Diffuse aneurysmal dilatation of the aorta, involving the ascending and descending thoracic aorta, infrarenal abdominal aorta, and bilateral common carotid arteries. No evidence of rupture or dissection. 4. Improved CHF with moderate persistent interstitial edema in the lung bases. Resolved pleural effusions. 5. Other chronic and incidental findings as above. Oncology consulted. Patient is on S/C heparin, PO prednisone, Albuterol inhaler and Famotidine. - Patient Problems (1) Acute HFrEF (heart failure with reduced ejection fraction) Current Visit: Yes Status: Acute Plan to address problem: Management as per cardiology. (2) Acute hypoxemic respiratory failure Current Visit: Yes Status: Acute Plan to address problem: Patient intubated and extubated. On 2 litres O2. Albuterol inhaler Po prednisone. Patient is on S/C Heparin Famotidine. (3) CHF (congestive heart failure) Current Visit: Yes Status: Deleted Qualifiers: Heart failure type: systolic Heart failure chronicity: acute Qualified Code(s): I50.21 - Acute systolic (congestive) heart failure (4) Cardiomyopathy Current Visit: Yes Status: Acute (5) ESRD needing dialysis Current Visit: Yes Status: Acute Plan to address problem: Patient is on Hemodialysis. Management as per nephrology. (6) NSTEMI (non-ST elevated myocardial infarction) Current Visit: Yes Status: Acute Plan to address problem: Management as per cardiology. (7) Pleural effusion Current Visit: Yes Status: Deleted Plan to address problem: Obtain ltrasound of chest. (8) Pulmonary HTN Current Visit: Yes Status: Acute Plan to address problem: O2 supplementation. Treat underlying conditions CHF and renal failure. (9) Thoracic aortic aneurysm Current Visit: Yes Status: Acute Qualifiers: Presence of rupture: without rupture Qualified Code(s): I71.2 - Thoracic aortic aneurysm, without rupture Plan to address problem: Recommend consult vascular surgery. (10) Abdominal aortic aneurysm Current Visit: Yes Status: Chronic Qualifiers: Presence of rupture: without rupture Qualified Code(s): I71.4 - Abdominal aortic aneurysm, without rupture Plan to address problem: Recommend to consult vascular surgery. (11) Hypertension Current Visit: Yes Status: Chronic Qualifiers: Hypertension type: essential hypertension Qualified Code(s): I10 - Essential (primary) hypertension Plan to address problem: Management as per primary care. Subjective Date of service: 07/23/20 Principal diagnosis: Ac. hypoxemic resp failure; Pulm Edema; PUI COVID-19; ROSA ELENA on CKD; NSTEMI Interval history: 64 YO Male with HTN, ESRD, Gout, CHF presents to ED for evaluation. Patient is intubated and on ventilatory support . As per patient's the patient has experienced progressive weakness over the past 2 months with worsening symptoms over the last 1 week. Patient was found to have orthopnea, paroxysmal nocturnal dyspnea, decreased exercise tolerance, dyspnea on exertion, as well as dyspnea at rest. Patient reports leaving patient at home while she went to work today. She was subsequently notified by the patient's brother who notified EMS due to patient reporting shortness of breath. EMS was notified and upon arrival the patient was found to be in distress with a pulse oximetry of 60% on room air. The patient was placed on supplemental oxygen and transported to [facility] for further care and evaluation of the aforementioned symptoms. The patient was seen and evaluated in the emergency department. All lab and imaging studies reviewed. Patient found to be unable to protect his airway and was subsequently intubated and placed on ventilatory support. Patient also found to have end- stage renal disease in need of urgent dialysis, CHF decompensation. Nephrology team consulted in ED. Critical care consulted for further management. Patient extubated and transfered to telemetry. Patient alert, awake. No complaint of chest pain, shortness of breath or cough. Patient is on 2 litres o2. O2 saturation recorded 95%. Patient afebrile. No leukocytosis. Blood pressure 156/81 Chest xray 07/20/20 reported Stable mild enlargement of the cardiac silhouette Patients CT of chest and abdomen 07/22/20 1. 4.7 cm complex superior pole left renal mass is concerning for renal cell ca rcinoma. 2. Irregular 1.3 cm right lower lobe nodule is suspicious and may reflect synchronous primary malignancy or metastatic disease. 3. Diffuse aneurysmal dilatation of the aorta, involving the ascending and descending thoracic aorta, infrarenal abdominal aorta, and bilateral common carotid arteries. No evidence of rupture or dissection. 4. Improved CHF with moderate persistent interstitial edema in the lung bases. Resolved pleural effusions. 5. Other chronic and incidental findings as above. Oncology consulted. Patient is on S/C heparin, PO prednisone, Albuterol inhaler and Famotidine. Objective Vital Signs - 12hr 07/23/20 07/23/20 07/23/20 01:40 04:00 04:51 Temperature 99.0 F Pulse Rate 53 L 64 Respiratory 16 16 Rate Blood Pressure 132/75 O2 Sat by Pulse 100 97 Oximetry 07/23/20 07/23/20 06:43 08:00 Temperature 98.6 F Pulse Rate 57 L 90 Respiratory 16 Rate Blood Pressure 142/75 O2 Sat by Pulse 92 Oximetry Constitutional: no acute distress, alert, other (elderly male with normal respiratory effort at rest ) Eyes: non-icteric ENT: oropharynx moist, other (extubated) Neck: supple, no lymphadenopathy, no JVD Effort: normal Ascultation: Bilateral: rhonchi Percussion: Bilateral: not dull Cardiovascular: regular rate and rhythm Gastrointestinal: normoactive bowel sounds, soft, non-tender, non-distended Integumentary: normal, other (AV Fistula to left arm) Extremities: no cyanosis, no edema, pulses normal, no ischemia or petechiae Neurologic: normal mental status, non-focal exam (grossly), pupils equal and round, motor strength normal and Psychiatric: mood appropriate, affect normal CBC and BMP: 07/24/20 04:44 07/24/20 04:44 ABG, PT/INR, D-dimer: ABG ABG pH 7.385 pH Units (7.350-7.450) 07/19/20 16:36 POC ABG pCO2 33.0 mmHg (32.0-48.0) 07/19/20 03:27 ABG pCO2 43.5 mm Hg 07/19/20 16:36 POC ABG pO2 127.4 mmHg (83-108) H 07/19/20 03:27 ABG pO2 108.2 mm Hg (80.0-90.0) H 07/19/20 16:36 POC ABG HCO3 24.1 07/19/20 03:27 ABG O2 Saturation 97.8 % (95.0-99.0) 07/19/20 16:36 PT/INR, D-dimer PT 15.0 Sec. (12.2-14.9) H 07/17/20 09:31 INR 1.13 (0.87-1.13) 07/17/20 09:31 D-Dimer 653.04 ng/mlDDU (0-234) H 07/17/20 13:11 Abnormal lab findings: Abnormal Labs 07/17/20 07/17/20 07/17/20 09:31 09:31 09:31 WBC 11.6 H RBC Hgb 11.2 L Hct 35.4 L Lymph % (Auto) 7.0 L Lymph # (Auto) 0.8 L Seg Neutrophils % 87.0 H Seg Neuts % (Manual) Lymphocytes % (Manual) Seg Neutrophils # 10.1 H Lymphocytes # (Manual) PT 15.0 H D-Dimer ABG pH POC ABG pCO2 POC ABG pO2 ABG pO2 ABG Base Excess ABG Hemoglobin ABG Oxyhemoglobin ABG Potassium ABG Glucose Sodium Potassium Chloride BUN 55 H Creatinine 5.5 H Glucose 177 H POC Glucose Lactic Acid Magnesium Ferritin Direct Bilirubin 0.3 H AST 99 H ALT 82 H Lactate Dehydrogenase Troponin T 0.030 H NT-Pro-B Natriuret Pep 23940 H Albumin HDL Cholesterol 33 L Arterial Blood Glucose Arterial Blood Ionized Calcium 07/17/20 07/17/20 07/17/20 12:57 13:11 13:11 WBC RBC Hgb Hct Lymph % (Auto) Lymph # (Auto) Seg Neutrophils % Seg Neuts % (Manual) Lymphocytes % (Manual) Seg Neutrophils # Lymphocytes # (Manual) PT D-Dimer 653.04 H ABG pH POC ABG pCO2 POC ABG pO2 ABG pO2 ABG Base Excess ABG Hemoglobin ABG Oxyhemoglobin ABG Potassium ABG Glucose Sodium Potassium Chloride BUN Creatinine Glucose 175 H POC Glucose Lactic Acid Magnesium Ferritin 356.2 H Direct Bilirubin AST ALT Lactate Dehydrogenase 277 H Troponin T NT-Pro-B Natriuret Pep Albumin HDL Cholesterol Arterial Blood Glucose Arterial Blood Ionized Calcium 07/17/20 07/17/20 07/17/20 13:11 21:00 23:25 WBC RBC Hgb Hct Lymph % (Auto) Lymph # (Auto) Seg Neutrophils % Seg Neuts % (Manual) Lymphocytes % (Manual) Seg Neutrophils # Lymphocytes # (Manual) PT D-Dimer ABG pH POC ABG pCO2 POC ABG pO2 110.1 H ABG pO2 ABG Base Excess ABG Hemoglobin 11.5 L ABG Oxyhemoglobin ABG Potassium ABG Glucose Sodium Potassium Chloride BUN Creatinine Glucose POC Glucose 64 L Lactic Acid 0.60 L Magnesium Ferritin Direct Bilirubin AST ALT Lactate Dehydrogenase Troponin T NT-Pro-B Natriuret Pep Albumin HDL Cholesterol Arterial Blood Glucose Arterial Blood Ionized Calcium 4.5 L 07/17/20 07/18/20 07/18/20 Unknown 05:24 05:24 WBC RBC 3.45 L Hgb 10.8 L Hct 31.9 L Lymph % (Auto) Lymph # (Auto) Seg Neutrophils % Seg Neuts % (Manual) 85.0 H Lymphocytes % (Manual) 8.0 L Seg Neutrophils # Lymphocytes # (Manual) 0.7 L PT D-Dimer ABG pH 7.223 L POC ABG pCO2 POC ABG pO2 ABG pO2 108.9 H ABG Base Excess -5.9 L ABG Hemoglobin 11.4 L ABG Oxyhemoglobin ABG Potassium ABG Glucose Sodium Potassium Chloride BUN 54 H Creatinine 6.9 H Glucose POC Glucose Lactic Acid Magnesium Ferritin Direct Bilirubin AST ALT 62 H Lactate Dehydrogenase Troponin T NT-Pro-B Natriuret Pep Albumin 3.8 L HDL Cholesterol Arterial Blood Glucose Arterial Blood Ionized Calcium 07/18/20 07/18/20 07/18/20 11:10 11:23 12:06 WBC RBC Hgb Hct Lymph % (Auto) Lymph # (Auto) Seg Neutrophils % Seg Neuts % (Manual) Lymphocytes % (Manual) Seg Neutrophils # Lymphocytes # (Manual) PT D-Dimer ABG pH 7.268 L POC ABG pCO2 49.6 H POC ABG pO2 49.3 L ABG pO2 ABG Base Excess ABG Hemoglobin 11.8 L ABG Oxyhemoglobin 78.7 L ABG Potassium 4.7 H ABG Glucose 112 H Sodium Potassium Chloride BUN Creatinine Glucose POC Glucose 107 H Lactic Acid Magnesium Ferritin Direct Bilirubin AST ALT Lactate Dehydrogenase Troponin T 0.189 H* D NT-Pro-B Natriuret Pep Albumin HDL Cholesterol Arterial Blood Glucose 112 H Arterial Blood Ionized Calcium 07/18/20 07/18/20 07/18/20 15:50 17:27 19:11 WBC RBC Hgb Hct Lymph % (Auto) Lymph # (Auto) Seg Neutrophils % Seg Neuts % (Manual) Lymphocytes % (Manual) Seg Neutrophils # Lymphocytes # (Manual) PT D-Dimer ABG pH POC ABG pCO2 POC ABG pO2 ABG pO2 ABG Base Excess ABG Hemoglobin ABG Oxyhemoglobin ABG Potassium ABG Glucose Sodium Potassium Chloride BUN Creatinine Glucose POC Glucose 156 H Lactic Acid Magnesium Ferritin Direct Bilirubin AST ALT Lactate Dehydrogenase Troponin T 0.182 H* 0.213 H* NT-Pro-B Natriuret Pep Albumin HDL Cholesterol Arterial Blood Glucose Arterial Blood Ionized Calcium 07/18/20 07/19/20 07/19/20 23:10 03:27 05:21 WBC RBC Hgb Hct Lymph % (Auto) Lymph # (Auto) Seg Neutrophils % Seg Neuts % (Manual) Lymphocytes % (Manual) Seg Neutrophils # Lymphocytes # (Manual) PT D-Dimer ABG pH 7.482 H POC ABG pCO2 POC ABG pO2 127.4 H ABG pO2 ABG Base Excess ABG Hemoglobin 11.9 L ABG Oxyhemoglobin ABG Potassium ABG Glucose 131 H Sodium Potassium Chloride BUN Creatinine Glucose POC Glucose 160 H 140 H Lactic Acid Magnesium Ferritin Direct Bilirubin AST ALT Lactate Dehydrogenase Troponin T NT-Pro-B Natriuret Pep Albumin HDL Cholesterol Arterial Blood Glucose 131 H Arterial Blood Ionized Calcium 4.5 L 07/19/20 07/19/20 07/19/20 11:48 16:36 18:32 WBC RBC Hgb Hct Lymph % (Auto) Lymph # (Auto) Seg Neutrophils % Seg Neuts % (Manual) Lymphocytes % (Manual) Seg Neutrophils # Lymphocytes # (Manual) PT D-Dimer ABG pH POC ABG pCO2 POC ABG pO2 ABG pO2 108.2 H ABG Base Excess ABG Hemoglobin 12.3 L ABG Oxyhemoglobin ABG Potassium ABG Glucose Sodium Potassium Chloride BUN Creatinine Glucose POC Glucose 141 H 128 H Lactic Acid Magnesium Ferritin Direct Bilirubin AST ALT Lactate Dehydrogenase Troponin T NT-Pro-B Natriuret Pep Albumin HDL Cholesterol Arterial Blood Glucose Arterial Blood Ionized Calcium 07/19/20 07/20/20 07/20/20 22:36 04:35 04:35 WBC 11.9 H RBC 3.45 L Hgb 10.5 L Hct 31.7 L Lymph % (Auto) Lymph # (Auto) Seg Neutrophils % Seg Neuts % (Manual) Lymphocytes % (Manual) Seg Neutrophils # Lymphocytes # (Manual) PT D-Dimer ABG pH POC ABG pCO2 POC ABG pO2 ABG pO2 ABG Base Excess ABG Hemoglobin ABG Oxyhemoglobin ABG Potassium ABG Glucose Sodium Potassium Chloride 97.8 L BUN 68 H Creatinine 7.4 H Glucose 109 H POC Glucose 121 H Lactic Acid Magnesium Ferritin Direct Bilirubin AST ALT Lactate Dehydrogenase Troponin T NT-Pro-B Natriuret Pep Albumin HDL Cholesterol Arterial Blood Glucose Arterial Blood Ionized Calcium 07/20/20 07/20/20 07/20/20 04:49 11:43 17:30 WBC RBC Hgb Hct Lymph % (Auto) Lymph # (Auto) Seg Neutrophils % Seg Neuts % (Manual) Lymphocytes % (Manual) Seg Neutrophils # Lymphocytes # (Manual) PT D-Dimer ABG pH POC ABG pCO2 POC ABG pO2 ABG pO2 ABG Base Excess ABG Hemoglobin ABG Oxyhemoglobin ABG Potassium ABG Glucose Sodium Potassium Chloride BUN Creatinine Glucose POC Glucose 114 H 110 H 168 H Lactic Acid Magnesium Ferritin Direct Bilirubin AST ALT Lactate Dehydrogenase Troponin T NT-Pro-B Natriuret Pep Albumin HDL Cholesterol Arterial Blood Glucose Arterial Blood Ionized Calcium 07/21/20 07/21/20 07/21/20 04:26 11:41 16:18 WBC RBC Hgb Hct Lymph % (Auto) Lymph # (Auto) Seg Neutrophils % Seg Neuts % (Manual) Lymphocytes % (Manual) Seg Neutrophils # Lymphocytes # (Manual) PT D-Dimer ABG pH POC ABG pCO2 POC ABG pO2 ABG pO2 ABG Base Excess ABG Hemoglobin ABG Oxyhemoglobin ABG Potassium ABG Glucose Sodium Potassium Chloride 97.9 L BUN 64 H Creatinine 6.2 H Glucose 127 H POC Glucose 133 H 153 H Lactic Acid Magnesium 2.50 H Ferritin Direct Bilirubin AST ALT Lactate Dehydrogenase Troponin T NT-Pro-B Natriuret Pep Albumin HDL Cholesterol Arterial Blood Glucose Arterial Blood Ionized Calcium 07/23/20 07/23/20 07/23/20 04:43 04:43 08:44 WBC RBC 3.45 L Hgb 10.5 L Hct 31.3 L Lymph % (Auto) Lymph # (Auto) Seg Neutrophils % Seg Neuts % (Manual) Lymphocytes % (Manual) Seg Neutrophils # Lymphocytes # (Manual) PT D-Dimer ABG pH POC ABG pCO2 POC ABG pO2 ABG pO2 ABG Base Excess ABG Hemoglobin ABG Oxyhemoglobin ABG Potassium ABG Glucose Sodium 136 L Potassium 3.5 L Chloride 94.5 L BUN 65 H Creatinine 5.2 H Glucose 119 H POC Glucose Lactic Acid Magnesium Ferritin Direct Bilirubin AST ALT Lactate Dehydrogenase Troponin T 4.960 H* D 5.820 H* NT-Pro-B Natriuret Pep Albumin HDL Cholesterol Arterial Blood Glucose Arterial Blood Ionized Calcium 07/23/20 11:16 WBC RBC Hgb Hct Lymph % (Auto) Lymph # (Auto) Seg Neutrophils % Seg Neuts % (Manual) Lymphocytes % (Manual) Seg Neutrophils # Lymphocytes # (Manual) PT D-Dimer ABG pH POC ABG pCO2 POC ABG pO2 ABG pO2 ABG Base Excess ABG Hemoglobin ABG Oxyhemoglobin ABG Potassium ABG Glucose Sodium Potassium Chloride BUN Creatinine Glucose POC Glucose 114 H Lactic Acid Magnesium Ferritin Direct Bilirubin AST ALT Lactate Dehydrogenase Troponin T NT-Pro-B Natriuret Pep Albumin HDL Cholesterol Arterial Blood Glucose Arterial Blood Ionized Calcium Allied health notes reviewed: nursing
[2020-07-23] MEDS ORDERED: HEPARIN/ 0.45% NACL DRIP 25,000 UNIT/500 ML BAG IV SCH (12:30)
[2020-07-23] MEDS ORDERED: HEPARIN 10,000 UNITS/10 ML VIAL IV ONE (12:30)
[2020-07-23] MEDS: LOSARTAN 25 MG TAB PO SCH (12:54)
[2020-07-23] MEDS: predniSONE 10 MG TAB PO SCH (12:56)
[2020-07-23] MEDS: cloNIDine 0.2 MG TAB PO SCH ×2 (12:56→22:28)
[2020-07-23] MEDS: METOPROLOL TARTRATE 25 MG TAB PO SCH ×2 (12:56→22:28)
[2020-07-23] MEDS: FAMOTIDINE 10 MG TAB PO SCH ×2 (12:57→22:28)
--- NOTE | 2020-07-23 13:33 | Hem/Onc Consultation ---
History of Present Illness - Reason for Consult Consult date: 07/23/20 Renal Mass Requesting physician: RHONDA BOLANOS - History of Present Illness 64 YO Male with HTN, ESRD, Gout, CHF presents to ED for evaluation of new onset shortness of breath. Patient was found to be in decompensated CHF and acute renal failure requiring emergent hemodialysis. He was initially intubated and critically ill in ICU. Hematology/Oncology consulted for renal mass by admitting physician. CT scan of the abdomen and pelvis revealed 4.7 renal mass in the left kidney and irregular 1.3cm lower lobe nodule in the lung. Patient reports he has had knowledge of the kidney mass for over 15 years without prior intervention. He was told to have yearly scans. The last scan was in 2019. Physical Exam via televisit Patient was alert and oriented x 3 No neuro deficits noted IMP: 64 yo male with a long history of a left renal mass without prior surgery or biopsy Now presents with ARF and started new onset HD + troponins and will have cardiac cath this week Decompensated CHF Acute Respiratory failure now extubated Plan: Urology-evaluation for excision of renal mass Continue Hemodialysis Heparin drip for Acute Coronary Syndrome Past History Past Medical History: ESRD, hypertension, hyperlipidemia, renal failure, other (stable abdominal aortic aneurysm) Past Surgical History: Other (Left arm arteriovenous graft) Social history: , lives with family, smoking (former, quit 2013). denies: alcohol abuse Family history: hypertension Medications and Allergies Allergies Allergy/AdvReac Type Severity Reaction Status Date / Time methadone Allergy Unknown Verified 07/17/20 09:00 tramadol Allergy Swelling Verified 07/17/20 09:00 Home Medications Medication Instructions Recorded Confirmed Last Taken Type Isosorbide Mononitrate [Isosorbide 60 mg PO DAILY 07/20/20 07/20/20 Unknown History Mononitrate ER] NIFEdipine XL [Procardia Xl] 60 mg PO QDAY 07/20/20 07/20/20 Unknown History Sodium Bicarbonate 650 mg PO QID 07/20/20 07/20/20 Unknown History Spironolactone [Aldactone] 25 mg PO QDAY 07/20/20 07/20/20 Unknown History calcitrioL [Rocaltrol] 1 mcg PO QDAY 07/20/20 07/20/20 Unknown History carvediloL [Coreg] 25 mg PO BID 07/20/20 07/20/20 Unknown History cloNIDine [Catapres] 0.2 mg PO QHS 07/20/20 07/20/20 Unknown History hydrALAZINE [Apresoline TAB] 100 mg PO TID 07/20/20 07/20/20 Unknown History Active Meds: Active Medications Acetaminophen (Acetaminophen 650 Mg Rect Supp) 650 mg WA Q6H PRN PRN Reason: Pain MILD(1-3)/Fever >100.5/ALBERTS Albuterol (Albuterol 2.5 Mg/3 Ml Nebu) 2.5 mg IH Q3HRT PRN PRN Reason: Shortness Of Breath Lipase/Protease/Amylase (Lipase 10,500/Protease 25,000/Amylase 43,750 (Units) Dr Cook) 1 each FEEDTUBE PRN PRN PRN Reason: For Clogged Feeding Tube Aspirin (Aspirin 325 Mg Tab) 325 mg PO ONCE ONE Stop: 07/24/20 06:01 Atorvastatin Calcium (Atorvastatin 20 Mg Tab) 20 mg PO QHS [facility] Last Admin: 07/22/20 21:49 Dose: 20 mg Documented by: Clonidine HCl (Clonidine 0.2 Mg Tab) 0.2 mg PO Q12HR [facility] Last Admin: 07/23/20 12:56 Dose: 0.2 mg Documented by: Famotidine (Famotidine 10 Mg Tab) 10 mg PO BID [facility] Last Admin: 07/23/20 12:57 Dose: 10 mg Documented by: Heparin Sodium (Porcine) (Heparin 10,000 Units/10 Ml Vial) 3,900 unit 40 unit/kg (3900 unit) IV Q6H PRN PRN Reason: Anti-Xa Assay < 0.1 units/ml Hydralazine HCl (Hydralazine 20 Mg/1 Ml Inj) 10 mg IV Q4H PRN PRN Reason: SBP >/=170; DBP >/=100 Last Admin: 07/21/20 01:39 Dose: 10 mg Documented by: Hydromorphone HCl (Hydromorphone 1 Mg/1 Ml Inj) 0.25 mg IV Q4H PRN PRN Reason: Pain, Moderate (4-6) Last Admin: 07/23/20 04:12 Dose: 0.25 mg Documented by: Hydrophilic Ointment (Lip Therapy Vaseline) 1 applic TP Q2HR PRN PRN Reason: Dry Lips Sodium Chloride (Nacl 0.9%) 100 mls @ 999 mls/hr IV ANDRÉS PRN PRN Reason: Hypotension Heparin Sodium/Sodium Chloride (Heparin/ 0.45% Nacl-25,000 Unit/500 Ml) 25,000 unit in 500 mls @ 20 mls/hr IV TITRATE ALIX; Protocol Losartan Potassium (Losartan 25 Mg Tab) 50 mg PO QDAY [facility] Last Admin: 07/23/20 12:54 Dose: 50 mg Documented by: Metoprolol Tartrate (Metoprolol Tartrate 25 Mg Tab) 25 mg PO BID [facility] Last Admin: 07/23/20 12:56 Dose: 25 mg Documented by: Multi-Ingred Cream/Lotion/Oil/Oint (Mineral Oil/Petrolatum, White Ophth Oint 3.5 Gm) 1 applic OU Q4HR PRN PRN Reason: Dry Eye(s) Prednisone (Prednisone 10 Mg Tab) 10 mg PO QDAY [facility] Stop: 07/25/20 10:01 Last Admin: 07/23/20 12:56 Dose: 10 mg Documented by: Sodium Chloride (Sodium Chloride 0.9% 10 Ml Flush Syringe) 10 ml IV BID [facility] Last Admin: 07/23/20 12:59 Dose: 10 ml Documented by: Sodium Chloride (Sodium Chloride 0.9% 10 Ml Flush Syringe) 10 ml IV PRN PRN PRN Reason: LINE FLUSH Exam - Constitutional Vitals: Last Vital Signs Temp 98.3 F 07/23/20 12:39 Pulse 70 07/23/20 12:56 Resp 16 07/23/20 06:43 BP 172/90 07/23/20 12:39 Pulse Ox 92 07/23/20 06:43 Results - Labs lab Results: Laboratory Results - last 24 hr 07/23/20 07/23/20 07/23/20 04:43 04:43 08:13 WBC 7.7 RBC 3.45 L Hgb 10.5 L Hct 31.3 L MCV 91 MCH 31 MCHC 34 RDW 13.8 Plt Count 216 Sodium 136 L Potassium 3.5 L Chloride 94.5 L Carbon Dioxide 26 Anion Gap 19 BUN 65 H Creatinine 5.2 H Estimated GFR 14 BUN/Creatinine Ratio 13 Glucose 119 H POC Glucose 90 Calcium 9.0 Troponin T 4.960 H* D 07/23/20 07/23/20 08:44 11:16 WBC RBC Hgb Hct MCV MCH MCHC RDW Plt Count Sodium Potassium Chloride Carbon Dioxide Anion Gap BUN Creatinine Estimated GFR BUN/Creatinine Ratio Glucose POC Glucose 114 H Calcium Troponin T 5.820 H*
--- NOTE | 2020-07-23 14:10 | Progress Note ---
Assessment and Plan Acute heart failure with reduced ejection fraction in setting of cardiomyopathy * Echo reviewed - 07/18/2020 - EF 35-40%, impaired LV relaxation, RV mildly dilated, LA severely dilated, RA mildly dilated, RVSP 54mmHg, mild AR, aortic root mildly dilated. * Continue goal-directed therapy with cardioprotective regimen: Aspirin 325, atorvastatin 20 mg, metoprolol 25 mg twice daily, increase losartan 50 mg daily. Outpatient follow-up with cardiac rehab has been ordered. NSTEMI * Troponins have elevated sharply overnight with some ecg changes noted. Patient is currently chest pain-free. Discontinue heparin SQ and initiate heparin gtt. with standard titration protocol. * We'll plan for cardiac cath in a.m. Potential risks and benefits of the procedure were discussed with the patient at bedside and he is agreeable to proceed at this time. N.p.o. after midnight. CKD with newly classified end-stage renal disease initiated on hemodialysis * Patient has been initiated on dialysis with plans to continue on // dialysis rotation. Acute respiratory failure with pulmonary hypertension * CTA chest is negative for PTE, however suspicious mass noted in left lower lobe and renal mass. Heme-onc is consulted. DVT prophylaxis * Heparin gtt Plan for cardiac cath in a.m. N.p.o. after midnight. Will follow This patient was seen in conjunction with Dr. Pako Lyn who agrees with assessment plan of care - Patient Problems (1) Acute respiratory failure Current Visit: Yes Status: Acute (2) Acute HFrEF (heart failure with reduced ejection fraction) Current Visit: Yes Status: Acute (3) Cardiomyopathy Current Visit: Yes Status: Acute (4) Pulmonary HTN Current Visit: Yes Status: Acute (5) ESRD needing dialysis Current Visit: Yes Status: Acute (6) Anemia Current Visit: Yes Status: Chronic (7) Thoracic aortic aneurysm Current Visit: Yes Status: Acute Qualifiers: Presence of rupture: without rupture Qualified Code(s): I71.2 - Thoracic aortic aneurysm, without rupture (8) Abdominal aortic aneurysm Current Visit: Yes Status: Chronic Qualifiers: Presence of rupture: without rupture Qualified Code(s): I71.4 - Abdominal aortic aneurysm, without rupture Plan to address problem: 3.6 x 3.3 cm fusiform aneurysm on CT 10/2017, 3.4 cm on MRI 05/2018 (9) NSTEMI (non-ST elevated myocardial infarction) Current Visit: Yes Status: Acute Plan to address problem: (10) Hypertension Current Visit: Yes Status: Chronic Qualifiers: Hypertension type: essential hypertension Qualified Code(s): I10 - Essential (primary) hypertension (11) HLD (hyperlipidemia) Current Visit: Yes Status: Chronic Qualifiers: Hyperlipidemia type: mixed hyperlipidemia Qualified Code(s): E78.2 - Mixed hyperlipidemia (12) Chronic venous insufficiency of lower extremity Current Visit: Yes Status: Chronic Subjective Date of service: 07/23/20 Principal diagnosis: Ac. hypoxemic resp failure; Pulm Edema; PUI COVID-19; ROSA ELENA on CKD; NSTEMI Interval history: Patient resting comfortably in bed. No shortness of breath or chest pain overnight Telemetry reviewed: Sinus rhythm 67 with frequent PVCs. No events Objective Last Vital Signs Temp 98.3 F 07/23/20 12:39 Pulse 70 07/23/20 12:56 Resp 16 07/23/20 06:43 BP 172/90 07/23/20 12:39 Pulse Ox 92 07/23/20 06:43 - Physical Examination General: No Apparent Distress HEENT: Positive: EOMI, Normocephaly Neck: Positive: neck supple, trachea midline. Negative: JVD/HJR Cardiac: Positive: Reg Rate and Rhythm, S1/S2 Lungs: Positive: Normal Exam Neuro: Positive: Grossly Intact Abdomen: Positive: Soft Skin: Negative: Rash Musculoskeletal: No Fluid Collection, No Pain Extremities: Present: lower extr. pulses, warm. Absent: edema - Labs and Meds CBC 07/23/20 Range/Units 04:43 WBC 7.7 (4.5-11.0) K/mm3 RBC 3.45 L (3.65-5.03) M/mm3 Hgb 10.5 L (11.8-15.2) gm/dl Hct 31.3 L (35.5-45.6) % Plt Count 216 (140-440) K/mm3 Comprehensive Metabolic Panel 07/23/20 Range/Units 04:43 Sodium 136 L (137-145) mmol/L Potassium 3.5 L (3.6-5.0) mmol/L Chloride 94.5 L (98-107) mmol/L Carbon Dioxide 26 (22-30) mmol/L BUN 65 H (9-20) mg/dL Creatinine 5.2 H (0.8-1.3) mg/dL Glucose 119 H (75-100) mg/dL Calcium 9.0 (8.4-10.2) mg/dL - Imaging and Cardiology EKG: report reviewed, image reviewed Echo: report reviewed (07/18/2020 - EF 35-40%, impaired LV relaxation, RV mildly dilated, LA severely dilated, RA mildly dilated, mild AR, aortic root mildly dil ated), other (07/2019 - LV mildly dilated, LV wall thickness mild-mod increased, EF 50-55%, grade 2 diastolic dysfxn, RV mildly dilated, LA volume mod increased, mild AR, mild-mod MR, mild TR, mild pulm HTN 2/RVSP 41.28mmHg, ascending aorta mod dilated w/diameter 4.22cm) Cardiac cath: pending - EKG Sinus rhythms and dysrhythmias: sinus rhythm Ventricular dysrhythmias: ventricular premature com AV and intraventricular conduction: right bundle branch block Repolarization changes or abnormalities: nonspecific abnormality, ST segment, and/or T wave - Allied health notes Allied health notes reviewed: nursing
[2020-07-23 14:20] LABS: Hematocrit 32.3 % (35.5-45.6); Hemoglobin 10.8 gm/dl (11.8-15.2); Mean Corpuscular HGB Conc 33 % (32-34); Mean Corpuscular Volume 90 fl (84-94); Platelet Count 241 K/mm3 (140-440); Red Blood Count 3.58 M/mm3 (3.65-5.03); Red Cell Distribution Width 13.5 % (13.2-15.2)
[2020-07-23 14:30] LABS: INR 1.12 (0.87-1.13)
--- NOTE | 2020-07-23 15:57 | Progress Note ---
Assessment and Plan 1. CKD 5, now ESKD: Patient follows with Dr. Stephens, was to start HD at [facility] but unfortunately decompensated prior to outpatient HD initiation. - s/p HD 07/17 for initial treatment, had treatment 07/18 and 07/20; Continue HD MWF for toxin/electrolyte management and fluid removal - renally dose meds - avoid nephrotoxins - AVG working well per report - case management consult to assist with placement at [facility] for outpatient HD 2. HTN/Volume: UF removal as tolerated, BP reasonable 3. Acute hypoxic resp failure: now extubated, pulmonology following. CT findings and vascular recommendations noted. 4. DM type 2. 5. Normochromic anemia: likely due to CKD/ESKD, ESAs with HD prn 6. L kidney mass: managed in outpatient setting by urology 7. Secondary Hyperparathyroidism: defer vitamin D analog to outpatient setting, Ca at goal 8. Aortic Aneurysm: vascular following 9. Elevated troponin. Plan for cath tomorrow noted. Subjective Date of service: 07/23/20 Principal diagnosis: Ac. hypoxemic resp failure; Pulm Edema; PUI COVID-19; ROSA ELENA on CKD; NSTEMI Interval history: Denies chest pain. Tolerating oral diet. Objective - Exam Narrative Exam: General: No acute distress HEENT: ATNC Neck: Supple, no JVD Chest: Bilateral rhonchi Heart: RRR, S1 and S2, no pericardial rub Abdomen: Soft, nontender, no renal bruit Extremity: No peripheral cyanosis, edema Neurological: Alert, awake, no asterixis Dermatology: No skin rash Psych: No agitation Musculoskeletal: No joint effusion - Vital Signs Vital signs: Vital Signs - 12hr 07/23/20 07/23/20 07/23/20 04:00 04:51 06:43 Temperature 99.0 F 98.6 F Pulse Rate 53 L 64 57 L Respiratory 16 16 Rate Blood Pressure 132/75 142/75 Blood Pressure [Right] O2 Sat by Pulse 97 92 Oximetry 07/23/20 07/23/20 07/23/20 08:00 12:39 12:54 Temperature 98.3 F Pulse Rate 90 61 65 Respiratory Rate Blood Pressure Blood Pressure 172/90 [Right] O2 Sat by Pulse Oximetry 07/23/20 12:56 Temperature Pulse Rate 70 Respiratory Rate Blood Pressure Blood Pressure [Right] O2 Sat by Pulse Oximetry - Lab 07/23/20 13:56 07/23/20 04:43 Most recent lab results ABG pH 7.385 pH Units (7.350-7.450) 07/19/20 16:36 ABG pCO2 43.5 mm Hg 07/19/20 16:36 ABG pO2 108.2 mm Hg (80.0-90.0) H 07/19/20 16:36 ABG HCO3 25.5 mmol/L (20.0-26.0) 07/19/20 16:36 ABG O2 Saturation 97.8 % (95.0-99.0) 07/19/20 16:36 Calcium 9.0 mg/dL (8.4-10.2) 07/23/20 04:43 Magnesium 2.50 mg/dL (1.7-2.3) H 07/21/20 04:26 Medications & Allergies - Medications Allergies/Adverse Reactions: Allergies methadone Allergy (Verified 07/17/20 09:00) Unknown tramadol Allergy (Verified 07/17/20 09:00) Swelling Home Medications: Home Medications Medication Instructions Recorded Confirmed Last Taken Type Isosorbide Mononitrate [Isosorbide 60 mg PO DAILY 07/20/20 07/20/20 Unknown History Mononitrate ER] NIFEdipine XL [Procardia Xl] 60 mg PO QDAY 07/20/20 07/20/20 Unknown History Sodium Bicarbonate 650 mg PO QID 07/20/20 07/20/20 Unknown History Spironolactone [Aldactone] 25 mg PO QDAY 07/20/20 07/20/20 Unknown History calcitrioL [Rocaltrol] 1 mcg PO QDAY 07/20/20 07/20/20 Unknown History carvediloL [Coreg] 25 mg PO BID 07/20/20 07/20/20 Unknown History cloNIDine [Catapres] 0.2 mg PO QHS 07/20/20 07/20/20 Unknown History hydrALAZINE [Apresoline TAB] 100 mg PO TID 07/20/20 07/20/20 Unknown History Active Medications: Generic Name Dose Route Start Last Admin Trade Name Freq PRN Reason Stop Dose Admin Acetaminophen 650 mg 07/17/20 12:29 Acetaminophen 650 Mg Rect Supp MT Q6H PRN Pain MILD(1-3)/Fever >100.5/ALBERTS Albuterol 2.5 mg 07/17/20 12:29 Albuterol 2.5 Mg/3 Ml Nebu IH Q3HRT PRN Shortness Of Breath Lipase/Protease/Amylase 1 each 07/17/20 16:00 Lipase 10,500/Protease 25,000/Amylase 43,750 (Units) Dr Cook FEEDTUBE PRN PRN For Clogged Feeding Tube Aspirin 325 mg 07/24/20 06:00 Aspirin 325 Mg Tab PO 07/24/20 06:01 ONCE ONE Atorvastatin Calcium 20 mg 07/19/20 22:00 07/22/20 21:49 Atorvastatin 20 Mg Tab PO 20 mg QHS ALIX Administration Clonidine HCl 0.2 mg 07/19/20 22:00 07/23/20 12:56 Clonidine 0.2 Mg Tab PO 0.2 mg Q12HR ALIX Administration Famotidine 10 mg 07/22/20 12:00 07/23/20 12:57 Famotidine 10 Mg Tab PO 10 mg BID ALIX Administration Heparin Sodium (Porcine) 3,900 unit 07/23/20 11:58 Heparin 10,000 Units/10 Ml Vial 40 unit/kg (3900 unit) IV Q6H PRN Anti-Xa Assay < 0.1 units/ml Hydralazine HCl 10 mg 07/18/20 14:00 07/21/20 01:39 Hydralazine 20 Mg/1 Ml Inj IV 10 mg Q4H PRN Administration SBP >/=170; DBP >/=100 Hydromorphone HCl 0.25 mg 07/17/20 12:29 07/23/20 04:12 Hydromorphone 1 Mg/1 Ml Inj IV 0.25 mg Q4H PRN Administration Pain, Moderate (4-6) Hydrophilic Ointment 1 applic 07/17/20 13:56 Lip Therapy Vaseline TP Q2HR PRN Dry Lips Sodium Chloride 100 mls @ 999 mls/hr 07/17/20 16:00 Nacl 0.9% IV ANDRÉS PRN Hypotension Heparin Sodium/Sodium Chloride 25,000 unit in 500 mls @ 20 mls/hr 07/23/20 12:30 07/23/20 13:44 Heparin/ 0.45% Nacl-25,000 Unit/500 Ml IV 1,000 units/hr TITRATE ALIX 20 mls/hr Administration Protocol 1,000 UNITS/HR Losartan Potassium 50 mg 07/22/20 12:30 07/23/20 12:54 Losartan 25 Mg Tab PO 50 mg QDAY ALIX Administration Metoprolol Tartrate 25 mg 07/20/20 22:00 07/23/20 12:56 Metoprolol Tartrate 25 Mg Tab PO 25 mg BID ALIX Administration Multi-Ingred Cream/Lotion/Oil/Oint 1 applic 07/17/20 13:56 Mineral Oil/Petrolatum, White Ophth Oint 3.5 Gm OU Q4HR PRN Dry Eye(s) Prednisone 10 mg 07/21/20 10:00 07/23/20 12:56 Prednisone 10 Mg Tab PO 07/25/20 10:01 10 mg QDAY ALIX Administration Sodium Chloride 10 ml 07/17/20 22:00 07/23/20 12:59 Sodium Chloride 0.9% 10 Ml Flush Syringe IV 10 ml BID ALIX Administration Sodium Chloride 10 ml 07/17/20 12:29 Sodium Chloride 0.9% 10 Ml Flush Syringe IV PRN PRN LINE FLUSH
[2020-07-23 16:08] LABS: Total Cells Counted 100
[2020-07-23 16:09] LABS: RBC Morphology Normal
[2020-07-23 20:25] LABS: Creatine Kinase MB 2.9 ng/mL (0.0-4.0)
[2020-07-24 05:05] LABS: Basophils % (Auto) 0.2 % (0.0-1.8); Eosinophils % (Auto) 0.5 % (0.0-4.3); Hemoglobin 10.5 gm/dl (11.8-15.2); Lymphocytes # (Auto) 1.3 K/mm3 (1.2-5.4); Lymphocytes % (Auto) 15.7 % (13.4-35.0); Mean Corpuscular HGB Conc 34 % (32-34); Mean Corpuscular Volume 91 fl (84-94); Monocytes # (Auto) 1.2 K/mm3 (0.0-0.8); Monocytes % (Auto) 14.4 % (0.0-7.3); Platelet Count 227 K/mm3 (140-440); Red Blood Count 3.41 M/mm3 (3.65-5.03); Red Cell Distribution Width 13.1 % (13.2-15.2)
[2020-07-24 05:14] LABS: INR 1.03 (0.87-1.13)
[2020-07-24 05:28] LABS: Calcium 9.1 mg/dL (8.4-10.2)
[2020-07-24] MEDS ORDERED: ASPIRIN 325 MG TAB PO ONE (06:00)
[2020-07-24] MEDS: HEPARIN 5,000 UNIT/1 ML VIAL SUB-Q SCH ×3 (07:40→21:17)
[2020-07-24] MEDS: ASPIRIN 325 MG TAB PO SCH (07:40)
[2020-07-24] MEDS ORDERED: SODIUM CHLORIDE 0.9% 500 ML 500 ML IV SCH (09:00)
[2020-07-24] MEDS ORDERED: MIDAZOLAM 2 MG/2 ML INJ ONE (09:09)
[2020-07-24] MEDS ORDERED: fentaNYL 100 MCG/2 ML INJ ONE (09:09)
[2020-07-24] MEDS ORDERED: HEPARIN 10,000 UNITS/10 ML VIAL ONE (09:09)
[2020-07-24] MEDS ORDERED: HEPARIN/NS 5000 UNIT/500ML 1,000 ML IR ONE (09:09)
[2020-07-24] MEDS: LIDOCAINE (2%) 20 MG/1 ML VIAL 20 ML MDV INFILTRATI ONE ×2 (09:46→09:49)
[2020-07-24] MEDS: LOSARTAN 25 MG TAB PO SCH (10:58)
[2020-07-24] MEDS: cloNIDine 0.2 MG TAB PO SCH ×2 (11:00→21:17)
[2020-07-24] MEDS: FAMOTIDINE 10 MG TAB PO SCH ×2 (11:00→21:16)
[2020-07-24] MEDS: METOPROLOL TARTRATE 25 MG TAB PO SCH ×2 (11:01→21:17)
[2020-07-24] MEDS: predniSONE 10 MG TAB PO SCH (11:03)
--- NOTE | 2020-07-24 11:05 | Progress Note ---
Assessment and Plan Acute heart failure with reduced ejection fraction in setting of cardiomyopathy * Echo reviewed - 07/18/2020 - EF 35-40%, impaired LV relaxation, RV mildly dilated, LA severely dilated, RA mildly dilated, RVSP 54mmHg, mild AR, aortic root mildly dilated. * Continue goal-directed therapy with cardioprotective regimen: Aspirin, increase atorvastatin to 40 mg, metoprolol 25 mg twice daily, increase losartan 50 mg daily. Outpatient follow-up with cardiac rehab has been ordered. NSTEMI * Heparin gtt discontinued. * LHC (07/24/2020): 70% distal LAD no stent, plan to address medically with [facility]. * Initiate aspirin 81 mg, Plavix 75 mg daily. CKD with newly classified end-stage renal disease initiated on hemodialysis * Patient has been initiated on dialysis with plans to continue on // dialysis rotation. Acute respiratory failure with pulmonary hypertension * CTA chest is negative for PTE, however suspicious mass noted in left lower lobe and renal mass. Heme-onc is consulted. DVT prophylaxis * Heparin SQ Patient is currently stable cardiac status. Nothing further from cardiac standpoint. Will follow on as-needed basis Patient should follow-up with Dr Rosales, [facility] gis specialist in our [place] location on 08/30/2020 at 2:30 PM. #[phone] This patient was seen in conjunction with Dr. Navarro who agrees with assessment plan of care - Patient Problems (1) Acute respiratory failure Current Visit: Yes Status: Acute (2) Acute HFrEF (heart failure with reduced ejection fraction) Current Visit: Yes Status: Acute (3) Cardiomyopathy Current Visit: Yes Status: Acute (4) Pulmonary HTN Current Visit: Yes Status: Acute (5) ESRD needing dialysis Current Visit: Yes Status: Acute (6) Anemia Current Visit: Yes Status: Chronic (7) Thoracic aortic aneurysm Current Visit: Yes Status: Acute Qualifiers: Presence of rupture: without rupture Qualified Code(s): I71.2 - Thoracic aortic aneurysm, without rupture (8) Abdominal aortic aneurysm Current Visit: Yes Status: Chronic Qualifiers: Presence of rupture: without rupture Qualified Code(s): I71.4 - Abdominal aortic aneurysm, without rupture Plan to address problem: 3.6 x 3.3 cm fusiform aneurysm on CT 10/2017, 3.4 cm on MRI 05/2018 (9) NSTEMI (non-ST elevated myocardial infarction) Current Visit: Yes Status: Acute Plan to address problem: (10) Hypertension Current Visit: Yes Status: Chronic Qualifiers: Hypertension type: essential hypertension Qualified Code(s): I10 - Essential (primary) hypertension (11) HLD (hyperlipidemia) Current Visit: Yes Status: Chronic Qualifiers: Hyperlipidemia type: mixed hyperlipidemia Qualified Code(s): E78.2 - Mixed hyperlipidemia (12) Chronic venous insufficiency of lower extremity Current Visit: Yes Status: Chronic Subjective Date of service: 07/24/20 Principal diagnosis: Ac. hypoxemic resp failure; Pulm Edema; PUI COVID-19; ROSA ELENA on CKD; NSTEMI Interval history: Patient resting comfortably in bed. No shortness of breath or chest pain overnight Telemetry reviewed: Sinus rhythm 66 frequent PVCs. Objective Last Vital Signs Temp 98.1 F 07/24/20 08:05 Pulse 58 L 07/24/20 08:05 Resp 20 07/24/20 08:05 BP 169/94 07/24/20 08:05 Pulse Ox 98 07/24/20 08:05 - Physical Examination General: No Apparent Distress HEENT: Positive: EOMI, Normocephaly Neck: Positive: neck supple, trachea midline. Negative: JVD/HJR Cardiac: Positive: Reg Rate and Rhythm, S1/S2 Neuro: Positive: Grossly Intact Abdomen: Positive: Soft Skin: Negative: Rash Musculoskeletal: No Fluid Collection, No Pain Extremities: Present: lower extr. pulses, warm. Absent: edema - Labs and Meds Cardiac Enzymes 07/23/20 Range/Units 19:49 CK-MB (CK-2) 2.9 (0.0-4.0) ng/mL Coagulation 07/23/20 07/24/20 Range/Units 13:56 04:44 PT 15.0 H 14.1 (12.2-14.9) Sec. INR 1.12 1.03 (0.87-1.13) CBC 07/23/20 07/24/20 Range/Units 13:56 04:44 WBC 7.8 8.4 (4.5-11.0) K/mm3 RBC 3.58 L 3.41 L (3.65-5.03) M/mm3 Hgb 10.8 L 10.5 L (11.8-15.2) gm/dl Hct 32.3 L 31.0 L (35.5-45.6) % Plt Count 241 227 (140-440) K/mm3 Lymph # (Auto) 1.3 (1.2-5.4) K/mm3 [place] # (Auto) 1.2 H (0.0-0.8) K/mm3 Eos # (Auto) 0.0 (0.0-0.4) K/mm3 Baso # (Auto) 0.0 (0.0-0.1) K/mm3 Comprehensive Metabolic Panel 07/24/20 Range/Units 04:44 Sodium 137 (137-145) mmol/L Potassium 4.1 (3.6-5.0) mmol/L Chloride 95.8 L (98-107) mmol/L Carbon Dioxide 27 (22-30) mmol/L BUN 77 H (9-20) mg/dL Creatinine 6.0 H (0.8-1.3) mg/dL Glucose 97 (75-100) mg/dL Calcium 9.1 (8.4-10.2) mg/dL - Imaging and Cardiology EKG: report reviewed, image reviewed Echo: report reviewed (07/18/2020 - EF 35-40%, impaired LV relaxation, RV mildly dilated, LA severely dilated, RA mildly dilated, mild AR, aortic root mildly dilated), other (07/2019 - LV mildly dilated, LV wall thickness mild-mod increased, EF 50-55%, grade 2 diastolic dysfxn, RV mildly dilated, LA volume mod increased, mild AR, mild-mod MR, mild TR, mild pulm HTN 2/RVSP 41.28mmHg, ascending aorta mod dilated w/diameter 4.22cm) Cardiac cath: report reviewed - Telemetry EKG Rhythm: Sinus Rhythm - EKG Sinus rhythms and dysrhythmias: sinus rhythm Ventricular dysrhythmias: ventricular premature com AV and intraventricular conduction: right bundle branch block Repolarization changes or abnormalities: nonspecific abnormality, ST segment, and/or T wave - Allied health notes Allied health notes reviewed: nursing
--- NOTE | 2020-07-24 11:27 | Progress Note ---
Assessment and Plan Assessment and plan: --non-STEMI: Current Visit: Yes Status: Acute Cardiology evaluated the patient recommend heparin drip s/p left heart catheterization,; LAD 70% stenosis Cards recommend medical management --Acute hypoxemic respiratory failure s/p extubated Current Visit: Yes Status: Acute Status post extubation, oxygen titrate O2 sats to more than 90% Continue current management, Pulmonary following --Left renal mass ; Current Visit: Yes Status: Acute . Evaluated by hematology oncologist Recommend urology evaluation for possible nephrectomy Will consult urology for further evaluation and management . He has --Acute systolic CHF (congestive heart failure) EF 35 to 40% Current Visit: Yes Status: Acute Continue antifailure medication strict I/O, monitor urine output every shift, Low-sodium diet, fluid restriction cardiology following, -- End stage renal disease; on HD/MWF Current Visit: Yes Status: Acute Nephrology following, HD per schedule Confirmed with case management about outpatient HD chair scheduling Continue current management -- Hypertension/moderate control Current Visit: Yes Status: Acute Closely monitor blood pressures, adjust medications as needed --Abdominal aneurysm Current Visit: Yes Status: Chronic --Bilateral pulmonary infiltrates likely secondary to pulmonary edema Current Visit: Yes Status: Acute Continue antifailure medications and supportive care --PUI [id number] out --Chronic venous insufficiency of lower extremity Current Visit: Yes Status: Chronic Supportive care --angioedema upper lip; Current Visit: Yes Status: Chronic Currently improved, supportive care -- DVT prophylaxis Current Visit: Yes Status: Acute Plan to address problem: SCD to bilateral lower extremities while in bed, prophylactic anticoagulation We will closely monitor patient and adjust management as needed Plan of care reviewed with the patient and his nurse Cardiology evaluation recommendations noted and appreciated Started on heparin drip due to elevated cardiac enzymes And possible left heart catheterization tomorrow Patient n.p.o. from midnight Brief history and daily hospital course; 64 YO Male with HTN, ESRD, Gout, CHF presents to ED for evaluation. Patient is intubated and on ventilatory support at the time my evaluation and is unable to provide history. Patient history taken from EMS staff, ED staff, as well as the patient's Mrs Santa Dodge who was made available by telephone for interview. As per patient's the patient has experienced progressive weakness over the past 2 months with worsening symptoms over the last 1 week. Patient was found to have orthopnea, paroxysmal nocturnal dyspnea, decreased exercise tolerance, dyspnea on exertion, as well as dyspnea at rest. Patient reports leaving patient at home while she went to work today. She was subsequently notified by the patient's brother who notified EMS due to patient reporting shortness of breath. EMS was notified and upon arrival the patient was found to be in distress with a pulse oximetry of 60% on room air. The patient was placed on supplemental oxygen and transported to [facility] for further care and evaluation of the aforementioned symptoms. The patient was seen and evaluated in the emergency department. All lab and imaging studies reviewed. Patient found to be unable to protect his airway and was subsequently intubated and placed on ventilatory support. Patient also found to have end-stage renal disease in need of urgent dialysis, CHF decompensation. Patient admitted to ICU. Critical care team consulted in ED. Nephrology team consulted in ED. Advanced care planning conducted in ED. No prior admission for review. All medication listed at time of admission has been reconciled. Consultants Cardiology, varnishing unit operator, grinder mill operator. 07/18: Patient initiated with dialysis today. Covid test was done and is negative. Anemia likely anemia of chronic disease. Will follow consultants recommendation for further management. Echocardiogram pending 07/19: Patient started with dialysis. Anticipate trial of weaning today. BP elevated, clonodine restarted, will increase to home dose. Continue current management 07/20: Patient now extubated. Did have dialysis with improvement in respiratory status which aided extubation. Patient however has an edematous upper lip questionable angioedema. We will give a dose of Benadryl, H2 carly and a dose of steroids and monitor. Patient can be transitioned to telemetry if okay with grinder mill operator. IR consulted to evaluate abdominal aneurysm continue current management by journeyman operator assistant to monitor all medications to see what could be resulting to the angioedema. 07/21: Continue supportive care. Will start patient on low-dose steroids considering noted angioedema. Discussed with varnishing unit operator about recommendation by vascular/IR and they are okay with proceeding. Risk discussed with patient he verbalized understanding. We will proceed with CT angio of the chest abdomen and pelvis to further evaluate aneurysmal findings. Per varnishing unit operator patient will be dialyzed tomorrow. 07/22: Unfortunately CTA of the chest on anterior and abdomen was discontinued yesterday and not sure by who this has been reordered prior to dialysis. There is concern for a renal mass we will consult hematology to assist with management although will await varnishing unit operator input a and vascular input on this. Continue current management initial plan for discharge will be held at this time until appropriate diagnostic measures are made. Also significant irregularity noted on the aneurysm will await vascular input is noted. Cardiology surgical planning ischemic work-up 07/23/2020; patient feels slightly better, worsening cardiac enzymes, cardiology started heparin drip, left heart catheterization tomorrow, n.p.o. from midnight HD per schedule, overall patient feels slightly better today 07/24/2020;s/p heart cath, 70% LAD, no stent or intervention, medical management with aspirin and Plavix per cardiology Closely monitor the patient, possible discharge in 1 to 2 days if stable and cleared by cardiology History Interval history: I have seen and examined the patient at the bedside today Patient's chart and medications reviewed Patient underwent left heart catheterization Revealed 70% LAD, no stent required, medical management with aspirin and Plavix Patient feels slightly better no new complaints Vital signs noted Hospitalist Physical - Constitutional Vitals: Temp Pulse Resp BP Pulse Ox 98.1 F 56 L 20 171/84 98 07/24/20 08:05 07/24/20 11:01 07/24/20 08:05 07/24/20 11:01 07/24/20 08:05 General appearance: Present: no acute distress, well-nourished - EENT Eyes: Present: PERRL, EOM intact - Neck Neck: Present: supple, normal ROM - Respiratory Respiratory effort: normal Respiratory: bilateral: diminished, negative: rales, rhonchi, wheezing - Cardiovascular Rhythm: regular Heart Sounds: Present: S1 & S2 - Extremities Extremities: no ischemia, No edema - Abdominal General gastrointestinal: soft, non-tender, non-distended, normal bowel sounds - Integumentary Integumentary: Present: clear, warm - Psychiatric Psychiatric: appropriate mood/affect, cooperative - Neurologic Neurologic: CNII-XII intact, moves all extremities HEART Score - HEART Score Troponin: Troponin T 4.710 ng/mL (0.00-0.029) H* 07/23/20 19:49 Results - Labs CBC & Chem 7: 07/24/20 04:44 07/24/20 04:44 Labs: Laboratory Last Values WBC 8.4 K/mm3 (4.5-11.0) 07/24/20 04:44 RBC 3.41 M/mm3 (3.65-5.03) L 07/24/20 04:44 Hgb 10.5 gm/dl (11.8-15.2) L 07/24/20 04:44 Hct 31.0 % (35.5-45.6) L 07/24/20 04:44 MCV 91 fl (84-94) 07/24/20 04:44 MCH 31 pg (28-32) 07/24/20 04:44 MCHC 34 % (32-34) 07/24/20 04:44 RDW 13.1 % (13.2-15.2) L 07/24/20 04:44 Plt Count 227 K/mm3 (140-440) 07/24/20 04:44 Lymph % (Auto) 15.7 % (13.4-35.0) 07/24/20 04:44 [place] % (Auto) 14.4 % (0.0-7.3) H 07/24/20 04:44 Eos % (Auto) 0.5 % (0.0-4.3) 07/24/20 04:44 Baso % (Auto) 0.2 % (0.0-1.8) 07/24/20 04:44 Lymph # (Auto) 1.3 K/mm3 (1.2-5.4) 07/24/20 04:44 [place] # (Auto) 1.2 K/mm3 (0.0-0.8) H 07/24/20 04:44 Eos # (Auto) 0.0 K/mm3 (0.0-0.4) 07/24/20 04:44 Baso # (Auto) 0.0 K/mm3 (0.0-0.1) 07/24/20 04:44 Add Manual Diff Complete 07/23/20 13:56 Total Counted 100 07/23/20 13:56 Seg Neutrophils % 69.2 % (40.0-70.0) 07/24/20 04:44 Seg Neuts % (Manual) 62.0 % (40.0-70.0) 07/23/20 13:56 Lymphocytes % (Manual) 16.0 % (13.4-35.0) 07/23/20 13:56 Monocytes % (Manual) 20.0 % (0.0-7.3) H 07/23/20 13:56 Eosinophils % (Manual) 1.0 % (0.0-4.3) 07/23/20 13:56 Basophils % (Manual) 1.0 % (0.0-1.8) 07/23/20 13:56 Nucleated RBC % Not Reportable 07/23/20 13:56 Seg Neutrophils # 5.8 K/mm3 (1.8-7.7) 07/24/20 04:44 Seg Neutrophils # Man 4.8 K/mm3 (1.8-7.7) 07/23/20 13:56 Band Neutrophils # 0.0 K/mm3 07/23/20 13:56 Lymphocytes # (Manual) 1.2 K/mm3 (1.2-5.4) 07/23/20 13:56 Abs React Lymphs (Man) 0.0 K/mm3 07/23/20 13:56 Monocytes # (Manual) 1.6 K/mm3 (0.0-0.8) H 07/23/20 13:56 Eosinophils # (Manual) 0.1 K/mm3 (0.0-0.4) 07/23/20 13:56 Basophils # (Manual) 0.1 K/mm3 (0.0-0.1) 07/23/20 13:56 Metamyelocytes # 0.0 K/mm3 07/23/20 13:56 Myelocytes # 0.0 K/mm3 07/23/20 13:56 Promyelocytes # 0.0 K/mm3 07/23/20 13:56 Blast Cells # 0.0 K/mm3 07/23/20 13:56 WBC Morphology Not Reportable 07/23/20 13:56 Hypersegmented Neuts Not Reportable 07/23/20 13:56 Hyposegmented Neuts Not Reportable 07/23/20 13:56 Hypogranular Neuts Not Reportable 07/23/20 13:56 Smudge Cells Not Reportable 07/23/20 13:56 Toxic Granulation Not Reportable 07/23/20 13:56 Toxic Vacuolation Not Reportable 07/23/20 13:56 Dohle Bodies Not Reportable 07/23/20 13:56 Pelger-Huet Anomaly Not Reportable 07/23/20 13:56 Oscar Rods Not Reportable 07/23/20 13:56 Platelet Estimate Not Reportable 07/23/20 13:56 Clumped Platelets Not Reportable 07/23/20 13:56 Plt Clumps, EDTA Not Reportable 07/23/20 13:56 Large Platelets Not Reportable 07/23/20 13:56 Giant Platelets Not Reportable 07/23/20 13:56 Platelet Satelliting Not Reportable 07/23/20 13:56 Plt Morphology Comment Not Reportable 07/23/20 13:56 RBC Morphology Normal 07/23/20 13:56 Dimorphic RBCs Not Reportable 07/23/20 13:56 Polychromasia Not Reportable 07/23/20 13:56 Hypochromasia Not Reportable 07/23/20 13:56 Poikilocytosis Not Reportable 07/23/20 13:56 Anisocytosis Not Reportable 07/23/20 13:56 Microcytosis Not Reportable 07/23/20 13:56 Macrocytosis Not Reportable 07/23/20 13:56 Spherocytes Not Reportable 07/23/20 13:56 Pappenheimer Bodies Not Reportable 07/23/20 13:56 Sickle Cells Not Reportable 07/23/20 13:56 Target Cells Not Reportable 07/23/20 13:56 Tear Drop Cells Not Reportable 07/23/20 13:56 Ovalocytes Not Reportable 07/23/20 13:56 Helmet Cells Not Reportable 07/23/20 13:56 Yeh-Drayton Bodies Not Reportable 07/23/20 13:56 [place] Rings Not Reportable 07/23/20 13:56 Petros Cells Not Reportable 07/23/20 13:56 Bite Cells Not Reportable 07/23/20 13:56 Crenated Cell Not Reportable 07/23/20 13:56 Elliptocytes Not Reportable 07/23/20 13:56 Acanthocytes (Spur) Not Reportable 07/23/20 13:56 Rouleaux Not Reportable 07/23/20 13:56 Hemoglobin C Crystals Not Reportable 07/23/20 13:56 Schistocytes Not Reportable 07/23/20 13:56 Malaria parasites Not Reportable 07/23/20 13:56 [place]ín Bodies Not Reportable 07/23/20 13:56 Hem Pathologist Commnt No 07/23/20 13:56 PT 14.1 Sec. (12.2-14.9) 07/24/20 04:44 INR 1.03 (0.87-1.13) 07/24/20 04:44 APTT 25.3 Sec. (24.2-36.6) 07/17/20 09:31 D-Dimer 653.04 ng/mlDDU (0-234) H 07/17/20 13:11 Heparin Anti-Xa Level 0.14 U.I./ml (0.3-0.7) L 07/24/20 04:44 ABG pH 7.385 pH Units (7.350-7.450) 07/19/20 16:36 POC ABG pCO2 33.0 mmHg (32.0-48.0) 07/19/20 03:27 ABG pCO2 43.5 mm Hg 07/19/20 16:36 POC ABG pO2 127.4 mmHg (83-108) H 07/19/20 03:27 ABG pO2 108.2 mm Hg (80.0-90.0) H 07/19/20 16:36 POC ABG HCO3 24.1 07/19/20 03:27 ABG HCO3 25.5 mmol/L (20.0-26.0) 07/19/20 16:36 ABG O2 Saturation 97.8 % (95.0-99.0) 07/19/20 16:36 ABG O2 Content 16.7 (0.0-44) 07/19/20 16:36 POC ABG Base Excess 1.1 07/19/20 03:27 ABG Base Excess 0.2 mmol/L (-2.0-3.0) 07/19/20 16:36 ABG Hemoglobin 12.3 gm/dl (14.0-18.0) L 07/19/20 16:36 ABG Oxyhemoglobin 97.6 (94-98) 07/19/20 03:27 ABG Carboxyhemoglobin 1.5 % (0.0-5.0) 07/19/20 16:36 ABG Methemoglobin 0.5 % (0.0-1.5) 07/19/20 16:36 ABG Sodium 137.0 mmol/L (136.0-145.0) 07/19/20 03:27 ABG Potassium 3.8 mmol/L (3.40-4.50) 07/19/20 03:27 ABG Chloride 101.0 mmol/L (98-107) 07/19/20 03:27 ABG Glucose 131 mg/dL (65-95) H 07/19/20 03:27 Oxyhemoglobin 95.8 % (95.0-99.0) 07/19/20 16:36 Carboxyhemoglobin 1.0 (0.5-1.5) 07/19/20 03:27 FiO2 30 % 07/19/20 16:36 FiO2 % 35.0 07/19/20 03:27 Sodium 137 mmol/L (137-145) 07/24/20 04:44 Potassium 4.1 mmol/L (3.6-5.0) 07/24/20 04:44 Chloride 95.8 mmol/L (98-107) L 07/24/20 04:44 Carbon Dioxide 27 mmol/L (22-30) 07/24/20 04:44 Anion Gap 18 mmol/L 07/24/20 04:44 BUN 77 mg/dL (9-20) H 07/24/20 04:44 Creatinine 6.0 mg/dL (0.8-1.3) H 07/24/20 04:44 Estimated GFR 12 ml/min 07/24/20 04:44 BUN/Creatinine Ratio 13 % 07/24/20 04:44 Glucose 97 mg/dL (75-100) 07/24/20 04:44 POC Glucose 99 mg/dL (70-105) 07/24/20 04:57 Lactic Acid 0.60 mmol/L (0.7-2.0) L 07/17/20 13:11 Calcium 9.1 mg/dL (8.4-10.2) 07/24/20 04:44 Magnesium 2.50 mg/dL (1.7-2.3) H 07/21/20 04:26 Ferritin 356.2 ng/mL (30.0-300.0) H 07/17/20 12:57 Total Bilirubin 0.40 mg/dL (0.1-1.2) 07/18/20 05:24 Direct Bilirubin 0.3 mg/dL (0-0.2) H 07/17/20 09:31 Indirect Bilirubin 0.3 mg/dL 07/17/20 09:31 AST 38 units/L (5-40) 07/18/20 05:24 ALT 62 units/L (7-56) H 07/18/20 05:24 Alkaline Phosphatase 72 units/L (35-129) 07/18/20 05:24 Lactate Dehydrogenase 277 units/L (91-180) H 07/17/20 13:11 Total Creatine Kinase 194 units/L (55-170) H 07/23/20 19:49 CK-MB (CK-2) 2.9 ng/mL (0.0-4.0) 07/23/20 19:49 CK-MB (CK-2) Rel Index 1.4 (0-4) 07/23/20 19:49 Troponin T 4.710 ng/mL (0.00-0.029) H* 07/23/20 19:49 C-Reactive Protein 0.60 mg/dL (0.00-1.30) 07/17/20 13:11 NT-Pro-B Natriuret Pep 18586 pg/mL (0-900) H 07/17/20 09:31 Total Protein 6.9 g/dL (6.3-8.2) 07/18/20 05:24 Albumin 3.8 g/dL (3.9-5) L 07/18/20 05:24 Albumin/Globulin Ratio 1.2 % 07/18/20 05:24 Triglycerides 119 mg/dL (2-149) 07/17/20 09:31 Cholesterol 163 mg/dL (50-199) 07/17/20 09:31 LDL Cholesterol Direct 130 mg/dL (50-130) 07/17/20 09:31 HDL Cholesterol 33 mg/dL (40-59) L 07/17/20 09:31 Cholesterol/HDL Ratio 4.93 % 07/17/20 09:31 Procalcitonin 1.79 ng/mL (<0.15) 07/17/20 13:11 Arterial Blood Glucose 131 mg/dL (65-95) H 07/19/20 03:27 Arterial Blood Ionized Calcium 4.5 mg/dL (4.6-5.3) L 07/19/20 03:27 Urine Opiates Screen Negative 07/17/20 11:21 Urine Methadone Screen Negative 07/17/20 11:21 Ur Barbiturates Screen Negative 07/17/20 11:21 Ur Phencyclidine Scrn Negative 07/17/20 11:21 Ur Amphetamines Screen Negative 07/17/20 11:21 U Benzodiazepines Scrn Negative 07/17/20 11:21 Urine Cocaine Screen Negative 07/17/20 11:21 U Marijuana (THC) Screen Negative 07/17/20 11:21 Drugs of Abuse Note Disclamer 07/17/20 11:21 Coronavirus (PCR) Negative (Negative) 07/17/20 Unknown Hepatitis A IgM Ab Non-reactive (NonReactive) 07/17/20 13:11 Hep Bs Antigen Non-reactive (Negative) 07/17/20 13:11 Hep B Core IgM Ab Non-reactive (NonReactive) 07/17/20 13:11 Hepatitis C Antibody Non-reactive (NonReactive) 07/17/20 13:11 Microbiology: Microbiology 07/17/20 15:05 Tracheal Aspirate Sputum Culture - Final Ascencio/IV: Voiding Method Urinal Active Medications - Current Medications Current Medications: Generic Name Dose Route Start Last Admin Trade Name Freq PRN Reason Stop Dose Admin Acetaminophen 650 mg 07/17/20 12:29 Acetaminophen 650 Mg Rect Supp MT Q6H PRN Pain MILD(1-3)/Fever >100.5/ALBERTS Albuterol 2.5 mg 07/17/20 12:29 Albuterol 2.5 Mg/3 Ml Nebu IH Q3HRT PRN Shortness Of Breath Lipase/Protease/Amylase 1 each 07/17/20 16:00 Lipase 10,500/Protease 25,000/Amylase 43,750 (Units) Dr Cook FEEDTUBE PRN PRN For Clogged Feeding Tube Aspirin 81 mg 07/25/20 10:00 Aspirin 81 Mg Tab Chew PO QDAY ALIX Atorvastatin Calcium 20 mg 07/19/20 22:00 07/23/20 22:28 Atorvastatin 20 Mg Tab PO 20 mg QHS ALIX Administration Clonidine HCl 0.2 mg 07/19/20 22:00 07/24/20 11:00 Clonidine 0.2 Mg Tab PO 0.2 mg Q12HR ALIX Administration Clopidogrel Bisulfate 75 mg 07/25/20 10:00 Clopidogrel 75 Mg Tab PO QDAY ALIX Famotidine 10 mg 07/22/20 12:00 07/24/20 11:00 Famotidine 10 Mg Tab PO 10 mg BID ALIX Administration Heparin Sodium (Porcine) 5,000 unit 07/24/20 22:00 Heparin 5,000 Unit/1 Ml Vial SUB-Q Q12HR ALIX Hydralazine HCl 10 mg 07/18/20 14:00 07/21/20 01:39 Hydralazine 20 Mg/1 Ml Inj IV 10 mg Q4H PRN Administration SBP >/=170; DBP >/=100 Hydromorphone HCl 0.25 mg 07/17/20 12:29 07/23/20 20:57 Hydromorphone 1 Mg/1 Ml Inj IV 0.25 mg Q4H PRN Administration Pain, Moderate (4-6) Hydrophilic Ointment 1 applic 07/17/20 13:56 Lip Therapy Vaseline TP Q2HR PRN Dry Lips Sodium Chloride 100 mls @ 999 mls/hr 07/17/20 16:00 Nacl 0.9% IV ANDRÉS PRN Hypotension Sodium Chloride 500 mls @ 50 mls/hr 07/24/20 09:00 07/24/20 09:45 Nacl 0.9% 500 Ml IV 100 mls DIRECT ALIX Administration Losartan Potassium 50 mg 07/22/20 12:30 07/24/20 10:58 Losartan 25 Mg Tab PO 50 mg QDAY ALIX Administration Metoprolol Tartrate 25 mg 07/20/20 22:00 07/24/20 11:01 Metoprolol Tartrate 25 Mg Tab PO Not Given BID ALIX Multi-Ingred Cream/Lotion/Oil/Oint 1 applic 07/17/20 13:56 Mineral Oil/Petrolatum, White Ophth Oint 3.5 Gm OU Q4HR PRN Dry Eye(s) Prednisone 10 mg 07/21/20 10:00 07/24/20 11:03 Prednisone 10 Mg Tab PO 07/25/20 10:01 10 mg QDAY ALIX Administration Sodium Chloride 10 ml 07/17/20 22:00 07/24/20 11:01 Sodium Chloride 0.9% 10 Ml Flush Syringe IV 10 ml BID ALIX Administration Sodium Chloride 10 ml 07/17/20 12:29 Sodium Chloride 0.9% 10 Ml Flush Syringe IV PRN PRN LINE FLUSH Nutrition/Malnutrition Assess - Dietary Evaluation Nutrition/Malnutrition Findings: Nutrition Notes Start: 07/17/20 14:41 Freq: Status: Active Protocol: Document 07/23/20 13:26 (Rec: 07/23/20 13:30 [id number]) Nutrition Notes Initial or Follow up Reassessment Current Diagnosis CKD (stage V CKD),Hypertension ,Heart Failure,Respiratory Failure,Hyperlipidemia Other Pertinent Diagnosis pneu, on HD Current Diet Renal Labs/Tests Na 136 K 3.5 Pertinent Medications Reviewed Height 6 ft 1 in Weight 98 kg Usual Body Weight 94 kg [place] Body Weight (kg) 83.63 BMI 28.5 Weight Status Overweight Subjective/Other Information FU for intakes. Pt reports eating 50% of meals due to food prefrences. Prefrences noted. Pt would like to try ONS. No chewing or swallowing issues. Percent of energy/protein needs met: 47%/34% Burn Absent Trauma Absent GI Symptoms None Current % PO Fair (50-74%) Minimum of two criteria No physical signs of malnutrition #1 Nutrition Diagnosis Inadequate oral intake Diagnosis Progress(for reassessment Continues documentation) Is patient on ventilator? No Is Patient Ambulatory and/or Out of Bed No REE-([place] Jeor-confined to bed) [phone] Calculation Used for Recommendations [place] Additional Notes Pro needs >1.2g/kg: >112g/day Fluid needs 1-1.5L/day Nutrition Intervention Change Diet Order: Continue Add Supplement/Snack (indicate name/kcal Nepro BID /protein ) Provides kCal: 850 Provides Protein (gm) 38 Goal #1 Meet at least 75% energy and pro needs Anticipated Discharge Needs: Renal Follow-Up By: 07/25/20 Additional Comments FU for intakes and ONS tolerance
--- NOTE | 2020-07-24 11:41 | Cardiac Catherization Report ---
DATE OF SERVICE: 07/24/2020 DATE OF PROCEDURE: 07/24/2020. INDICATION: The patient is a 64-year-old gentleman, was admitted with accelerated hypertension and hypoxemic respiratory failure and echocardiogram showed ejection fraction of 35-40%. Troponins were elevated and the patient was recently started on hemodialysis for his end-stage renal disease. In addition, the patient has history of thoracic and abdominal aortic aneurysm. Right femoral artery was used for the access. The patient is aware of the procedure, potential complications, and alternatives of therapy available. DESCRIPTION OF PROCEDURE: The patient was brought to the catheterization laboratory in a fasting condition. The patient was evaluated for moderate sedation and was felt to be an appropriate candidate for moderate sedation. Subsequently, the patient was given IV Versed and fentanyl. The patient was prepared in the standard fashion. Right groin was prepared and sterile drapes were applied. Local anesthesia was given in the right groin area. Subsequently, a 5-Turkmen sheath was introduced after obtaining arterial access using fluoroscopy as a guide. A 5-Turkmen multipurpose catheter was used to obtain the angiograms of the left ventricle done in [place] projection followed by angiograms of the right coronary artery. JL4.5 catheter was used to obtain the angiograms of the left coronary artery. After obtaining the angiograms of the left coronary artery, catheter and sheath were removed and good hemostasis was achieved with manual pressure. The patient tolerated the procedure well. No untoward complications were noted. The patient's moderate sedation started at 9:45 a.m. and continuously monitored with pulse oximetry, EKG and hemodynamic monitoring. The patient's sedation monitoring ended at 10:01 a.m. At the end of the operative procedure, the patient is communicating normally, breathing normally and no focal deficits noted. FINDINGS: Following findings were noted. HEMODYNAMICS: Opening aortic pressure 175/73. Left ventricular pressure 175/22. No gradient across the aortic valve. Estimated ejection fraction 35-40%. Left ventriculogram done in HALEY projection shows mildly dilated left ventricle with moderate hypokinesis. However, with limited amount of dye was injected and a good confirmed ejection fraction with other modality. Mitral regurgitation could not be evaluated because of limited amount of dye injected. The patient's ejection fraction was estimated visually to be 35-40% and end-diastolic pressure was measured to be 22 mmHg. Right coronary artery dominant vessel arises normally from right coronary cusp. Angiographically smooth and normal, but tortuous. Left coronary artery arises normally from left coronary cusp. Left main without significant disease. LAD curves around the apex. The very distal LAD, where it curves around the apex,has 60-70% smooth lesion. This is a focal lesion. Rest of the LAD and its branches show only minimal irregularities. Similarly, circumflex artery and its branch are angiographically smooth and normal. FINAL IMPRESSION: Moderate left ventricular dysfunction with ejection fraction of 35-40%, elevated end-diastolic pressure of 35 mmHg. A 60-70% very distal LAD lesion. Otherwise, rest of the coronaries showing minimal irregularities. Considering the above, we continued on risk factor modification and medical therapy. The patient is getting his dialysis regularly. The patient will be on bed rest for next 3-4 hours and monitor for any bleeding in the groin area. Findings were discussed with the patient and also his on the phone. They understand. TID: [id number] RECEIPT: [id number] CRISTIAN JARAMILLO
[2020-07-24] MEDS: CLOPIDOGREL 75 MG TAB PO SCH (12:38)
--- NOTE | 2020-07-24 14:08 | Progress Note ---
Assessment and Plan 64 YO Male with HTN, ESRD, Gout, CHF presents to ED for evaluation. Patient is intubated and on ventilatory support . As per patient's the patient has experienced progressive weakness over the past 2 months with worsening symptoms over the last 1 week. Patient was found to have orthopnea, paroxysmal nocturnal dyspnea, decreased exercise tolerance, dyspnea on exertion, as well as dyspnea at rest. Patient reports leaving patient at home while she went to work today. She was subsequently notified by the patient's brother who notified EMS due to patient reporting shortness of breath. EMS was notified and upon arrival the patient was found to be in distress with a pulse oximetry of 60% on room air. The patient was placed on supplemental oxygen and transported to [facility] for further care and evaluation of the aforementioned symptoms. The patient was seen and evaluated in the emergency department. All lab and imaging studies reviewed. Patient found to be unable to protect his airway and was subsequently intubated and placed on ventilatory support. Patient also found to have end- stage renal disease in need of urgent dialysis, CHF decompensation. Nephrology team consulted in ED. Critical care consulted for further management. Patient extubated and transfered to telemetry. Patient alert, awake. No complaint of chest pain, shortness of breath or cough. Patient received dialysis to day. Patient suppose to be on 2 litres O2. Not using his O2. O2 saturation recorded 100%. Patient afebrile. No leukocytosis. Blood pressure 156/83 Chest xray 07/20/20 reported Stable mild enlargement of the cardiac silhouette Patients CT of chest and abdomen 07/22/20 1. 4.7 cm complex superior pole left renal mass is concerning for renal cell carcinoma. 2. Irregular 1.3 cm right lower lobe nodule is suspicious and may reflect synchronous primary malignancy or metastatic disease. 3. Diffuse aneurysmal dilatation of the aorta, involving the ascending and descending thoracic aorta, infrarenal abdominal aorta, and bilateral common carotid arteries. No evidence of rupture or dissection. 4. Improved CHF with moderate persistent interstitial edema in the lung bases. Resolved pleural effusions. 5. Other chronic and incidental findings as above. Oncology consulted. Patient is on I/V heparin, PO prednisone, Albuterol inhaler and Famotidine. Patient went to the catheterization laboratory technician. - Patient Problems (1) Acute HFrEF (heart failure with reduced ejection fraction) Current Visit: Yes Status: Acute Plan to address problem: Management as per cardiology. (2) Acute hypoxemic respiratory failure Current Visit: Yes Status: Acute Plan to address problem: Patient intubated and extubated. On 2 litres O2. Albuterol inhaler Po prednisone. Patient is on S/C Heparin Famotidine. (3) Cardiomyopathy Current Visit: Yes Status: Acute Plan to address problem: Management as per cardiology. Patient undergoing cardiac cath. (4) ESRD needing dialysis Current Visit: Yes Status: Acute Plan to address problem: Patient is on Hemodialysis. Management as per nephrology. (5) NSTEMI (non-ST elevated myocardial infarction) Current Visit: Yes Status: Acute Plan to address problem: Management as per cardiology. (6) Pulmonary HTN Current Visit: Yes Status: Acute Plan to address problem: O2 supplementation. Treat underlying conditions CHF and renal failure. (7) Thoracic aortic aneurysm Current Visit: Yes Status: Acute Qualifiers: Presence of rupture: without rupture Qualified Code(s): I71.2 - Thoracic aortic aneurysm, without rupture Plan to address problem: Recommend consult vascular surgery. (8) Abdominal aortic aneurysm Current Visit: Yes Status: Chronic Qualifiers: Presence of rupture: without rupture Qualified Code(s): I71.4 - Abdominal aortic aneurysm, without rupture Plan to address problem: Recommend to consult vascular surgery. (9) Hypertension Current Visit: Yes Status: Chronic Qualifiers: Hypertension type: essential hypertension Qualified Code(s): I10 - Essential (primary) hypertension Plan to address problem: Management as per primary care. Subjective Date of service: 07/24/20 Principal diagnosis: Ac. hypoxemic resp failure; Pulm Edema; PUI COVID-19; ROSA ELENA on CKD; NSTEMI Interval history: 64 YO Male with HTN, ESRD, Gout, CHF presents to ED for evaluation. Patient is intubated and on ventilatory support . As per patient's the patient has experienced progressive weakness over the past 2 months with worsening symptoms over the last 1 week. Patient was found to have orthopnea, paroxysmal nocturnal dyspnea, decreased exercise tolerance, dyspnea on exertion, as well as dyspnea at rest. Patient reports leaving patient at home while she went to work today. She was subsequently notified by the patient's brother who notified EMS due to patient reporting shortness of breath. EMS was notified and upon arrival the patient was found to be in distress with a pulse oximetry of 60% on room air. The patient was placed on supplemental oxygen and transported to [facility] for further care and evaluation of the aforementioned symptoms. The patient was seen and evaluated in the emergency department. All lab and imaging studies reviewed. Patient found to be unable to protect his airway and was subsequently intubated and placed on ventilatory support. Patient also found to have end- stage renal disease in need of urgent dialysis, CHF decompensation. Nephrology team consulted in ED. Critical care consulted for further management. Patient extubated and transfered to telemetry. Patient alert, awake. No complaint of chest pain, shortness of breath or cough. Patient received dialysis to day. Patient suppose to be on 2 litres O2. Not using his O2. O2 saturation recorded 100%. Patient afebrile. No leukocytosis. Blood pressure 156/83 Chest xray 07/20/20 reported Stable mild enlargement of the cardiac silhouette Patients CT of chest and abdomen 07/22/20 1. 4.7 cm complex superior pole left renal mass is concerning for renal cell car cinoma. 2. Irregular 1.3 cm right lower lobe nodule is suspicious and may reflect synchronous primary malignancy or metastatic disease. 3. Diffuse aneurysmal dilatation of the aorta, involving the ascending and descending thoracic aorta, infrarenal abdominal aorta, and bilateral common carotid arteries. No evidence of rupture or dissection. 4. Improved CHF with moderate persistent interstitial edema in the lung bases. Resolved pleural effusions. 5. Other chronic and incidental findings as above. Oncology consulted. Patient is on S/C heparin, PO prednisone, Albuterol inhaler and Famotidine. Patient went to the catheterization laboratory technician. Objective Vital Signs - 12hr 07/24/20 07/24/20 07/24/20 03:45 08:05 10:58 Temperature 98.7 F 98.1 F Pulse Rate 57 L 58 L 58 L Pulse Rate [ From Monitor] Respiratory 16 20 Rate Blood Pressure 153/84 169/94 171/84 O2 Sat by Pulse 98 98 Oximetry 07/24/20 07/24/20 07/24/20 11:00 11:01 12:45 Temperature Pulse Rate 56 L 56 L Pulse Rate [ 58 L From Monitor] Respiratory 18 Rate Blood Pressure 171/84 171/84 O2 Sat by Pulse 99 Oximetry Constitutional: no acute distress, alert, other (elderly male with normal respiratory effort at rest ) Eyes: non-icteric ENT: oropharynx moist, other (extubated) Neck: supple, no lymphadenopathy, no JVD Effort: normal Ascultation: Bilateral: rhonchi Percussion: Bilateral: not dull Cardiovascular: regular rate and rhythm Gastrointestinal: normoactive bowel sounds, soft, non-tender, non-distended Integumentary: normal, other (AV Fistula to left arm) Extremities: no cyanosis, no edema, pulses normal, no ischemia or petechiae Neurologic: normal mental status, non-focal exam (grossly), pupils equal and round, motor strength normal and Psychiatric: mood appropriate, affect normal CBC and BMP: 07/24/20 04:44 07/24/20 04:44 ABG, PT/INR, D-dimer: ABG ABG pH 7.385 pH Units (7.350-7.450) 07/19/20 16:36 POC ABG pCO2 33.0 mmHg (32.0-48.0) 07/19/20 03:27 ABG pCO2 43.5 mm Hg 07/19/20 16:36 POC ABG pO2 127.4 mmHg (83-108) H 07/19/20 03:27 ABG pO2 108.2 mm Hg (80.0-90.0) H 07/19/20 16:36 POC ABG HCO3 24.1 07/19/20 03:27 ABG O2 Saturation 97.8 % (95.0-99.0) 07/19/20 16:36 PT/INR, D-dimer PT 14.1 Sec. (12.2-14.9) 07/24/20 04:44 INR 1.03 (0.87-1.13) 07/24/20 04:44 D-Dimer 653.04 ng/mlDDU (0-234) H 07/17/20 13:11 Abnormal lab findings: Abnormal Labs 07/17/20 07/17/20 07/17/20 09:31 09:31 09:31 WBC 11.6 H RBC Hgb 11.2 L Hct 35.4 L RDW Lymph % (Auto) 7.0 L [place] % (Auto) Lymph # (Auto) 0.8 L [place] # (Auto) Seg Neutrophils % 87.0 H Seg Neuts % (Manual) Lymphocytes % (Manual) Monocytes % (Manual) Seg Neutrophils # 10.1 H Lymphocytes # (Manual) Monocytes # (Manual) PT 15.0 H D-Dimer Heparin Anti-Xa Level ABG pH POC ABG pCO2 POC ABG pO2 ABG pO2 ABG Base Excess ABG Hemoglobin ABG Oxyhemoglobin ABG Potassium ABG Glucose Sodium Potassium Chloride BUN 55 H Creatinine 5.5 H Glucose 177 H POC Glucose Lactic Acid Magnesium Ferritin Direct Bilirubin 0.3 H AST 99 H ALT 82 H Lactate Dehydrogenase Total Creatine Kinase Troponin T 0.030 H NT-Pro-B Natriuret Pep 35412 H Albumin HDL Cholesterol 33 L Arterial Blood Glucose Arterial Blood Ionized Calcium 07/17/20 07/17/20 07/17/20 12:57 13:11 13:11 WBC RBC Hgb Hct RDW Lymph % (Auto) [place] % (Auto) Lymph # (Auto) [place] # (Auto) Seg Neutrophils % Seg Neuts % (Manual) Lymphocytes % (Manual) Monocytes % (Manual) Seg Neutrophils # Lymphocytes # (Manual) Monocytes # (Manual) PT D-Dimer 653.04 H Heparin Anti-Xa Level ABG pH POC ABG pCO2 POC ABG pO2 ABG pO2 ABG Base Excess ABG Hemoglobin ABG Oxyhemoglobin ABG Potassium ABG Glucose Sodium Potassium Chloride BUN Creatinine Glucose 175 H POC Glucose Lactic Acid Magnesium Ferritin 356.2 H Direct Bilirubin AST ALT Lactate Dehydrogenase 277 H Total Creatine Kinase Troponin T NT-Pro-B Natriuret Pep Albumin HDL Cholesterol Arterial Blood Glucose Arterial Blood Ionized Calcium 07/17/20 07/17/20 07/17/20 13:11 21:00 23:25 WBC RBC Hgb Hct RDW Lymph % (Auto) [place] % (Auto) Lymph # (Auto) [place] # (Auto) Seg Neutrophils % Seg Neuts % (Manual) Lymphocytes % (Manual) Monocytes % (Manual) Seg Neutrophils # Lymphocytes # (Manual) Monocytes # (Manual) PT D-Dimer Heparin Anti-Xa Level ABG pH POC ABG pCO2 POC ABG pO2 110.1 H ABG pO2 ABG Base Excess ABG Hemoglobin 11.5 L ABG Oxyhemoglobin ABG Potassium ABG Glucose Sodium Potassium Chloride BUN Creatinine Glucose POC Glucose 64 L Lactic Acid 0.60 L Magnesium Ferritin Direct Bilirubin AST ALT Lactate Dehydrogenase Total Creatine Kinase Troponin T NT-Pro-B Natriuret Pep Albumin HDL Cholesterol Arterial Blood Glucose Arterial Blood Ionized Calcium 4.5 L 07/17/20 07/18/20 07/18/20 Unknown 05:24 05:24 WBC RBC 3.45 L Hgb 10.8 L Hct 31.9 L RDW Lymph % (Auto) [place] % (Auto) Lymph # (Auto) [place] # (Auto) Seg Neutrophils % Seg Neuts % (Manual) 85.0 H Lymphocytes % (Manual) 8.0 L Monocytes % (Manual) Seg Neutrophils # Lymphocytes # (Manual) 0.7 L Monocytes # (Manual) PT D-Dimer Heparin Anti-Xa Level ABG pH 7.223 L POC ABG pCO2 POC ABG pO2 ABG pO2 108.9 H ABG Base Excess -5.9 L ABG Hemoglobin 11.4 L ABG Oxyhemoglobin ABG Potassium ABG Glucose Sodium Potassium Chloride BUN 54 H Creatinine 6.9 H Glucose POC Glucose Lactic Acid Magnesium Ferritin Direct Bilirubin AST ALT 62 H Lactate Dehydrogenase Total Creatine Kinase Troponin T NT-Pro-B Natriuret Pep Albumin 3.8 L HDL Cholesterol Arterial Blood Glucose Arterial Blood Ionized Calcium 07/18/20 07/18/20 07/18/20 11:10 11:23 12:06 WBC RBC Hgb Hct RDW Lymph % (Auto) [place] % (Auto) Lymph # (Auto) [place] # (Auto) Seg Neutrophils % Seg Neuts % (Manual) Lymphocytes % (Manual) Monocytes % (Manual) Seg Neutrophils # Lymphocytes # (Manual) Monocytes # (Manual) PT D-Dimer Heparin Anti-Xa Level ABG pH 7.268 L POC ABG pCO2 49.6 H POC ABG pO2 49.3 L ABG pO2 ABG Base Excess ABG Hemoglobin 11.8 L ABG Oxyhemoglobin 78.7 L ABG Potassium 4.7 H ABG Glucose 112 H Sodium Potassium Chloride BUN Creatinine Glucose POC Glucose 107 H Lactic Acid Magnesium Ferritin Direct Bilirubin AST ALT Lactate Dehydrogenase Total Creatine Kinase Troponin T 0.189 H* D NT-Pro-B Natriuret Pep Albumin HDL Cholesterol Arterial Blood Glucose 112 H Arterial Blood Ionized Calcium 07/18/20 07/18/20 07/18/20 15:50 17:27 19:11 WBC RBC Hgb Hct RDW Lymph % (Auto) [place] % (Auto) Lymph # (Auto) [place] # (Auto) Seg Neutrophils % Seg Neuts % (Manual) Lymphocytes % (Manual) Monocytes % (Manual) Seg Neutrophils # Lymphocytes # (Manual) Monocytes # (Manual) PT D-Dimer Heparin Anti-Xa Level ABG pH POC ABG pCO2 POC ABG pO2 ABG pO2 ABG Base Excess ABG Hemoglobin ABG Oxyhemoglobin ABG Potassium ABG Glucose Sodium Potassium Chloride BUN Creatinine Glucose POC Glucose 156 H Lactic Acid Magnesium Ferritin Direct Bilirubin AST ALT Lactate Dehydrogenase Total Creatine Kinase Troponin T 0.182 H* 0.213 H* NT-Pro-B Natriuret Pep Albumin HDL Cholesterol Arterial Blood Glucose Arterial Blood Ionized Calcium 07/18/20 07/19/20 07/19/20 23:10 03:27 05:21 WBC RBC Hgb Hct RDW Lymph % (Auto) [place] % (Auto) Lymph # (Auto) [place] # (Auto) Seg Neutrophils % Seg Neuts % (Manual) Lymphocytes % (Manual) Monocytes % (Manual) Seg Neutrophils # Lymphocytes # (Manual) Monocytes # (Manual) PT D-Dimer Heparin Anti-Xa Level ABG pH 7.482 H POC ABG pCO2 POC ABG pO2 127.4 H ABG pO2 ABG Base Excess ABG Hemoglobin 11.9 L ABG Oxyhemoglobin ABG Potassium ABG Glucose 131 H Sodium Potassium Chloride BUN Creatinine Glucose POC Glucose 160 H 140 H Lactic Acid Magnesium Ferritin Direct Bilirubin AST ALT Lactate Dehydrogenase Total Creatine Kinase Troponin T NT-Pro-B Natriuret Pep Albumin HDL Cholesterol Arterial Blood Glucose 131 H Arterial Blood Ionized Calcium 4.5 L 07/19/20 07/19/20 07/19/20 11:48 16:36 18:32 WBC RBC Hgb Hct RDW Lymph % (Auto) [place] % (Auto) Lymph # (Auto) [place] # (Auto) Seg Neutrophils % Seg Neuts % (Manual) Lymphocytes % (Manual) Monocytes % (Manual) Seg Neutrophils # Lymphocytes # (Manual) Monocytes # (Manual) PT D-Dimer Heparin Anti-Xa Level ABG pH POC ABG pCO2 POC ABG pO2 ABG pO2 108.2 H ABG Base Excess ABG Hemoglobin 12.3 L ABG Oxyhemoglobin ABG Potassium ABG Glucose Sodium Potassium Chloride BUN Creatinine Glucose POC Glucose 141 H 128 H Lactic Acid Magnesium Ferritin Direct Bilirubin AST ALT Lactate Dehydrogenase Total Creatine Kinase Troponin T NT-Pro-B Natriuret Pep Albumin HDL Cholesterol Arterial Blood Glucose Arterial Blood Ionized Calcium 07/19/20 07/20/20 07/20/20 22:36 04:35 04:35 WBC 11.9 H RBC 3.45 L Hgb 10.5 L Hct 31.7 L RDW Lymph % (Auto) [place] % (Auto) Lymph # (Auto) [place] # (Auto) Seg Neutrophils % Seg Neuts % (Manual) Lymphocytes % (Manual) Monocytes % (Manual) Seg Neutrophils # Lymphocytes # (Manual) Monocytes # (Manual) PT D-Dimer Heparin Anti-Xa Level ABG pH POC ABG pCO2 POC ABG pO2 ABG pO2 ABG Base Excess ABG Hemoglobin ABG Oxyhemoglobin ABG Potassium ABG Glucose Sodium Potassium Chloride 97.8 L BUN 68 H Creatinine 7.4 H Glucose 109 H POC Glucose 121 H Lactic Acid Magnesium Ferritin Direct Bilirubin AST ALT Lactate Dehydrogenase Total Creatine Kinase Troponin T NT-Pro-B Natriuret Pep Albumin HDL Cholesterol Arterial Blood Glucose Arterial Blood Ionized Calcium 07/20/20 07/20/20 07/20/20 04:49 11:43 17:30 WBC RBC Hgb Hct RDW Lymph % (Auto) [place] % (Auto) Lymph # (Auto) [place] # (Auto) Seg Neutrophils % Seg Neuts % (Manual) Lymphocytes % (Manual) Monocytes % (Manual) Seg Neutrophils # Lymphocytes # (Manual) Monocytes # (Manual) PT D-Dimer Heparin Anti-Xa Level ABG pH POC ABG pCO2 POC ABG pO2 ABG pO2 ABG Base Excess ABG Hemoglobin ABG Oxyhemoglobin ABG Potassium ABG Glucose Sodium Potassium Chloride BUN Creatinine Glucose POC Glucose 114 H 110 H 168 H Lactic Acid Magnesium Ferritin Direct Bilirubin AST ALT Lactate Dehydrogenase Total Creatine Kinase Troponin T NT-Pro-B Natriuret Pep Albumin HDL Cholesterol Arterial Blood Glucose Arterial Blood Ionized Calcium 07/21/20 07/21/20 07/21/20 04:26 11:41 16:18 WBC RBC Hgb Hct RDW Lymph % (Auto) [place] % (Auto) Lymph # (Auto) [place] # (Auto) Seg Neutrophils % Seg Neuts % (Manual) Lymphocytes % (Manual) Monocytes % (Manual) Seg Neutrophils # Lymphocytes # (Manual) Monocytes # (Manual) PT D-Dimer Heparin Anti-Xa Level ABG pH POC ABG pCO2 POC ABG pO2 ABG pO2 ABG Base Excess ABG Hemoglobin ABG Oxyhemoglobin ABG Potassium ABG Glucose Sodium Potassium Chloride 97.9 L BUN 64 H Creatinine 6.2 H Glucose 127 H POC Glucose 133 H 153 H Lactic Acid Magnesium 2.50 H Ferritin Direct Bilirubin AST ALT Lactate Dehydrogenase Total Creatine Kinase Troponin T NT-Pro-B Natriuret Pep Albumin HDL Cholesterol Arterial Blood Glucose Arterial Blood Ionized Calcium 07/23/20 07/23/20 07/23/20 04:43 04:43 08:44 WBC RBC 3.45 L Hgb 10.5 L Hct 31.3 L RDW Lymph % (Auto) [place] % (Auto) Lymph # (Auto) [place] # (Auto) Seg Neutrophils % Seg Neuts % (Manual) Lymphocytes % (Manual) Monocytes % (Manual) Seg Neutrophils # Lymphocytes # (Manual) Monocytes # (Manual) PT D-Dimer Heparin Anti-Xa Level ABG pH POC ABG pCO2 POC ABG pO2 ABG pO2 ABG Base Excess ABG Hemoglobin ABG Oxyhemoglobin ABG Potassium ABG Glucose Sodium 136 L Potassium 3.5 L Chloride 94.5 L BUN 65 H Creatinine 5.2 H Glucose 119 H POC Glucose Lactic Acid Magnesium Ferritin Direct Bilirubin AST ALT Lactate Dehydrogenase Total Creatine Kinase Troponin T 4.960 H* D 5.820 H* NT-Pro-B Natriuret Pep Albumin HDL Cholesterol Arterial Blood Glucose Arterial Blood Ionized Calcium 07/23/20 07/23/20 07/23/20 11:16 13:56 13:56 WBC RBC 3.58 L Hgb 10.8 L Hct 32.3 L RDW Lymph % (Auto) [place] % (Auto) Lymph # (Auto) [place] # (Auto) Seg Neutrophils % Seg Neuts % (Manual) Lymphocytes % (Manual) Monocytes % (Manual) 20.0 H Seg Neutrophils # Lymphocytes # (Manual) Monocytes # (Manual) 1.6 H PT 15.0 H D-Dimer Heparin Anti-Xa Level ABG pH POC ABG pCO2 POC ABG pO2 ABG pO2 ABG Base Excess ABG Hemoglobin ABG Oxyhemoglobin ABG Potassium ABG Glucose Sodium Potassium Chloride BUN Creatinine Glucose POC Glucose 114 H Lactic Acid Magnesium Ferritin Direct Bilirubin AST ALT Lactate Dehydrogenase Total Creatine Kinase Troponin T NT-Pro-B Natriuret Pep Albumin HDL Cholesterol Arterial Blood Glucose Arterial Blood Ionized Calcium 07/23/20 07/23/20 07/24/20 19:49 19:49 04:44 WBC RBC Hgb Hct RDW Lymph % (Auto) [place] % (Auto) Lymph # (Auto) [place] # (Auto) Seg Neutrophils % Seg Neuts % (Manual) Lymphocytes % (Manual) Monocytes % (Manual) Seg Neutrophils # Lymphocytes # (Manual) Monocytes # (Manual) PT D-Dimer Heparin Anti-Xa Level 0.13 L 0.14 L ABG pH POC ABG pCO2 POC ABG pO2 ABG pO2 ABG Base Excess ABG Hemoglobin ABG Oxyhemoglobin ABG Potassium ABG Glucose Sodium Potassium Chloride BUN Creatinine Glucose POC Glucose Lactic Acid Magnesium Ferritin Direct Bilirubin AST ALT Lactate Dehydrogenase Total Creatine Kinase 194 H Troponin T 4.710 H* NT-Pro-B Natriuret Pep Albumin HDL Cholesterol Arterial Blood Glucose Arterial Blood Ionized Calcium 07/24/20 07/24/20 04:44 04:44 WBC RBC 3.41 L Hgb 10.5 L Hct 31.0 L RDW 13.1 L Lymph % (Auto) [place] % (Auto) 14.4 H Lymph # (Auto) [place] # (Auto) 1.2 H Seg Neutrophils % Seg Neuts % (Manual) Lymphocytes % (Manual) Monocytes % (Manual) Seg Neutrophils # Lymphocytes # (Manual) Monocytes # (Manual) PT D-Dimer Heparin Anti-Xa Level ABG pH POC ABG pCO2 POC ABG pO2 ABG pO2 ABG Base Excess ABG Hemoglobin ABG Oxyhemoglobin ABG Potassium ABG Glucose Sodium Potassium Chloride 95.8 L BUN 77 H Creatinine 6.0 H Glucose POC Glucose Lactic Acid Magnesium Ferritin Direct Bilirubin AST ALT Lactate Dehydrogenase Total Creatine Kinase Troponin T NT-Pro-B Natriuret Pep Albumin HDL Cholesterol Arterial Blood Glucose Arterial Blood Ionized Calcium Allied health notes reviewed: nursing
--- NOTE | 2020-07-24 18:39 | Progress Note ---
Assessment and Plan 1. CKD 5, now ESKD: Patient follows with Dr. Stephens, was to start HD at [facility] but unfortunately decompensated prior to outpatient HD initiation. - s/p HD 07/17 for initial treatment, had treatment 07/18 and 07/20; Continue HD MWF for toxin/electrolyte management and fluid removal - renally dose meds - avoid nephrotoxins - AVG working well per report - case management consult to assist with placement at [facility] for outpatient HD 2. HTN/Volume: UF removal as tolerated, BP reasonable 3. Acute hypoxic resp failure: now extubated, pulmonology following. CT findings and vascular recommendations noted. 4. DM type 2. 5. Normochromic anemia: likely due to CKD/ESKD, ESAs with HD prn 6. L kidney mass: managed in outpatient setting by urology 7. Secondary Hyperparathyroidism: defer vitamin D analog to outpatient setting, Ca at goal 8. Aortic Aneurysm: vascular following 9. Elevated troponin. S/p cath, 70% LD obstruction, no stents placed. DAPT. Subjective Date of service: 07/24/20 Principal diagnosis: Ac. hypoxemic resp failure; Pulm Edema; PUI COVID-19; ROSA ELENA on CKD; NSTEMI Interval history: Seen during hemodialysis. No complications. S/p cath today, no stents placed. Objective - Exam Narrative Exam: General: No acute distress HEENT: ATNC Neck: Supple, no JVD Chest: Bilateral rhonchi Heart: RRR, S1 and S2, no pericardial rub Abdomen: Soft, nontender, no renal bruit Extremity: No peripheral cyanosis, edema Neurological: Alert, awake, no asterixis Dermatology: No skin rash Psych: No agitation Musculoskeletal: No joint effusion - Vital Signs Vital signs: Vital Signs - 12hr 07/24/20 07/24/20 07/24/20 08:05 10:50 10:58 Temperature 98.1 F Pulse Rate 58 L 57 L 58 L Pulse Rate [ From Monitor] Respiratory 20 Rate Blood Pressure 169/94 171/84 O2 Sat by Pulse 98 97 Oximetry O2 Sat by Pulse Oximetry [ Anterior Bilateral Throughout] 07/24/20 07/24/20 07/24/20 11:00 11:01 11:16 Temperature Pulse Rate 56 L 56 L Pulse Rate [ From Monitor] Respiratory Rate Blood Pressure 173/77 171/84 181/86 O2 Sat by Pulse Oximetry O2 Sat by Pulse Oximetry [ Anterior Bilateral Throughout] 07/24/20 07/24/20 07/24/20 11:30 11:46 12:01 Temperature Pulse Rate Pulse Rate [ From Monitor] Respiratory Rate Blood Pressure 187/89 144/82 156/78 O2 Sat by Pulse Oximetry O2 Sat by Pulse Oximetry [ Anterior Bilateral Throughout] 07/24/20 07/24/20 07/24/20 12:15 12:30 12:45 Temperature Pulse Rate Pulse Rate [ 58 L From Monitor] Respiratory 18 Rate Blood Pressure 143/72 126/63 O2 Sat by Pulse 99 Oximetry O2 Sat by Pulse Oximetry [ Anterior Bilateral Throughout] 07/24/20 07/24/20 07/24/20 12:46 13:01 13:16 Temperature Pulse Rate Pulse Rate [ From Monitor] Respiratory Rate Blood Pressure 122/61 125/64 129/64 O2 Sat by Pulse Oximetry O2 Sat by Pulse Oximetry [ Anterior Bilateral Throughout] 07/24/20 07/24/20 07/24/20 13:31 13:45 14:00 Temperature Pulse Rate Pulse Rate [ From Monitor] Respiratory Rate Blood Pressure 124/66 128/69 129/69 O2 Sat by Pulse Oximetry O2 Sat by Pulse Oximetry [ Anterior Bilateral Throughout] 07/24/20 07/24/20 07/24/20 15:00 15:15 15:30 Temperature 97.9 F Pulse Rate 55 L 55 L 55 L Pulse Rate [ From Monitor] Respiratory 18 Rate Blood Pressure 169/85 148/85 156/83 O2 Sat by Pulse Oximetry O2 Sat by Pulse 100 Oximetry [ Anterior Bilateral Throughout] 07/24/20 07/24/20 07/24/20 15:40 15:45 16:00 Temperature Pulse Rate 58 L 55 L 58 L Pulse Rate [ From Monitor] Respiratory Rate Blood Pressure 154/87 150/87 O2 Sat by Pulse Oximetry O2 Sat by Pulse Oximetry [ Anterior Bilateral Throughout] 07/24/20 07/24/20 07/24/20 16:15 16:30 16:45 Temperature Pulse Rate 59 L 61 58 L Pulse Rate [ From Monitor] Respiratory Rate Blood Pressure 151/86 149/83 144/90 O2 Sat by Pulse Oximetry O2 Sat by Pulse Oximetry [ Anterior Bilateral Throughout] 07/24/20 07/24/20 17:00 17:15 Temperature Pulse Rate 55 L 55 L Pulse Rate [ From Monitor] Respiratory Rate Blood Pressure 140/73 138/78 O2 Sat by Pulse Oximetry O2 Sat by Pulse Oximetry [ Anterior Bilateral Throughout] - Lab 07/24/20 04:44 07/24/20 04:44 Most recent lab results ABG pH 7.385 pH Units (7.350-7.450) 07/19/20 16:36 ABG pCO2 43.5 mm Hg 07/19/20 16:36 ABG pO2 108.2 mm Hg (80.0-90.0) H 07/19/20 16:36 ABG HCO3 25.5 mmol/L (20.0-26.0) 07/19/20 16:36 ABG O2 Saturation 97.8 % (95.0-99.0) 07/19/20 16:36 Calcium 9.1 mg/dL (8.4-10.2) 07/24/20 04:44 Magnesium 2.50 mg/dL (1.7-2.3) H 07/21/20 04:26 Medications & Allergies - Medications Allergies/Adverse Reactions: Allergies methadone Allergy (Verified 07/17/20 09:00) Unknown tramadol Allergy (Verified 07/17/20 09:00) Swelling Home Medications: Home Medications Medication Instructions Recorded Confirmed Last Taken Type Isosorbide Mononitrate [Isosorbide 60 mg PO DAILY 07/20/20 07/20/20 Unknown History Mononitrate ER] NIFEdipine XL [Procardia Xl] 60 mg PO QDAY 07/20/20 07/20/20 Unknown History Sodium Bicarbonate 650 mg PO QID 07/20/20 07/20/20 Unknown History Spironolactone [Aldactone] 25 mg PO QDAY 07/20/20 07/20/20 Unknown History calcitrioL [Rocaltrol] 1 mcg PO QDAY 07/20/20 07/20/20 Unknown History carvediloL [Coreg] 25 mg PO BID 07/20/20 07/20/20 Unknown History cloNIDine [Catapres] 0.2 mg PO QHS 07/20/20 07/20/20 Unknown History hydrALAZINE [Apresoline TAB] 100 mg PO TID 07/20/20 07/20/20 Unknown History Active Medications: Generic Name Dose Route Start Last Admin Trade Name Freq PRN Reason Stop Dose Admin Acetaminophen 650 mg 07/17/20 12:29 Acetaminophen 650 Mg Rect Supp NH Q6H PRN Pain MILD(1-3)/Fever >100.5/ALBERTS Albuterol 2.5 mg 07/17/20 12:29 Albuterol 2.5 Mg/3 Ml Nebu IH Q3HRT PRN Shortness Of Breath Lipase/Protease/Amylase 1 each 07/17/20 16:00 Lipase 10,500/Protease 25,000/Amylase 43,750 (Units) Dr Cook FEEDTUBE PRN PRN For Clogged Feeding Tube Aspirin 81 mg 07/25/20 10:00 Aspirin 81 Mg Tab Chew PO QDAY ALIX Atorvastatin Calcium 40 mg 07/24/20 22:00 Atorvastatin 20 Mg Tab PO QHS ALIX Clonidine HCl 0.2 mg 07/19/20 22:00 07/24/20 11:00 Clonidine 0.2 Mg Tab PO 0.2 mg Q12HR ALIX Administration Clopidogrel Bisulfate 75 mg 07/24/20 12:00 07/24/20 12:38 Clopidogrel 75 Mg Tab PO 75 mg QDAY ALIX Administration Famotidine 10 mg 07/22/20 12:00 07/24/20 11:00 Famotidine 10 Mg Tab PO 10 mg BID ALIX Administration Heparin Sodium (Porcine) 5,000 unit 07/24/20 12:00 07/24/20 12:38 Heparin 5,000 Unit/1 Ml Vial SUB-Q 5,000 unit Q12HR ALIX Administration Hydralazine HCl 10 mg 07/18/20 14:00 07/21/20 01:39 Hydralazine 20 Mg/1 Ml Inj IV 10 mg Q4H PRN Administration SBP >/=170; DBP >/=100 Hydromorphone HCl 0.25 mg 07/17/20 12:29 07/23/20 20:57 Hydromorphone 1 Mg/1 Ml Inj IV 0.25 mg Q4H PRN Administration Pain, Moderate (4-6) Hydrophilic Ointment 1 applic 07/17/20 13:56 Lip Therapy Vaseline TP Q2HR PRN Dry Lips Sodium Chloride 100 mls @ 999 mls/hr 07/17/20 16:00 Nacl 0.9% IV ANDRÉS PRN Hypotension Sodium Chloride 500 mls @ 50 mls/hr 07/24/20 09:00 07/24/20 09:45 Nacl 0.9% 500 Ml IV 100 mls DIRECT ALIX Administration Losartan Potassium 50 mg 07/22/20 12:30 07/24/20 10:58 Losartan 25 Mg Tab PO 50 mg QDAY ALIX Administration Metoprolol Tartrate 25 mg 07/20/20 22:00 07/24/20 11:01 Metoprolol Tartrate 25 Mg Tab PO Not Given BID ALIX Multi-Ingred Cream/Lotion/Oil/Oint 1 applic 07/17/20 13:56 Mineral Oil/Petrolatum, White Ophth Oint 3.5 Gm OU Q4HR PRN Dry Eye(s) Prednisone 10 mg 07/21/20 10:00 07/24/20 11:03 Prednisone 10 Mg Tab PO 07/25/20 10:01 10 mg QDAY ALIX Administration Sodium Chloride 10 ml 07/17/20 22:00 07/24/20 11:01 Sodium Chloride 0.9% 10 Ml Flush Syringe IV 10 ml BID ALIX Administration Sodium Chloride 10 ml 07/17/20 12:29 Sodium Chloride 0.9% 10 Ml Flush Syringe IV PRN PRN LINE FLUSH
[2020-07-24] MEDS: HYDROmorphone 1 MG/1 ML INJ IV PRN (21:18)
[2020-07-25] MEDS: ACETAMINOPHEN 325 MG TAB PO PRN ×2 (00:40→13:02)
[2020-07-25 05:11] LABS: Hemoglobin 10.3 gm/dl (11.8-15.2)
[2020-07-25] MEDS: CLOPIDOGREL 75 MG TAB PO SCH (09:43)
[2020-07-25] MEDS: FAMOTIDINE 10 MG TAB PO SCH (09:43)
[2020-07-25] MEDS: METOPROLOL TARTRATE 25 MG TAB PO SCH (09:43)
[2020-07-25] MEDS: LOSARTAN 25 MG TAB PO SCH (09:44)
[2020-07-25] MEDS: cloNIDine 0.2 MG TAB PO SCH (09:44)
[2020-07-25] MEDS: predniSONE 10 MG TAB PO SCH (09:44)
[2020-07-25] MEDS: HEPARIN 5,000 UNIT/1 ML VIAL SUB-Q SCH (09:45)
[2020-07-25] MEDS ORDERED: ASPIRIN 81 MG TAB CHEW PO SCH (10:00)
--- NOTE | 2020-07-25 10:27 | Progress Note ---
Assessment and Plan Assessment and plan: --non-STEMI: Current Visit: Yes Status: Acute Cardiology evaluated the patient recommend heparin drip s/p left heart catheterization,; LAD 70% stenosis Cards recommend medical management --Acute hypoxemic respiratory failure s/p extubated Current Visit: Yes Status: Acute Status post extubation, oxygen titrate O2 sats to more than 90% Continue current management, Pulmonary following --Left renal mass ; Current Visit: Yes Status: Acute . Evaluated by hematology oncologist Recommend urology evaluation for possible nephrectomy Will consult urology for further evaluation and management . He has --Acute systolic CHF (congestive heart failure) EF 35 to 40% Current Visit: Yes Status: Acute Continue antifailure medication strict I/O, monitor urine output every shift, Low-sodium diet, fluid restriction cardiology following, -- End stage renal disease; on HD/MWF Current Visit: Yes Status: Acute Nephrology following, HD per schedule Confirmed with case management about outpatient HD chair scheduling Continue current management -- Hypertension/moderate control Current Visit: Yes Status: Acute Closely monitor blood pressures, adjust medications as needed --Abdominal aneurysm Current Visit: Yes Status: Chronic --Bilateral pulmonary infiltrates likely secondary to pulmonary edema Current Visit: Yes Status: Acute Continue antifailure medications and supportive care --PUI [id number] out --Chronic venous insufficiency of lower extremity Current Visit: Yes Status: Chronic Supportive care --angioedema upper lip; Current Visit: Yes Status: Chronic Currently improved, supportive care -- DVT prophylaxis Current Visit: Yes Status: Acute Plan to address problem: SCD to bilateral lower extremities while in bed, prophylactic anticoagulation We will closely monitor patient and adjust management as needed Plan of care reviewed with the patient and his nurse Cardiology evaluation recommendations noted and appreciated Started on heparin drip due to elevated cardiac enzymes And possible left heart catheterization tomorrow Patient n.p.o. from midnight Brief history and daily hospital course; 64 YO Male with HTN, ESRD, Gout, CHF presents to ED for evaluation. Patient is intubated and on ventilatory support at the time my evaluation and is unable to provide history. Patient history taken from EMS staff, ED staff, as well as the patient's Mrs Santa Dodge who was made available by telephone for interview. As per patient's the patient has experienced progressive weakness over the past 2 months with worsening symptoms over the last 1 week. Patient was found to have orthopnea, paroxysmal nocturnal dyspnea, decreased exercise tolerance, dyspnea on exertion, as well as dyspnea at rest. Patient reports leaving patient at home while she went to work today. She was subsequently notified by the patient's brother who notified EMS due to patient reporting shortness of breath. EMS was notified and upon arrival the patient was found to be in distress with a pulse oximetry of 60% on room air. The patient was placed on supplemental oxygen and transported to [facility] for further care and evaluation of the aforementioned symptoms. The patient was seen and evaluated in the emergency department. All lab and imaging studies reviewed. Patient found to be unable to protect his airway and was subsequently intubated and placed on ventilatory support. Patient also found to have end-stage renal disease in need of urgent dialysis, CHF decompensation. Patient admitted to ICU. Critical care team consulted in ED. Nephrology team consulted in ED. Advanced care planning conducted in ED. No prior admission for review. All medication listed at time of admission has been reconciled. Consultants Cardiology, cemetery counselor, entry level electrical engineer. 07/18: Patient initiated with dialysis today. Covid test was done and is negative. Anemia likely anemia of chronic disease. Will follow consultants recommendation for further management. Echocardiogram pending 07/19: Patient started with dialysis. Anticipate trial of weaning today. BP elevated, clonodine restarted, will increase to home dose. Continue current management 07/20: Patient now extubated. Did have dialysis with improvement in respiratory status which aided extubation. Patient however has an edematous upper lip questionable angioedema. We will give a dose of Benadryl, H2 carly and a dose of steroids and monitor. Patient can be transitioned to telemetry if okay with entry level electrical engineer. IR consulted to evaluate abdominal aneurysm continue current management by assembly machine tender to monitor all medications to see what could be resulting to the angioedema. 07/21: Continue supportive care. Will start patient on low-dose steroids considering noted angioedema. Discussed with cemetery counselor about recommendation by vascular/IR and they are okay with proceeding. Risk discussed with patient he verbalized understanding. We will proceed with CT angio of the chest abdomen and pelvis to further evaluate aneurysmal findings. Per cemetery counselor patient will be dialyzed tomorrow. 07/22: Unfortunately CTA of the chest on anterior and abdomen was discontinued yesterday and not sure by who this has been reordered prior to dialysis. There is concern for a renal mass we will consult hematology to assist with management although will await cemetery counselor input a and vascular input on this. Continue current management initial plan for discharge will be held at this time until appropriate diagnostic measures are made. Also significant irregularity noted on the aneurysm will await vascular input is noted. Cardiology surgical planning ischemic work-up 07/23/2020; patient feels slightly better, worsening cardiac enzymes, cardiology started heparin drip, left heart catheterization tomorrow, n.p.o. from midnight HD per schedule, overall patient feels slightly better today 07/24/2020;s/p heart cath, 70% LAD, no stent or intervention, medical management with aspirin and Plavix per cardiology Closely monitor the patient, possible discharge in 1 to 2 days if stable and cleared by cardiology Hospitalist Physical - Constitutional Vitals: Temp Pulse Resp BP Pulse Ox 97.7 F 55 L 18 146/80 94 07/25/20 07:16 07/25/20 09:44 07/25/20 07:16 07/25/20 09:44 07/25/20 07:16 General appearance: Present: no acute distress, well-nourished HEART Score - HEART Score Troponin: Troponin T 4.710 ng/mL (0.00-0.029) H* 07/23/20 19:49 Results - Labs CBC & Chem 7: 07/25/20 04:37 07/24/20 04:44 Labs: Laboratory Last Values WBC 8.4 K/mm3 (4.5-11.0) 07/24/20 04:44 RBC 3.41 M/mm3 (3.65-5.03) L 07/24/20 04:44 Hgb 10.3 gm/dl (11.8-15.2) L 07/25/20 04:37 Hct 31.0 % (35.5-45.6) L 07/25/20 04:37 MCV 91 fl (84-94) 07/24/20 04:44 MCH 31 pg (28-32) 07/24/20 04:44 MCHC 34 % (32-34) 07/24/20 04:44 RDW 13.1 % (13.2-15.2) L 07/24/20 04:44 Plt Count 249 K/mm3 (140-440) 07/25/20 04:37 Lymph % (Auto) 15.7 % (13.4-35.0) 07/24/20 04:44 Bond % (Auto) 14.4 % (0.0-7.3) H 07/24/20 04:44 Eos % (Auto) 0.5 % (0.0-4.3) 07/24/20 04:44 Baso % (Auto) 0.2 % (0.0-1.8) 07/24/20 04:44 Lymph # (Auto) 1.3 K/mm3 (1.2-5.4) 07/24/20 04:44 Bond # (Auto) 1.2 K/mm3 (0.0-0.8) H 07/24/20 04:44 Eos # (Auto) 0.0 K/mm3 (0.0-0.4) 07/24/20 04:44 Baso # (Auto) 0.0 K/mm3 (0.0-0.1) 07/24/20 04:44 Add Manual Diff Complete 07/23/20 13:56 Total Counted 100 07/23/20 13:56 Seg Neutrophils % 69.2 % (40.0-70.0) 07/24/20 04:44 Seg Neuts % (Manual) 62.0 % (40.0-70.0) 07/23/20 13:56 Lymphocytes % (Manual) 16.0 % (13.4-35.0) 07/23/20 13:56 Monocytes % (Manual) 20.0 % (0.0-7.3) H 07/23/20 13:56 Eosinophils % (Manual) 1.0 % (0.0-4.3) 07/23/20 13:56 Basophils % (Manual) 1.0 % (0.0-1.8) 07/23/20 13:56 Nucleated RBC % Not Reportable 07/23/20 13:56 Seg Neutrophils # 5.8 K/mm3 (1.8-7.7) 07/24/20 04:44 Seg Neutrophils # Man 4.8 K/mm3 (1.8-7.7) 07/23/20 13:56 Band Neutrophils # 0.0 K/mm3 07/23/20 13:56 Lymphocytes # (Manual) 1.2 K/mm3 (1.2-5.4) 07/23/20 13:56 Abs React Lymphs (Man) 0.0 K/mm3 07/23/20 13:56 Monocytes # (Manual) 1.6 K/mm3 (0.0-0.8) H 07/23/20 13:56 Eosinophils # (Manual) 0.1 K/mm3 (0.0-0.4) 07/23/20 13:56 Basophils # (Manual) 0.1 K/mm3 (0.0-0.1) 07/23/20 13:56 Metamyelocytes # 0.0 K/mm3 07/23/20 13:56 Myelocytes # 0.0 K/mm3 07/23/20 13:56 Promyelocytes # 0.0 K/mm3 07/23/20 13:56 Blast Cells # 0.0 K/mm3 07/23/20 13:56 WBC Morphology Not Reportable 07/23/20 13:56 Hypersegmented Neuts Not Reportable 07/23/20 13:56 Hyposegmented Neuts Not Reportable 07/23/20 13:56 Hypogranular Neuts Not Reportable 07/23/20 13:56 Smudge Cells Not Reportable 07/23/20 13:56 Toxic Granulation Not Reportable 07/23/20 13:56 Toxic Vacuolation Not Reportable 07/23/20 13:56 Dohle Bodies Not Reportable 07/23/20 13:56 Pelger-Huet Anomaly Not Reportable 07/23/20 13:56 Oscar Rods Not Reportable 07/23/20 13:56 Platelet Estimate Not Reportable 07/23/20 13:56 Clumped Platelets Not Reportable 07/23/20 13:56 Plt Clumps, EDTA Not Reportable 07/23/20 13:56 Large Platelets Not Reportable 07/23/20 13:56 Giant Platelets Not Reportable 07/23/20 13:56 Platelet Satelliting Not Reportable 07/23/20 13:56 Plt Morphology Comment Not Reportable 07/23/20 13:56 RBC Morphology Normal 07/23/20 13:56 Dimorphic RBCs Not Reportable 07/23/20 13:56 Polychromasia Not Reportable 07/23/20 13:56 Hypochromasia Not Reportable 07/23/20 13:56 Poikilocytosis Not Reportable 07/23/20 13:56 Anisocytosis Not Reportable 07/23/20 13:56 Microcytosis Not Reportable 07/23/20 13:56 Macrocytosis Not Reportable 07/23/20 13:56 Spherocytes Not Reportable 07/23/20 13:56 Pappenheimer Bodies Not Reportable 07/23/20 13:56 Sickle Cells Not Reportable 07/23/20 13:56 Target Cells Not Reportable 07/23/20 13:56 Tear Drop Cells Not Reportable 07/23/20 13:56 Ovalocytes Not Reportable 07/23/20 13:56 Helmet Cells Not Reportable 07/23/20 13:56 Yeh[place] Bodies Not Reportable 07/23/20 13:56 [place] Rings Not Reportable 07/23/20 13:56 Karl Cells Not Reportable 07/23/20 13:56 Bite Cells Not Reportable 07/23/20 13:56 Crenated Cell Not Reportable 07/23/20 13:56 Elliptocytes Not Reportable 07/23/20 13:56 Acanthocytes (Spur) Not Reportable 07/23/20 13:56 Rouleaux Not Reportable 07/23/20 13:56 Hemoglobin C Crystals Not Reportable 07/23/20 13:56 Schistocytes Not Reportable 07/23/20 13:56 Malaria parasites Not Reportable 07/23/20 13:56 [place] Bodies Not Reportable 07/23/20 13:56 Hem Pathologist Commnt No 07/23/20 13:56 PT 14.1 Sec. (12.2-14.9) 07/24/20 04:44 INR 1.03 (0.87-1.13) 07/24/20 04:44 APTT 25.3 Sec. (24.2-36.6) 07/17/20 09:31 D-Dimer 653.04 ng/mlDDU (0-234) H 07/17/20 13:11 Heparin Anti-Xa Level 0.14 U.I./ml (0.3-0.7) L 07/24/20 04:44 ABG pH 7.385 pH Units (7.350-7.450) 07/19/20 16:36 POC ABG pCO2 33.0 mmHg (32.0-48.0) 07/19/20 03:27 ABG pCO2 43.5 mm Hg 07/19/20 16:36 POC ABG pO2 127.4 mmHg (83-108) H 07/19/20 03:27 ABG pO2 108.2 mm Hg (80.0-90.0) H 07/19/20 16:36 POC ABG HCO3 24.1 07/19/20 03:27 ABG HCO3 25.5 mmol/L (20.0-26.0) 07/19/20 16:36 ABG O2 Saturation 97.8 % (95.0-99.0) 07/19/20 16:36 ABG O2 Content 16.7 (0.0-44) 07/19/20 16:36 POC ABG Base Excess 1.1 07/19/20 03:27 ABG Base Excess 0.2 mmol/L (-2.0-3.0) 07/19/20 16:36 ABG Hemoglobin 12.3 gm/dl (14.0-18.0) L 07/19/20 16:36 ABG Oxyhemoglobin 97.6 (94-98) 07/19/20 03:27 ABG Carboxyhemoglobin 1.5 % (0.0-5.0) 07/19/20 16:36 ABG Methemoglobin 0.5 % (0.0-1.5) 07/19/20 16:36 ABG Sodium 137.0 mmol/L (136.0-145.0) 07/19/20 03:27 ABG Potassium 3.8 mmol/L (3.40-4.50) 07/19/20 03:27 ABG Chloride 101.0 mmol/L (98-107) 07/19/20 03:27 ABG Glucose 131 mg/dL (65-95) H 07/19/20 03:27 Oxyhemoglobin 95.8 % (95.0-99.0) 07/19/20 16:36 Carboxyhemoglobin 1.0 (0.5-1.5) 07/19/20 03:27 FiO2 30 % 07/19/20 16:36 FiO2 % 35.0 07/19/20 03:27 Sodium 137 mmol/L (137-145) 07/24/20 04:44 Potassium 4.1 mmol/L (3.6-5.0) 07/24/20 04:44 Chloride 95.8 mmol/L (98-107) L 07/24/20 04:44 Carbon Dioxide 27 mmol/L (22-30) 07/24/20 04:44 Anion Gap 18 mmol/L 07/24/20 04:44 BUN 77 mg/dL (9-20) H 07/24/20 04:44 Creatinine 6.0 mg/dL (0.8-1.3) H 07/24/20 04:44 Estimated GFR 12 ml/min 07/24/20 04:44 BUN/Creatinine Ratio 13 % 07/24/20 04:44 Glucose 97 mg/dL (75-100) 07/24/20 04:44 POC Glucose 99 mg/dL (70-105) 07/24/20 04:57 Lactic Acid 0.60 mmol/L (0.7-2.0) L 07/17/20 13:11 Calcium 9.1 mg/dL (8.4-10.2) 07/24/20 04:44 Magnesium 2.50 mg/dL (1.7-2.3) H 07/21/20 04:26 Ferritin 356.2 ng/mL (30.0-300.0) H 07/17/20 12:57 Total Bilirubin 0.40 mg/dL (0.1-1.2) 07/18/20 05:24 Direct Bilirubin 0.3 mg/dL (0-0.2) H 07/17/20 09:31 Indirect Bilirubin 0.3 mg/dL 07/17/20 09:31 AST 38 units/L (5-40) 07/18/20 05:24 ALT 62 units/L (7-56) H 07/18/20 05:24 Alkaline Phosphatase 72 units/L (35-129) 07/18/20 05:24 Lactate Dehydrogenase 277 units/L (91-180) H 07/17/20 13:11 Total Creatine Kinase 194 units/L (55-170) H 07/23/20 19:49 CK-MB (CK-2) 2.9 ng/mL (0.0-4.0) 07/23/20 19:49 CK-MB (CK-2) Rel Index 1.4 (0-4) 07/23/20 19:49 Troponin T 4.710 ng/mL (0.00-0.029) H* 07/23/20 19:49 C-Reactive Protein 0.60 mg/dL (0.00-1.30) 07/17/20 13:11 NT-Pro-B Natriuret Pep 33308 pg/mL (0-900) H 07/17/20 09:31 Total Protein 6.9 g/dL (6.3-8.2) 07/18/20 05:24 Albumin 3.8 g/dL (3.9-5) L 07/18/20 05:24 Albumin/Globulin Ratio 1.2 % 07/18/20 05:24 Triglycerides 119 mg/dL (2-149) 07/17/20 09:31 Cholesterol 163 mg/dL (50-199) 07/17/20 09:31 LDL Cholesterol Direct 130 mg/dL (50-130) 07/17/20 09:31 HDL Cholesterol 33 mg/dL (40-59) L 07/17/20 09:31 Cholesterol/HDL Ratio 4.93 % 07/17/20 09:31 Procalcitonin 1.79 ng/mL (<0.15) 07/17/20 13:11 Arterial Blood Glucose 131 mg/dL (65-95) H 07/19/20 03:27 Arterial Blood Ionized Calcium 4.5 mg/dL (4.6-5.3) L 07/19/20 03:27 Urine Opiates Screen Negative 07/17/20 11:21 Urine Methadone Screen Negative 07/17/20 11:21 Ur Barbiturates Screen Negative 07/17/20 11:21 Ur Phencyclidine Scrn Negative 07/17/20 11:21 Ur Amphetamines Screen Negative 07/17/20 11:21 U Benzodiazepines Scrn Negative 07/17/20 11:21 Urine Cocaine Screen Negative 07/17/20 11:21 U Marijuana (THC) Screen Negative 07/17/20 11:21 Drugs of Abuse Note Disclamer 07/17/20 11:21 Coronavirus (PCR) Negative (Negative) 07/17/20 Unknown Hepatitis A IgM Ab Non-reactive (NonReactive) 07/17/20 13:11 Hep Bs Antigen Non-reactive (Negative) 07/17/20 13:11 Hep B Core IgM Ab Non-reactive (NonReactive) 07/17/20 13:11 Hepatitis C Antibody Non-reactive (NonReactive) 07/17/20 13:11 Microbiology: Microbiology 07/17/20 15:05 Tracheal Aspirate Sputum Culture - Final Ascencio/IV: Voiding Method Urinal Active Medications - Current Medications Current Medications: Generic Name Dose Route Start Last Admin Trade Name Freq PRN Reason Stop Dose Admin Acetaminophen 650 mg 07/17/20 12:29 Acetaminophen 650 Mg Rect Supp CA Q6H PRN Pain MILD(1-3)/Fever >100.5/ALBERTS Acetaminophen 650 mg 07/25/20 00:22 07/25/20 00:40 Acetaminophen 325 Mg Tab PO 650 mg Q6H PRN Administration Pain, Moderate (4-6) Albuterol 2.5 mg 07/17/20 12:29 Albuterol 2.5 Mg/3 Ml Nebu IH Q3HRT PRN Shortness Of Breath Lipase/Protease/Amylase 1 each 07/17/20 16:00 Lipase 10,500/Protease 25,000/Amylase 43,750 (Units) Dr Cook FEEDTUBE PRN PRN For Clogged Feeding Tube Aspirin 81 mg 07/25/20 10:00 07/25/20 09:44 Aspirin 81 Mg Tab Chew PO 81 mg QDAY ALIX Administration Atorvastatin Calcium 40 mg 07/24/20 22:00 07/24/20 21:16 Atorvastatin 20 Mg Tab PO 40 mg QHS ALIX Administration Clonidine HCl 0.2 mg 07/19/20 22:00 07/25/20 09:44 Clonidine 0.2 Mg Tab PO 0.2 mg Q12HR ALIX Administration Clopidogrel Bisulfate 75 mg 07/24/20 12:00 07/25/20 09:43 Clopidogrel 75 Mg Tab PO 75 mg QDAY ALIX Administration Famotidine 10 mg 07/22/20 12:00 07/25/20 09:43 Famotidine 10 Mg Tab PO 10 mg BID ALIX Administration Heparin Sodium (Porcine) 5,000 unit 07/24/20 12:00 07/25/20 09:45 Heparin 5,000 Unit/1 Ml Vial SUB-Q 5,000 unit Q12HR ALIX Administration Hydralazine HCl 10 mg 07/18/20 14:00 07/21/20 01:39 Hydralazine 20 Mg/1 Ml Inj IV 10 mg Q4H PRN Administration SBP >/=170; DBP >/=100 Hydromorphone HCl 0.25 mg 07/17/20 12:29 07/24/20 21:18 Hydromorphone 1 Mg/1 Ml Inj IV 0.25 mg Q4H PRN Administration Pain, Moderate (4-6) Hydrophilic Ointment 1 applic 07/17/20 13:56 Lip Therapy Vaseline TP Q2HR PRN Dry Lips Sodium Chloride 100 mls @ 999 mls/hr 07/17/20 16:00 Nacl 0.9% IV ANDRÉS PRN Hypotension Sodium Chloride 500 mls @ 50 mls/hr 07/24/20 09:00 07/24/20 09:45 Nacl 0.9% 500 Ml IV 100 mls DIRECT ALIX Administration Losartan Potassium 50 mg 07/22/20 12:30 07/25/20 09:44 Losartan 25 Mg Tab PO 50 mg QDAY ALIX Administration Metoprolol Tartrate 25 mg 07/20/20 22:00 07/25/20 09:43 Metoprolol Tartrate 25 Mg Tab PO Not Given BID ALIX Multi-Ingred Cream/Lotion/Oil/Oint 1 applic 07/17/20 13:56 Mineral Oil/Petrolatum, White Ophth Oint 3.5 Gm OU Q4HR PRN Dry Eye(s) Sodium Chloride 10 ml 07/17/20 22:00 07/25/20 09:45 Sodium Chloride 0.9% 10 Ml Flush Syringe IV 10 ml BID ALIX Administration Sodium Chloride 10 ml 07/17/20 12:29 Sodium Chloride 0.9% 10 Ml Flush Syringe IV PRN PRN LINE FLUSH Nutrition/Malnutrition Assess - Dietary Evaluation Nutrition/Malnutrition Findings: Nutrition Notes Start: 07/17/20 14:41 Freq: Status: Active Protocol: Document 07/23/20 13:26 (Rec: 07/23/20 13:30 [email or web address]) Nutrition Notes Initial or Follow up Reassessment Current Diagnosis CKD (stage V CKD),Hypertension ,Heart Failure,Respiratory Failure,Hyperlipidemia Other Pertinent Diagnosis pneu, on HD Current Diet Renal Labs/Tests Na 136 K 3.5 Pertinent Medications Reviewed Height 6 ft 1 in Weight 98 kg Usual Body Weight 94 kg [place] Body Weight (kg) 83.63 BMI 28.5 Weight Status Overweight Subjective/Other Information FU for intakes. Pt reports eating 50% of meals due to food prefrences. Prefrences noted. Pt would like to try ONS. No chewing or swallowing issues. Percent of energy/protein needs met: 47%/34% Burn Absent Trauma Absent GI Symptoms None Current % PO Fair (50-74%) Minimum of two criteria No physical signs of malnutrition #1 Nutrition Diagnosis Inadequate oral intake Diagnosis Progress(for reassessment Continues documentation) Is patient on ventilator? No Is Patient Ambulatory and/or Out of Bed No REE-([facility]-confined to bed) 4172.812 Calculation Used for Recommendations [facility] Additional Notes Pro needs >1.2g/kg: >112g/day Fluid needs 1-1.5L/day Nutrition Intervention Change Diet Order: Continue Add Supplement/Snack (indicate name/kcal Nepro BID /protein ) Provides kCal: 850 Provides Protein (gm) 38 Goal #1 Meet at least 75% energy and pro needs Anticipated Discharge Needs: Renal Follow-Up By: 07/25/20 Additional Comments FU for intakes and ONS tolerance
--- NOTE | 2020-07-25 11:08 | Electrocardiograph Report ---
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
[2020-07-25 11:44] VITALS: BP 139/76
--- NOTE | 2020-07-25 13:28 | Discharge Summary ---
Providers - Providers Date of Admission: 07/17/20 12:29 Date of discharge: 07/25/20 Attending physician: AMERICA NAVARRO 07/17/20 12:54 Consult to Physician [CONS] Stat Comment: dr. phillips saw patient/ tom Consulting Provider: ULISSES GRESHAM Physician Instructions: Reason For Exam: intubated, critical care 07/17/20 13:56 Consult to Dietitian/Nutrition [CONS] Routine Physician Instructions: Reason For Exam: Reason for Consult: Evaluate nutritional intake 07/17/20 13:58 Consult to Dietitian/Nutrition [CONS] Routine Physician Instructions: Reason For Exam: Reason for Consult: Write/Manage Tube Feeding 07/17/20 15:33 Consult to Cardiology [CONS] Routine Consulting Provider: ARGENIS DELGADO Reason For Exam: CHF 07/17/20 16:59 Consult to Physician [CONS] Routine Comment: Consulting Provider: DUKE FIGUEREDO Physician Instructions: Known to his servcie. Reason For Exam: ESRD 07/18/20 14:58 Consult to Physician [CONS] Routine Comment: Consulting Provider: ARIELA LOCKE Physician Instructions: Reason For Exam: Aneurysm-arotic 07/22/20 11:56 Consult to Cardiac Rehabilitation [CONS] Routine Reason For Exam: Cardiomyopathy Additional Notes/Special Instructions: Please evaluate patient for outpatient cardiac rehab in setting of new or worsening diagnosis of severe cardiomyopathy 07/22/20 12:33 Consult to Physician [CONS] Routine Comment: Consulting Provider: ESTHER PEARCE Physician Instructions: Reason For Exam: RENAL MASS Primary care physician: LITHODUPLICATOR OPERATOR Hospitalization Reason for admission: Acute hypoxic respiratory failure/fluid overload/acute on chronic congestiv Condition: Fair Pertinent studies: 07/18/2020: Echo: EF 35-40%, impaired LV relaxation, RV mildly dilated, LA severely dilated, RA mildly dilated, RVSP 54mmHg, mild AR, aortic root mildly dilated. CTA chest: is negative for PTE, however suspicious mass noted in left lower lobe and renal mass. Heme-onc is consulted. CT abdomen and pelvis: 4.7 mm complex superior pole left renal mass concerning for renal cell carcinoma Irregular 1.3 cm right lower pole nodule reflect synchronous primary malignancy or metastatic disease Next diffuse aneurysmal dilatation of aorta involving the ascending and descending thoracic aorta no evidence of rupture thank or dissection Improved CHF moderate persistent intestinal edema. CT head without contrast; no acute intracranial abnormality no evidence of intracranial hemorrhage or large territorial acute ischemic changes age-related parenchymal atrophy chronic microvascular disease CT head without contrast CT head without contrast Procedures: [facility] (07/24/2020): 70% distal LAD no stent, plan to address medically with DAPT.Initiate aspirin 81 mg, Plavix 75 mg daily. HD per schedule Hospital course: Acute respiratory failure with pulmonary hypertension * CTA chest is negative for PTE, however suspicious mass noted in left lower lobe and renal mass. Heme-onc is consulted. 64-year-old male patient with significant past medical history of hypertension, end-stage renal disease on hemodialysis, gout, CHF, history of renal mass follows by outpatient urologist, was admitted through emergency room with generalized weakness of 2 months duration worse since last week patient was found to have orthopnea proximal nocturnal dyspnea and worsening shortness of breath due to fluid overload. Patient was placed on supplemental oxygen and brought to the emergency room work-up in the ED is consistent with acute on chronic hypoxic respiratory failure and acute on chronic congestive heart failure as well as fluid overload. Patient was severely hypoxemic and altered unable to protect the airway, subsequently was intubated and admitted to ICU and received stat hemodialysis. 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 Medications optimized, patient was weaned as tolerated and extubated subsequently, stabilized in ICU and transferred to the floor Patient has history of left renal mass, extensively evaluated by urologist [who does not come to our hospital] as outpatient, and follows regularly. Patient symptoms slowly but gradually improved, medications optimized Today patient is comfortable no new complaints vital signs stable Physical examination prior to discharge did not show any new findings Cleared by all the consultants for discharge and follow-up with him in the office per schedule Patient is hemodynamically and clinically stable at discharge. Discharge diagnosis: --Non-ST elevation NC type II --Acute hypoxic respiratory failure requiring intubation[status post extubation] --Acute systolic congestive heart failure EF 35 to 40%, cardiology evaluated optimize the medications --Left renal mass; patient has seen outpatient urologist, extensively evaluated, and patient follows with him regularly --Hypertension; moderate control --History of abdominal aneurysm; supportive care --Negative COVID-19 test --Bilateral pulmonary infiltrates versus pulmonary edema --Chronic venous insufficiency; lower extremities, supportive care Optimize the medication, patient is hemodynamically and clinically stable for discharge Cleared by all the consultants for DC and follow-up as outpatient Stable at discharge Disposition: DC-01 TO HOME OR SELFCARE Final Discharge Diagnosis (Prints w/discharge instructions): Non-ST elevation NC. Acute hypoxic respiratory failure. Left renal mass. Acute systolic congestive heart failure. ESRD. Hemodialysis. Hypertension. Abdominal aneurysm. Bilateral pulmonary infiltrates chronic venous insufficiency lower extremity. History of angioedema lower lip Time spent for discharge: 35 minutes Core Measure Documentation - Palliative Care Palliative Care/ Comfort Measures: Not Applicable - Core Measures Any of the following diagnoses?: none Exam - Constitutional Vitals: Temp Pulse Resp BP Pulse Ox 97.5 F L 57 L 18 139/76 97 07/25/20 11:11 07/25/20 11:11 07/25/20 11:11 07/25/20 11:11 07/25/20 11:11 General appearance: Present: no acute distress, well-nourished - EENT Eyes: Present: PERRL, EOM intact - Neck Neck: Present: supple, normal ROM - Respiratory Respiratory effort: normal, labored Respiratory: bilateral: diminished, negative: rales, rhonchi, wheezing - Cardiovascular Rhythm: regular Heart Sounds: Present: S1 & S2 - Extremities Extremities: no ischemia, No edema - Abdominal General gastrointestinal: Present: soft, non-tender, non-distended, normal bowel sounds - Integumentary Integumentary: Present: clear, warm - Musculoskeletal Musculoskeletal: strength equal bilaterally - Psychiatric Psychiatric: appropriate mood/affect, cooperative - Neurologic Neurologic: moves all extremities Plan Activity: advance as tolerated, fall precautions Diet: renal, other (cardiac diet) Additional Instructions: [facility] dialysis clinic: - at 11:15am, 1st treatment outpatient is set for Wednesday at 10:45am. Advised to comply with medications, diet, hemodialysis and follow-up visits per schedule. If you have worsening symptoms contact MD or go to emergency room as needed. Patient should follow-up with Dr Rosales, [facility] contract specialist in our [place] location on 08/30/2020 at 2:30 PM. #[phone] Follow up with: HUSSEIN OQUENDO MD [Primary Care Provider] - 3-5 Days ELAINE THOMAS MD [Staff Physician] - 7 Days MARIAH ROSALES MD [Staff Physician] - 08/30/20 2:30 pm Prescriptions: Aspirin [Aspirin BABY CHEW TAB] 81 mg PO QDAY #30 tab.chew AtorvaSTATin [Lipitor] 40 mg PO QHS #30 tab Famotidine [Pepcid] 10 mg PO BID #30 tablet Clopidogrel [Plavix] 75 mg PO QDAY #30 tablet
--- NOTE | 2020-07-25 14:22 | Progress Note ---
Assessment and Plan Acute hypoxemic respiratory failure Bilateral pulmonary infiltrates, edema versus pneumonia. PUI COVID-19 infection. ROSA ELENA on CKD Anemia NSTEMI Elevated serum inflammatory markers to include ferritin and D-dimer. Elevated serum transaminases. Oropharyngeal dysphagia. History of hypertension. History of polysubstance abuse, but negative drug screen - to complete ACS w/up - advance diet per FOUR CORNER STAYER MACHINE OPERATOR - continue care as below otherwise; - continue HD/UF for toxin and volume clearance - prn wean supplemental oxygen for target O2 sat's > 90% acutely - aspiration precautions - prn bronchodilators with pulmonary hygiene per RT - avoid nephrotoxins, renally dose all medications - continue to avoid benzodiazepine's, reduce the possibility of delirium - complete empiric CAP AB's coverage with Rocephin and Azitrhromycin - follow clinically re: WBC/fevers - prn analgesia per CPOT score - Maintenance of sleep-wake cycle, avoid delirium - continue enteral nutritional support at goal rate as tolerated - G.I. & VTE prophylaxis - PT/OT/ROM exercises - continue mobility protocols for pressure ulcer prophylaxis - Monitor hemodynamics closely - continue other care per attending / other consultants - discharge planning ongoing concurrently COVID SPECIFIC INTERVENTIONS - COVID-19 test negative .... Re-evaluate in am & prn Subjective Date of service: 07/25/20 Principal diagnosis: Ac. hypoxemic resp failure; Pulm Edema; PUI COVID-19; ROSA ELENA on CKD; NSTEMI Interval history: Patient is seen today for: Acute hypoxemic respiratory failure; Pulm Edema; PUI COVID-19; ROSA ELENA on CKD; NSTEMI Seen and examined at bedside; 24hour events reviewed; nursing and respiratory care staff consulted; no adverse overnight events reported to me; mresting peacefully in bed; Objective Vital Signs - 12hr 07/25/20 07/25/20 07/25/20 03:52 07:16 09:43 Temperature 98.2 F 97.7 F Pulse Rate 54 L 53 L 53 L Pulse Rate [ Left Dorsalis Pedis] Pulse Rate [ Right Dorsalis Pedis] Respiratory 16 18 Rate Blood Pressure 134/66 146/80 O2 Sat by Pulse 97 94 Oximetry 07/25/20 07/25/20 07/25/20 09:44 10:00 11:11 Temperature 97.5 F L Pulse Rate 55 L 55 L 57 L Pulse Rate [ 78 Left Dorsalis Pedis] Pulse Rate [ 78 Right Dorsalis Pedis] Respiratory 19 18 Rate Blood Pressure 146/80 139/76 O2 Sat by Pulse 99 97 Oximetry Constitutional: no acute distress, alert, other (elderly male with normal respiratory effort at rest ) Eyes: non-icteric ENT: oropharynx moist, other (extubated) Neck: supple, no lymphadenopathy, no JVD Effort: normal Ascultation: Bilateral: clear, rhonchi Percussion: Bilateral: not dull Cardiovascular: regular rate and rhythm Gastrointestinal: normoactive bowel sounds, soft, non-tender, non-distended Integumentary: normal, other (AV Fistula to left arm) Extremities: no cyanosis, no edema, pulses normal, no ischemia or petechiae Neurologic: normal mental status, non-focal exam (grossly), pupils equal and round, motor strength normal and Psychiatric: mood appropriate, affect normal CBC and BMP: 07/25/20 04:37 07/24/20 04:44 ABG, PT/INR, D-dimer: ABG ABG pH 7.385 pH Units (7.350-7.450) 07/19/20 16:36 POC ABG pCO2 33.0 mmHg (32.0-48.0) 07/19/20 03:27 ABG pCO2 43.5 mm Hg 07/19/20 16:36 POC ABG pO2 127.4 mmHg (83-108) H 07/19/20 03:27 ABG pO2 108.2 mm Hg (80.0-90.0) H 07/19/20 16:36 POC ABG HCO3 24.1 07/19/20 03:27 ABG O2 Saturation 97.8 % (95.0-99.0) 07/19/20 16:36 PT/INR, D-dimer PT 14.1 Sec. (12.2-14.9) 07/24/20 04:44 INR 1.03 (0.87-1.13) 07/24/20 04:44 D-Dimer 653.04 ng/mlDDU (0-234) H 07/17/20 13:11 Abnormal lab findings: Abnormal Labs 07/17/20 07/17/20 07/17/20 09:31 09:31 09:31 WBC 11.6 H RBC Hgb 11.2 L Hct 35.4 L RDW Lymph % (Auto) 7.0 L [place] % (Auto) Lymph # (Auto) 0.8 L [place] # (Auto) Seg Neutrophils % 87.0 H Seg Neuts % (Manual) Lymphocytes % (Manual) Monocytes % (Manual) Seg Neutrophils # 10.1 H Lymphocytes # (Manual) Monocytes # (Manual) PT 15.0 H D-Dimer Heparin Anti-Xa Level ABG pH POC ABG pCO2 POC ABG pO2 ABG pO2 ABG Base Excess ABG Hemoglobin ABG Oxyhemoglobin ABG Potassium ABG Glucose Sodium Potassium Chloride BUN 55 H Creatinine 5.5 H Glucose 177 H POC Glucose Lactic Acid Magnesium Ferritin Direct Bilirubin 0.3 H AST 99 H ALT 82 H Lactate Dehydrogenase Total Creatine Kinase Troponin T 0.030 H NT-Pro-B Natriuret Pep 42116 H Albumin HDL Cholesterol 33 L Arterial Blood Glucose Arterial Blood Ionized Calcium 07/17/20 07/17/20 07/17/20 12:57 13:11 13:11 WBC RBC Hgb Hct RDW Lymph % (Auto) [place] % (Auto) Lymph # (Auto) [place] # (Auto) Seg Neutrophils % Seg Neuts % (Manual) Lymphocytes % (Manual) Monocytes % (Manual) Seg Neutrophils # Lymphocytes # (Manual) Monocytes # (Manual) PT D-Dimer 653.04 H Heparin Anti-Xa Level ABG pH POC ABG pCO2 POC ABG pO2 ABG pO2 ABG Base Excess ABG Hemoglobin ABG Oxyhemoglobin ABG Potassium ABG Glucose Sodium Potassium Chloride BUN Creatinine Glucose 175 H POC Glucose Lactic Acid Magnesium Ferritin 356.2 H Direct Bilirubin AST ALT Lactate Dehydrogenase 277 H Total Creatine Kinase Troponin T NT-Pro-B Natriuret Pep Albumin HDL Cholesterol Arterial Blood Glucose Arterial Blood Ionized Calcium 07/17/20 07/17/20 07/17/20 13:11 21:00 23:25 WBC RBC Hgb Hct RDW Lymph % (Auto) [place] % (Auto) Lymph # (Auto) [place] # (Auto) Seg Neutrophils % Seg Neuts % (Manual) Lymphocytes % (Manual) Monocytes % (Manual) Seg Neutrophils # Lymphocytes # (Manual) Monocytes # (Manual) PT D-Dimer Heparin Anti-Xa Level ABG pH POC ABG pCO2 POC ABG pO2 110.1 H ABG pO2 ABG Base Excess ABG Hemoglobin 11.5 L ABG Oxyhemoglobin ABG Potassium ABG Glucose Sodium Potassium Chloride BUN Creatinine Glucose POC Glucose 64 L Lactic Acid 0.60 L Magnesium Ferritin Direct Bilirubin AST ALT Lactate Dehydrogenase Total Creatine Kinase Troponin T NT-Pro-B Natriuret Pep Albumin HDL Cholesterol Arterial Blood Glucose Arterial Blood Ionized Calcium 4.5 L 07/17/20 07/18/20 07/18/20 Unknown 05:24 05:24 WBC RBC 3.45 L Hgb 10.8 L Hct 31.9 L RDW Lymph % (Auto) [place] % (Auto) Lymph # (Auto) [place] # (Auto) Seg Neutrophils % Seg Neuts % (Manual) 85.0 H Lymphocytes % (Manual) 8.0 L Monocytes % (Manual) Seg Neutrophils # Lymphocytes # (Manual) 0.7 L Monocytes # (Manual) PT D-Dimer Heparin Anti-Xa Level ABG pH 7.223 L POC ABG pCO2 POC ABG pO2 ABG pO2 108.9 H ABG Base Excess -5.9 L ABG Hemoglobin 11.4 L ABG Oxyhemoglobin ABG Potassium ABG Glucose Sodium Potassium Chloride BUN 54 H Creatinine 6.9 H Glucose POC Glucose Lactic Acid Magnesium Ferritin Direct Bilirubin AST ALT 62 H Lactate Dehydrogenase Total Creatine Kinase Troponin T NT-Pro-B Natriuret Pep Albumin 3.8 L HDL Cholesterol Arterial Blood Glucose Arterial Blood Ionized Calcium 07/18/20 07/18/20 07/18/20 11:10 11:23 12:06 WBC RBC Hgb Hct RDW Lymph % (Auto) [place] % (Auto) Lymph # (Auto) [place] # (Auto) Seg Neutrophils % Seg Neuts % (Manual) Lymphocytes % (Manual) Monocytes % (Manual) Seg Neutrophils # Lymphocytes # (Manual) Monocytes # (Manual) PT D-Dimer Heparin Anti-Xa Level ABG pH 7.268 L POC ABG pCO2 49.6 H POC ABG pO2 49.3 L ABG pO2 ABG Base Excess ABG Hemoglobin 11.8 L ABG Oxyhemoglobin 78.7 L ABG Potassium 4.7 H ABG Glucose 112 H Sodium Potassium Chloride BUN Creatinine Glucose POC Glucose 107 H Lactic Acid Magnesium Ferritin Direct Bilirubin AST ALT Lactate Dehydrogenase Total Creatine Kinase Troponin T 0.189 H* D NT-Pro-B Natriuret Pep Albumin HDL Cholesterol Arterial Blood Glucose 112 H Arterial Blood Ionized Calcium 07/18/20 07/18/20 07/18/20 15:50 17:27 19:11 WBC RBC Hgb Hct RDW Lymph % (Auto) [place] % (Auto) Lymph # (Auto) [place] # (Auto) Seg Neutrophils % Seg Neuts % (Manual) Lymphocytes % (Manual) Monocytes % (Manual) Seg Neutrophils # Lymphocytes # (Manual) Monocytes # (Manual) PT D-Dimer Heparin Anti-Xa Level ABG pH POC ABG pCO2 POC ABG pO2 ABG pO2 ABG Base Excess ABG Hemoglobin ABG Oxyhemoglobin ABG Potassium ABG Glucose Sodium Potassium Chloride BUN Creatinine Glucose POC Glucose 156 H Lactic Acid Magnesium Ferritin Direct Bilirubin AST ALT Lactate Dehydrogenase Total Creatine Kinase Troponin T 0.182 H* 0.213 H* NT-Pro-B Natriuret Pep Albumin HDL Cholesterol Arterial Blood Glucose Arterial Blood Ionized Calcium 07/18/20 07/19/20 07/19/20 23:10 03:27 05:21 WBC RBC Hgb Hct RDW Lymph % (Auto) [place] % (Auto) Lymph # (Auto) [place] # (Auto) Seg Neutrophils % Seg Neuts % (Manual) Lymphocytes % (Manual) Monocytes % (Manual) Seg Neutrophils # Lymphocytes # (Manual) Monocytes # (Manual) PT D-Dimer Heparin Anti-Xa Level ABG pH 7.482 H POC ABG pCO2 POC ABG pO2 127.4 H ABG pO2 ABG Base Excess ABG Hemoglobin 11.9 L ABG Oxyhemoglobin ABG Potassium ABG Glucose 131 H Sodium Potassium Chloride BUN Creatinine Glucose POC Glucose 160 H 140 H Lactic Acid Magnesium Ferritin Direct Bilirubin AST ALT Lactate Dehydrogenase Total Creatine Kinase Troponin T NT-Pro-B Natriuret Pep Albumin HDL Cholesterol Arterial Blood Glucose 131 H Arterial Blood Ionized Calcium 4.5 L 07/19/20 07/19/20 07/19/20 11:48 16:36 18:32 WBC RBC Hgb Hct RDW Lymph % (Auto) [place] % (Auto) Lymph # (Auto) [place] # (Auto) Seg Neutrophils % Seg Neuts % (Manual) Lymphocytes % (Manual) Monocytes % (Manual) Seg Neutrophils # Lymphocytes # (Manual) Monocytes # (Manual) PT D-Dimer Heparin Anti-Xa Level ABG pH POC ABG pCO2 POC ABG pO2 ABG pO2 108.2 H ABG Base Excess ABG Hemoglobin 12.3 L ABG Oxyhemoglobin ABG Potassium ABG Glucose Sodium Potassium Chloride BUN Creatinine Glucose POC Glucose 141 H 128 H Lactic Acid Magnesium Ferritin Direct Bilirubin AST ALT Lactate Dehydrogenase Total Creatine Kinase Troponin T NT-Pro-B Natriuret Pep Albumin HDL Cholesterol Arterial Blood Glucose Arterial Blood Ionized Calcium 07/19/20 07/20/20 07/20/20 22:36 04:35 04:35 WBC 11.9 H RBC 3.45 L Hgb 10.5 L Hct 31.7 L RDW Lymph % (Auto) [place] % (Auto) Lymph # (Auto) [place] # (Auto) Seg Neutrophils % Seg Neuts % (Manual) Lymphocytes % (Manual) Monocytes % (Manual) Seg Neutrophils # Lymphocytes # (Manual) Monocytes # (Manual) PT D-Dimer Heparin Anti-Xa Level ABG pH POC ABG pCO2 POC ABG pO2 ABG pO2 ABG Base Excess ABG Hemoglobin ABG Oxyhemoglobin ABG Potassium ABG Glucose Sodium Potassium Chloride 97.8 L BUN 68 H Creatinine 7.4 H Glucose 109 H POC Glucose 121 H Lactic Acid Magnesium Ferritin Direct Bilirubin AST ALT Lactate Dehydrogenase Total Creatine Kinase Troponin T NT-Pro-B Natriuret Pep Albumin HDL Cholesterol Arterial Blood Glucose Arterial Blood Ionized Calcium 07/20/20 07/20/20 07/20/20 04:49 11:43 17:30 WBC RBC Hgb Hct RDW Lymph % (Auto) [place] % (Auto) Lymph # (Auto) [place] # (Auto) Seg Neutrophils % Seg Neuts % (Manual) Lymphocytes % (Manual) Monocytes % (Manual) Seg Neutrophils # Lymphocytes # (Manual) Monocytes # (Manual) PT D-Dimer Heparin Anti-Xa Level ABG pH POC ABG pCO2 POC ABG pO2 ABG pO2 ABG Base Excess ABG Hemoglobin ABG Oxyhemoglobin ABG Potassium ABG Glucose Sodium Potassium Chloride BUN Creatinine Glucose POC Glucose 114 H 110 H 168 H Lactic Acid Magnesium Ferritin Direct Bilirubin AST ALT Lactate Dehydrogenase Total Creatine Kinase Troponin T NT-Pro-B Natriuret Pep Albumin HDL Cholesterol Arterial Blood Glucose Arterial Blood Ionized Calcium 07/21/20 07/21/20 07/21/20 04:26 11:41 16:18 WBC RBC Hgb Hct RDW Lymph % (Auto) [place] % (Auto) Lymph # (Auto) [place] # (Auto) Seg Neutrophils % Seg Neuts % (Manual) Lymphocytes % (Manual) Monocytes % (Manual) Seg Neutrophils # Lymphocytes # (Manual) Monocytes # (Manual) PT D-Dimer Heparin Anti-Xa Level ABG pH POC ABG pCO2 POC ABG pO2 ABG pO2 ABG Base Excess ABG Hemoglobin ABG Oxyhemoglobin ABG Potassium ABG Glucose Sodium Potassium Chloride 97.9 L BUN 64 H Creatinine 6.2 H Glucose 127 H POC Glucose 133 H 153 H Lactic Acid Magnesium 2.50 H Ferritin Direct Bilirubin AST ALT Lactate Dehydrogenase Total Creatine Kinase Troponin T NT-Pro-B Natriuret Pep Albumin HDL Cholesterol Arterial Blood Glucose Arterial Blood Ionized Calcium 07/23/20 07/23/20 07/23/20 04:43 04:43 08:44 WBC RBC 3.45 L Hgb 10.5 L Hct 31.3 L RDW Lymph % (Auto) [place] % (Auto) Lymph # (Auto) [place] # (Auto) Seg Neutrophils % Seg Neuts % (Manual) Lymphocytes % (Manual) Monocytes % (Manual) Seg Neutrophils # Lymphocytes # (Manual) Monocytes # (Manual) PT D-Dimer Heparin Anti-Xa Level ABG pH POC ABG pCO2 POC ABG pO2 ABG pO2 ABG Base Excess ABG Hemoglobin ABG Oxyhemoglobin ABG Potassium ABG Glucose Sodium 136 L Potassium 3.5 L Chloride 94.5 L BUN 65 H Creatinine 5.2 H Glucose 119 H POC Glucose Lactic Acid Magnesium Ferritin Direct Bilirubin AST ALT Lactate Dehydrogenase Total Creatine Kinase Troponin T 4.960 H* D 5.820 H* NT-Pro-B Natriuret Pep Albumin HDL Cholesterol Arterial Blood Glucose Arterial Blood Ionized Calcium 07/23/20 07/23/20 07/23/20 11:16 13:56 13:56 WBC RBC 3.58 L Hgb 10.8 L Hct 32.3 L RDW Lymph % (Auto) [place] % (Auto) Lymph # (Auto) [place] # (Auto) Seg Neutrophils % Seg Neuts % (Manual) Lymphocytes % (Manual) Monocytes % (Manual) 20.0 H Seg Neutrophils # Lymphocytes # (Manual) Monocytes # (Manual) 1.6 H PT 15.0 H D-Dimer Heparin Anti-Xa Level ABG pH POC ABG pCO2 POC ABG pO2 ABG pO2 ABG Base Excess ABG Hemoglobin ABG Oxyhemoglobin ABG Potassium ABG Glucose Sodium Potassium Chloride BUN Creatinine Glucose POC Glucose 114 H Lactic Acid Magnesium Ferritin Direct Bilirubin AST ALT Lactate Dehydrogenase Total Creatine Kinase Troponin T NT-Pro-B Natriuret Pep Albumin HDL Cholesterol Arterial Blood Glucose Arterial Blood Ionized Calcium 07/23/20 07/23/20 07/24/20 19:49 19:49 04:44 WBC RBC Hgb Hct RDW Lymph % (Auto) [place] % (Auto) Lymph # (Auto) [place] # (Auto) Seg Neutrophils % Seg Neuts % (Manual) Lymphocytes % (Manual) Monocytes % (Manual) Seg Neutrophils # Lymphocytes # (Manual) Monocytes # (Manual) PT D-Dimer Heparin Anti-Xa Level 0.13 L 0.14 L ABG pH POC ABG pCO2 POC ABG pO2 ABG pO2 ABG Base Excess ABG Hemoglobin ABG Oxyhemoglobin ABG Potassium ABG Glucose Sodium Potassium Chloride BUN Creatinine Glucose POC Glucose Lactic Acid Magnesium Ferritin Direct Bilirubin AST ALT Lactate Dehydrogenase Total Creatine Kinase 194 H Troponin T 4.710 H* NT-Pro-B Natriuret Pep Albumin HDL Cholesterol Arterial Blood Glucose Arterial Blood Ionized Calcium 07/24/20 07/24/20 07/25/20 04:44 04:44 04:37 WBC RBC 3.41 L Hgb 10.5 L 10.3 L Hct 31.0 L 31.0 L RDW 13.1 L Lymph % (Auto) [place] % (Auto) 14.4 H Lymph # (Auto) [place] # (Auto) 1.2 H Seg Neutrophils % Seg Neuts % (Manual) Lymphocytes % (Manual) Monocytes % (Manual) Seg Neutrophils # Lymphocytes # (Manual) Monocytes # (Manual) PT D-Dimer Heparin Anti-Xa Level ABG pH POC ABG pCO2 POC ABG pO2 ABG pO2 ABG Base Excess ABG Hemoglobin ABG Oxyhemoglobin ABG Potassium ABG Glucose Sodium Potassium Chloride 95.8 L BUN 77 H Creatinine 6.0 H Glucose POC Glucose Lactic Acid Magnesium Ferritin Direct Bilirubin AST ALT Lactate Dehydrogenase Total Creatine Kinase Troponin T NT-Pro-B Natriuret Pep Albumin HDL Cholesterol Arterial Blood Glucose Arterial Blood Ionized Calcium Allied health notes reviewed: nursing
--- NOTE | 2020-07-25 16:07 | Progress Note ---
Assessment and Plan 1. CKD 5, now ESKD: Patient follows with Dr. Stephens, was to start HD at [facility] (Formerly [facility])[3] but unfortunately decompensated prior to outpatient HD initiation. - s/p HD 07/17 for initial treatment, had treatment 07/18 and 07/20; Continue HD MWF for toxin/electrolyte management and fluid removal - renally dose meds - avoid nephrotoxins - AVG working well per report - case management consult to assist with placement at [facility] (Former[facility]3] for outpatient HD 2. HTN/Volume: UF removal as tolerated, BP reasonable 3. Acute hypoxic resp failure: now extubated, pulmonology following. CT findings and vascular recommendations noted. 4. DM type 2. 5. Normochromic anemia: likely due to CKD/ESKD, ESAs with HD prn 6. L kidney mass: managed in outpatient setting by urology 7. Secondary Hyperparathyroidism: defer vitamin D analog to outpatient setting, Ca at goal 8. Aortic Aneurysm: vascular following 9. Elevated troponin. S/p cath, 70% LD obstruction, no stents placed. DAPT. Subjective Date of service: 07/25/20 Principal diagnosis: Ac. hypoxemic resp failure; Pulm Edema; PUI COVID-19; ROSA ELENA on CKD; NSTEMI Interval history: Denies chest pain, nausea and vomiting. Objective - Exam Narrative Exam: General: No acute distress HEENT: ATNC Neck: Supple, no JVD Chest: Bilateral rhonchi Heart: RRR, S1 and S2, no pericardial rub Abdomen: Soft, nontender, no renal bruit Extremity: No peripheral cyanosis, edema Neurological: Alert, awake, no asterixis Dermatology: No skin rash Psych: No agitation Musculoskeletal: No joint effusion - Vital Signs Vital signs: Vital Signs - 12hr 07/25/20 07/25/20 07/25/20 07:16 09:43 09:44 Temperature 97.7 F Pulse Rate 53 L 53 L 55 L Pulse Rate [ Left Dorsalis Pedis] Pulse Rate [ Right Dorsalis Pedis] Respiratory 18 Rate Blood Pressure 146/80 146/80 O2 Sat by Pulse 94 Oximetry 07/25/20 07/25/20 10:00 11:11 Temperature 97.5 F L Pulse Rate 55 L 57 L Pulse Rate [ 78 Left Dorsalis Pedis] Pulse Rate [ 78 Right Dorsalis Pedis] Respiratory 19 18 Rate Blood Pressure 139/76 O2 Sat by Pulse 99 97 Oximetry - Lab 07/25/20 04:37 07/24/20 04:44 Most recent lab results ABG pH 7.385 pH Units (7.350-7.450) 07/19/20 16:36 ABG pCO2 43.5 mm Hg 07/19/20 16:36 ABG pO2 108.2 mm Hg (80.0-90.0) H 07/19/20 16:36 ABG HCO3 25.5 mmol/L (20.0-26.0) 07/19/20 16:36 ABG O2 Saturation 97.8 % (95.0-99.0) 07/19/20 16:36 Calcium 9.1 mg/dL (8.4-10.2) 07/24/20 04:44 Magnesium 2.50 mg/dL (1.7-2.3) H 07/21/20 04:26 Medications & Allergies - Medications Allergies/Adverse Reactions: Allergies methadone Allergy (Verified 07/17/20 09:00) Unknown tramadol Allergy (Verified 07/17/20 09:00) Swelling Home Medications: Home Medications Medication Instructions Recorded Confirmed Last Taken Type Isosorbide Mononitrate [Isosorbide 60 mg PO DAILY 07/20/20 07/20/20 Unknown History Mononitrate ER] NIFEdipine XL [Procardia Xl] 60 mg PO QDAY 07/20/20 07/20/20 Unknown History Sodium Bicarbonate 650 mg PO QID 07/20/20 07/20/20 Unknown History Spironolactone [Aldactone] 25 mg PO QDAY 07/20/20 07/20/20 Unknown History calcitrioL [Rocaltrol] 1 mcg PO QDAY 07/20/20 07/20/20 Unknown History carvediloL [Coreg] 25 mg PO BID 07/20/20 07/20/20 Unknown History cloNIDine [Catapres] 0.2 mg PO QHS 07/20/20 07/20/20 Unknown History hydrALAZINE [Apresoline TAB] 100 mg PO TID 07/20/20 07/20/20 Unknown History Aspirin [Aspirin BABY CHEW TAB] 81 mg PO QDAY #30 tab.chew 07/25/20 Unknown Rx AtorvaSTATin [Lipitor] 40 mg PO QHS #30 tab 07/25/20 Unknown Rx Clopidogrel [Plavix] 75 mg PO QDAY #30 tablet 07/25/20 Unknown Rx Famotidine [Pepcid] 10 mg PO BID #30 tablet 07/25/20 Unknown Rx Active Medications: Generic Name Dose Route Start Last Admin Trade Name Freq PRN Reason Stop Dose Admin Acetaminophen 650 mg 07/17/20 12:29 Acetaminophen 650 Mg Rect Supp MN Q6H PRN Pain MILD(1-3)/Fever >100.5/ALBERTS Acetaminophen 650 mg 07/25/20 00:22 07/25/20 13:02 Acetaminophen 325 Mg Tab PO 650 mg Q6H PRN Administration Pain, Moderate (4-6) Albuterol 2.5 mg 07/17/20 12:29 Albuterol 2.5 Mg/3 Ml Nebu IH Q3HRT PRN Shortness Of Breath Lipase/Protease/Amylase 1 each 07/17/20 16:00 Lipase 10,500/Protease 25,000/Amylase 43,750 (Units) Dr Cook FEEDTUBE PRN PRN For Clogged Feeding Tube Aspirin 81 mg 07/25/20 10:00 07/25/20 09:44 Aspirin 81 Mg Tab Chew PO 81 mg QDAY ALIX Administration Atorvastatin Calcium 40 mg 07/24/20 22:00 07/24/20 21:16 Atorvastatin 20 Mg Tab PO 40 mg QHS ALIX Administration Clonidine HCl 0.2 mg 07/19/20 22:00 07/25/20 09:44 Clonidine 0.2 Mg Tab PO 0.2 mg Q12HR ALIX Administration Clopidogrel Bisulfate 75 mg 07/24/20 12:00 07/25/20 09:43 Clopidogrel 75 Mg Tab PO 75 mg QDAY ALIX Administration Famotidine 10 mg 07/22/20 12:00 07/25/20 09:43 Famotidine 10 Mg Tab PO 10 mg BID ALIX Administration Heparin Sodium (Porcine) 5,000 unit 07/24/20 12:00 07/25/20 09:45 Heparin 5,000 Unit/1 Ml Vial SUB-Q 5,000 unit Q12HR ALIX Administration Hydralazine HCl 10 mg 07/18/20 14:00 07/21/20 01:39 Hydralazine 20 Mg/1 Ml Inj IV 10 mg Q4H PRN Administration SBP >/=170; DBP >/=100 Hydromorphone HCl 0.25 mg 07/17/20 12:29 07/24/20 21:18 Hydromorphone 1 Mg/1 Ml Inj IV 0.25 mg Q4H PRN Administration Pain, Moderate (4-6) Hydrophilic Ointment 1 applic 07/17/20 13:56 Lip Therapy Vaseline TP Q2HR PRN Dry Lips Sodium Chloride 100 mls @ 999 mls/hr 07/17/20 16:00 Nacl 0.9% IV ANDRÉS PRN Hypotension Sodium Chloride 500 mls @ 50 mls/hr 07/24/20 09:00 07/24/20 09:45 Nacl 0.9% 500 Ml IV 100 mls DIRECT ALIX Administration Losartan Potassium 50 mg 07/22/20 12:30 07/25/20 09:44 Losartan 25 Mg Tab PO 50 mg QDAY ALIX Administration Metoprolol Tartrate 25 mg 07/20/20 22:00 07/25/20 09:43 Metoprolol Tartrate 25 Mg Tab PO Not Given BID ALIX Multi-Ingred Cream/Lotion/Oil/Oint 1 applic 07/17/20 13:56 Mineral Oil/Petrolatum, White Ophth Oint 3.5 Gm OU Q4HR PRN Dry Eye(s) Sodium Chloride 10 ml 07/17/20 22:00 07/25/20 09:45 Sodium Chloride 0.9% 10 Ml Flush Syringe IV 10 ml BID ALIX Administration Sodium Chloride 10 ml 07/17/20 12:29 Sodium Chloride 0.9% 10 Ml Flush Syringe IV PRN PRN LINE FLUSH
--- NOTE | 2020-07-26 19:01 | Electrocardiograph Report ---
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 Possible ischemia now present Prolonged QT interval now present Electronically Signed On 07-26-2020 19:01:11 EDT by Juan Navarro
[2020-07-29 06:44] LABS: Gamma Globulin 1.2 g/dL (0.8-1.7)
== END 2020-07-25 16:43 | disposition home or self-care (01) | DRG 208 ==
LOC: ED 08:44 → CC1 12:29 → 4A 07-20 18:18
PROVIDERS: ADMIT Internal Medicine; ATTEND Internal Medicine
PROC: 0BH17EZ Insertion of Endotracheal Airway into Trachea, Via Natural or Artificial Opening (ICD-10-PCS; principal; 2020-07-17)
PROC: 5A1945Z Respiratory Ventilation, 24-96 Consecutive Hours (ICD-10-PCS; 2020-07-17)
PROC: 5A1D70Z Performance of Urinary Filtration, Intermittent, Less than 6 Hours Per Day (ICD-10-PCS; 2020-07-17)
PROC: 4A033R1 Measurement of Arterial Saturation, Peripheral, Percutaneous Approach (ICD-10-PCS; 2020-07-17)
PROC: 5A1D70Z Performance of Urinary Filtration, Intermittent, Less than 6 Hours Per Day (ICD-10-PCS; 2020-07-18)
PROC: 5A1D70Z Performance of Urinary Filtration, Intermittent, Less than 6 Hours Per Day (ICD-10-PCS; 2020-07-20)
PROC: 5A1D70Z Performance of Urinary Filtration, Intermittent, Less than 6 Hours Per Day (ICD-10-PCS; 2020-07-22)
PROC: 4A023N7 Measurement of Cardiac Sampling and Pressure, Left Heart, Percutaneous Approach (ICD-10-PCS; 2020-07-24)
PROC: B2111ZZ Fluoroscopy of Multiple Coronary Arteries using Low Osmolar Contrast (ICD-10-PCS; 2020-07-24)
PROC: B2151ZZ Fluoroscopy of Left Heart using Low Osmolar Contrast (ICD-10-PCS; 2020-07-24)
PROC: 5A1D70Z Performance of Urinary Filtration, Intermittent, Less than 6 Hours Per Day (ICD-10-PCS; 2020-07-24)
DX: J96.01 Acute respiratory failure with hypoxia (principal); N18.6 End stage renal disease; I50.23 Acute on chronic systolic (congestive) heart failure; I21.A1 Myocardial infarction type 2; I13.2 Hypertensive heart and chronic kidney disease with heart failure and with stage 5 chronic kidney disease, or end stage renal disease; N25.81 Secondary hyperparathyroidism of renal origin; N17.9 Acute kidney failure, unspecified; I42.9 Cardiomyopathy, unspecified; D64.9 Anemia, unspecified; E11.22 Type 2 diabetes mellitus with diabetic chronic kidney disease; N28.89 Other specified disorders of kidney and ureter; I71.9 Aortic aneurysm of unspecified site, without rupture; R13.12 Dysphagia, oropharyngeal phase; Z20.822 Contact with and (suspected) exposure to COVID-19; I87.2 Venous insufficiency (chronic) (peripheral); I71.2 Thoracic aortic aneurysm, without rupture; I27.20 Pulmonary hypertension, unspecified; I71.4 Abdominal aortic aneurysm, without rupture; E78.2 Mixed hyperlipidemia; M10.9 Gout, unspecified; Z79.899 Other long term (current) drug therapy; Z99.2 Dependence on renal dialysis
CPT/HCPCS: 31500; 36415; 36600; 70450; 71045; 71250; 71275; 74174; 80048; 80053; 80061; 80074; 80076; 80307; 82140; 82550; 82553; 82728; 82803; 82805; 82947; 82962; 83615; 83735; 83880; 84145; 84165; 84484; 85007; 85014; 85018; 85025; 85027; 85049; 85379; 85520; 85610; 85730; 86140; 87040; 87070; 87205; 93005; 93306; 93458; 94002; 94003; 96365; G0378; A9270-GY; J0330; J0360; J0456; J0692; J0696; J1170; J1644; J2250; J2704; J2930; J3010; J3475; J7030; J7040; J7512; Q0163; Q9967; U0003

== ENCOUNTER 2020-08-10 23:31 | Observation (INO) | payer MEDICARE ==
--- NOTE | 2020-08-11 00:24 | XRay Report ---
XR chest 1V ap INDICATION / CLINICAL INFORMATION: Dyspnea COMPARISON: 07/20/2020 FINDINGS: SUPPORT DEVICES: None. HEART / MEDIASTINUM: Unchanged. LUNGS / PLEURA: Lungs are clear. Costophrenic sulci are sharp. No pneumothorax. ADDITIONAL FINDINGS: No significant additional findings. IMPRESSION: 1. No acute findings. Signer Name: Mason Hernandez MD Signed: 08/11/2020 12:19 AM Workstation Name: [id number]
[2020-08-11 01:01] LABS: Basophils % (Auto) 0.8 % (0.0-1.8); Eosinophils # (Auto) 0.1 K/mm3 (0.0-0.4); Eosinophils % (Auto) 2.2 % (0.0-4.3); Hematocrit 27.4 % (35.5-45.6); Hemoglobin 9.2 gm/dl (11.8-15.2); Lymphocytes # (Auto) 1.1 K/mm3 (1.2-5.4); Lymphocytes % (Auto) 19.3 % (13.4-35.0); Mean Corpuscular HGB Conc 34 % (32-34); Mean Corpuscular Volume 90 fl (84-94); Monocytes # (Auto) 0.9 K/mm3 (0.0-0.8); Monocytes % (Auto) 14.5 % (0.0-7.3); Platelet Count 275 K/mm3 (140-440); Red Blood Count 3.05 M/mm3 (3.65-5.03)
[2020-08-11 01:20] LABS: Calcium 9.1 mg/dL (8.4-10.2)
--- NOTE | 2020-08-11 01:54 | Emergency Department Report ---
ED Shortness of Breath HPI - General Chief Complaint: Dyspnea/Respdistress Stated Complaint: MARTÍN Time Seen by Provider: 08/11/20 00:36 Source: patient Mode of arrival: Ambulatory Limitations: No Limitations - History of Present Illness Initial Comments: Patient is a 64-year-old male with past medical history notable for end-stage renal disease on hemodialysis, CHF. He presents to the emergency department with complaint of shortness of breath. States that he is unable to sleep laying flat he also notes dyspnea on exertion. He states he underwent dialysis on Wednesday and had a full session. He does still make urine. He denies history of recent blood clots but states that he was told his heart function was 49%. He denies any fevers chills or coughing with shortness of breath. He states he was initially improved from recent hospital visit until 2 days ago. He denies any leg swelling at this time. - Related Data Home Medications Medication Instructions Recorded Confirmed Last Taken Isosorbide Mononitrate [Isosorbide 60 mg PO DAILY 07/20/20 07/20/20 Unknown Mononitrate ER] NIFEdipine XL [Procardia Xl] 60 mg PO QDAY 07/20/20 07/20/20 Unknown Sodium Bicarbonate 650 mg PO QID 07/20/20 07/20/20 Unknown Spironolactone [Aldactone] 25 mg PO QDAY 07/20/20 07/20/20 Unknown calcitrioL [Rocaltrol] 1 mcg PO QDAY 07/20/20 07/20/20 Unknown carvediloL [Coreg] 25 mg PO BID 07/20/20 07/20/20 Unknown cloNIDine [Catapres] 0.2 mg PO QHS 07/20/20 07/20/20 Unknown hydrALAZINE [Apresoline TAB] 100 mg PO TID 07/20/20 07/20/20 Unknown Previous Rx's Medication Instructions Recorded Last Taken Type Aspirin [Aspirin BABY CHEW TAB] 81 mg PO QDAY #30 tab.chew 07/25/20 Unknown Rx AtorvaSTATin [Lipitor] 40 mg PO QHS #30 tab 07/25/20 Unknown Rx Clopidogrel [Plavix] 75 mg PO QDAY #30 tablet 07/25/20 Unknown Rx Famotidine [Pepcid] 10 mg PO BID #30 tablet 07/25/20 Unknown Rx Allergies Allergy/AdvReac Type Severity Reaction Status Date / Time methadone Allergy Unknown Verified 07/17/20 09:00 tramadol Allergy Swelling Verified 07/17/20 09:00 ED Review of Systems ROS: Stated complaint: MARTÍN Other details as noted in HPI Constitutional: denies: chills, fever Eyes: denies: eye discharge ENT: denies: throat pain Respiratory: orthopnea, shortness of breath, SOB with exertion Cardiovascular: denies: chest pain, edema Endocrine: no symptoms reported Gastrointestinal: denies: abdominal pain, nausea, vomiting Genitourinary: denies: frequency Musculoskeletal: denies: joint swelling Skin: denies: change in color Neurological: denies: numbness Psychiatric: denies: auditory hallucinations Hematological/Lymphatic: denies: easy bleeding, easy bruising ED Past Medical Hx - Past Medical History Previous Medical History?: Yes Hx Hypertension: Yes Hx Congestive Heart Failure: Yes Hx Diabetes: No Hx Renal Disease: Yes Additional medical history: Renal Failure. Gout - Surgical History Past Surgical History?: Yes Additional Surgical History: Rt. Wrist Surgery - Social History Smoking Status: Former Smoker Substance Use Type: Alcohol, Prescribed, Other - Medications Home Medications: Home Medications Medication Instructions Recorded Confirmed Last Taken Type Isosorbide Mononitrate [Isosorbide 60 mg PO DAILY 07/20/20 07/20/20 Unknown History Mononitrate ER] NIFEdipine XL [Procardia Xl] 60 mg PO QDAY 07/20/20 07/20/20 Unknown History Sodium Bicarbonate 650 mg PO QID 07/20/20 07/20/20 Unknown History Spironolactone [Aldactone] 25 mg PO QDAY 07/20/20 07/20/20 Unknown History calcitrioL [Rocaltrol] 1 mcg PO QDAY 07/20/20 07/20/20 Unknown History carvediloL [Coreg] 25 mg PO BID 07/20/20 07/20/20 Unknown History cloNIDine [Catapres] 0.2 mg PO QHS 07/20/20 07/20/20 Unknown History hydrALAZINE [Apresoline TAB] 100 mg PO TID 07/20/20 07/20/20 Unknown History Aspirin [Aspirin BABY CHEW TAB] 81 mg PO QDAY #30 tab.chew 07/25/20 Unknown Rx AtorvaSTATin [Lipitor] 40 mg PO QHS #30 tab 07/25/20 Unknown Rx Clopidogrel [Plavix] 75 mg PO QDAY #30 tablet 07/25/20 Unknown Rx Famotidine [Pepcid] 10 mg PO BID #30 tablet 07/25/20 Unknown Rx ED Physical Exam - General Limitations: No Limitations General appearance: alert, in no apparent distress - Head Head exam: Present: atraumatic, normocephalic - Eye Eye exam: Present: normal appearance Pupils: Present: normal accommodation - ENT ENT exam: Present: normal exam - Neck Neck exam: Present: normal inspection - Respiratory Respiratory exam: Present: rales (at bases) - Cardiovascular Cardiovascular Exam: Present: regular rate, normal rhythm, normal heart sounds - GI/Abdominal GI/Abdominal exam: Present: soft. Absent: distended, tenderness - Rectal Rectal exam: Present: deferred - Extremities Exam Extremities exam: Present: normal inspection - Back Exam Back exam: Present: normal inspection - Neurological Exam Neurological exam: Present: alert, oriented X3 - Psychiatric Psychiatric exam: Present: normal affect, normal mood - Skin Skin exam: Present: warm, dry, intact ED Course Vital Signs 08/10/20 08/11/20 08/11/20 23:43 00:12 00:15 Temperature 98.6 F Pulse Rate 70 76 78 Respiratory 16 24 15 Rate Blood Pressure 108/58 112/63 O2 Sat by Pulse 95 97 97 Oximetry 08/11/20 08/11/20 08/11/20 00:31 00:45 01:01 Temperature Pulse Rate 76 69 73 Respiratory 10 L 9 L 12 Rate Blood Pressure 112/63 112/63 110/56 O2 Sat by Pulse 97 98 98 Oximetry 08/11/20 08/11/20 08/11/20 01:15 01:31 01:45 Temperature Pulse Rate 76 73 74 Respiratory 13 15 14 Rate Blood Pressure 110/56 115/56 115/56 O2 Sat by Pulse 97 96 95 Oximetry 08/11/20 08/11/20 08/11/20 02:01 03:01 04:00 Temperature Pulse Rate 68 74 73 Respiratory 12 14 15 Rate Blood Pressure 122/66 134/71 177/136 O2 Sat by Pulse 97 98 98 Oximetry 08/11/20 05:00 Temperature Pulse Rate 58 L Respiratory 15 Rate Blood Pressure 143/76 O2 Sat by Pulse 96 Oximetry - Reevaluation(s) Reevaluation #1: 08/11/20 03:00 Patient has elevated BNP, D-dimer and mildly elevated troponin. Discussed with admitting hospitalist who is excepted patient for admission. Patient also had a VQ scan that is pending however patient unable to undergo it until 6:00 due to lack of medium to do the study. Also receiving a dose of IV Lasix to improve his symptoms. ED Medical Decision Making - Lab Data Result diagrams: 08/11/20 00:24 08/11/20 00:24 - EKG Data -: EKG Interpreted by Me Rate: normal No standard instances Rhythm: NSR [place]/QRS: RBBB Ectopy: PVC - Medical Decision Making 64-year-old male with history of CHF, end-stage renal disease on hemodialysis presents emergency department complaint of shortness of breath. Differential includes CHF exacerbation, fluid overload although he is recently had dialysis on Wednesday pulmonary embolism is also considered given patient's recent hospitalization. Plan for evaluation with basic labs including dimer that have been ordered in triage. We will also order a BNP in magnesium levels. Chest x- ray has already been ordered. Patient is stable at this time but is unable to lay flat. Likely to require admission. Critical care attestation.: If time is entered above; I have spent that time in minutes in the direct care of this critically ill patient, excluding procedure time. ED Disposition Clinical Impression: Acute exacerbation of CHF (congestive heart failure) Disposition: OP ADMIT IP TO THIS HOSP Is pt being admited?: Yes Does the pt Need Aspirin: No Condition: Stable Time of Disposition: 02:50
[2020-08-11 02:06] LABS: Chol/HDL Ratio 3.58 %
[2020-08-11] MEDS ORDERED: FUROSEMIDE 40 MG/4 ML INJ IV ONE ×2 (02:53→12:51)
[2020-08-11] MEDS ORDERED: METOCLOPRAMIDE 10 MG/2 ML INJ IV PRN ×2 (04:00→04:21)
[2020-08-11] MEDS ORDERED: ALUM-MAG HYDROXIDE-SIMETHICONE 200-200-20MG/5ML ORAL LIQD 30 ML PO PRN (04:00)
[2020-08-11] MEDS ORDERED: MAGNESIUM HYDROXIDE (MOM) ORAL LIQD UDC PO PRN (04:00)
[2020-08-11] MEDS ORDERED: ONDANSETRON 4 MG/2 ML INJ IV PRN (04:00)
--- NOTE | 2020-08-11 04:12 | History and Physical Report ---
History of Present Illness Date of examination: 08/11/20 Date of admission: 08/11/20 Chief complaint: SOB History of present illness: Patient is a 64-year-old male with past medical history notable for end-stage renal disease on hemodialysis, CHF. He presents to the emergency department with complaint of shortness of breath. States that he is unable to sleep laying flat he also notes dyspnea on exertion. He states he underwent dialysis on Wednesday and had a full session. He does still make urine. He denies history of recent blood clots but states that he was told his heart function was 49%. He denies any fevers chills or coughing with shortness of breath. He states he was initially improved from recent hospital visit until 2 days ago. He denies any leg swelling at this time. Patient seen in ED WBC 5.9 hemoglobin 9.2, platelet 275 D-dimer 666.6, sodium 135, potassium 3-5, creatinine 5.9 serum glucose 102 3.0.065 BNP 71848, and the high-density high lipoprotein 29. Patient seen at bedside alert oriented x3. Has left arm fistula and is positive for breath. X-ray no acute finding. Past History Past Medical History: ESRD, hypertension, hyperlipidemia, renal failure Past Surgical History: No surgical history Social history: lives with family Family history: no significant family history Medications and Allergies Allergies Allergy/AdvReac Type Severity Reaction Status Date / Time methadone Allergy Unknown Verified 07/17/20 09:00 tramadol Allergy Swelling Verified 07/17/20 09:00 Home Medications Medication Instructions Recorded Confirmed Last Taken Type Isosorbide Mononitrate [Isosorbide 60 mg PO DAILY 07/20/20 07/20/20 Unknown Hist ory Mononitrate ER] NIFEdipine XL [Procardia Xl] 60 mg PO QDAY 07/20/20 07/20/20 Unknown History Sodium Bicarbonate 650 mg PO QID 07/20/20 07/20/20 Unknown History Spironolactone [Aldactone] 25 mg PO QDAY 07/20/20 07/20/20 Unknown History calcitrioL [Rocaltrol] 1 mcg PO QDAY 07/20/20 07/20/20 Unknown History carvediloL [Coreg] 25 mg PO BID 07/20/20 07/20/20 Unknown History cloNIDine [Catapres] 0.2 mg PO QHS 07/20/20 07/20/20 Unknown History hydrALAZINE [Apresoline TAB] 100 mg PO TID 07/20/20 07/20/20 Unknown History Aspirin [Aspirin BABY CHEW TAB] 81 mg PO QDAY #30 tab.chew 07/25/20 Unknown Rx AtorvaSTATin [Lipitor] 40 mg PO QHS #30 tab 07/25/20 Unknown Rx Clopidogrel [Plavix] 75 mg PO QDAY #30 tablet 07/25/20 Unknown Rx Famotidine [Pepcid] 10 mg PO BID #30 tablet 07/25/20 Unknown Rx Active Meds: Active Medications Acetaminophen (Acetaminophen 325 Mg Tab) 650 mg PO Q4H PRN PRN Reason: Pain MILD(1-3)/Fever >100.5/ALBERTS Al Hydrox/Mg Hydrox/Simethicone (Alum-Mag Hydroxide-Simethicone [phone]/5ml Oral Liqd 30 Ml) 30 ml PO Q4H PRN PRN Reason: Indigestion Magnesium Hydroxide (Magnesium Hydroxide (Mom) Oral Liqd Udc) 30 ml PO Q4H PRN PRN Reason: Constipation Metoclopramide HCl (Metoclopramide 10 Mg/2 Ml Inj) 10 mg IV Q6H PRN PRN Reason: Nausea And Vomiting Ondansetron HCl (Ondansetron 4 Mg/2 Ml Inj) 4 mg IV Q8H PRN PRN Reason: Nausea And Vomiting Sodium Chloride (Sodium Chloride 0.9% 10 Ml Flush Syringe) 10 ml IV BID ALIX Sodium Chloride (Sodium Chloride 0.9% 10 Ml Flush Syringe) 10 ml IV PRN PRN PRN Reason: LINE FLUSH Review of Systems Constitutional: fatigue, weakness Ears, nose, mouth and throat: no epistaxis, no bleeding gums Cardiovascular: orthopnea, shortness of breath, high blood pressure Respiratory: cough, shortness of breath Gastrointestinal: no melena Rectal: no hemorrhoids Musculoskeletal: no shooting leg pain Integumentary: no rash, no pruritis Psychiatric: anxiety Hematologic/Lymphatic: easy bruising, no easy bleeding Allergic/Immunologic: no urticaria Exam - Constitutional Vitals: Temp Pulse Resp BP Pulse Ox 98.6 F 68 12 122/66 97 08/10/20 23:43 08/11/20 02:01 08/11/20 02:01 08/11/20 02:01 08/11/20 02:01 General appearance: Present: mild distress, well-nourished - EENT Eyes: Present: PERRL ENT: hearing intact, clear oral mucosa - Neck Neck: Present: supple, normal ROM - Respiratory Respiratory effort: normal Respiratory: bilateral: CTA - Cardiovascular Heart Sounds: Present: S1 & S2. Absent: rub, click - Extremities Extremities: pulses symmetrical, No edema Peripheral Pulses: within normal limits - Abdominal General gastrointestinal: Present: soft, non-tender, non-distended, normal bowel sounds Male genitourinary: Present: normal - Integumentary Integumentary: Present: clear, warm, dry - Musculoskeletal Musculoskeletal: gait normal, strength equal bilaterally - Psychiatric Psychiatric: appropriate mood/affect, intact judgment & insight, cooperative - Neurologic Neurologic: CNII-XII intact, moves all extremities - Allied Health Allied health notes reviewed: nursing HEART Score - HEART Score Troponin: Troponin T 0.065 ng/mL (0.00-0.029) H 08/11/20 02:22 Results - Labs CBC & Chem 7: 08/11/20 00:24 08/11/20 00:24 Labs: Abnormal lab results 08/11/20 08/11/20 08/11/20 Range/Units 00:24 00:24 00:24 RBC 3.05 L (3.65-5.03) M/mm3 Hgb 9.2 L (11.8-15.2) gm/dl Hct 27.4 L (35.5-45.6) % Shannon % (Auto) 14.5 H (0.0-7.3) % Lymph # (Auto) 1.1 L (1.2-5.4) K/mm3 Shannon # (Auto) 0.9 H (0.0-0.8) K/mm3 D-Dimer 666.60 H (0-234) ng/mlDDU Potassium 3.5 L (3.6-5.0) mmol/L BUN 33 H (9-20) mg/dL Creatinine 5.9 H (0.8-1.3) mg/dL Glucose 102 H (75-100) mg/dL Troponin T 0.063 H (0.00-0.029) ng/mL NT-Pro-B Natriuret Pep (0-900) pg/mL HDL Cholesterol 29 L (40-59) mg/dL 08/11/20 08/11/20 Range/Units 00:57 02:22 RBC (3.65-5.03) M/mm3 Hgb (11.8-15.2) gm/dl Hct (35.5-45.6) % Shannon % (Auto) (0.0-7.3) % Lymph # (Auto) (1.2-5.4) K/mm3 Shannon # (Auto) (0.0-0.8) K/mm3 D-Dimer (0-234) ng/mlDDU Potassium (3.6-5.0) mmol/L BUN (9-20) mg/dL Creatinine (0.8-1.3) mg/dL Glucose (75-100) mg/dL Troponin T 0.065 H (0.00-0.029) ng/mL NT-Pro-B Natriuret Pep 13576 H (0-900) pg/mL HDL Cholesterol (40-59) mg/dL Assessment and Plan - Patient Problems (1) Acute HFrEF (heart failure with reduced ejection fraction) Current Visit: No Status: Acute Plan to address problem: Fluid overload likely secondary to missed dialysis CHF Continue dialysis and diuretic Echocardiogram ordered Aspirin, statin, and oxygen supplements as needed (2) Acute respiratory failure with hypoxia Current Visit: No Status: Acute Plan to address problem: Chest x-ray no acute finding Oxygen supplement as needed Continue bronchodilator (3) Cardiomyopathy Current Visit: No Status: Acute Plan to address problem: Continue cardioprotective measures Aspirin, beta-blockers, and statin Echo ordered we will follow-up with results Podiatric Surgeon consulted. (4) Chronic kidney disease Current Visit: No Status: Acute Plan to address problem: Hemodialysis per renal (5) Advance care planning Current Visit: No Status: Acute Plan to address problem: Patient is a full CODE STATUS (6) DVT prophylaxis Current Visit: No Status: Acute Plan to address problem: Heparin subcutaneous
[2020-08-11] MEDS ORDERED: traZODone 50 MG TAB PO PRN (04:13)
[2020-08-11] MEDS ORDERED: traMADol 50 MG TAB PO PRN (04:13)
--- NOTE | 2020-08-11 05:58 | Nuclear Medicine Report ---
NUCLEAR MEDICINE PERFUSION LUNG SCAN INDICATION / CLINICAL INFORMATION: elevated dimer; shortness of breath; recent hospit. TECHNIQUE: 5.5 mCi of Tc-99m MAA were given by IV. COMPARISON: Chest radiograph dated yesterday 08/10/2020. FINDINGS: PERFUSION: No suspicious segmental perfusion defects. ADDITIONAL FINDINGS: None. IMPRESSION: 1. Low probability for pulmonary embolism. Signer Name: Mason Hernandez MD Signed: 08/11/2020 5:54 AM Workstation Name: [id number]
--- NOTE | 2020-08-11 09:02 | Progress Note ---
Assessment and Plan Assessment and plan: -- Acute HFrEF (heart failure with reduced ejection fraction) Current Visit: No Status: Acute Fluid overload likely secondary to HD Patient claims compliance with hemodialysis Continue dialysis per schedule Aspirin, statin, and oxygen supplements as needed -- Acute respiratory failure with hypoxia Current Visit: No Status: Acute Chest x-ray no acute finding Oxygen supplement as needed Continue bronchodilator --Cardiomyopathy Current Visit: No Status: Acute Continue current cardiac medications Closely monitor, cardiology consult if needed --ESRD on hemodialysis Current Visit: No Status: Acute Hemodialysis per renal Renal consulted --Advance care planning Current Visit: No Status: Acute Patient is a full CODE STATUS. --History of renal mass; Patient will follow with his private urologist as outpatient, follow urology as outpatient --DVT prophylaxis Current Visit: No Status: Acute Heparin subcutaneous renal dose. Will closely monitor the patient and adjust management as needed Plan of care reviewed with the patient and his nurse Advance care plan 35 minutes History Interval history: 64-year-old -Chinese male patient with significant past medical history of end-stage renal disease on hemodialysis last HD on Wednesday 2 days ago, was admitted through emergency room with worsening shortness of breath and acute exacerbation of CHF and fluid overload Patient claims compliance with medications and diet and follow-up visits Patient feels slightly better today alert awake oriented x3 Very minimal shortness of breath but complains of some chest congestion. Vital signs noted Hospitalist Physical - Constitutional Vitals: Temp Pulse Resp BP Pulse Ox 98.6 F 58 L 14 138/69 98 08/10/20 23:43 08/11/20 05:00 08/11/20 07:01 08/11/20 07:01 08/11/20 07:01 General appearance: Present: mild distress, well-nourished - EENT Eyes: Present: PERRL, EOM intact - Neck Neck: Present: supple, normal ROM - Respiratory Respiratory effort: normal Respiratory: bilateral: diminished, negative: rales, rhonchi, wheezing - Cardiovascular Rhythm: regular Heart Sounds: Present: S1 & S2 - Extremities Extremities: no ischemia Extremity abnormal: edema - Abdominal General gastrointestinal: soft, non-tender, non-distended, normal bowel sounds - Integumentary Integumentary: Present: clear, warm - Psychiatric Psychiatric: appropriate mood/affect, cooperative - Neurologic Neurologic: CNII-XII intact, moves all extremities HEART Score - HEART Score Troponin: Troponin T 0.065 ng/mL (0.00-0.029) H 08/11/20 02:22 Results - Labs CBC & Chem 7: 08/11/20 00:24 08/11/20 00:24 Labs: Laboratory Last Values WBC 5.9 K/mm3 (4.5-11.0) 08/11/20 00:24 RBC 3.05 M/mm3 (3.65-5.03) L 08/11/20 00:24 Hgb 9.2 gm/dl (11.8-15.2) L 08/11/20 00:24 Hct 27.4 % (35.5-45.6) L 08/11/20 00:24 MCV 90 fl (84-94) 08/11/20 00:24 MCH 30 pg (28-32) 08/11/20 00:24 MCHC 34 % (32-34) 08/11/20 00:24 RDW 14.0 % (13.2-15.2) 08/11/20 00:24 Plt Count 275 K/mm3 (140-440) 08/11/20 00:24 Lymph % (Auto) 19.3 % (13.4-35.0) 08/11/20 00:24 [place] % (Auto) 14.5 % (0.0-7.3) H 08/11/20 00:24 Eos % (Auto) 2.2 % (0.0-4.3) 08/11/20 00:24 Baso % (Auto) 0.8 % (0.0-1.8) 08/11/20 00:24 Lymph # (Auto) 1.1 K/mm3 (1.2-5.4) L 08/11/20 00:24 [place] # (Auto) 0.9 K/mm3 (0.0-0.8) H 08/11/20 00:24 Eos # (Auto) 0.1 K/mm3 (0.0-0.4) 08/11/20 00:24 Baso # (Auto) 0.0 K/mm3 (0.0-0.1) 08/11/20 00:24 Seg Neutrophils % 63.2 % (40.0-70.0) 08/11/20 00:24 Seg Neutrophils # 3.7 K/mm3 (1.8-7.7) 08/11/20 00:24 D-Dimer 666.60 ng/mlDDU (0-234) H 08/11/20 00:24 Sodium 138 mmol/L (137-145) 08/11/20 00:24 Potassium 3.5 mmol/L (3.6-5.0) L 08/11/20 00:24 Chloride 98.4 mmol/L (98-107) 08/11/20 00:24 Carbon Dioxide 25 mmol/L (22-30) 08/11/20 00:24 Anion Gap 18 mmol/L 08/11/20 00:24 BUN 33 mg/dL (9-20) H 08/11/20 00:24 Creatinine 5.9 mg/dL (0.8-1.3) H 08/11/20 00:24 Estimated GFR 12 ml/min 08/11/20 00:24 BUN/Creatinine Ratio 6 % 08/11/20 00:24 Glucose 102 mg/dL (75-100) H 08/11/20 00:24 Calcium 9.1 mg/dL (8.4-10.2) 08/11/20 00:24 Magnesium 1.80 mg/dL (1.7-2.3) 08/11/20 00:57 Troponin T 0.065 ng/mL (0.00-0.029) H 08/11/20 02:22 NT-Pro-B Natriuret Pep 78922 pg/mL (0-900) H 08/11/20 00:57 Triglycerides 90 mg/dL (2-149) 08/11/20 00:24 Cholesterol 104 mg/dL (50-199) 08/11/20 00:24 LDL Cholesterol Direct 60 mg/dL (50-130) 08/11/20 00:24 HDL Cholesterol 29 mg/dL (40-59) L 08/11/20 00:24 Cholesterol/HDL Ratio 3.58 % 08/11/20 00:24 Ascencio/IV: Voiding Method Toilet Active Medications - Current Medications Current Medications: Generic Name Dose Route Start Last Admin Trade Name Freq PRN Reason Stop Dose Admin Acetaminophen 650 mg 08/11/20 04:00 Acetaminophen 325 Mg Tab PO Q4H PRN Pain MILD(1-3)/Fever >100.5/ALBERTS Al Hydrox/Mg Hydrox/Simethicone 30 ml 08/11/20 04:00 Alum-Mag Hydroxide-Simethicone [phone]/5ml Oral Liqd 30 Ml PO Q4H PRN Indigestion Aspirin 81 mg 08/11/20 10:00 Aspirin 81 Mg Tab Chew PO QDAY [facility] Atorvastatin Calcium 40 mg 08/11/20 22:00 Atorvastatin 40 Mg Tab PO QHS [facility] Calcitriol 1 mcg 08/11/20 10:00 Calcitriol 0.5 Mcg Cap PO QDAY [facility] Carvedilol 25 mg 08/11/20 10:00 Carvedilol 25 Mg Tab PO BID [facility] Clonidine HCl 0.2 mg 08/11/20 22:00 Clonidine 0.2 Mg Tab PO QHS [facility] Clopidogrel Bisulfate 75 mg 08/11/20 10:00 Clopidogrel 75 Mg Tab PO QDAY [facility] Ferrous Sulfate 325 mg 08/11/20 10:00 Ferrous Sulfate 325 Mg Tab PO QDAY [facility] Heparin Sodium (Porcine) 5,000 unit 08/11/20 10:00 Heparin 5,000 Unit/1 Ml Vial SUB-Q Q12HR [facility] Hydralazine HCl 100 mg 08/11/20 08:00 Hydralazine 100 Mg Tab PO TID [facility] Isosorbide Mononitrate 60 mg 08/11/20 10:00 Isosorbide Mononitrate Er 60 Mg Tab PO DAILY [facility] Magnesium Hydroxide 30 ml 08/11/20 04:00 Magnesium Hydroxide (Mom) Oral Liqd Udc PO Q4H PRN Constipation Metoclopramide HCl 5 mg 08/11/20 04:21 Metoclopramide 10 Mg/2 Ml Inj IV Q6H PRN Nausea And Vomiting Multivitamins 1 each 08/11/20 10:00 Multivitamins ,Therapeutic Tab PO QDAY [facility] Ondansetron HCl 4 mg 08/11/20 04:00 Ondansetron 4 Mg/2 Ml Inj IV Q8H PRN Nausea And Vomiting Sodium Chloride 10 ml 08/11/20 10:00 Sodium Chloride 0.9% 10 Ml Flush Syringe IV BID [facility] Sodium Chloride 10 ml 08/11/20 04:00 Sodium Chloride 0.9% 10 Ml Flush Syringe IV PRN PRN LINE FLUSH Trazodone HCl 50 mg 08/11/20 04:13 Trazodone 50 Mg Tab PO QHS PRN Insomnia
[2020-08-11] MEDS: MULTIVITAMINS ,THERAPEUTIC TAB PO SCH (09:24)
[2020-08-11] MEDS: ASPIRIN 81 MG TAB CHEW PO SCH (09:24)
[2020-08-11] MEDS: CLOPIDOGREL 75 MG TAB PO SCH (09:24)
[2020-08-11] MEDS: FERROUS SULFATE 325 MG TAB PO SCH (09:24)
[2020-08-11] MEDS: CALCITRIOL 0.5 MCG CAP PO SCH (09:24)
[2020-08-11] MEDS: HEPARIN 5,000 UNIT/1 ML VIAL SUB-Q SCH ×2 (09:24→22:49)
[2020-08-11] MEDS: carvediloL 25 MG TAB PO SCH ×2 (09:25→22:47)
[2020-08-11] MEDS: hydrALAZINE 100 MG TAB PO SCH ×3 (09:25→22:47)
--- NOTE | 2020-08-11 12:49 | Consultation ---
History of Present Illness - Reason for Consult Consult date: 08/11/20 end stage renal disease - History of Present Illness Patient is a 64-year-old male with past medical history notable for end-stage renal disease on hemodialysis, CHF. He presents to the emergency department with complaint of shortness of breath. last treatment was on Wednesday. He denies any fevers chills or coughing. He denies any leg swelling at this time. renal consult was requested for HD management Past History Past Medical History: ESRD, hypertension, hyperlipidemia, renal failure Past Surgical History: No surgical history Social history: lives with family Family history: no significant family history Medications and Allergies Allergies Allergy/AdvReac Type Severity Reaction Status Date / Time methadone Allergy Unknown Verified 07/17/20 09:00 tramadol Allergy Swelling Verified 07/17/20 09:00 Home Medications Medication Instructions Recorded Confirmed Last Taken Type Isosorbide Mononitrate [Isosorbide 60 mg PO DAILY 07/20/20 07/20/20 Unknown History Mononitrate ER] NIFEdipine XL [Procardia Xl] 60 mg PO QDAY 07/20/20 07/20/20 Unknown History Sodium Bicarbonate 650 mg PO QID 07/20/20 07/20/20 Unknown History Spironolactone [Aldactone] 25 mg PO QDAY 07/20/20 07/20/20 Unknown History calcitrioL [Rocaltrol] 1 mcg PO QDAY 07/20/20 07/20/20 Unknown History carvediloL [Coreg] 25 mg PO BID 07/20/20 07/20/20 Unknown History cloNIDine [Catapres] 0.2 mg PO QHS 07/20/20 07/20/20 Unknown History hydrALAZINE [Apresoline TAB] 100 mg PO TID 07/20/20 07/20/20 Unknown History Aspirin [Aspirin BABY CHEW TAB] 81 mg PO QDAY #30 tab.chew 07/25/20 Unknown Rx AtorvaSTATin [Lipitor] 40 mg PO QHS #30 tab 07/25/20 Unknown Rx Clopidogrel [Plavix] 75 mg PO QDAY #30 tablet 07/25/20 Unknown Rx Famotidine [Pepcid] 10 mg PO BID #30 tablet 07/25/20 Unknown Rx Active Meds: Active Medications Acetaminophen (Acetaminophen 325 Mg Tab) 650 mg PO Q4H PRN PRN Reason: Pain MILD(1-3)/Fever >100.5/[place]ERT[place] Al Hydrox/Mg Hydrox/Simethicone (Alum-Mag Hydroxide-Simethicone [phone]/5ml Oral Liqd 30 Ml) 30 ml PO Q4H PRN PRN Reason: Indigestion Aspirin (Aspirin 81 Mg Tab Chew) 81 mg PO QDAY [facility] Last Admin: 08/11/20 09:24 Dose: 81 mg Documented by: Atorvastatin Calcium (Atorvastatin 40 Mg Tab) 40 mg PO QHS [facility] Calcitriol (Calcitriol 0.5 Mcg Cap) 1 mcg PO QDAY [facility] Last Admin: 08/11/20 09:24 Dose: 1 mcg Documented by: Carvedilol (Carvedilol 25 Mg Tab) 25 mg PO BID [facility] Last Admin: 08/11/20 09:25 Dose: 25 mg Documented by: Clonidine HCl (Clonidine 0.2 Mg Tab) 0.2 mg PO QHS [facility] Clopidogrel Bisulfate (Clopidogrel 75 Mg Tab) 75 mg PO QDAY [facility] Last Admin: 08/11/20 09:24 Dose: 75 mg Documented by: Ferrous Sulfate (Ferrous Sulfate 325 Mg Tab) 325 mg PO QDAY [facility] Last Admin: 08/11/20 09:24 Dose: 325 mg Documented by: Heparin Sodium (Porcine) (Heparin 5,000 Unit/1 Ml Vial) 5,000 unit SUB-Q Q12HR [facility] Last Admin: 08/11/20 09:24 Dose: 5,000 unit Documented by: Hydralazine HCl (Hydralazine 100 Mg Tab) 100 mg PO TID [facility] Last Admin: 08/11/20 09:25 Dose: 100 mg Documented by: Isosorbide Mononitrate (Isosorbide Mononitrate Er 60 Mg Tab) 60 mg PO DAILY [facility] Last Admin: 08/11/20 09:24 Dose: 60 mg Documented by: Magnesium Hydroxide (Magnesium Hydroxide (Mom) Oral Liqd Udc) 30 ml PO Q4H PRN PRN Reason: Constipation Metoclopramide HCl (Metoclopramide 10 Mg/2 Ml Inj) 5 mg IV Q6H PRN PRN Reason: Nausea And Vomiting Multivitamins (Multivitamins ,Therapeutic Tab) 1 each PO QDAY [facility] Last Admin: 08/11/20 09:24 Dose: 1 each Documented by: Ondansetron HCl (Ondansetron 4 Mg/2 Ml Inj) 4 mg IV Q8H PRN PRN Reason: Nausea And Vomiting Sodium Chloride (Sodium Chloride 0.9% 10 Ml Flush Syringe) 10 ml IV BID [facility] Last Admin: 08/11/20 09:25 Dose: 10 ml Documented by: Sodium Chloride (Sodium Chloride 0.9% 10 Ml Flush Syringe) 10 ml IV PRN PRN PRN Reason: LINE FLUSH Trazodone HCl (Trazodone 50 Mg Tab) 50 mg PO QHS PRN PRN Reason: Insomnia Review of Systems All systems: negative (SOB) Exam - Vital Signs Vital signs: Vital Signs Temp Pulse Resp BP Pulse Ox 98.6 F 70 16 108/58 95 08/10/20 23:43 08/10/20 23:43 08/10/20 23:43 08/10/20 23:43 08/10/20 23:43 - General Appearance General appearance: well-developed, well-nourished, appears stated age EENT: ATNC, PERRL, mucous membranes moist Neck: Present: neck supple Respiratory: Decreased Breath Sounds Heart: regular, S1S2 Gastrointestinal: Present: normoactive bowel sounds. Absent: hypoactive bowel sounds, tenderness, distended Integumentary: no rash, warm and dry Neurologic: no focal deficit, no asterixis, alert and oriented x3 Musculoskeletal: Present: other (no edema in BLE) Psychiatric: mood/affect appropriate, cooperative Results - Lab Results 08/11/20 00:24 08/11/20 00:24 Most recent lab results Calcium 9.1 mg/dL (8.4-10.2) 08/11/20 00:24 Magnesium 1.80 mg/dL (1.7-2.3) 08/11/20 00:57 Assessment and Plan (1) Acute HFrEF (heart failure with reduced ejection fraction) (2) Acute respiratory failure with hypoxia (3) Cardiomyopathy (4) ESRD on HD (5) Anemia in CKD HD ordered today for clearance and volume removal HD again tomorrow Lasix 80 mg IV BID ordered renally dose meds strict I&O daily weight
[2020-08-11] MEDS: FUROSEMIDE 100 MG/10 ML INJ IV SCH ×2 (13:06→17:31)
[2020-08-11] MEDS ORDERED: POTASSIUM CHLORIDE ER 20 MEQ TAB PO NR (13:48)
[2020-08-11] MEDS: COLCHICINE 0.6 MG TAB PO SCH (17:48)
[2020-08-11] MEDS ORDERED: cloNIDine 0.2 MG TAB PO SCH (22:00)
[2020-08-11] MEDS: ACETAMINOPHEN 325 MG TAB PO PRN (22:48)
[2020-08-12] MEDS: FUROSEMIDE 100 MG/10 ML INJ IV SCH (05:33)
[2020-08-12 06:02] LABS: Basophils # (Auto) 0.1 K/mm3 (0.0-0.1); Basophils % (Auto) 0.8 % (0.0-1.8); Eosinophils # (Auto) 0.1 K/mm3 (0.0-0.4); Eosinophils % (Auto) 1.9 % (0.0-4.3); Hematocrit 31.5 % (35.5-45.6); Hemoglobin 10.1 gm/dl (11.8-15.2); Lymphocytes # (Auto) 1.4 K/mm3 (1.2-5.4); Lymphocytes % (Auto) 20.7 % (13.4-35.0); Mean Corpuscular HGB Conc 32 % (32-34); Mean Corpuscular Volume 90 fl (84-94); Monocytes % (Auto) 14.7 % (0.0-7.3); Platelet Count 291 K/mm3 (140-440); Red Blood Count 3.51 M/mm3 (3.65-5.03); Red Cell Distribution Width 14.1 % (13.2-15.2)
[2020-08-12 06:25] LABS: Albumin 4.1 g/dL (3.9-5); Calcium 9.8 mg/dL (8.4-10.2)
--- NOTE | 2020-08-12 08:15 | Progress Note ---
Assessment and Plan Assessment and plan: --Fluid overload/end-stage renal disease; Current Visit: No Status: Acute Patient claims compliance with hemodialysis and diet nephrology evaluation noted and appreciated Patient received HD yesterday, HD again today to remove the extra fluid --Hypokalemia; Current Visit: No Status: Acute Replenish with KCl closely monitor electrolytes -- Acute on chronic HFrEF (heart failure with reduced ejection fraction) Current Visit: No Status: Acute Fluid overload likely secondary to HD and CHF Patient claims compliance with hemodialysis Continue dialysis per schedule Aspirin, statin, and oxygen supplements as needed. -- Acute respiratory failure with hypoxia Current Visit: No Status: Acute Due to fluid overload , chest x-ray no acute finding Oxygen supplement as needed Continue bronchodilator --Cardiomyopathy Current Visit: No Status: Acute Continue current cardiac medications Closely monitor, cardiology consult if needed --ESRD on hemodialysis Current Visit: No Status: Acute Nephrology following, HD per schedule And additional HD as needed --Advance care planning Current Visit: No Status: Acute Patient is a full CODE STATUS. --History of renal mass; Patient sees his private urologist follow urology as outpatient upon discharge --DVT prophylaxis Current Visit: No Status: Acute Heparin subcutaneous renal dose. Will closely monitor the patient and adjust management as needed Plan of care reviewed with the patient and his nurse Follow nephrology recommendations DC planning in 1 to 2 days if stable 08/12/2020; patient received hemodialysis yesterday Nephrology recommend HD again today due to fluid overload Patient feels slightly better Hospitalist Physical - Constitutional Vitals: Temp Pulse Resp BP Pulse Ox 98.4 F 55 L 18 129/70 97 08/12/20 07:52 08/12/20 07:52 08/12/20 07:52 08/12/20 07:52 08/12/20 07:52 General appearance: Present: mild distress, well-nourished HEART Score - HEART Score Troponin: Troponin T 0.065 ng/mL (0.00-0.029) H 08/11/20 02:22 Results - Labs CBC & Chem 7: 08/12/20 04:44 08/12/20 04:44 Labs: Laboratory Last Values WBC 6.9 K/mm3 (4.5-11.0) 08/12/20 04:44 RBC 3.51 M/mm3 (3.65-5.03) L 08/12/20 04:44 Hgb 10.1 gm/dl (11.8-15.2) L 08/12/20 04:44 Hct 31.5 % (35.5-45.6) L 08/12/20 04:44 MCV 90 fl (84-94) 08/12/20 04:44 MCH 29 pg (28-32) 08/12/20 04:44 MCHC 32 % (32-34) 08/12/20 04:44 RDW 14.1 % (13.2-15.2) 08/12/20 04:44 Plt Count 291 K/mm3 (140-440) 08/12/20 04:44 Lymph % (Auto) 20.7 % (13.4-35.0) 08/12/20 04:44 [place] % (Auto) 14.7 % (0.0-7.3) H 08/12/20 04:44 Eos % (Auto) 1.9 % (0.0-4.3) 08/12/20 04:44 Baso % (Auto) 0.8 % (0.0-1.8) 08/12/20 04:44 Lymph # (Auto) 1.4 K/mm3 (1.2-5.4) 08/12/20 04:44 [place] # (Auto) 1.0 K/mm3 (0.0-0.8) H 08/12/20 04:44 Eos # (Auto) 0.1 K/mm3 (0.0-0.4) 08/12/20 04:44 Baso # (Auto) 0.1 K/mm3 (0.0-0.1) 08/12/20 04:44 Seg Neutrophils % 61.9 % (40.0-70.0) 08/12/20 04:44 Seg Neutrophils # 4.3 K/mm3 (1.8-7.7) 08/12/20 04:44 D-Dimer 666.60 ng/mlDDU (0-234) H 08/11/20 00:24 Sodium 138 mmol/L (137-145) 08/12/20 04:44 Potassium 3.4 mmol/L (3.6-5.0) L 08/12/20 04:44 Chloride 96.6 mmol/L (98-107) L 08/12/20 04:44 Carbon Dioxide 30 mmol/L (22-30) 08/12/20 04:44 Anion Gap 15 mmol/L 08/12/20 04:44 BUN 24 mg/dL (9-20) H 08/12/20 04:44 Creatinine 5.3 mg/dL (0.8-1.3) H 08/12/20 04:44 Estimated GFR 13 ml/min 08/12/20 04:44 BUN/Creatinine Ratio 5 % 08/12/20 04:44 Glucose 90 mg/dL (75-100) 08/12/20 04:44 Calcium 9.8 mg/dL (8.4-10.2) 08/12/20 04:44 Magnesium 1.80 mg/dL (1.7-2.3) 08/11/20 00:57 Total Bilirubin 0.70 mg/dL (0.1-1.2) 08/12/20 04:44 AST 19 units/L (5-40) 08/12/20 04:44 ALT 10 units/L (7-56) 08/12/20 04:44 Alkaline Phosphatase 73 units/L (35-129) 08/12/20 04:44 Troponin T 0.065 ng/mL (0.00-0.029) H 08/11/20 02:22 NT-Pro-B Natriuret Pep 36165 pg/mL (0-900) H 08/11/20 00:57 Total Protein 7.6 g/dL (6.3-8.2) 08/12/20 04:44 Albumin 4.1 g/dL (3.9-5) 08/12/20 04:44 Albumin/Globulin Ratio 1.2 % 08/12/20 04:44 Triglycerides 90 mg/dL (2-149) 08/11/20 00:24 Cholesterol 104 mg/dL (50-199) 08/11/20 00:24 LDL Cholesterol Direct 60 mg/dL (50-130) 08/11/20 00:24 HDL Cholesterol 29 mg/dL (40-59) L 08/11/20 00:24 Cholesterol/HDL Ratio 3.58 % 08/11/20 00:24 Ascencio/IV: Voiding Method Toilet Active Medications - Current Medications Current Medications: Generic Name Dose Route Start Last Admin Trade Name Freq PRN Reason Stop Dose Admin Acetaminophen 650 mg 08/11/20 04:00 08/11/20 22:48 Acetaminophen 325 Mg Tab PO 650 mg Q4H PRN Administration Pain MILD(1-3)/Fever >100.5/ALBERTS Al Hydrox/Mg Hydrox/Simethicone 30 ml 08/11/20 04:00 Alum-Mag Hydroxide-Simethicone [phone]/5ml Oral Liqd 30 Ml PO Q4H PRN Indigestion Aspirin 81 mg 08/11/20 10:00 08/11/20 09:24 Aspirin 81 Mg Tab Chew PO 81 mg QDAY [facility] Administration Atorvastatin Calcium 40 mg 08/11/20 22:00 08/11/20 22:47 Atorvastatin 40 Mg Tab PO 40 mg QHS [facility] Administration Calcitriol 1 mcg 08/11/20 10:00 08/11/20 09:24 Calcitriol 0.5 Mcg Cap PO 1 mcg QDAY [facility] Administration Carvedilol 25 mg 08/11/20 10:00 08/11/20 22:47 Carvedilol 25 Mg Tab PO 25 mg BID [facility] Administration Clonidine HCl 0.2 mg 08/11/20 22:00 08/12/20 01:18 Clonidine 0.2 Mg Tab PO 0.2 mg QHS [facility] Administration Clopidogrel Bisulfate 75 mg 08/11/20 10:00 08/11/20 09:24 Clopidogrel 75 Mg Tab PO 75 mg QDAY [facility] Administration Colchicine 0.6 mg 08/11/20 18:00 08/11/20 17:48 Colchicine 0.6 Mg Tab PO 0.6 mg QDAY [facility] Administration Ferrous Sulfate 325 mg 08/11/20 10:00 08/11/20 09:24 Ferrous Sulfate 325 Mg Tab PO 325 mg QDAY [facility] Administration Furosemide 80 mg 08/11/20 13:00 08/12/20 05:33 Furosemide 100 Mg/10 Ml Inj IV 80 mg 0600,1800 [facility] Administration Heparin Sodium (Porcine) 5,000 unit 08/11/20 10:00 08/11/20 22:49 Heparin 5,000 Unit/1 Ml Vial SUB-Q 5,000 unit Q12HR [facility] Administration Hydralazine HCl 100 mg 08/11/20 08:00 08/11/20 22:47 Hydralazine 100 Mg Tab PO 100 mg TID [facility] Administration Isosorbide Mononitrate 60 mg 08/11/20 10:00 08/11/20 09:24 Isosorbide Mononitrate Er 60 Mg Tab PO 60 mg DAILY [facility] Administration Magnesium Hydroxide 30 ml 08/11/20 04:00 Magnesium Hydroxide (Mom) Oral Liqd Udc PO Q4H PRN Constipation Metoclopramide HCl 5 mg 08/11/20 04:21 Metoclopramide 10 Mg/2 Ml Inj IV Q6H PRN Nausea And Vomiting Multivitamins 1 each 08/11/20 10:00 08/11/20 09:24 Multivitamins ,Therapeutic Tab PO 1 each QDAY [facility] Administration Ondansetron HCl 4 mg 08/11/20 04:00 Ondansetron 4 Mg/2 Ml Inj IV Q8H PRN Nausea And Vomiting Potassium Chloride 30 meq 08/12/20 08:08 Potassium Chloride Er 10 Meq Tab PO 08/12/20 08:09 ONCE ONE Sodium Chloride 10 ml 08/11/20 10:00 08/11/20 23:15 Sodium Chloride 0.9% 10 Ml Flush Syringe IV 10 ml BID [facility] Administration Sodium Chloride 10 ml 08/11/20 04:00 Sodium Chloride 0.9% 10 Ml Flush Syringe IV PRN PRN LINE FLUSH Trazodone HCl 50 mg 08/11/20 04:13 Trazodone 50 Mg Tab PO QHS PRN Insomnia Nutrition/Malnutrition Assess - Dietary Evaluation Nutrition/Malnutrition Findings: Nutrition Notes Start: 08/11/20 09:49 Freq: Status: Active Protocol: Document 08/11/20 09:49 (Rec: 08/11/20 09:50 [id number]) Nutrition Notes 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 Pt is eating 100% of meals PO and no weight changes. Likely an error. Nutrition Intervention Revisit per MD consult or patient Sign Off request:
[2020-08-12] MEDS ORDERED: POTASSIUM CHLORIDE ER 10 MEQ TAB PO NR (09:00)
[2020-08-12] MEDS: carvediloL 25 MG TAB PO SCH (09:00)
[2020-08-12] MEDS: ASPIRIN 81 MG TAB CHEW PO SCH (09:00)
[2020-08-12] MEDS: HEPARIN 5,000 UNIT/1 ML VIAL SUB-Q SCH (09:00)
[2020-08-12] MEDS ORDERED: NIFEdipine XL 60 MG TAB PO SCH (10:00)
[2020-08-12] MEDS ORDERED: SPIRONOLACTONE 25 MG TAB PO SCH (10:00)
--- NOTE | 2020-08-12 10:29 | Progress Note ---
Assessment and Plan Impression * End-stage renal disease on maintenance hemodialysis * Congestive heart failure * Cardiomyopathy * Hypertension * Anemia secondary to ESRD Recommendations * Patient had urgent hemodialysis yesterday and getting additional treatment today * He seems to be clinically out of CHF * Patient advised regarding dietary fluid and salt restriction * Adjust diet and meds for ESRD state * No IV, BP or venipuncture in his access arm * Epogen per protocol * Binders with meals * No objection to discharge from renal standpoint Subjective Date of service: 08/12/20 Interval history: Patient is currently undergoing dialysis. Tolerating well. Shortness of breath much improved. He undergoes dialysis under our care at [facility] on MWF schedule Objective - Vital Signs Vital signs: Vital Signs - 12hr 08/11/20 08/11/20 08/12/20 22:47 23:03 00:00 Temperature 98.0 F Pulse Rate 73 69 74 Respiratory 16 Rate Blood Pressure 158/78 136/65 O2 Sat by Pulse 96 Oximetry 08/12/20 08/12/20 08/12/20 00:03 01:18 03:08 Temperature 97.7 F Pulse Rate 69 58 L Respiratory 18 16 Rate Blood Pressure 136/65 115/68 O2 Sat by Pulse 95 Oximetry 08/12/20 08/12/20 08/12/20 07:52 08:30 08:45 Temperature 98.4 F 97.5 F L Pulse Rate 55 L 53 L 53 L Respiratory 18 16 Rate Blood Pressure 129/70 136/66 136/66 O2 Sat by Pulse 97 Oximetry 08/12/20 08/12/20 08/12/20 09:00 09:15 09:30 Temperature Pulse Rate 58 L 55 L 60 Respiratory Rate Blood Pressure 141/63 112/59 122/71 O2 Sat by Pulse Oximetry 08/12/20 08/12/20 08/12/20 09:45 10:00 10:15 Temperature Pulse Rate 96 H 62 61 Respiratory Rate Blood Pressure 103/73 118/71 118/68 O2 Sat by Pulse Oximetry - General Appearance General appearance: well-developed, well-nourished, appears stated age EENT: PERRL, mucous membranes moist Neck: no JVD, no thyromegaly, no carotid bruit, supple Respiratory: Present: Clear to Ascultation Cardiology: regular, normal heart rate, S1S2, no murmurs Gastrointestinal: normal, normoactive bowel sounds Integumentary: no rash, other (AV fistula in his left arm. Cannulated for dialysis.) - Lab 08/12/20 04:44 08/12/20 04:44 Most recent lab results Calcium 9.8 mg/dL (8.4-10.2) 08/12/20 04:44 Magnesium 1.80 mg/dL (1.7-2.3) 08/11/20 00:57 Medications & Allergies - Medications Allergies/Adverse Reactions: Allergies methadone Allergy (Verified 07/17/20 09:00) Unknown tramadol Allergy (Verified 07/17/20 09:00) Swelling Home Medications: Home Medications Medication Instructions Recorded Confirmed Last Taken Type Isosorbide Mononitrate [Isosorbide 60 mg PO DAILY 07/20/20 07/20/20 Unknown History Mononitrate ER] NIFEdipine XL [Procardia Xl] 60 mg PO QDAY 07/20/20 07/20/20 Unknown History Sodium Bicarbonate 650 mg PO QID 07/20/20 07/20/20 Unknown History Spironolactone [Aldactone] 25 mg PO QDAY 07/20/20 07/20/20 Unknown History calcitrioL [Rocaltrol] 1 mcg PO QDAY 07/20/20 07/20/20 Unknown History carvediloL [Coreg] 25 mg PO BID 07/20/20 07/20/20 Unknown History cloNIDine [Catapres] 0.2 mg PO QHS 07/20/20 07/20/20 Unknown History hydrALAZINE [Apresoline TAB] 100 mg PO TID 07/20/20 07/20/20 Unknown History Aspirin [Aspirin BABY CHEW TAB] 81 mg PO QDAY #30 tab.chew 07/25/20 Unknown Rx AtorvaSTATin [Lipitor] 40 mg PO QHS #30 tab 07/25/20 Unknown Rx Clopidogrel [Plavix] 75 mg PO QDAY #30 tablet 07/25/20 Unknown Rx Famotidine [Pepcid] 10 mg PO BID #30 tablet 07/25/20 Unknown Rx Active Medications: Generic Name Dose Route Start Last Admin Trade Name Freq PRN Reason Stop Dose Admin Acetaminophen 650 mg 08/11/20 04:00 08/11/20 22:48 Acetaminophen 325 Mg Tab PO 650 mg Q4H PRN Administration Pain MILD(1-3)/Fever >100.5/ALBERTS Al Hydrox/Mg Hydrox/Simethicone 30 ml 08/11/20 04:00 Alum-Mag Hydroxide-Simethicone [phone]/5ml Oral Liqd 30 Ml PO Q4H PRN Indigestion Aspirin 81 mg 08/11/20 10:00 08/11/20 09:24 Aspirin 81 Mg Tab Chew PO 81 mg QDAY ALIX Administration Atorvastatin Calcium 40 mg 08/11/20 22:00 08/11/20 22:47 Atorvastatin 40 Mg Tab PO 40 mg QHS ALIX Administration Calcitriol 1 mcg 08/11/20 10:00 08/11/20 09:24 Calcitriol 0.5 Mcg Cap PO 1 mcg QDAY ALIX Administration Carvedilol 25 mg 08/11/20 10:00 08/11/20 22:47 Carvedilol 25 Mg Tab PO 25 mg BID ALIX Administration Clonidine HCl 0.2 mg 08/11/20 22:00 08/12/20 01:18 Clonidine 0.2 Mg Tab PO 0.2 mg QHS ALIX Administration Clopidogrel Bisulfate 75 mg 08/11/20 10:00 08/11/20 09:24 Clopidogrel 75 Mg Tab PO 75 mg QDAY ALIX Administration Colchicine 0.6 mg 08/11/20 18:00 08/11/20 17:48 Colchicine 0.6 Mg Tab PO 0.6 mg QDAY ALIX Administration Ferrous Sulfate 325 mg 08/11/20 10:00 08/11/20 09:24 Ferrous Sulfate 325 Mg Tab PO 325 mg QDAY ALIX Administration Furosemide 80 mg 08/11/20 13:00 08/12/20 05:33 Furosemide 100 Mg/10 Ml Inj IV 80 mg 0600,1800 ALIX Administration Heparin Sodium (Porcine) 5,000 unit 08/11/20 10:00 08/11/20 22:49 Heparin 5,000 Unit/1 Ml Vial SUB-Q 5,000 unit Q12HR ALIX Administration Hydralazine HCl 100 mg 08/11/20 08:00 08/11/20 22:47 Hydralazine 100 Mg Tab PO 100 mg TID ALIX Administration Isosorbide Mononitrate 60 mg 08/11/20 10:00 08/11/20 09:24 Isosorbide Mononitrate Er 60 Mg Tab PO 60 mg DAILY ALIX Administration Magnesium Hydroxide 30 ml 08/11/20 04:00 Magnesium Hydroxide (Mom) Oral Liqd Udc PO Q4H PRN Constipation Metoclopramide HCl 5 mg 08/11/20 04:21 Metoclopramide 10 Mg/2 Ml Inj IV Q6H PRN Nausea And Vomiting Multivitamins 1 each 08/11/20 10:00 08/11/20 09:24 Multivitamins ,Therapeutic Tab PO 1 each QDAY ALIX Administration Nifedipine 60 mg 08/12/20 10:00 Nifedipine Xl 60 Mg Tab PO QDAY ALIX Ondansetron HCl 4 mg 08/11/20 04:00 Ondansetron 4 Mg/2 Ml Inj IV Q8H PRN Nausea And Vomiting Sodium Chloride 10 ml 08/11/20 10:00 08/11/20 23:15 Sodium Chloride 0.9% 10 Ml Flush Syringe IV 10 ml BID ALIX Administration Sodium Chloride 10 ml 08/11/20 04:00 Sodium Chloride 0.9% 10 Ml Flush Syringe IV PRN PRN LINE FLUSH Spironolactone 25 mg 08/12/20 10:00 Spironolactone 25 Mg Tab PO QDAY ALIX Trazodone HCl 50 mg 08/11/20 04:13 Trazodone 50 Mg Tab PO QHS PRN Insomnia
[2020-08-12] MEDS: ACETAMINOPHEN 325 MG TAB PO PRN ×2 (11:04→15:29)
[2020-08-12] MEDS: hydrALAZINE 100 MG TAB PO SCH ×2 (12:42→15:35)
--- NOTE | 2020-08-12 12:50 | Discharge Summary ---
Providers - Providers Date of Admission: 08/11/20 06:16 Date of discharge: 08/12/20 Attending physician: AMERICA NAVARRO 08/11/20 05:24 Consult to Physician [CONS] Routine Comment: Consulting Provider: MILAGROS LORD Physician Instructions: Reason For Exam: ESRD Primary care physician: DIRECTOR OF SCIENTIFIC RESEARCH Hospitalization Reason for admission: Worsening shortness of breath/fluid overload Condition: Stable Pertinent studies: chest x-ray no acute finding Procedures: HD per schedule Hospital course: 64-year-old male patient with significant history of end-stage renal disease on hemodialysis congestive heart failure cardiomyopathy history of renal mass Presented to the emergency room with worsening shortness of breath and fluid overload in spite of being compliant with hemodialysis. Patient was evaluated by automobile accessories installer, patient [facility] and as needed. Patient was placed on high-dose diuretics blood pressures closely monitored medications optimized, Patient received again hemodialysis today. Patient symptoms significantly improved, today he is comfortable no new complaints vital signs stable Physical examination prior to discharge did not show any new changes. Patient is hemodynamically and clinically stable at discharge. Discharge diagnosis; --Fluid overload/end-stage renal disease; Patient claims compliance with hemodialysis IV Lasix recommended by nephrology Received HD [id number] for 2 days Symptoms improved --Hypokalemia; Replenished with KCl closely monitor electrolytes -- Acute on chronic HFrEF (heart failure with reduced ejection fraction) Current Visit: No Status: Acute Fluid overload likely secondary to HD and CHF Patient claims compliance with hemodialysis Continue dialysis per schedule Aspirin, statin, and oxygen supplements as needed. -- Acute respiratory failure with hypoxia Due to fluid overload , received HD stable --Cardiomyopathy Current Visit: No Status: Acute Continue current cardiac medications Closely monitor, cardiology consult if needed --ESRD on hemodialysis Current Visit: No Status: Acute Nephrology following, HD per schedule And additional HD as needed --Advance care planning Current Visit: No Status: Acute Patient is a full CODE STATUS. --History of renal mass; Patient sees his private urologist follow urology as outpatient upon discharge --DVT prophylaxis Current Visit: No Status: Acute Heparin subcutaneous renal dose. Cleared by nephrology stable at discharge s Disposition: DC- TO HOME OR SELFCARE Final Discharge Diagnosis (Prints w/discharge instructions): Fluid overload. Acute hypoxic respiratory failure. Acute on chronic CHF. Cardiomyopathy. ESRD on hemodialysis. Hypokalemia. History of renal mas Time spent for discharge: 35 min Core Measure Documentation - Palliative Care Palliative Care/ Comfort Measures: Not Applicable - Core Measures Any of the following diagnoses?: none Exam - Constitutional Vitals: Temp Pulse Resp BP Pulse Ox 97.5 F L 64 16 121/56 97 08/12/20 12:22 08/12/20 12:22 08/12/20 12:22 08/12/20 12:22 08/12/20 07:52 General appearance: Present: no acute distress, well-nourished - EENT Eyes: Present: PERRL, EOM intact - Neck Neck: Present: supple, normal ROM - Respiratory Respiratory: bilateral: diminished, negative: rales, rhonchi, wheezing - Cardiovascular Rhythm: regular Heart Sounds: Present: S1 & S2 - Extremities Extremities: no ischemia, No edema - Abdominal General gastrointestinal: Present: soft, non-tender, non-distended, normal bowel sounds - Integumentary Integumentary: Present: clear, warm - Musculoskeletal Musculoskeletal: strength equal bilaterally - Psychiatric Psychiatric: appropriate mood/affect, cooperative - Neurologic Neurologic: moves all extremities Plan Activity: no restrictions Diet: renal Additional Instructions: Follow nephrology/hemodialysis per schedule. If you have worsening symptoms contact MD or go to emergency room as needed Follow up with: PRIMARY CARE, [Primary Care Provider] - 3-5 Days ANABELLA WHITESIDE MD [Staff Physician] - 7 Days Prescriptions: Furosemide [Lasix TAB] 40 mg PO QDAY #30 tablet
[2020-08-12] MEDS: COLCHICINE 0.6 MG TAB PO SCH (12:55)
[2020-08-12] MEDS: MULTIVITAMINS ,THERAPEUTIC TAB PO SCH (12:55)
[2020-08-12] MEDS: CALCITRIOL 0.5 MCG CAP PO SCH (12:55)
[2020-08-12] MEDS: FERROUS SULFATE 325 MG TAB PO SCH (12:55)
[2020-08-12] MEDS: CLOPIDOGREL 75 MG TAB PO SCH (12:56)
[2020-08-12 15:35] VITALS: BP 102/70
[2020-08-12] MEDS ORDERED: KETOROLAC 30 MG/1 ML INJ IV ONE (15:43)
--- NOTE | 2020-08-15 10:58 | Electrocardiograph Report ---
[facility] Test Date: 2020-08-10 Test Time: 23:50:54 Pat Name: OSVALDO CARO Department: Room: A460 1 Gender: M Claims Consultant: JESI : 1955 Requested By: WICHO CROUCH Order Number: [id number] Reading MD: Juan Navarro Measurements Intervals [place]er Rate: 73 P: -35 CO: 205 QRS: -110 QRSD: 156 T: 51 QT: 469 QTc: 523 Interpretive Statements Sinus rhythm Multiple ventricular premature complexes Right bundle branch block Anteroseptal infarct, age indeterminate Compared to ECG 07/23/2020 09:39:41 Ventricular premature complex(es) now present Right bundle-branch block now present Intraventricular conduction delay no longer present Left ventricular hypertrophy no longer present T-wave abnormality no longer present Possible ischemia no longer present Electronically Signed On 08-15-2020 10:58:23 EDT by Juan Navarro
== END 2020-08-12 16:21 | disposition home or self-care (01) ==
LOC: ED 23:31 → INTOOBSV 08-11 06:16 → 4A 08-11 06:16
PROVIDERS: ADMIT Hospitalist; ATTEND Internal Medicine
DX: J96.01 Acute respiratory failure with hypoxia (principal); I13.2 Hypertensive heart and chronic kidney disease with heart failure and with stage 5 chronic kidney disease, or end stage renal disease; I50.21 Acute systolic (congestive) heart failure; N18.6 End stage renal disease; D63.1 Anemia in chronic kidney disease; I42.9 Cardiomyopathy, unspecified; E87.70 Fluid overload, unspecified; E87.6 Hypokalemia; N28.89 Other specified disorders of kidney and ureter; E78.5 Hyperlipidemia, unspecified; Z79.82 Long term (current) use of aspirin; Z99.2 Dependence on renal dialysis
CPT/HCPCS: 36415; 71045; 78580; 80048; 80053; 80061; 83735; 83880; 84484; 85025; 85379; 93005; 96372; 96374; 96375; 96376; 99285; A9270; A9540; G0257; G0378; J1644; J1885; J1940